=== PATIENT | male | born 1965 | race Two or more races ===

== ENCOUNTER → 2022-03-18 11:23 | Outpatient (REF) | payer MEDICAID, SELFPAY ==
--- NOTE | 2022-03-18 11:28 | CA_ITS ---
Transthoracic Echocardiogram Patient (Last, First, Middle): Dany Ryan, Gender: Male Date of : 1965 Age: 57 Procedure Date: 03/18/2022 Procedure Type: Transthoracic Echocardiogram Location: OP Height: 175.26 cm Weight: 79.38 kg BSA: 1.95 m2 Heart Rate: bpm BP: 130 / 70 mmHg Training Analyst: MARCELLA Pruett MD: [facility] Analog Device Designer: Georgi Bernard MD Symptoms: R94.31 ABNORMAL EKG Study Quality: Good ECG Rhythm: Sinus Conclusions: - 1. [id number] LV systolic dysfunction with LVEF of 40 45% with impaired relaxation filling pattern 2. Normal cardiac valvular Doppler 3. Normal RV systolic pressure 4. No pericardial effusion Findings Left Ventricle Normal left ventricular cavity size. There is normal left ventricular wall thickness. The left ventricular systolic function is mild to moderately decreased. The visually estimated ejection fraction is between 40-45%. Spectral Doppler is indicative of an impaired relaxation filling pattern. E/E prime ratio is between 8 and 15 consistent with indeterminate filling pressures. Right Ventricle Normal right ventricular cavity size and systolic function. Atria The left atrium is normal in size. There is no evidence of interatrial shunt. The right atrium is normal in size. Aortic Valve Normal aortic valve structure and function. There is no aortic valve stenosis. There is no aortic valve regurgitation. Mitral Valve Normal mitral valve structure and function. There is trace mitral valve regurgitation. There is no mitral valve stenosis. Pulmonic Valve The pulmonic valve is likely normal. There is trace to mild pulmonic valve regurgitation. Tricuspid Valve Normal tricuspid valve structure. There is trace tricuspid valve regurgitation. The right ventricular systolic pressure is normal. The right ventricular systolic pressure is 19 mmHg. There is no evidence of pulmonary hypertension. Great Vessels All visible segments of the aorta are normal in size. The pulmonary artery was not well visualized. Venous The inferior vena cava is normal in size and collapses greater than 50% with inspiration. Pericardium/Pleural There is no evidence of pericardial effusion. Prior Study Comparison no previous study in the last 5 years for comparison. Compared to study from 2013, LV systolic function is reduced Measurements 2D Linear Measurements IVSd: 1.02 0.6-0.9/0.6-1.0 cm LVIDd: 5.35 3.9-5.3/4.2-5.9 cm LVIDd Index: 2.74 2.4-3.2/2.2-3.1 cm/m2 LVIDs: 4.03 2.0-3.6 cm LVPWd: 1.02 0.7-1.1 cm LA Diam: 3.70 2.7-3.8/3.0-4.0 cm LAIDs Index: 1.90 1.5-2.3 cm/m2 LV Mass: 260.47 67-162/88-224 g LV Mass Index: 133.57 43-95/49-115 g/m2 LVOT Diam: 2.20 3.0+(-)1.3 cm 2D Systolic Function EF 4C: 41.40 >55% EF 2C: 44.10 >55% EF BiP: 43.30 >55% Mitral Valve MV Pk E: 0.61 MV PK A: 0.92 MV Decel Time: 183.00 E/A: 0.70 E'Lateral: 7.40 E'Medial: 4.90 E/E' Med: 12.40 E/E' Lat: 8.20 PHT: 54.00 MVA PHT: 4.07 Decel Hall: 3.32 Aortic Valve AoV Pk Zhen: 1.16 AoV Mn Zhen: 0.77 AoV VTI: 0.20 AoV Pk Grad: 5.00 Aov Mn Grad: 3.00 MARIBETH Cont.VTI: 3.17 LVOT LVOT Pk Zhen: 0.86 LVOT Mn Zhen: 0.53 LVOT VTI: 0.17 LVOT Pk Grad: 3.00 LVOT Mn Grad: 1.00 LVOT Diam: 2.20 LVOT Area: 3.80 Diastolic Function MV Pk E: 0.61 MV Pk A: 0.92 E/A: 0.70 E'Medial: 4.90 E/E' Med: 12.40 E' Laterial: 7.40 E/E' Lat: 8.20 Right Ventricle TAPSE (mm): 20.00 TVS' Zhen: 12.60 Tricuspid Valve TR Pk Zhen: 2.00 TR Pk Grad: 16.00 RA Press: 3.00 RVSP: 19.00 Great Vessels Aorta Sinus of Valsalva: 3.48 2.0-3.[address] Ridge: 2.95 1.7-3.4 cm Ao Asc: 3.40 2.1-3.4 cm Ao Arch: 2.40 Updated in Other Vendor System with Status of Final Georgi Bernard MD electronically signed on 03/18/2022 4:40:27 PM with status of Final
== END ==
LOC: HO.CARD 11:23
PROVIDERS: PCP Registered Nurse; Visit Provider Registered Nurse
DX: R94.31 Abnormal electrocardiogram [ECG] [EKG] (principal)
CPT/HCPCS: 93306

== ENCOUNTER 2022-04-08 20:23 | Emergency (ER) | payer MEDICAID, SELFPAY ==
[2022-04-08 20:38] VITALS: BP 145/80; PULSE 87; O2SAT 100
--- NOTE | 2022-04-08 21:52 | PC.NURSE ---
pt not in waiting room at this time.
== END 2022-04-08 23:30 | disposition left against medical advice (07) ==
PROVIDERS: Emergency Provider Emergency Medicine
DX: Z91.81 History of falling (principal)

== ENCOUNTER 2022-04-09 09:51 | Emergency (ER) | payer MEDICAID, SELFPAY ==
--- NOTE | ~2022-04-09 | XR_ITS ---
EXAMINATION: XR RIBS, LEFT CLINICAL INFORMATION: Status post fall. Rib pain. COMPARISON: None TECHNIQUE: Frontal, oblique views of the left hemithoracic ribs and frontal view of the chest were obtained. The site of the left hemithoracic rib pain as was pointed out by the patient was marked with a cutaneous BB marker corresponding to the lower left hemithorax. FINDINGS: Lungs are clear. No consolidation, pneumothorax, or pleural effusion. The cardiomediastinal silhouette and pulmonary vasculature are normal. Ribs are intact. No fractures are identified. Incidental note is made of severe osteoarthrosis at the right glenohumeral joint. XR/XR ribs LT min 3V w CXR1V IMPRESSION: 1. No radiographic evidence of any displaced left lower hemithoracic rib fracture or hemopneumothorax or lung contusion. 2. Severe osteoarthrosis at the right glenohumeral joint.
--- NOTE | ~2022-04-09 | CT_ITS ---
CT HEAD WITHOUT IV CONTRAST CT MAXILLOFACIAL WITHOUT IV CONTRAST INDICATION: Status post fall. COMPARISON: Head CT 03/21/2018. TECHNIQUE: Multidetector CT acquisitions of the head, maxillofacial region, and cervical spine were obtained without IV contrast. Multiplanar reformats were acquired and utilized for image interpretation. This CT examination was performed using dose optimization techniques as appropriate, variously including the following: *Automated exposure control *Adjustment of mA and/or kV according to patient size (this includes techniques or standardized protocols for targeted exams where dose is matched to indication/reason for exam; i.e. extremities or head) *Use of iterative reconstruction technique FINDINGS: HEAD: Chronic infarct involving the right putamen and escobar radiata. Chronic low attenuation within the brainstem is unchanged. There is no intracranial hemorrhage, hydrocephalus, extra-axial surface collection, midline shift, or other herniation pattern. Tyler to white matter differentiation is diffusely maintained without evidence of an evolved acute territorial infarct. The basilar cisterns are preserved. No significant soft tissue abnormality. No acute osseous abnormality. The paranasal sinuses and the mastoid air cells are well aerated. MAXILLOFACIAL: There is a displaced fracture involving the right mandibular condylar head extending to the pterygoid fovea. The right mandibular condyle fracture fragment is subluxed anteriorly with relation to the glenoid fossa. There is an old healed fracture of the left mandible with no definite additional acute mandibular fractures are identified however assessment is limited by the degree of motion artifact on the maxillofacial CT study. Consider a repeat CT study given the limitations of this exam in assessing for additional fractures given the degree of motion. CT/CT facial bones wo con IMPRESSION: -There is a displaced fracture involving the right mandibular condylar head extending to the pterygoid fovea. The right mandibular condyle fracture fragment is subluxed anteriorly with relation to the glenoid fossa. There is an old healed fracture of the left mandible with no definite additional acute mandibular fractures are identified however assessment is limited by the degree of motion artifact on the maxillofacial CT study. Consider a repeat CT study given the limitations of this exam in assessing for additional fractures given the degree of motion. - No acute intracranial findings. No acute hemorrhage. Chronic ischemic changes as described.
[2022-04-09 10:02] VITALS: BP 153/89; PULSE 89; RESP 19; TEMP 36.6; O2SAT 98; BMI 25.8
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
[2022-04-09] MEDS: Acetaminophen 325 MG TABLET 975 MG PO (12:57)
[2022-04-09] MEDS: Diphth,Pertus(ACell),Tet Adult 0.5 ML SYRINGE IM (14:13)
== END 2022-04-09 14:21 | disposition home or self-care (01) ==
PROVIDERS: Emergency Provider Emergency Medicine
DX: S02.611A Fracture of condylar process of right mandible, initial encounter for closed fracture (principal); S00.81XA Abrasion of other part of head, initial encounter; W01.0XXA Fall on same level from slipping, tripping and stumbling without subsequent striking against object, initial encounter; Y93.01 Activity, walking, marching and hiking; Y92.410 Unspecified street and highway as the place of occurrence of the external cause; Y99.9 Unspecified external cause status
CPT/HCPCS: 70450; 70486; 71101; 90471; 90715; 99282; 99283; 99284

== ENCOUNTER 2022-10-28 13:49 | Outpatient (REF) | payer MEDICAID, SELFPAY ==
[2022-10-28 14:19] LABS: MANUAL DIFF FLAG NO
[2022-10-28 14:50] LABS: Basophils Percent Auto 0.3 % (0-2); Eosinophils Absolute Auto 0.2 X10*3/uL (0.0-0.4); Eosinophils Percent Auto 2.8 % (0-4); Hematocrit 40.4 % (42.0-52.0); Hemoglobin 13.9 g/dl (14.0-18.0); Imm Gran Abs Auto 0.02 X10*3/uL (0.00-0.03); Imm Gran Pct Auto 0.3 % (0.0-0.4); Lymphocytes Absolute Auto 1.5 X10*3/uL (1.2-4.9); Lymphocytes Percent Auto 24.1 % (20-40); Mean Corpuscular HGB Conc 34.4 g/dl (31.0-36.0); Mean Corpuscular Hemoglobin 30.7 pg (27.0-33.0); Mean Corpuscular Volume 89.2 fL (80.0-98.0); Mean Platelet Volume 11.4 fL (9.4-12.4); Monocytes Absolute Auto 0.5 X10*3/uL (0.1-1.2); Monocytes Percent Auto 7.2 % (2-11); Neutrophils Absolute Auto 4.2 x10*3/uL (2.0-8.3); Neutrophils Percent Auto 65.3 % (45-73); Platelet Count 170 X10*3/uL (160-400); Red Blood Count 4.53 X10*6/uL (4.60-5.80); Red Cell Distribution Width 11.8 % (11.0-16.0); White Blood Count 6.4 X10*3/uL (4.8-10.8)
[2022-10-28 14:54] LABS: Appearance Urine Clear; Color Urine Yellow; Glucose Urine UA >=1000 mg/dL (Negative); Leukocyte Esterase Urine Negative (Negative); Nitrite Urine Negative (Negative); PH 5.5 (5.0-9.0); Specific Gravity - Urine 1.025 (1.005-1.025); UMIC TRIGGER UA YES; Urine Blood Trace (Negative); Urine Ketones Negative (Negative); Urine Protein 300 (3+) mg/dL (Neg-Trace)
[2022-10-28 14:57] LABS: Bacteria Urine None Seen (None Seen); Hyaline Casts Urine 0-2 /LPF (0-2); RBC Urine 0-2 /HPF (0-2); Squamous Epithelial Cell Urine 0-2 /HPF (0-2); WBC Urine 0-5 /HPF (0-5)
[2022-10-28 15:21] LABS: Albumin Level 3.5 g/dL (3.5-5.0); Anion Gap 11 (12-20); Blood Urea Nitrogen 25 mg/dL (9-16); Calcium 9.2 mg/dL (8.4-10.2); Carbon Dioxide 28 mmol/L (22-29); Chloride 100 mmol/L (96-108); Estimated Glomerular Filt Rate 46; Magnesium 2.1 mg/dL (1.6-2.6); Phosphorus 4.7 mg/dL (2.7-4.5); Potassium 4.7 mmol/L (3.3-5.1); Sodium 134 mmol/L (135-145)
[2022-10-28 15:27] LABS: Creatinine Urine 54.93 mg/dL; Protein/Creatinine Ratio, Ur 3.06 (<0.2); Total Protein Urine Random 168 mg/dL (<12)
[2022-10-31 15:39] LABS: PTHI 126 pg/mL (16-77)
== END 2022-10-28 13:50 | disposition home or self-care (01) ==
LOC: HO.LAB 13:49
PROVIDERS: Visit Provider Internal Medicine Nephrology
DX: I12.9 Hypertensive chronic kidney disease with stage 1 through stage 4 chronic kidney disease, or unspecified chronic kidney disease (principal); E11.22 Type 2 diabetes mellitus with diabetic chronic kidney disease; N18.31 Chronic kidney disease, stage 3a; R80.1 Persistent proteinuria, unspecified
CPT/HCPCS: 36415; 80051; 81001; 82040; 82043; 82310; 82565; 83735; 83970; 84100; 84156; 84520; 85025; 87086

== ENCOUNTER 2023-07-07 09:48 | Outpatient (REF) | payer MEDICAID, SELFPAY ==
[2023-07-07 12:49] LABS: Alanine Aminotransferase 21 U/L (0-40); Albumin Level 3.5 g/dL (3.5-5.0); Alkaline Phosphatase 87 U/L (39-117); Anion Gap 13 (12-20); Aspartate Amino Transferase 23 U/L (5-37); Bilirubin Total 0.3 mg/dL (0.0-1.0); Blood Urea Nitrogen 20 mg/dL (9-16); Calcium 9.3 mg/dL (8.4-10.2); Carbon Dioxide 23 mmol/L (22-29); Chloride 103 mmol/L (96-108); Cholesterol 200 mg/dL; Estimated Glomerular Filt Rate 53; Glucose Random 307 mg/dL (60-115); HDL Cholesterol 56 mg/dL; LDL Cholesterol Calculated 95 mg/dl; Potassium 4.3 mmol/L (3.3-5.1); Sodium 135 mmol/L (135-145); Total Protein 7.1 g/dL (6.5-8.0); Triglycerides 249 mg/dL
[2023-07-07 13:04] LABS: Creatinine Urine 41.03 mg/dL; Microalbum/Creatinine Ratio Ur 2510.3 ug/mg cr
== END 2023-07-07 09:49 | disposition home or self-care (01) ==
LOC: HO.HHCL 09:48
PROVIDERS: Visit Provider Registered Nurse
DX: E11.22 Type 2 diabetes mellitus with diabetic chronic kidney disease (principal); N18.30 Chronic kidney disease, stage 3 unspecified; Z79.4 Long term (current) use of insulin
CPT/HCPCS: 36415; 80053; 80061; 82043

== ENCOUNTER 2024-02-20 13:18 | Outpatient (REF) | payer MEDICAID, SELFPAY ==
[2024-02-20 13:37] LABS: MANUAL DIFF FLAG NO
[2024-02-20 14:40] LABS: Appearance Urine Clear; Color Urine Yellow; Glucose Urine UA 250 mg/dL (Negative); Leukocyte Esterase Urine Negative (Negative); Nitrite Urine Negative (Negative); PH 5.5 (5.0-9.0); Specific Gravity - Urine 1.015 (1.005-1.025); UMIC TRIGGER UA YES; Urine Blood Negative (Negative); Urine Ketones Negative (Negative); Urine Protein 300 (3+) mg/dL (Neg-Trace)
[2024-02-20 14:43] LABS: Basophils Percent Auto 0.3 % (0-2); Eosinophils Absolute Auto 0.1 X10*3/uL (0.0-0.4); Eosinophils Percent Auto 1.8 % (0-4); Hematocrit 36.7 % (42.0-52.0); Hemoglobin 12.5 g/dl (14.0-18.0); Imm Gran Abs Auto 0.03 X10*3/uL (0.00-0.03); Imm Gran Pct Auto 0.5 % (0.0-0.4); Lymphocytes Absolute Auto 1.2 X10*3/uL (1.2-4.9); Lymphocytes Percent Auto 17.9 % (20-40); Mean Corpuscular HGB Conc 34.1 g/dl (31.0-36.0); Mean Corpuscular Hemoglobin 31.2 pg (27.0-33.0); Mean Corpuscular Volume 91.5 fL (80.0-98.0); Mean Platelet Volume 11.1 fL (9.4-12.4); Monocytes Absolute Auto 0.4 X10*3/uL (0.1-1.2); Monocytes Percent Auto 6.6 % (2-11); Neutrophils Absolute Auto 4.8 x10*3/uL (2.0-8.3); Neutrophils Percent Auto 72.9 % (45-73); Platelet Count 148 X10*3/uL (160-400); Red Blood Count 4.01 X10*6/uL (4.60-5.80); Red Cell Distribution Width 11.8 % (11.0-16.0); White Blood Count 6.5 X10*3/uL (4.8-10.8)
[2024-02-20 14:44] LABS: Bacteria Urine None Seen (None Seen); Hyaline Casts Urine 0-2 /LPF (0-2); RBC Urine 0-2 /HPF (0-2); Squamous Epithelial Cell Urine 0-2 /HPF (0-2); WBC Urine 0-5 /HPF (0-5)
[2024-02-20 15:27] LABS: Parathyroid Hormone Intact 117.8 pg/mL (8.7-77.1)
[2024-02-20 15:30] LABS: Alanine Aminotransferase 20 U/L (0-40); Albumin Level 3.3 g/dL (3.5-5.0); Alkaline Phosphatase 79 U/L (39-117); Anion Gap 13 (12-20); Aspartate Amino Transferase 21 U/L (5-37); Bilirubin Total 0.2 mg/dL (0.0-1.0); Blood Urea Nitrogen 25 mg/dL (9-16); Carbon Dioxide 22 mmol/L (22-29); Chloride 106 mmol/L (96-108); Estimated Glomerular Filt Rate 51; Glucose Random 192 mg/dL (60-115); Iron 62 mcg/dL (45-160); Magnesium 1.9 mg/dL (1.6-2.6); Percent Iron Saturation 29 % (15-50); Phosphorus 3.6 mg/dL (2.7-4.5); Sodium 136 mmol/L (135-145); Total Iron Binding Capacity 217 mcg/dL (228-428); Total Protein 6.5 g/dL (6.5-8.0); Unsaturated Iron Binding 155 ug/dL
== END 2024-02-20 13:19 | disposition home or self-care (01) ==
LOC: HO.LAB 13:18
PROVIDERS: Visit Provider Internal Medicine Nephrology
DX: E11.22 Type 2 diabetes mellitus with diabetic chronic kidney disease (principal); R80.1 Persistent proteinuria, unspecified; N18.31 Chronic kidney disease, stage 3a
CPT/HCPCS: 36415; 80053; 81001; 83540; 83735; 83970; 84100; 85025

== ENCOUNTER 2024-03-15 12:41 | Outpatient (REF) | payer MEDICAID, SELFPAY ==
--- NOTE | ~2024-03-15 | XR_ITS ---
EXAMINATION: XR CERVICAL SPINE CLINICAL INFORMATION: Unintentional weight loss in patient with smoking history and chronic neck pain. COMPARISON: None available. TECHNIQUE: 5 views of the cervical spine, inclusive of flexion and extension views, were obtained. The patient does not want to remove her earrings. FINDINGS: The density odontoid is obscured on the open-mouth view. On the lateral view, the patient's earrings obscure C2. No fracture. Prevertebral soft tissues are within normal limits. There is mild disc space narrowing at C3-C4 and C5-C6 and C6-C7 with some marginal osteophyte formation. There is mild retrolisthesis of C3 respect to C4 there is straightening of the usual cervical lordosis which can be seen with muscle spasm or be due to patient positioning. There is multilevel narrowing of neural foramina. XR/XR cervical spine 5V IMPRESSION: 1. Multilevel degenerative disc disease. 2. Straightening of the usual cervical lordosis which can be seen with muscle spasm or be due to patient positioning. 3. Mild retrolisthesis of C3 respect to C4.
--- NOTE | ~2024-03-15 | XR_ITS ---
EXAMINATION: XR CHEST CLINICAL INFORMATION: Unintentional weight loss in patient with smoking history and chronic neck pain COMPARISON: PA chest 04/09/2022 TECHNIQUE: 2 views of the chest were obtained. FINDINGS: No significant abnormality is noted involving the heart, lungs, mediastinum or soft tissues. THERE IS SEVERE DEGENERATIVE CHANGE OF THE RIGHT GLENOHUMERAL JOINT with [id number] appearance and subchondral cystic formation, worse since 04/09/2022 XR/XR chest 2V IMPRESSION: 1. No acute cardiopulmonary disease. 2. SEVERE DEGENERATIVE CHANGE OF THE RIGHT GLENOHUMERAL JOINT.
[2024-03-15 16:02] LABS: MANUAL DIFF FLAG NO
[2024-03-15 16:32] LABS: Eosinophils Absolute Auto 0.1 X10*3/uL (0.0-0.4); Eosinophils Percent Auto 2.2 % (0-4); Hematocrit 35.1 % (42.0-52.0); Lymphocytes Absolute Auto 1.1 X10*3/uL (1.2-4.9); Lymphocytes Percent Auto 18.4 % (20-40); Mean Corpuscular HGB Conc 34.2 g/dl (31.0-36.0); Mean Corpuscular Hemoglobin 31.1 pg (27.0-33.0); Mean Corpuscular Volume 90.9 fL (80.0-98.0); Monocytes Absolute Auto 0.3 X10*3/uL (0.1-1.2); Monocytes Percent Auto 5.9 % (2-11); Neutrophils Absolute Auto 4.3 x10*3/uL (2.0-8.3); Neutrophils Percent Auto 73.5 % (45-73); Platelet Count 158 X10*3/uL (160-400); Red Blood Count 3.86 X10*6/uL (4.60-5.80); Red Cell Distribution Width 12.1 % (11.0-16.0); White Blood Count 5.8 X10*3/uL (4.8-10.8)
[2024-03-15 16:45] LABS: Alanine Aminotransferase 22 U/L (0-40); Albumin Level 3.1 g/dL (3.5-5.0); Alkaline Phosphatase 75 U/L (39-117); Anion Gap 11 (12-20); Aspartate Amino Transferase 21 U/L (5-37); Bilirubin Total 0.3 mg/dL (0.0-1.0); Blood Urea Nitrogen 19 mg/dL (9-16); Calcium 8.5 mg/dL (8.4-10.2); Carbon Dioxide 25 mmol/L (22-29); Chloride 108 mmol/L (96-108); Estimated Glomerular Filt Rate > 60; Glucose Random 259 mg/dL (60-115); Potassium 4.1 mmol/L (3.3-5.1); Sodium 140 mmol/L (135-145)
[2024-03-15 16:53] LABS: Estimated Average Glucose 183 mg/dL
[2024-03-16 07:27] LABS: HIV AB/AG Nonreactive (Nonreactive); HIV Num 1 0.07 S/CO (0.00-0.99)
[2024-03-16 10:54] LABS: RPR Rapid Plasma Reagin NON-REACTIVE (NON-REACTIVE)
== END 2024-03-15 12:42 | disposition home or self-care (01) ==
LOC: HO.HHCL 12:41
PROVIDERS: Visit Provider Registered Nurse
DX: Z11.4 Encounter for screening for human immunodeficiency virus [HIV] (principal); M54.2 Cervicalgia; R63.4 Abnormal weight loss; E11.22 Type 2 diabetes mellitus with diabetic chronic kidney disease; N18.30 Chronic kidney disease, stage 3 unspecified; Z79.4 Long term (current) use of insulin; Z87.891 Personal history of nicotine dependence
CPT/HCPCS: 36415; 71046; 72050; 80053; 83036; 84443; 85025; 86592; 87389

== ENCOUNTER 2024-03-23 11:50 | Outpatient (REF) | payer MEDICAID, SELFPAY ==
[2024-03-23 13:43] LABS: Immature Retic Fraction 3.7 % (2.3-13.4); Retic HGB Equivalent 37.3 pg (30.0-35.0); Reticulocyte Percent 0.7 % (0.5-1.8); Reticulocytes Absolute 0.029 X10*6/uL (0.026-0.095)
[2024-03-23 14:20] LABS: Iron 73 mcg/dL (45-160); Percent Iron Saturation 35 % (15-50); Total Iron Binding Capacity 206 mcg/dL (228-428); Unsaturated Iron Binding 133 ug/dL
[2024-03-23 14:24] LABS: Ferritin 82 ng/mL (20-250)
== END 2024-03-23 11:51 | disposition home or self-care (01) ==
LOC: HO.HHCL 11:50
PROVIDERS: Visit Provider Registered Nurse
DX: D50.9 Iron deficiency anemia, unspecified (principal)
CPT/HCPCS: 36415; 82728; 83540; 85045

== ENCOUNTER 2024-05-29 06:55 | Emergency (ER) | payer MEDICAID, SELFPAY ==
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
--- NOTE | ~2024-05-29 | CT_ITS ---
EXAMINATION: CT CERVICAL SPINE WITHOUT CONTRAST CLINICAL INFORMATION: Neck trauma COMPARISON: 03/15/2024 TECHNIQUE: Thin section axial imaging with sagittal coronal reformats. This CT examination was performed using dose optimization techniques as appropriate, variously including the following: *Automated exposure control *Adjustment of mA and/or kV according to patient size (this includes techniques or standardized protocols for targeted exams where dose is matched to indication/reason for exam; i.e. extremities or head) *Use of iterative reconstruction technique DLP: 381 mGy-cm FINDINGS: There is anterior spondylitic change observed at C5-C6 and C6-C7. No fracture or destructive process. No significant encroachment on the spinal canal. The prevertebral soft tissues are normal. There is elongation of the right lobe of the thyroid. There is atherosclerotic calcification in the right and left common carotid bulbs. CT/CT cervical spine wo IV con IMPRESSION: Degenerative change. No acute findings. Fleischner guidelines were followed.
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
[2024-05-29 07:01] VITALS: BP 134/76; PULSE 74; O2SAT 98
[2024-05-29 07:04] VITALS: BP 131/71; PULSE 66; RESP 18; TEMP 37.2; O2SAT 98; BMI 21.5
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
[2024-05-29] MEDS: Cyclobenzaprine HCl 10 MG TABLET PO (08:07)
[2024-05-29 10:04] LABS: Glucose, Whole Blood 147 mg/dL (60-115)
[2024-05-29 10:47] VITALS: BP 131/71; PULSE 66; RESP 18; TEMP 37.2
== END 2024-05-29 10:58 | disposition home or self-care (01) ==
PROVIDERS: Emergency Provider Emergency Medicine; PCP Registered Nurse
DX: S13.4XXA Sprain of ligaments of cervical spine, initial encounter (principal); S39.012A Strain of muscle, fascia and tendon of lower back, initial encounter; V43.52XA Car driver injured in collision with other type car in traffic accident, initial encounter; Y93.9 Activity, unspecified; Y92.410 Unspecified street and highway as the place of occurrence of the external cause; Y99.9 Unspecified external cause status; R07.81 Pleurodynia; M54.2 Cervicalgia; E11.22 Type 2 diabetes mellitus with diabetic chronic kidney disease; N18.9 Chronic kidney disease, unspecified; Z86.73 Personal history of transient ischemic attack (TIA), and cerebral infarction without residual deficits
CPT/HCPCS: 71101; 72100; 72125; 82947; 99284

== ENCOUNTER 2024-08-10 14:13 | Outpatient (AMB) | payer MEDICAID, SELFPAY ==
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
[2024-08-10 14:28] VITALS: BP 130/70; PULSE 80; O2SAT 97
== END 2024-08-10 15:05 | disposition home or self-care (01) ==
PROVIDERS: PCP Registered Nurse; Visit Provider Nurse Practitioner Family
DX: M54.2 Cervicalgia (principal); G89.29 Other chronic pain; M50.30 Other cervical disc degeneration, unspecified cervical region; M47.812 Spondylosis without myelopathy or radiculopathy, cervical region; M62.838 Other muscle spasm
CPT/HCPCS: 99204

== ENCOUNTER → 2024-08-10 14:13 | Outpatient (BNVA) | payer MEDICAID, SELFPAY | PROVIDERS: PCP Registered Nurse; Visit Provider Nurse Practitioner Family | DX: M50.30 Other cervical disc degeneration, unspecified cervical region (principal); M47.812 Spondylosis without myelopathy or radiculopathy, cervical region; M62.838 Other muscle spasm; G89.29 Other chronic pain | CPT/HCPCS: 99212 ==

== ENCOUNTER 2024-09-13 06:07 | Outpatient (REF) | payer MEDICAID, SELFPAY | END 2024-09-13 06:08 | disposition home or self-care (01) | LOC: CF 06:07 | PROVIDERS: Visit Provider Internal Medicine | DX: M47.812 Spondylosis without myelopathy or radiculopathy, cervical region (principal) | CPT/HCPCS: 64490; 64491; J2795; Q9967 ==

== ENCOUNTER 2024-09-13 12:42 | Outpatient (AMB) | payer MEDICAID, SELFPAY ==
--- NOTE | 2024-09-13 12:46 | A.OFFVIS_ITS ---
Vital Signs 09/13/24 12:47 09/13/24 13:04 BP 160/84 H 180/98 H Blood Pressure Location Lt brachial Lt brachial Position Sitting Sitting Pulse 76 86 Pulse Source Pulse Oximeter Pulse Oximeter Pulse Oximetry (%) 96 99 Oxygen Delivery Method Room Air Room Air Intake Visit Reasons: Left Dx C4-C5-C6 MBB Allergies codeine [CODEINE] Allergy (Intermediate, Verified 08/10/24 14:23) HIVES HPI HPI Left Dx C4-C5-C6 MBB: Details: Patient presents for scheduled procedure. Denies any recent cough, cold, infection, fever or other significant changes in medical history since last office visit. [facility] Medical History (Updated 08/13/24 @ 21:55 by YENIFER Brito) Paresthesia of lower extremity Unstable knee Tinea pedis Stage 3a chronic kidney disease Osteomyelitis, ankle and foot Erectile dysfunction Epilepsy Chronic neck pain Chronic low back pain Body dysmorphic disorder Diabetic foot Complicated grieving Renal osteodystrophy Proteinuria Cerebral infarction Palpitations Hypertensive disorder Hyperlipidemia History of alcoholism Stroke Diabetes CKD (chronic kidney disease) Surgical History (Updated 08/13/24 @ 21:46 by YENIFER Brito) History of implantation of penile prosthesis Previous back surgery (~1993) Social History Patient Tobacco Use Status: Tobacco use Unknown Substance Use Type: Marijuana Physical Exam Vital Signs: Last Vital Signs Pulse 86 09/13/24 13:04 BP 180/98 H 09/13/24 13:04 Pulse Ox 99 09/13/24 13:04 Oxygen Delivery Method Room Air 09/13/24 13:04 Office Procedures Cervical/Thoracic Facet Inj Details: Diagnostic Cervical Medial Branch Block, left C4, C5, C6 medial branches After obtaining written consent, pre-procedure blood pressure and pulse were recorded and are in the nursing record for review. The patient was placed in a lateral position. The respective cervical area was prepped with chloraprep and draped in sterile fashion. The skin over the target medial branch nerves was anesthetized with 0.5% lidocaine. A 25 gauge 1.5 inch needle was inserted into the target medial branch nerve under fluoroscopic guidance. No paresthesias were elicited with needle placement and aspiration was negative for blood and CSF. Next, 0.2cc of omnipaque 180 was injected to verify positioning. Next 0.5 ml 0.5% ropivicaine was injected (0.5 cc total per level). The identical procedure was performed at the remaining levels. The skin was cleansed and a sterile bandage was applied. Following the procedure the patient's vital signs were stable. The patient tolerated the procedure well and no complications were encountered. Following the procedure the patient's vital signs were stable. The patient was discharged home in good condition with post-procedural instructions. Time Out: Immediately prior to the procedure, the following was verbally confirmed that there is a signed consent form and that the correct patient, planned procedure, site and side are consistent with documentation and that necessary equipment and/or blood products are available prior to the start of the case. Complications: none EBL: <5 cc 35551 - with Fluoroscopy 48106 - second level, with Fluoroscopy Procedure code (CPT) selection complete Assessment & Plan Assessment & Plan (1) Cervical spondylosis: Code(s): M47.812 - Spondylosis without myelopathy or radiculopathy, cervical region Category: Medical Plan Patient is status post left C4, C5, C6 diagnostic medial branch blocks. Patient tolerated procedure well and was discharged home in stable condition with discharge instructions. All questions were answered. We will follow-up via telephone or in clinic to assess response to therapy. A follow-up appointment was made during today's visit. Orders: Orders FL guidance in treatment room Today M47.812 - Spondylosis without myelopathy or radiculopathy, cervical region Coding Level of Care Code Procedure Only Diagnoses Cervical spondylosis M47.812 CPT Codes Facet Injection Cervical/Thoracic - CPT: 08501 - with Fluoroscopy ([id number]) Facet Injection Cervical/Thoracic - CPT: 74723 - second level, with Fluoroscopy ([id number])
[2024-09-13 12:47] VITALS: BP 160/84; PULSE 76; O2SAT 96
[2024-09-13 13:04] VITALS: BP 180/98; PULSE 86; O2SAT 99
== END 2024-09-13 13:53 | disposition home or self-care (01) ==
LOC: HO.PMCPRC 12:42
PROVIDERS: PCP Registered Nurse; Visit Provider Internal Medicine
DX: M47.812 Spondylosis without myelopathy or radiculopathy, cervical region (principal)
CPT/HCPCS: 64490; 64491

== ENCOUNTER 2024-09-20 12:42 | Outpatient (AMB) | payer MEDICAID, SELFPAY ==
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
[2024-09-20 13:04] VITALS: BP 165/95; PULSE 79; O2SAT 98; BMI 25.1
== END 2024-09-20 13:24 | disposition home or self-care (01) ==
PROVIDERS: PCP Registered Nurse; Visit Provider Nurse Practitioner Family
DX: M54.2 Cervicalgia (principal); G89.29 Other chronic pain; M50.30 Other cervical disc degeneration, unspecified cervical region; M47.812 Spondylosis without myelopathy or radiculopathy, cervical region
CPT/HCPCS: 99213

== ENCOUNTER → 2024-09-20 12:42 | Outpatient (BNVA) | payer MEDICAID, SELFPAY | PROVIDERS: PCP Registered Nurse; Visit Provider Nurse Practitioner Family | DX: M50.30 Other cervical disc degeneration, unspecified cervical region (principal); M47.812 Spondylosis without myelopathy or radiculopathy, cervical region; G89.29 Other chronic pain | CPT/HCPCS: 99212 ==

== ENCOUNTER 2024-11-02 13:14 | Inpatient (IN) | payer MEDICAID, SELFPAY ==
--- NOTE | 2024-11-02 | ECG_ITS ---
Test Reason : SYNCOPE Blood Pressure : / mmHG Vent. Rate : 075 BPM Atrial Rate : 075 BPM P-R Int : 168 ms QRS Dur : 092 ms QT Int : 360 ms P-R-T Axes : 072 032 -26 degrees QTc Int : 402 ms Normal sinus rhythm Minimal voltage criteria for LVH, may be normal variant ( [place] product ) Nonspecific T wave abnormality Abnormal ECG When compared with ECG of 21-MAR-2018 16:48, Nonspecific T wave abnormality now evident in Lateral leads Referred By: Generic ED Physician Electronically Signed By:Fermin Hogan
--- NOTE | ~2024-11-02 | MR_ITS ---
EXAMINATION: MR BRAIN WITHOUT CONTRAST CLINICAL INFORMATION: Chronic cerebrovascular accidents. The difficulty. COMPARISON: CT head from 11/02/2024. Brain MRI from 07/10/2019. TECHNIQUE: MRI of the brain was obtained using routine sequences without contrast. FINDINGS: Moderately motion degraded exam. Small region of restricted diffusion in the deep white matter of the left escobar radiata. Associated T2 FLAIR hyperintensity. No evidence of hemorrhagic transformation. No additional restricted diffusion. No evidence of acute or chronic hemorrhagic products on heme-sensitive imaging. Chronic lacunar infarcts of the right caudate tail, bilateral lentiform nuclei, bilateral thalami, kim, and cerebellum. Scattered and partially confluent periventricular, deep white matter, and brainstem T2 FLAIR hyperintensities consistent with moderate underlying microangiopathy. Proportional prominence of the ventricles and sulcal spaces without evidence of obstructive hydrocephalus. No abnormal mass effect. No midline shift. Normal appearance of the pituitary gland. Normal positioning of the cerebellar tonsils. Normal arterial and venous vascular flow voids are present. Normal, homogeneous marrow signal. Moderate mucosal thickening of the paranasal sinuses. No signal abnormalities within the mastoids. MR/MR head/brain wo con IMPRESSION: 1. Small acute white matter infarct of the left escobar radiata. No evidence of hemorrhagic transformation. 2. Moderate underlying microangiopathy and generalized cerebral volume loss. Chronic lacunar infarcts of the deep nuclei, brainstem, and cerebellum. Electronically signed by: Isaiah Hampton DO 11/02/2024 08:51 PM EST
--- NOTE | ~2024-11-02 | CT_ITS ---
EXAMINATION: CT HEAD WITHOUT CONTRAST CLINICAL INFORMATION: fall head strike COMPARISON: head ct on 11/02/24 TECHNIQUE: Contiguous axial imaging was performed from the skull base to vertex without intravenous administration of contrast. This CT examination was performed using dose optimization techniques as appropriate, variously including the following: *Automated exposure control *Adjustment of mA and/or kV according to patient size (this includes techniques or standardized protocols for targeted exams where dose is matched to indication/reason for exam; i.e. extremities or head) *Use of iterative reconstruction technique DLP: 1010 mGy-cm RESULTS: There is no evidence of acute intracranial hemorrhage, acute large vessel infarct, midline shift or mass effect. The bright-white differentiation is preserved. There are patchy periventricular and subcortical white matter changes, which are nonspecific, but likely represent chronic microangiopathic change in a patient of this age. The ventricles and sulci are within normal limits in size and configuration. There is no evidence of hydrocephalus. There are no extraaxial collections. Osseous structures are intact. Paranasal sinuses and mastoid air cells are well aerated. CT/CT head/brain wo IV con IMPRESSION: 1. No acute intracranial pathology. 2. Chronic microangiopathic ischemic changes. Electronically signed by: Jeanette Sweet MD 11/02/2024 06:04 PM [facility]
--- NOTE | ~2024-11-02 | US_ITS ---
EXAMINATION: US EXTRACRANIAL CAROTID DUPLEX, BILATERAL CLINICAL INFORMATION: Acute stroke. COMPARISON: None available. TECHNIQUE: Real-time ultrasound and Doppler techniques (integrating B-mode 2-D vascular images, Doppler spectral analysis and color-flow Doppler imaging) were utilized to interrogate the extracranial carotid arteries, the vertebral arteries and proximal subclavian arteries bilaterally. The degree of stenosis is determined by criteria similar to NASCET. FINDINGS: Right Side: 1. There is soft and hard atherosclerotic plaque seen in the bifurcation/proximal ICA region. 2. The common carotid artery PSV proximally is 84.5 cm/s and distally 62.7 cm/s. 3. The proximal internal carotid artery velocities are 101 cm/s systolic and 28.5 cm/s diastolic. 4. The proximal external carotid artery PSV is 191 cm/s. 5. The vertebral artery shows antegrade flow. 6. The subclavian artery waveforms are normal. Left Side: 1. There is soft and hard atherosclerotic plaque seen in the bifurcation/proximal ICA region. 2. The common carotid artery PSV proximally is 107 cm/s and distally 90.1 cm/s. 3. The proximal internal carotid artery velocities are 82 cm/s systolic and 22.4 cm/s diastolic. 4. The proximal external carotid artery PSV is 101 cm/s. 5. The vertebral artery shows antegrade flow. 6. The subclavian artery waveforms are normal. 1. US/US carotid duplex BI IMPRESSION: RIGHT: Minimal, non-hemodynamically significant stenosis of the proximal right internal carotid artery corresponding to a 0-49% stenosis by velocity criteria. 2. LEFT: Minimal, non-hemodynamically significant stenosis of the proximal left internal carotid artery corresponding to a 0-49% stenosis by velocity criteria. 3. Normal antegrade flow seen in both vertebral arteries. Electronically signed by: Walter Desai MD 11/03/2024 10:54 AM [facility]
[2024-11-02 13:26] VITALS: BP 137/79; PULSE 77; RESP 18; TEMP 36.9; O2SAT 99; BMI 21.4
[2024-11-02 14:03] LABS: MANUAL DIFF FLAG NO
[2024-11-02 14:06] LABS: Basophils Percent Auto 0.3 % (0-2); Eosinophils Absolute Auto 0.1 X10*3/uL (0.0-0.4); Eosinophils Percent Auto 2.3 % (0-4); Hematocrit 34.4 % (42.0-52.0); Hemoglobin 12.3 g/dl (14.0-18.0); Imm Gran Abs Auto 0.02 X10*3/uL (0.00-0.03); Imm Gran Pct Auto 0.3 % (0.0-0.4); Lymphocytes Absolute Auto 1.2 X10*3/uL (1.2-4.9); Lymphocytes Percent Auto 20.3 % (20-40); Mean Corpuscular HGB Conc 35.8 g/dl (31.0-36.0); Mean Corpuscular Hemoglobin 31.6 pg (27.0-33.0); Mean Corpuscular Volume 88.4 fL (80.0-98.0); Mean Platelet Volume 10.1 fL (9.4-12.4); Monocytes Absolute Auto 0.4 X10*3/uL (0.1-1.2); Monocytes Percent Auto 5.9 % (2-11); Neutrophils Absolute Auto 4.3 x10*3/uL (2.0-8.3); Neutrophils Percent Auto 70.9 % (45-73); Platelet Count 152 X10*3/uL (160-400); Red Blood Count 3.89 X10*6/uL (4.60-5.80); Red Cell Distribution Width 11.8 % (11.0-16.0); White Blood Count 6.1 X10*3/uL (4.8-10.8)
[2024-11-02 14:22] LABS: Alanine Aminotransferase 20 U/L (0-40); Albumin Level 3.2 g/dL (3.5-5.0); Alkaline Phosphatase 70 U/L (39-117); Anion Gap 9 (12-20); Aspartate Amino Transferase 30 U/L (5-37); Bilirubin Total 0.2 mg/dL (0.0-1.0); Blood Urea Nitrogen 19 mg/dL (9-16); Calcium 9.1 mg/dL (8.4-10.2); Carbon Dioxide 27 mmol/L (22-29); Chloride 106 mmol/L (96-108); Creatinine Clr Calc Pharmacy 61.1; Estimated Glomerular Filt Rate > 60; Glucose Random 127 mg/dL (60-115); Potassium 4.2 mmol/L (3.3-5.1); Sodium 138 mmol/L (135-145); Total Protein 6.2 g/dL (6.5-8.0)
[2024-11-02 14:29] LABS: Troponin-I High Sensitivity 7.2 ng/L (<3.5-35.0)
--- NOTE | 2024-11-02 16:01 | ED_ITS ---
HPI - Dizziness General Chief Complaint: Dizziness Stated Complaint: DIZZINESS X 1 WEEK Time Seen by Provider: 11/02/24 16:53 History of Present Illness ED Provider: Shira CHILDS Narrative: The patient is a 59-year-old male with a history of a stroke several years ago. This is left him with primarily left-sided weakness. He lives at home. The patient says that over the last 2 weeks he has had increasing problems with a sense of dizziness and poor balance. He says that before these last 2 weeks he would normally be able to walk with a cane most of the time. During these last 2 weeks he has increasingly had to use a walker so that he does not fall down. He says that today he fell although he fell onto a pile of laundry so he did not hurt himself. After the fall his family called an ambulance and he was brought to the hospital. The patient says that he takes aspirin. He does not take any anticoagulants.. Related Data Home Medications ?Medication ?Instructions ?Recorded ?Confirmed fludrocortisone 0.1 mg tablet 0.1 mg PO DAILY 08/10/24 loratadine 10 mg tablet 10 mg PO QAM 08/10/24 Previous Rx's ?Medication ?Instructions ?Recorded cyclobenzaprine 10 mg tablet 10 mg PO TID PRN muscle spasm #20 05/29/24 tabs lidocaine 5 % topical patch 1 patch topical DAILY #30 ea 05/29/24 Allergies Allergy/AdvReac Type Severity Reaction Status Date / Time codeine [CODEINE] Allergy Intermediate HIVES Verified 11/02/24 13:29 [facility] Past Medical History Medical History Paresthesia of lower extremity Unstable knee Tinea pedis Stage 3a chronic kidney disease Osteomyelitis, ankle and foot Erectile dysfunction Epilepsy Chronic neck pain Chronic low back pain Body dysmorphic disorder Diabetic foot Complicated grieving Renal osteodystrophy Proteinuria Cerebral infarction Palpitations Hypertensive disorder Hyperlipidemia History of alcoholism Stroke Diabetes CKD (chronic kidney disease) Surgical History History of implantation of penile prosthesis Previous back surgery (~1993) Social History Social History Household Members: None Housing: Apartment Do you presently have visiting nurse or other home services: No Patient Tobacco Use Status: Never used Tobacco Smoked in Last 30 Days: No e-Cigarette/Vaping Use: Never Used Patient Interested in Nicotine Replacement: No Patient Given Instructions on How to Stop Smoking: No Second Hand Smoke Exposure: No Use of substances other than those prescribed or required for medical reasons: Yes Substance Use Type: Marijuana Substance Use Frequency: Daily Last Used Substance: Unknown Currently Displaying Signs/Symptoms of Drug Intoxication Withdrawal: No Any prior treatment program specific to substance use: No Have you been hit, kicked, punched, or otherwise hurt by someone within the past year? If so, by whom?: No Do you feel safe in your current relationship?: No Current Relationship Is there a partner from a previous relationship who is making you feel unsafe now?: No Advance Directives: No Advance Directives Information Provided: Yes Advance Directives on File: No Do you have a plan to hurt others: No Plan Recently lost weight without trying: No Eating poorly because of decreased appetite: No Nutrition Risks: On aspiration precautions Poor oral hygiene: No Physical Exam 2 Vital Signs: Vital Signs: Last Vital Signs Temp 97.5 F 11/03/24 00:00 Pulse 75 11/03/24 00:00 Resp 17 11/03/24 00:00 BP 176/99 H 11/03/24 00:00 Pulse Ox 98 11/03/24 00:00 O2 Del Method Room Air 11/03/24 00:00 BMI result Body Mass Index 21.4 Const: Other: The patient is a 59-year-old male. He looks somewhat chronically ill. He had some occasional unusual body movements that are apparently chronic. He was pleasant and cooperative. HEENT: Other: No obvious facial asymmetry. Mucous membranes moist. Eyes: Other: Pupils are round equal, extraocular movements are intact, no definite nystagmus. I felt that there was a left upper lateral visual field deficit (quadrantanopia) Neck: Neck: Yes full ROM and Yes no JVD Resp: Effort & Inspection: normal respiratory effort Auscultation: clear to auscultation bilaterally Cardio: Rate: regular rate Rhythm: regular rhythm Heart sounds: S1 normal heart sound present and S2 normal heart sound present GI: Other: Abdomen is soft and nontender Skin: Other: Skin is dry and unremarkable Neuro: Other: The patient is awake and alert with a normal mental status. He is oriented. Follows commands. Eye movements are intact. I think there may be a quadrantanopia in the left upper lateral quadrant. Facial movements seemed symmetrical. No definite aphasia or dysarthria. He has some pronator drift of the left arm. Finger-nose seemed intact bilaterally. The patient had 5/5 strength in the right leg. He had 4/5 strength in the left leg. Heel-nava was normal with the right leg. He had difficulty with the left leg. Sensation is intact. The patient has a very abnormal gait. I suspect most of his neurological deficits are old. Whether any of these are new is hard to say. NIHSS score is about 5 but this may be primarily because of old deficits. Extrem: Other: No peripheral edema Course Course Course Narrative: This is an RME done by SRAVANI Mcnulty: Additional HPI, ROS, PE not included below will be deferred to primary provider. 59-year-old male presents with EMS for complaints of dizziness and reports he fell onto his laundry. Reports he hit his head. Not on blood thinners. He is in the waiting room and upset as he is not being said, I explained to him he case should not eat until results are back and imaging is back. Patient tells me he is a diabetic and he feels like crap and he does not eat. I expressed to him we understand that and we are willing to check his sugars however he does not want his sugars checked he just states he wants to go into a room and he wants to be able to eat. He tells me he got here at 11:00 which is not true, I explained to him emergency department works by acuity level. Medications Administered Generic Name Dose Route Start Last Admin Trade Name Freq PRN Reason Stop Dose Admin Acetaminophen 650 mg 11/02/24 21:57 11/02/24 22:48 Acetaminophen 325 Mg Tablet PO 650 mg Q6H PRN Administration Pain, Mild (Pain Scale 1-3), fever or headache Atorvastatin Calcium 40 mg 11/02/24 22:05 11/02/24 22:48 Atorvastatin Calcium 40 Mg Tablet PO 40 mg BEDTIME PRATIBHA Administration Cyclobenzaprine HCl 10 mg 11/03/24 00:50 11/03/24 01:16 Cyclobenzaprine Hcl 10 Mg Tablet PO 10 mg TID PRN Administration Muscle Spasm Enoxaparin Sodium 40 mg 11/02/24 22:00 11/02/24 22:44 Enoxaparin Sodium 40 Mg/0.4 Ml Syringe SUBCUT 40 mg Q24H PRATIBHA Administration Melatonin 6 mg 11/02/24 21:57 11/02/24 22:48 Melatonin 3 Mg Tablet PO 6 mg BEDTIME PRN Administration Insomnia Sodium Chloride 3 ml 11/03/24 00:00 11/03/24 01:17 0.9 % Sodium Chloride Flush 3 Ml Syringe IVFLUSH 3 ml QSHIFT PRATIBHA Administration Discontinued Medications Generic Name Dose Route Start Last Admin Trade Name Juliet PRN Reason Stop Dose Admin Aspirin 325 mg 11/02/24 21:15 11/02/24 21:25 Aspirin 325 Mg Tablet PO 11/02/24 21:16 325 mg ONCE ONE Administration Influenza Virus Vaccine 0.5 ml 11/03/24 00:57 11/03/24 01:19 Flu Vacc [id number](6mos Up)/Pf 0.5 Ml Syringe IM 11/03/24 00:58 0.5 ml .ONCE ONE Administration Meclizine HCl 25 mg 11/02/24 21:15 11/02/24 21:25 Meclizine Hcl 25 Mg Tablet PO 11/02/24 21:16 25 mg ONCE ONE Administration Medical Decision Making Medical Decision Making MDM Narrative: The patient is a 59-year-old male with a history of previous strokes. He is on aspirin. Who presents with 2 weeks of dizziness and worsening difficulty walking. His physical exam was complicated by his pre-existing neurological deficits from prior strokes. It was hard to know which findings were new and which were chronic. His gait however was very abnormal. A noncontrast head CT was negative. An MRI of the brain was done which showed a small acute infarct in the left escobar radiata. The patient was considered for thrombolytic therapy but is not a candidate because his symptoms have been going on for several days. The patient passed a swallow eval and was given a dose of aspirin. The patient was also requesting something to help with his dizziness and so he was given a dose of meclizine. The patient will be admitted to the medical service for further evaluation. Lab Data 11/02/24 13:57 11/02/24 13:57 Labs: Lab Results 11/02/24 Range/Units 13:57 WBC 6.1 (4.8-10.8) X10*3/uL RBC 3.89 L (4.60-5.80) X10*6/uL Hgb 12.3 L (14.0-18.0) g/dl Hct 34.4 L (42.0-52.0) % MCV 88.4 (80.0-98.0) fL MCH 31.6 (27.0-33.0) pg MCHC 35.8 (31.0-36.0) g/dl RDW 11.8 (11.0-16.0) % Plt Count 152 L (160-400) X10*3/uL MPV 10.1 (9.4-12.4) fL Immature Gran % (Auto) 0.3 (0.0-0.4) % Neut % (Auto) 70.9 (45-73) % Lymph % (Auto) 20.3 (20-40) % [place] % (Auto) 5.9 (2-11) % Eos % (Auto) 2.3 (0-4) % Baso % (Auto) 0.3 (0-2) % Lymph # (Auto) 1.2 (1.2-4.9) X10*3/uL [place] # (Auto) 0.4 (0.1-1.2) X10*3/uL Eos # (Auto) 0.1 (0.0-0.4) X10*3/uL Baso # (Auto) 0.0 (0.0-0.2) X10*3/uL Abs Immat Gran (auto) 0.02 (0.00-0.03) X10*3/uL Absolute Neuts (auto) 4.3 (2.0-8.3) x10*3/uL Absolute Nucleated RBC 0.000 (0.0-0.012) X10*3/uL Nucleated RBC % (auto) 0.0 (0.0-0.2) /100WBC Sodium 138 (135-145) mmol/L Potassium 4.2 (3.3-5.1) mmol/L Chloride 106 (96-108) mmol/L Carbon Dioxide 27 (22-29) mmol/L Anion Gap 9 L (12-20) BUN 19 H (9-16) mg/dL Creatinine 1.21 (0.5-1.4) mg/dL Estim Creat Clear Calc 61.1 Estimated GFR > 60 Random Glucose 127 H (60-115) mg/dL Calcium 9.1 D (8.4-10.2) mg/dL Total Bilirubin 0.2 (0.0-1.0) mg/dL AST 30 (5-37) U/L ALT 20 (0-40) U/L Alkaline Phosphatase 70 (39-117) U/L Troponin I High Sens 7.2 (<3.5-35.0) ng/L Total Protein 6.2 L (6.5-8.0) g/dL Albumin 3.2 L (3.5-5.0) g/dL Triglycerides 102 (<150) mg/dL Cholesterol 213 H (<200) mg/dL LDL Cholesterol, Calc 129 H (<100) mg/dL HDL Cholesterol 64 (>40) mg/dL Critical Care Time Critical Care Time Critical Care Time: Yes Total Critical Care Time: 35 Attestation: The patient was critically ill with a high probability of imminent or life- threatening deterioration. ?I spent greater than 30 minutes of discontinuous time evaluating the patient, delivering critical care at the bedside, discussing evaluating data with consultants. ?Critical care time does not include time spent performing separately billable procedures or teaching. ?Time spent performing critical care with 35 minutes. Discharge Plan Discharge Clinical Impression: Stroke Patient Disposition: Admitted As Inpatient Interventions: Admission Worksheet (ED) Last Done: 11/02/24 23:23 Discharge Date/Time: 11/03/24 00:23
[2024-11-02 16:51] VITALS: BP 164/82; PULSE 87; RESP 16; TEMP 36.6; O2SAT 97
--- NOTE | 2024-11-02 16:58 | PC.NURSE ---
Pt. with slightly garbled speech. Per pt.'s daughter, pt. has hx. of three previous strokes (most recent in 2016) and his speech has been this way ever since.
--- NOTE | 2024-11-02 20:28 | PC.NURSE ---
pt returned from MRI, requested to eat. nursing swallow screen done as requested by MD. pt passed with no difficulty. pt eating at the bedside while sitting up in bed, used commode at bedside independently. no further needs at this time, call [facility] w/in reach
[2024-11-02 20:39] VITALS: BP 187/87; PULSE 79; RESP 18; TEMP 36.8; O2SAT 97
--- NOTE | 2024-11-02 21:18 | P.HPHOSP_ITS ---
History of Present Illness Date of Service: 11/02/24 Attending physician on admission: Ranjit Carver Chief Complaint: Fall at home Pt is a 59-year-old male with a PMH significant for?hx of CVA x3 in 2012 and 2016 not med compliant, non-insulin dependent type 2 diabetes, peripheral neuropathy, hx of osteomyelitis s/p multiple toe amputations bilaterally, chronic neck and back pain s/p back surgery, and CKD2 who presents to the ED complaining of dizziness for the past 2 weeks. Patient states mostly becomes dizzy when he either lays in bed or tries to get up from bed. Reports has not been having many difficulties if standing from a seated position or once he starts walking. However, patient reports becoming dizzy earlier today when hitting a punching bag. Patient reports having a ?soft? fall in his room on a pile of laundry with a head strike. Patient's family found him and called an ambulance to bring him in for further evaluation. Patient denies headache or acute vision changes. No dysarthria or difficulty word finding. Denies numbness and tingling in upper extremities; numbness and tingling chronic and at baseline in lower extremities. Denies any new or different hemiparesis or difficulty grabbing objects. No facial droop or difficulty swallowing noted. Of note, patient states has a history of 3 prior CVAs. States stopped taking an aspirin on his own sometime a year so ago. Is also not taking a statin.. Denies chest pain/pressure, palpitations. No shortness a breath or difficulty breathing. Denies fever, chills, nausea, vomiting, abdominal pain. In the ED pt was hypertensive up to 187/87, vitals otherwise stable and WNL. Labs were grossly unremarkable and WNL for patient. No leukocytosis. Stable H&H. No significant electrolyte abnormalities. Renal and hepatic function WNL. CT?of head showed no acute intracranial pathology, but chronic microangiopathic ischemic changes. MRI of brain showed small acute white matter infarct of left escobar radiata without evidence of hemorrhagic transformation. Also found moderate underlying microangiopathy and generalized cerebral volume loss with chronic lacunar infarcts in the deep nuclei, brainstem, and cerebellum. EKG demonstrated normal sinus rhythm with nonspecific T-wave inversions in V5 but no evidence of significant ST elevations or depressions. Pt was treated with meclizine and aspirin. Pt will be admitted to the hospital for treatment and further evaluation of acute CVA. Review of Systems 2 Review of Systems: Negative except for that which stated in the [facility] Medical History Paresthesia of lower extremity Unstable knee Tinea pedis Stage 3a chronic kidney disease Osteomyelitis, ankle and foot Erectile dysfunction Epilepsy Chronic neck pain Chronic low back pain Body dysmorphic disorder Diabetic foot Complicated grieving Renal osteodystrophy Proteinuria Cerebral infarction Palpitations Hypertensive disorder Hyperlipidemia History of alcoholism Stroke Diabetes CKD (chronic kidney disease) Surgical History History of implantation of penile prosthesis Previous back surgery (~1993) Social History Patient Tobacco Use Status: Tobacco use Unknown Smoked in Last 30 Days: No Use of substances other than those prescribed or required for medical reasons: Yes Substance Use Type: Marijuana Substance Use Frequency: Daily Advance Directives: No Advance Directives Information Provided: Yes Meds Allergies Allergy/AdvReac Type Severity Reaction Status Date / Time codeine [CODEINE] Allergy Intermediate HIVES Verified 11/02/24 13:29 Home Medications ?Medication ?Instructions ?Recorded ?Confirmed ?Last Taken ?Type fludrocortisone 0.1 mg tablet 0.1 mg PO DAILY 08/10/24 Unknown History loratadine 10 mg tablet 10 mg PO QAM 08/10/24 Unknown History Physical Exam 2 Vital Signs and Narrative: Vital Signs: Last Vital Signs Temp 98.2 F 11/02/24 20:39 Pulse 79 11/02/24 20:39 Resp 18 11/02/24 20:39 BP 187/87 H 11/02/24 20:39 Pulse Ox 97 11/02/24 20:39 O2 Del Method Room Air 11/02/24 20:39 BMI result Body Mass Index 21.4 General: AOx3, no acute distress Resp: CTA bilaterally CVS: S1, S2, RRR GI: +BS, NT, no distention Skin: Warm, dry Neuro: Motor grossly intact bilaterally. Sensation to light touch of upper and lower extremities bilaterally intact. Pronator drift appears negative. No nystagmus. Upper extremity strength appears symmetric and intact. Lower extremity evaluation with question of 4/5 left lower extremity strength as opposed to 5/5 right lower extremity. Some dysarthria, but appears chronic rather than acute. Extremities: No edema Psych: Appropriate affect Results Labs 11/02/24 13:57 11/02/24 13:57 Labs: Laboratory Results - last 24 hr 11/02/24 13:57 MCV 88.4 MCH 31.6 MCHC 35.8 RDW 11.8 Plt Count 152 L MPV 10.1 Immature Gran % (Auto) 0.3 Neut % (Auto) 70.9 Lymph % (Auto) 20.3 [place] % (Auto) 5.9 Eos % (Auto) 2.3 Baso % (Auto) 0.3 Lymph # (Auto) 1.2 [place] # (Auto) 0.4 Eos # (Auto) 0.1 Baso # (Auto) 0.0 Abs Immat Gran (auto) 0.02 Absolute Neuts (auto) 4.3 Absolute Nucleated RBC 0.000 Nucleated RBC % (auto) 0.0 Anion Gap 9 L Estim Creat Clear Calc 61.1 Estimated GFR > 60 Random Glucose 127 H Calcium 9.1 D Total Bilirubin 0.2 AST 30 ALT 20 Alkaline Phosphatase 70 Troponin I High Sens 7.2 Total Protein 6.2 L Albumin 3.2 L Imaging Radiologist's Impressions: Impressions Head CT 11/02/24 16:04 IMPRESSION: 1. No acute intracranial pathology. 2. Chronic microangiopathic ischemic changes. Electronically signed by: Jeanette Sweet MD 11/02/2024 06:04 PM EST RP Brain MRI 11/02/24 18:55 IMPRESSION: 1. Small acute white matter infarct of the left escobar radiata. No evidence of hemorrhagic transformation. 2. Moderate underlying microangiopathy and generalized cerebral volume loss. Chronic lacunar infarcts of the deep nuclei, brainstem, and cerebellum. Electronically signed by: Isaiah Hampton DO 11/02/2024 08:51 PM EST RP Assessment and Plan (1) Acute CVA (cerebrovascular accident): Status: Acute Plan Pt is a 59-year-old male with a PMH significant for?hx of CVA x3 in 2012 and 2016 not med compliant, non-insulin dependent type 2 diabetes, peripheral neuropathy, hx of osteomyelitis s/p multiple toe amputations bilaterally, chronic neck and back pain s/p back surgery, and CKD2 who presents to the ED complaining of dizziness for the past 2 weeks. Pt will be admitted to the hospital for treatment and further evaluation of acute CVA. Acute CVA Patient with dizziness and difficulty ambulating x2 weeks, fall at home earlier today MRI of brain showed small acute white matter infarct of left escobar radiata Patient with hx of CVA x3 in 2013 and 2016 Patient noncompliant with aspirin or statin Will start on aspirin 81 mg and atorvastatin 40 mg daily Carotid ultrasound Echocardiogram with bubble study Neurology consult PT/OT evaluation Lipid profile Monitor on telemetry Lightheadedness and dizziness Likely secondary to acute CVA Will check orthostatics tomorrow morning Meclizine 25 mg p.r.n. Puv-kwauusy-sqyzzscyb type [address] on sliding scale insulin, diabetic diet Med rec pending, not clear what other medications pt is on. Full Code Attending:?Dr. Olvera DVT Prophylaxis: Lovenox Pt will require a hospitalization of at least two nights for treatment of?acute CVA. Quality Stroke Does the patient have a stroke diagnosis?: Yes Reason for No Anti-thrombotic by Day Two: Contraindicated (Symptomatic for up to 2 weeks; unclear last known well time) VTE Prior VTE?: No VTE Risk Level:: Medical - moderate - high VTE Device Contraindication: Treatment Not Indicated VTE Drug Contraindication: N/A - Med Ordered
[2024-11-02] MEDS: Meclizine HCl 25 MG TABLET PO (21:25)
[2024-11-02] MEDS: Aspirin 325 MG TABLET PO (21:25)
[2024-11-02 21:40] LABS: Cholesterol 213 mg/dL (<200); HDL Cholesterol 64 mg/dL (>40); LDL Cholesterol Calculated 129 mg/dL (<100); Triglycerides 102 mg/dL (<150)
[2024-11-02 22:31] VITALS: BP 168/87; PULSE 79; RESP 18; TEMP 36.8; O2SAT 96
[2024-11-02] MEDS: Enoxaparin Sodium 40 MG/0.4 ML SYRINGE SUBCUT (22:44)
[2024-11-02] MEDS: Atorvastatin Calcium 40 MG TABLET PO (22:48)
[2024-11-02] MEDS: Melatonin 3 MG TABLET 6 MG PO (22:48)
[2024-11-02] MEDS: Acetaminophen 325 MG TABLET 650 MG PO (22:48)
[2024-11-03] VITALS (10 sets, daily range): BP systolic 88–187; BP diastolic 54–99; PULSE 75–90; RESP 16–20; TEMP 36.4–37; O2SAT 97–99; BMI 20.8
[2024-11-03] MEDS: Cyclobenzaprine HCl 10 MG TABLET PO ×2 (01:16→20:12)
[2024-11-03] MEDS: 0.9 % Sodium Chloride Flush 3 ML SYRINGE IVFLUSH ×2 (01:17→08:38)
[2024-11-03] MEDS: Flu Vacc TS2024-25(6mos up)/PF 0.5 ML SYRINGE IM (01:19)
--- NOTE | 2024-11-03 08:32 | PHA.MEDREC ---
Pharmacy Consult ? Medication Reconciliation Pharmacy has completed the medication reconciliation. Spoke to patient who was able to tell me he is on baby aspirin, tylenol, a kidney pill and lantus . I assume the kidney pill was his fludrocortisone as the pharmacy had many claims. However his pharmacy has no record of patient being on any kind of insulin (at least in the last two years), provider made aware.
[2024-11-03] MEDS: Aspirin Enteric Coated 81 MG TABLET.DR PO (08:38)
[2024-11-03 08:55] LABS: Estimated Average Glucose 183 mg/dL; Hemoglobin A1C 273.5622 umol/L; Total Hemoglobin (HGBA1C) 4299.6096 umol/L
[2024-11-03] MEDS: Lactated Ringers 1,000 ML 100 ML IVCONT ×2 (10:10→20:04)
--- NOTE | 2024-11-03 10:36 | PM.NEUROCN ---
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 Head CT was done that did not reveal any abnormality and then an MRI was done that revealed a small stroke and this consultation was requested. There was no associated speech or language difficulty with dizziness. Was no headache. Review of Systems Review of Systems: No recent cold or flu-like illness PMFSH Past Medical History Medical History Paresthesia of lower extremity Unstable knee Tinea pedis Stage 3a chronic kidney disease Osteomyelitis, ankle and foot Erectile dysfunction Epilepsy Chronic neck pain Chronic low back pain Body dysmorphic disorder Diabetic foot Complicated grieving Renal osteodystrophy Proteinuria Cerebral infarction Palpitations Hypertensive disorder Hyperlipidemia History of alcoholism Stroke Diabetes CKD (chronic kidney disease) Surgical History Surgical History History of implantation of penile prosthesis Previous back surgery (~1993) Social History Social History Household Members: None Housing: Apartment Do you presently have visiting nurse or other home services: No Comment: Explained fall risk measures, pt refusing bed alarm, safety checks/ rounds Patient Tobacco Use Status: Never used Tobacco Smoked in Last 30 Days: No e-Cigarette/Vaping Use: Never Used Patient Interested in Nicotine Replacement: No Patient Given Instructions on How to Stop Smoking: No Second Hand Smoke Exposure: No Use of substances other than those prescribed or required for medical reasons: Yes Substance Use Type: Marijuana Substance Use Frequency: Daily Last Used Substance: Unknown Currently Displaying Signs/Symptoms of Drug Intoxication Withdrawal: No Any prior treatment program specific to substance use: No Have you been hit, kicked, punched, or otherwise hurt by someone within the past year? If so, by whom?: No Do you feel safe in your current relationship?: No Current Relationship Is there a partner from a previous relationship who is making you feel unsafe now?: No Advance Directives: No Advance Directives Information Provided: Yes Advance Directives on File: No Do you have a plan to hurt others: No Plan Recently lost weight without trying: No Eating poorly because of decreased appetite: No Nutrition Risks: On aspiration precautions Poor oral hygiene: No Meds Allergies Allergy/AdvReac Type Severity Reaction Status Date / Time codeine [CODEINE] Allergy Intermediate HIVES Verified 11/02/24 13:29 Active Medications: Current Medications Acetaminophen (Acetaminophen 325 Mg Tablet) 650 mg PO Q6H PRN PRN Reason: Pain, Mild (Pain Scale 1-3), fever or headache Last Admin: 11/02/24 22:48 Dose: 650 mg Aspirin (Aspirin Enteric Coated 81 Mg Tablet.Dr) 81 mg PO DAILY [facility] Last Admin: 11/03/24 08:38 Dose: 81 mg Atorvastatin Calcium (Atorvastatin Calcium 40 Mg Tablet) 40 mg PO BEDTIME [facility] Last Admin: 11/02/24 22:48 Dose: 40 mg Benzonatate (Benzonatate 100 Mg Capsule) 100 mg PO TID PRN PRN Reason: Cough Calcium Carbonate (Calcium Carbonate 750 Mg Tab.Chew) 750 mg PO Q4H PRN PRN Reason: Heartburn Cyclobenzaprine HCl (Cyclobenzaprine Hcl 10 Mg Tablet) 10 mg PO TID PRN PRN Reason: Muscle Spasm Last Admin: 11/03/24 01:16 Dose: 10 mg Enoxaparin Sodium (Enoxaparin Sodium 40 Mg/0.4 Ml Syringe) 40 mg SUBCUT Q24H [facility] Last Admin: 11/02/24 22:44 Dose: 40 mg Lactated Ringer's (Lr) 1,000 mls @ 100 mls/hr IVCONT .Q10H [facility] Last Admin: 11/03/24 10:10 Dose: 100 mls/hr Magnesium Hydroxide (Milk Of Magnesia 30 Ml Oral.Susp) 30 ml PO DAILY PRN PRN Reason: Constipation Meclizine HCl (Meclizine Hcl 25 Mg Tablet) 25 mg PO Q8H PRN PRN Reason: Lightheadedness/dizziness Melatonin (Melatonin 3 Mg Tablet) 6 mg PO BEDTIME PRN PRN Reason: Insomnia Last Admin: 11/02/24 22:48 Dose: 6 mg Ondansetron HCl (Ondansetron Hcl 4 Mg/2 Ml Vial) 4 mg IVPUSH Q8H PRN PRN Reason: Nausea and Vomiting Sodium Chloride (0.9 % Sodium Chloride Flush 3 Ml Syringe) 3 ml IVFLUSH QSHIFT [facility] Last Admin: 11/03/24 08:38 Dose: 3 ml Home Medications ?Medication ?Instructions ?Recorded ?Confirmed ?Last Taken ?Type fludrocortisone 0.1 mg tablet 0.1 mg PO DAILY 08/10/24 11/03/24 Unknown History acetaminophen 500 mg tablet 1,000 mg PO Q4-6H PRN Pain 11/03/24 11/03/24 Unknown History aspirin 81 mg tablet,delayed 81 mg PO DAILY 11/03/24 11/03/24 Unknown History release Physical Exam Vital Signs: Vital Signs: Last Vital Signs Temp 98.2 F 11/03/24 07:47 Pulse 88 11/03/24 09:19 Resp 20 11/03/24 07:47 BP 88/54 L 11/03/24 09:19 Pulse Ox 98 11/03/24 07:47 O2 Del Method Room Air 11/03/24 07:47 BMI result Body Mass Index 20.8 Neuro: Other: He is alert and awake with normal spontaneity of speech fluency comprehension and affect. Speech is moderately ataxic. He has moderate bilateral [id number] ataxia. Face is symmetrical. Visual moreno are full. There is no nystagmus. Deep tendon reflexes are absent with flat plantars. Results Labs 11/02/24 13:57 11/02/24 13:57 Labs: Short CBC 11/02/24 Range/Units 13:57 WBC 6.1 (4.8-10.8) X10*3/uL Hgb 12.3 L (14.0-18.0) g/dl Hct 34.4 L (42.0-52.0) % Plt Count 152 L (160-400) X10*3/uL BMP 11/02/24 13:57 Sodium 138 Potassium 4.2 Chloride 106 Carbon Dioxide 27 BUN 19 H Creatinine 1.21 Calcium 9.1 D Liver Function 11/02/24 Range/Units 13:57 Total Bilirubin 0.2 (0.0-1.0) mg/dL AST 30 (5-37) U/L ALT 20 (0-40) U/L Alkaline Phosphatase 70 (39-117) U/L Albumin 3.2 L (3.5-5.0) g/dL MRI of brain revealed a small area of left frontal acute ischemic infarction with extensive underlying chronic ischemic disease and moderate cerebral atrophy. Assessment and Plan (1) Acute CVA (cerebrovascular accident): Status: Acute 59 years old man with uncontrolled hypertension and multiple other risk factors for stroke came to hospital for few days of nonspecific dizziness. Imaging revealed a small left frontal ischemic infarction that does not explain his dizziness. On examination he has significant cerebellar type ataxia and his brain imaging revealed significant bilateral brainstem and cerebellar chronic ischemic infarctions. His unsteadiness and ataxia might be related to old strokes this new stroke, if symptomatic, might cause aphasia but I do not see that. In any case, mainstay of management is patient education and compliance with medications with blood pressure control anti-platelet agents and statin. It is also reasonable to check his vasculature with CTA of brain and neck to assess his future stroke risk. Finally, sometime this type of strokes are cardioembolic. Procedures Date of Service Date of Service: 11/03/24
--- NOTE | 2024-11-03 14:04 | HO.PM.IMPN ---
Subjective Subjective Date of Service: 11/03/24 Interval History: ataxic; no focal weakness; no facial droop noncompliant with meds Because I'm an idiot Review of Systems Review of Systems: Yes all other systems are reviewed and are negative Physical Exam Vital Signs: Vital Signs: Last Vital Signs Temp 98.0 F 11/03/24 12:00 Pulse 89 11/03/24 12:00 Resp 20 11/03/24 12:00 BP 155/79 H 11/03/24 12:00 Pulse Ox 99 11/03/24 12:00 O2 Del Method Room Air 11/03/24 12:00 BMI result Body Mass Index 20.8 Gen: in no acute distress HEENT: sclera anicteric, moist mucus membranes Neck: supple Lungs: clear to auscultation bilaterally Heart: regular rate and rhythm, no murmurs Abd: soft, non-tender, non-distended Ext: no edema Skin: warm/well-perfused Neuro: alert and oriented x3, no pronator drift, no facial droop, no focal weakness, bilateral FTN impaired, ataxic gait Psych: appropriate affect Objective Data Active Medications Acetaminophen (Acetaminophen 325 Mg Tablet) 650 mg PO Q6H PRN PRN Reason: Pain, Mild (Pain Scale 1-3), fever or headache Last Admin: 11/02/24 22:48 Dose: 650 mg Documented By: YONIS Aspirin (Aspirin Enteric Coated 81 Mg Tablet.Dr) 81 mg PO DAILY [facility] Last Admin: 11/03/24 08:38 Dose: 81 mg Documented By: MALLORIE Atorvastatin Calcium (Atorvastatin Calcium 40 Mg Tablet) 40 mg PO BEDTIME [facility] Last Admin: 11/02/24 22:48 Dose: 40 mg Documented By: YONIS Benzonatate (Benzonatate 100 Mg Capsule) 100 mg PO TID PRN PRN Reason: Cough Calcium Carbonate (Calcium Carbonate 750 Mg Tab.Chew) 750 mg PO Q4H PRN PRN Reason: Heartburn Cyclobenzaprine HCl (Cyclobenzaprine Hcl 10 Mg Tablet) 10 mg PO TID PRN PRN Reason: Muscle Spasm Last Admin: 11/03/24 01:16 Dose: 10 mg Documented By: SHAHEEN Enoxaparin Sodium (Enoxaparin Sodium 40 Mg/0.4 Ml Syringe) 40 mg SUBCUT Q24H [facility] Last Admin: 11/02/24 22:44 Dose: 40 mg Documented By: YONIS Lactated Ringer's (Lr) 1,000 mls @ 100 mls/hr IVCONT .Q10H [facility] Last Admin: 11/03/24 10:10 Dose: 100 mls/hr Documented By: MALLORIE Magnesium Hydroxide (Milk Of Magnesia 30 Ml Oral.Susp) 30 ml PO DAILY PRN PRN Reason: Constipation Meclizine HCl (Meclizine Hcl 25 Mg Tablet) 25 mg PO Q8H PRN PRN Reason: Lightheadedness/dizziness Melatonin (Melatonin 3 Mg Tablet) 6 mg PO BEDTIME PRN PRN Reason: Insomnia Last Admin: 11/02/24 22:48 Dose: 6 mg Documented By: OYNIS Ondansetron HCl (Ondansetron Hcl 4 Mg/2 Ml Vial) 4 mg IVPUSH Q8H PRN PRN Reason: Nausea and Vomiting Sodium Chloride (0.9 % Sodium Chloride Flush 3 Ml Syringe) 3 ml IVFLUSH QSHIFT [facility] Last Admin: 11/03/24 08:38 Dose: 3 ml Documented By: MALLORIE Labs 11/02/24 13:57 11/02/24 13:57 Labs: Laboratory Results - last 24 hr 11/02/24 13:57 MCV 88.4 MCH 31.6 MCHC 35.8 RDW 11.8 Plt Count 152 L MPV 10.1 Immature Gran % (Auto) 0.3 Neut % (Auto) 70.9 Lymph % (Auto) 20.3 Kern % (Auto) 5.9 Eos % (Auto) 2.3 Baso % (Auto) 0.3 Lymph # (Auto) 1.2 Kern # (Auto) 0.4 Eos # (Auto) 0.1 Baso # (Auto) 0.0 Abs Immat Gran (auto) 0.02 Absolute Neuts (auto) 4.3 Absolute Nucleated RBC 0.000 Nucleated RBC % (auto) 0.0 Anion Gap 9 L Estim Creat Clear Calc 61.1 Estimated GFR > 60 Random Glucose 127 H Estimat Average Glucose 183 Hemoglobin A1c % 8.0 H Calcium 9.1 D Total Bilirubin 0.2 AST 30 ALT 20 Alkaline Phosphatase 70 Troponin I High Sens 7.2 Total Protein 6.2 L Albumin 3.2 L Triglycerides 102 Cholesterol 213 H LDL Cholesterol, Calc 129 H HDL Cholesterol 64 Assessment and Plan (1) Stroke: Status: Acute Plan d2 for 59yo M with hx CVA, DM2, peripheral neuropathy, hx osteomyelitis with multiple toe amputations, CKD2; noncompliant with meds; presenting with 2 wk of dizziness and found to have small left frontal ischemic acute infarct that does not explain his dizziness; but has chronic cerebellar and brainstem chronic infarctions CVA - aspirin + atorvastatin - telemetry, carotid duppler, TTE - Neuro consulted - PT/OT evaluations, likely STR transfer after medical workup - permissive hypertension for now, but chronically requires BP control DM2, A1c 8 - frederick-dose lispro, MTF upon discharge VTE ppx - enoxaparin dispo - STR In my clinical judgment, the patient requires continued inpatient hospitalization for the following reasons: CVA workup Total time managing care of this patient today: 35 minutes. Quality Stroke Does the patient have a stroke diagnosis?: Yes Reason for No Anti-thrombotic by Day Two: Contraindicated (Symptomatic for up to 2 weeks; unclear last known well time) VTE Prior VTE?: No VTE Risk Level:: Medical - moderate - high VTE Device Contraindication: Treatment Not Indicated VTE Drug Contraindication: N/A - Med Ordered
[2024-11-03] MEDS: Enoxaparin Sodium 40 MG/0.4 ML SYRINGE SUBCUT (20:06)
[2024-11-03] MEDS: Atorvastatin Calcium 40 MG TABLET PO (20:06)
[2024-11-03] MEDS: Melatonin 3 MG TABLET 6 MG PO (20:12)
[2024-11-04] VITALS (9 sets, daily range): BP systolic 114–174; BP diastolic 60–88; PULSE 76–94; RESP 14–19; TEMP 36.2–37.2; O2SAT 92–100
[2024-11-04] MEDS: 0.9 % Sodium Chloride Flush 3 ML SYRINGE IVFLUSH ×3 (02:44→18:09)
[2024-11-04] MEDS: Lactated Ringers 1,000 ML 100 ML IVCONT (06:21)
[2024-11-04] MEDS: Aspirin Enteric Coated 81 MG TABLET.DR PO (08:10)
--- NOTE | 2024-11-04 10:07 | MHC.CM.PN ---
PT REPORTS HE LIVES ALONE AND HIS DAUGHTER IS HIS DRILLER'S ASSISTANT HE HAS 49 DRILLER'S ASSISTANT HOURS PER WEEK VIA DEB HE USES A ROLLATOR FOR DME HE COMPLETED A HCP TODAY, NOW ON FILE PCP: CARMELITA LAREDO DCP: PT IS REFUSING REHAB HE WILL DC HOME WITH RESUMPTION OF DRILLER'S ASSISTANT AND NEW [facility] DAUGHTER WILL TRANSPORT
--- NOTE | 2024-11-04 10:44 | P.PNIM_ITS ---
Subjective Subjective Date of Service: 11/04/24 Interval History: ataxic no focal weakness no facial droop Review of Systems Review of Systems: Yes all other systems are reviewed and are negative Physical Exam 2 Vital Signs: Vital Signs: Last Vital Signs Temp 97.5 F 11/04/24 07:40 Pulse 88 11/04/24 07:40 Resp 18 11/04/24 07:40 BP 138/82 11/04/24 07:40 Pulse Ox 97 11/04/24 07:40 O2 Del Method Room Air 11/04/24 07:40 BMI result Body Mass Index 20.8 Gen: in no acute distress HEENT: sclera anicteric, moist mucus membranes Neck: supple Lungs: clear to auscultation bilaterally Heart: regular rate and rhythm, no murmurs Abd: soft, non-tender, non-distended Ext: no edema Skin: warm/well-perfused Neuro: alert and oriented x3, no pronator drift, no facial droop, no focal weakness, bilateral FTN impaired, ataxic gait Psych: appropriate affect Objective Data Active Medications Acetaminophen (Acetaminophen 325 Mg Tablet) 650 mg PO Q6H PRN PRN Reason: Pain, Mild (Pain Scale 1-3), fever or headache Last Admin: 11/02/24 22:48 Dose: 650 mg Documented By: YONIS Aspirin (Aspirin Enteric Coated 81 Mg Tablet.) 81 mg PO DAILY [facility] Last Admin: 11/04/24 08:10 Dose: 81 mg Documented By: CURTIS Atorvastatin Calcium (Atorvastatin Calcium 40 Mg Tablet) 40 mg PO BEDTIME [facility] Last Admin: 11/03/24 20:06 Dose: 40 mg Documented By: MALLORIE Benzonatate (Benzonatate 100 Mg Capsule) 100 mg PO TID PRN PRN Reason: Cough Calcium Carbonate (Calcium Carbonate 750 Mg Tab.Chew) 750 mg PO Q4H PRN PRN Reason: Heartburn Cyclobenzaprine HCl (Cyclobenzaprine Hcl 10 Mg Tablet) 10 mg PO TID PRN PRN Reason: Muscle Spasm Last Admin: 11/03/24 20:12 Dose: 10 mg Documented By: MALLORIE Enoxaparin Sodium (Enoxaparin Sodium 40 Mg/0.4 Ml Syringe) 40 mg SUBCUT Q24H [facility] Last Admin: 11/03/24 20:06 Dose: 40 mg Documented By: MALLORIE Fludrocortisone Acetate (Fludrocortisone Acetate 0.1 Mg Tablet) 0.1 mg PO DAILY [facility] Glucose (Glucose Gel 15 Gm Gel..Gram.) 15 gm PO Q15M PRN; Protocol PRN Reason: per Hypoglycemia Standing Ord. Lactated Ringer's (Lr) 1,000 mls @ 100 mls/hr IVCONT .Q10H [facility] Last Admin: 11/04/24 06:21 Dose: 100 mls/hr Documented By: SHANDA Dextrose (D10) 250 mls @ 750 mls/hr IV Q15M PRN; Protocol PRN Reason: per Hypoglycemia Standing Ord. Insulin Human Lispro (Insulin Lispro 100 Unit/Ml 3 Ml Vial) 0 unit SUBCUT QIDACHS [facility]; Protocol Magnesium Hydroxide (Milk Of Magnesia 30 Ml Oral.Susp) 30 ml PO DAILY PRN PRN Reason: Constipation Meclizine HCl (Meclizine Hcl 25 Mg Tablet) 25 mg PO Q8H PRN PRN Reason: Lightheadedness/dizziness Melatonin (Melatonin 3 Mg Tablet) 6 mg PO BEDTIME PRN PRN Reason: Insomnia Last Admin: 11/03/24 20:12 Dose: 6 mg Documented By: MALLORIE Metformin HCl (Metformin Hcl 500 Mg Tablet) 500 mg PO BIDWM [facility] Ondansetron HCl (Ondansetron Hcl 4 Mg/2 Ml Vial) 4 mg IVPUSH Q8H PRN PRN Reason: Nausea and Vomiting Sodium Chloride (0.9 % Sodium Chloride Flush 3 Ml Syringe) 3 ml IVFLUSH [facility] Last Admin: 11/04/24 08:13 Dose: 3 ml Documented By: HERBERTEKR Labs 11/02/24 13:57 11/02/24 13:57 Labs: ITS Impressions Head CT 11/02/24 16:04 IMPRESSION: 1. No acute intracranial pathology. 2. Chronic microangiopathic ischemic changes. Electronically signed by: Jeanette Sweet MD 11/02/2024 06:04 PM [facility] Brain MRI 11/02/24 18:55 IMPRESSION: 1. Small acute white matter infarct of the left escobar radiata. No evidence of hemorrhagic transformation. 2. Moderate underlying microangiopathy and generalized cerebral volume loss. Chronic lacunar infarcts of the deep nuclei, brainstem, and cerebellum. Electronically signed by: Isaiah Hampton DO 11/02/2024 08:51 PM EST RP Carotid Doppler Study 11/03/24 09:15 IMPRESSION: RIGHT: Minimal, non-hemodynamically significant stenosis of the proximal right internal carotid artery corresponding to a 0-49% stenosis by velocity criteria. 2. LEFT: Minimal, non-hemodynamically significant stenosis of the proximal left internal carotid artery corresponding to a 0-49% stenosis by velocity criteria. 3. Normal antegrade flow seen in both vertebral arteries. Electronically signed by: Walter Desai MD 11/03/2024 10:54 AM EST RP Assessment and Plan (1) Stroke: Status: Acute Plan d3 for 59yo M with hx CVA, DM2, peripheral neuropathy, hx osteomyelitis with multiple toe amputations, CKD2; noncompliant with meds; presenting with 2 wk of dizziness and found to have small left frontal ischemic acute infarct that does not explain his dizziness; but has chronic cerebellar and brainstem chronic infarctions CVA - aspirin + atorvastatin for secondary prevention - telemetry without AF - carotid duplex without significant stenosis - TTE tomorrow - Neuro consulted - PT/OT evaluations, likely STR transfer after medical workup - permissive hypertension for now, but chronically requires BP control with ЕКАТЕРИНА- I; will start low-dose tomorrow DM2, A1c 8 - frederick-dose lispro, start MTF VTE ppx - enoxaparin dispo - STR In my clinical judgment, the patient requires continued inpatient hospitalization for the following reasons: CVA workup Total time managing care of this patient today: 35 minutes. Quality Stroke Does the patient have a stroke diagnosis?: Yes Reason for No Anti-thrombotic by Day Two: Contraindicated (Symptomatic for up to 2 weeks; unclear last known well time) VTE Prior VTE?: No VTE Risk Level:: Medical - moderate - high VTE Device Contraindication: Treatment Not Indicated VTE Drug Contraindication: N/A - Med Ordered
[2024-11-04 11:35] LABS: Glucose, Whole Blood 197 mg/dL (60-115)
[2024-11-04] MEDS: Fludrocortisone Acetate 0.1 MG TABLET PO (11:47)
[2024-11-04] MEDS: Insulin Lispro 100 UNIT/ML 3 ML VIAL SUBCUT ×2 (11:47→21:14)
[2024-11-04 16:46] LABS: Glucose, Whole Blood 151 mg/dL (60-115)
[2024-11-04] MEDS: metFORMIN HCl 500 MG TABLET PO (18:08)
[2024-11-04 20:48] LABS: Glucose, Whole Blood 213 mg/dL (60-115)
[2024-11-04] MEDS: Enoxaparin Sodium 40 MG/0.4 ML SYRINGE SUBCUT (21:08)
[2024-11-04] MEDS: Atorvastatin Calcium 40 MG TABLET PO (21:08)
[2024-11-04] MEDS: Cyclobenzaprine HCl 10 MG TABLET PO (21:12)
[2024-11-04] MEDS: Melatonin 3 MG TABLET 6 MG PO (21:12)
[2024-11-05] VITALS (9 sets, daily range): BP systolic 94–169; BP diastolic 60–87; PULSE 84–101; RESP 14–20; TEMP 36.4–37.1; O2SAT 95–98
--- NOTE | 2024-11-05 07:00 | CA_ITS ---
Transthoracic Echocardiogram Patient (Last, First, Middle): Dany Ryan, Gender: Male Date of : 1965 Age: 59 Procedure Date: 11/05/2024 Procedure Type: Transthoracic Echocardiogram Location: [facility] [place] Height: 175.26 cm Weight: 63.96 kg BSA: 1.78 m2 Heart Rate: 86 bpm BP: 136 / 60 mmHg Gravity Manager: ANJALI Pruett MD: Fracisco LASSITER Bicycle Repair Technician: Georgi Bernard MD Symptoms: Acute stroke Study Quality: Adequate ECG Rhythm: Sinus Conclusions: - 1. Moderate to severely reduced LV ejection fraction of 30-35% with underlying regional wall motion abnormality suggestive of ischemic cardiomyopathy 2. Normal cardiac valvular Dopplers 3. No gross pericardial effusion Findings Left Ventricle Normal left ventricular cavity size. There is normal left ventricular wall thickness. The left ventricular systolic function is moderate to severely decreased. The visually estimated ejection fraction is between 30-35%. Spectral Doppler is indicative of an impaired relaxation filling pattern. Wall Motion Rest Echo Findings The mid inferior segment is hypokinetic. The inferoseptal wall, inferolateral wall, and basal inferior segment are akinetic. All other scored wall segments showed normal motion. Right Ventricle Normal right ventricular cavity size and systolic function. Atria Both atria are normal in size. no clear evidence of PFO by saline contrast study although off axis. Aortic Valve Normal aortic valve structure and function. There is no aortic valve stenosis. There is no aortic valve regurgitation. Mitral Valve Normal mitral valve structure and function. There is trace mitral valve regurgitation. There is no mitral valve stenosis. Tricuspid Valve Likely normal tricuspid valve structure and function. Tricuspid regurgitation envelope is inadequate for calculation of right ventricular systolic pressure. Great Vessels All visible segments of the aorta are normal in size. The pulmonary artery was not well visualized. Venous The inferior vena cava is normal in size and collapses greater than 50% with inspiration. Pericardium/Pleural There is no evidence of pericardial effusion. Recommendations, Care & Conclusions Consider a SOURAV if clinically appropriate. Measurements 2D Linear Measurements IVSd: 0.93 0.6-0.9/0.6-1.0 cm LVIDd: 5.30 3.9-5.3/4.2-5.9 cm LVIDd Index: 2.98 2.4-3.2/2.2-3.1 cm/m2 LVIDs: 4.61 2.0-3.6 cm LVPWd: 0.81 0.7-1.1 cm LA Diam: 2.80 2.7-3.8/3.0-4.0 cm LAIDs Index: 1.57 1.5-2.3 cm/m2 LV Mass: 207.88 67-162/88-224 g LV Mass Index: 116.79 43-95/49-115 g/m2 LVOT Diam: 2.00 3.0+(-)1.3 cm 2D Systolic Function EF 4C: 34.60 >55% EF 2C: 37.60 >55% EF BiP: 34.10 >55% Mitral Valve MV Pk E: 0.46 MV PK A: 0.80 MV Decel Time: 182.00 E/A: 0.60 E'Lateral: 7.07 E'Medial: 3.81 E/E' Med: 12.00 E/E' Lat: 6.50 PHT: 53.00 MVA PHT: 4.15 Decel [place]: 2.52 Aortic Valve AoV Pk Zhen: 0.87 AoV Pk Grad: 3.00 MARIBETH: 2.54 LVOT LVOT Pk Zhen: 0.73 LVOT Mn Zhen: 0.51 LVOT VTI: 0.12 LVOT Pk Grad: 2.00 LVOT Mn Grad: 1.00 LVOT Diam: 2.00 LVOT Area: 3.14 Diastolic Function MV Pk E: 0.46 MV Pk A: 0.80 E/A: 0.60 E'Medial: 3.81 E/E' Med: 12.00 E' Laterial: 7.07 E/E' Lat: 6.50 Right Ventricle TAPSE (mm): 21.70 TVS' Zhen: 9.68 Tricuspid Valve RA Press: 3.00 Great Vessels Aorta Sinus of Valsalva: 3.30 2.0-3.5 cm Pulmonary Veins Pulm Vein S/D 1.40 Pulmonary Valve PV Pk Zhen: 0.70 Peak PV Grad: 2.00 Updated in Other Vendor System with Status of Final Georgi Bernard MD electronically signed on 11/05/2024 3:09:58 PM with status of Final
[2024-11-05 07:34] LABS: Glucose, Whole Blood 119 mg/dL (60-115)
[2024-11-05] MEDS: metFORMIN HCl 500 MG TABLET PO ×2 (07:58→16:35)
[2024-11-05] MEDS: Aspirin Enteric Coated 81 MG TABLET.DR PO (07:58)
[2024-11-05] MEDS: 0.9 % Sodium Chloride Flush 3 ML SYRINGE IVFLUSH ×2 (07:58→15:45)
[2024-11-05] MEDS: Fludrocortisone Acetate 0.1 MG TABLET PO (07:58)
[2024-11-05] MEDS: Milk of Magnesia 30 ML ORAL.SUSP PO (08:09)
--- NOTE | 2024-11-05 10:27 | MHC.CM.PN ---
Per ROUNDS discussion, Patient is not yet medically cleared for dc (pending further w/u); PT is recommending STR and CM will continue to follow.
[2024-11-05 11:14] LABS: Glucose, Whole Blood 193 mg/dL (60-115)
[2024-11-05] MEDS: Insulin Lispro 100 UNIT/ML 3 ML VIAL SUBCUT ×2 (12:14→21:30)
[2024-11-05] MEDS: Lactulose 20 GM/30 ML SOLUTION PO (13:57)
--- NOTE | 2024-11-05 15:11 | HO.PM.IMPN ---
Subjective Subjective Date of Service: 11/05/24 Interval History: Feels dizziness has improved, denies worsening balance gait, no nausea no vomiting tolerating diet agreeable to use walker with ambulation, repeat orthostatic blood pressures positive, complaining of constipation no respond to stool softeners. Review of Systems All other system reviewed and are negative Physical Exam Vital Signs: Vital Signs: Last Vital Signs Temp 98.6 F 11/05/24 12:00 Pulse 94 11/05/24 12:00 Resp 18 11/05/24 12:00 BP 162/83 H 11/05/24 12:00 Pulse Ox 97 11/05/24 12:00 O2 Del Method Room Air 11/05/24 12:00 BMI result Body Mass Index 20.8 Const: Other: Gen: in no acute distress HEENT: sclera anicteric, moist mucus membranes Neck: supple Lungs: clear to auscultation bilaterally Heart: regular rate and rhythm, no murmurs Abd: soft, non-tender, non-distended Ext: no edema Skin: warm/well-perfused Neuro: alert and oriented x3, no pronator drift, no facial droop, no focal weakness, bilateral FTN impaired, ataxic gait Psych: appropriate affect Objective Data Active Medications Acetaminophen (Acetaminophen 325 Mg Tablet) 650 mg PO Q6H PRN PRN Reason: Pain, Mild (Pain Scale 1-3), fever or headache Last Admin: 11/02/24 22:48 Dose: 650 mg Documented By: YONIS Aspirin (Aspirin Enteric Coated 81 Mg Tablet.) 81 mg PO DAILY [facility] Last Admin: 11/05/24 07:58 Dose: 81 mg Documented By: NIKI Atorvastatin Calcium (Atorvastatin Calcium 40 Mg Tablet) 40 mg PO BEDTIME [facility] Last Admin: 11/04/24 21:08 Dose: 40 mg Documented By: CASSIE Benzonatate (Benzonatate 100 Mg Capsule) 100 mg PO TID PRN PRN Reason: Cough Calcium Carbonate (Calcium Carbonate 750 Mg Tab.Chew) 750 mg PO Q4H PRN PRN Reason: Heartburn Cyclobenzaprine HCl (Cyclobenzaprine Hcl 10 Mg Tablet) 10 mg PO TID PRN PRN Reason: Muscle Spasm Last Admin: 11/04/24 21:12 Dose: 10 mg Documented By: CASSIE Enoxaparin Sodium (Enoxaparin Sodium 40 Mg/0.4 Ml Syringe) 40 mg SUBCUT Q24H [facility] Last Admin: 11/04/24 21:08 Dose: 40 mg Documented By: CASSIE Fludrocortisone Acetate (Fludrocortisone Acetate 0.1 Mg Tablet) 0.1 mg PO DAILY [facility] Last Admin: 11/05/24 07:58 Dose: 0.1 mg Documented By: NIKI Glucose (Glucose Gel 15 Gm Gel..Gram.) 15 gm PO Q15M PRN; Protocol PRN Reason: per Hypoglycemia Standing Ord. Dextrose (D10) 250 mls @ 750 mls/hr IV Q15M PRN; Protocol PRN Reason: per Hypoglycemia Standing Ord. Insulin Human Lispro (Insulin Lispro 100 Unit/Ml 3 Ml Vial) 0 unit SUBCUT QIDACHS [facility]; Protocol Last Admin: 11/05/24 12:14 Dose: 2 unit Documented By: NIKI Magnesium Hydroxide (Milk Of Magnesia 30 Ml Oral.Susp) 30 ml PO DAILY PRN PRN Reason: Constipation Last Admin: 11/05/24 08:09 Dose: 30 ml Documented By: NIKI Meclizine HCl (Meclizine Hcl 25 Mg Tablet) 25 mg PO Q8H PRN PRN Reason: Lightheadedness/dizziness Melatonin (Melatonin 3 Mg Tablet) 6 mg PO BEDTIME PRN PRN Reason: Insomnia Last Admin: 11/04/24 21:12 Dose: 6 mg Documented By: CASSIE Metformin HCl (Metformin Hcl 500 Mg Tablet) 500 mg PO BIDWM [facility] Last Admin: 11/05/24 07:58 Dose: 500 mg Documented By: NIKI Ondansetron HCl (Ondansetron Hcl 4 Mg/2 Ml Vial) 4 mg IVPUSH Q8H PRN PRN Reason: Nausea and Vomiting Polyethylene Glycol (Polyethylene Glycol 3350 17 Gm Powd.Pack) 17 gm PO DAILY PRN PRN Reason: Constipation Sodium Chloride (0.9 % Sodium Chloride Flush 3 Ml Syringe) [facility] Last Admin: 11/05/24 07:58 Dose: 3 ml Documented By: NIKI Labs 11/02/24 13:57 11/02/24 13:57 Labs: Laboratory Results - last 24 hr 12/07/2111/04/24 11/05/24 16:42 20:43 07:31 POC Glucose 151 H 213 H 119 H 11/05/24 11:09 POC Glucose 193 H Assessment and Plan (1) Acute CVA (cerebrovascular accident): Status: Acute (2) Orthostatic hypotension: Status: Acute Plan 59yo M with hx CVA, DM2, peripheral neuropathy, hx osteomyelitis with multiple toe amputations, CKD2; noncompliant with meds; presenting with 2 wk of dizziness and found to have small left frontal ischemic acute infarct that does not explain his dizziness; but has chronic cerebellar and brainstem chronic infarctions CVA - aspirin + atorvastatin for secondary prevention - telemetry without AF - carotid duplex without significant stenosis - TTE follow report - Neuro consulted recommend to rule out embolic stroke - PT/OT recommend home PT - permissive hypertension for now, but chronically requires BP control with [id number]; noted to have orthostatic hypotension will discuss med management with Cardiology Orthostatic hypotension Started florinef/add teds /give ivf x 1 liter /cardio consult for supine hypertension DM2, A1c 8 -bs 193, frederick-dose lispro, start MTF VTE ppx - enoxaparin dispo - home with services In my clinical judgment, the patient requires continued inpatient hospitalization for the following reasons: CVA workup Quality Stroke Does the patient have a stroke diagnosis?: Yes Reason for No Anti-thrombotic by Day Two: Contraindicated (Symptomatic for up to 2 weeks; unclear last known well time) VTE Prior VTE?: No VTE Risk Level:: Medical - moderate - high VTE Device Contraindication: Treatment Not Indicated VTE Drug Contraindication: N/A - Med Ordered
--- NOTE | 2024-11-05 15:12 | MHC.CM.PN ---
PT is recommending home PT; CM will follow.
[2024-11-05] MEDS: 0.9 % Sodium Chloride 1,000 ML 100 ML IVCONT (15:44)
[2024-11-05 16:42] LABS: Glucose, Whole Blood 118 mg/dL (60-115)
[2024-11-05 21:07] LABS: Glucose, Whole Blood 179 mg/dL (60-115)
[2024-11-05] MEDS: Atorvastatin Calcium 40 MG TABLET PO (21:28)
[2024-11-05] MEDS: Melatonin 3 MG TABLET 6 MG PO (21:28)
[2024-11-05] MEDS: Cyclobenzaprine HCl 10 MG TABLET PO (21:28)
[2024-11-05] MEDS: Enoxaparin Sodium 40 MG/0.4 ML SYRINGE SUBCUT (21:29)
[2024-11-06] VITALS (8 sets, daily range): BP systolic 110–158; BP diastolic 60–88; PULSE 86–104; RESP 14–18; TEMP 36.3–36.9; O2SAT 96–100
[2024-11-06 07:23] LABS: Glucose, Whole Blood 97 mg/dL (60-115)
[2024-11-06] MEDS: metFORMIN HCl 500 MG TABLET PO ×2 (07:36→16:25)
[2024-11-06] MEDS: Aspirin Enteric Coated 81 MG TABLET.DR PO (07:36)
[2024-11-06] MEDS: Fludrocortisone Acetate 0.1 MG TABLET PO (07:37)
[2024-11-06] MEDS: Meclizine HCl 25 MG TABLET PO (07:38)
[2024-11-06] MEDS: polyethylene glycoL 3350 17 GM POWD.PACK PO (07:40)
[2024-11-06] MEDS: 0.9 % Sodium Chloride Flush 3 ML SYRINGE IVFLUSH ×2 (08:09→15:49)
--- NOTE | 2024-11-06 10:01 | PM.CNCAR ---
History of Present Illness History of Present Illness Date of Service: 11/06/24 Requesting physician: Willy Ocampo Consult reason: other (CVA, ischemic cardiomyopathy) Chief complaint: acute CVA Narrative: I was consulted to see Dany in cardiology consultation today for CVA and orthostatic hypotension. He is a 59-year-old male with prior history of longstanding diabetes not on insulin, prior CVA, hypertension, noncompliance with medications in the past as per him, came to the hospital with increasing symptoms of dizziness. Repeat brain imaging shows new lesion with CVA. Because of his symptoms he had orthostatic vitals performed which shows significant orthostatic hypotension with systolic blood pressure dropping from 150 into the 80s. He was then started on fludrocortisone. At rest his blood pressure is significantly elevated still in the 160s with blood pressure dropping into the 90s on repeat measurement. He had an echocardiogram yesterday which showed moderate to severe LV systolic dysfunction with LVEF of 30-35% with underlying regional wall motion abnormality which is suggestive of ischemic cardiomyopathy. He was not recall having prior cardiac issues or myocardial infarction. There has been no arrhythmias noted since he has been admitted and been monitored here. Cardiology consult was sought for further management plan. Review of Systems Constitutional: Constitutional: Reports no additional constitutional complaints and Reports weakness Eyes: Eyes: Reports no additional eye complaints ENT: Reports vertigo and Reports dizziness Cardiovascular: Cardiovascular: Denies chest pain, Denies leg edema, Reports lightheadedness, Denies Loss of Consciousness, Denies palpitations, Denies dyspnea and Denies orthopnea Respiratory: Respiratory: Reports no additional respiratory complaints and Denies dyspnea Gastrointestinal: Gastrointestinal: Reports no additional gastrointestinal complaints Genitourinary: Genitourinary: Reports no additional male genitourinary complaints Musculoskeletal: Musculoskeletal: Reports no additional musculoskeletal complaints Neurologic: Reports Abnormal speech present, Reports vertigo, Reports dizziness and Reports weakness Psychiatric: Psychiatric: Reports no additional psychiatric complaints Endocrine: Endocrine: Reports no additional endocrine complaints and Denies palpitations PMFSH Past Medical History Medical History Paresthesia of lower extremity Unstable knee Tinea pedis Stage 3a chronic kidney disease Osteomyelitis, ankle and foot Erectile dysfunction Epilepsy Chronic neck pain Chronic low back pain Body dysmorphic disorder Diabetic foot Complicated grieving Renal osteodystrophy Proteinuria Cerebral infarction Palpitations Hypertensive disorder Hyperlipidemia History of alcoholism Stroke Diabetes CKD (chronic kidney disease) Surgical History Surgical History History of implantation of penile prosthesis Previous back surgery (~1993) Social History Social History Household Members: None Housing: Apartment Do you presently have visiting nurse or other home services: No Comment: Explained fall risk measures, pt refusing bed alarm, safety checks/ rounds Patient Tobacco Use Status: Never used Tobacco Smoked in Last 30 Days: No e-Cigarette/Vaping Use: Never Used Patient Interested in Nicotine Replacement: No Patient Given Instructions on How to Stop Smoking: No Second Hand Smoke Exposure: No Use of substances other than those prescribed or required for medical reasons: Yes Substance Use Type: Marijuana Substance Use Frequency: Daily Last Used Substance: Unknown Currently Displaying Signs/Symptoms of Drug Intoxication Withdrawal: No Any prior treatment program specific to substance use: No Have you been hit, kicked, punched, or otherwise hurt by someone within the past year? If so, by whom?: No Do you feel safe in your current relationship?: No Current Relationship Is there a partner from a previous relationship who is making you feel unsafe now?: No Advance Directives: No Advance Directives Information Provided: Yes Advance Directives on File: No Do you have a plan to hurt others: No Plan Recently lost weight without trying: No Eating poorly because of decreased appetite: No Nutrition Risks: On aspiration precautions Poor oral hygiene: No service: No Meds Allergies Allergy/AdvReac Type Severity Reaction Status Date / Time codeine [CODEINE] Allergy Intermediate HIVES Verified 11/02/24 13:29 Active Medications: Current Medications Acetaminophen (Acetaminophen 325 Mg Tablet) 650 mg PO Q6H PRN PRN Reason: Pain, Mild (Pain Scale 1-3), fever or headache Last Admin: 11/02/24 22:48 Dose: 650 mg Aspirin (Aspirin Enteric Coated 81 Mg Tablet.Dr) 81 mg PO DAILY [facility] Last Admin: 11/06/24 07:36 Dose: 81 mg Atorvastatin Calcium (Atorvastatin Calcium 40 Mg Tablet) 40 mg PO BEDTIME [facility] Last Admin: 11/05/24 21:28 Dose: 40 mg Benzonatate (Benzonatate 100 Mg Capsule) 100 mg PO TID PRN PRN Reason: Cough Calcium Carbonate (Calcium Carbonate 750 Mg Tab.Chew) 750 mg PO Q4H PRN PRN Reason: Heartburn Cyclobenzaprine HCl (Cyclobenzaprine Hcl 10 Mg Tablet) 10 mg PO TID PRN PRN Reason: Muscle Spasm Last Admin: 11/05/24 21:28 Dose: 10 mg Enoxaparin Sodium (Enoxaparin Sodium 40 Mg/0.4 Ml Syringe) 40 mg SUBCUT Q24H [facility] Last Admin: 11/05/24 21:29 Dose: 40 mg Fludrocortisone Acetate (Fludrocortisone Acetate 0.1 Mg Tablet) 0.1 mg PO DAILY [facility] Last Admin: 11/06/24 07:37 Dose: 0.1 mg Glucose (Glucose Gel 15 Gm Gel..Gram.) 15 gm PO Q15M PRN; Protocol PRN Reason: per Hypoglycemia Standing Ord. Dextrose (D10) 250 mls @ 750 mls/hr IV Q15M PRN; Protocol PRN Reason: per Hypoglycemia Standing Ord. Insulin Human Lispro (Insulin Lispro 100 Unit/Ml 3 Ml Vial) 0 unit SUBCUT QIDACHS [facility]; Protocol Last Admin: 11/06/24 08:09 Dose: Not Given Magnesium Hydroxide (Milk Of Magnesia 30 Ml Oral.Susp) 30 ml PO DAILY PRN PRN Reason: Constipation Last Admin: 11/05/24 08:09 Dose: 30 ml Meclizine HCl (Meclizine Hcl 25 Mg Tablet) 25 mg PO Q8H PRN PRN Reason: Lightheadedness/dizziness Last Admin: 11/06/24 07:38 Dose: 25 mg Melatonin (Melatonin 3 Mg Tablet) 6 mg PO BEDTIME PRN PRN Reason: Insomnia Last Admin: 11/05/24 21:28 Dose: 6 mg Metformin HCl (Metformin Hcl 500 Mg Tablet) 500 mg PO BIDWM [facility] Last Admin: 11/06/24 07:36 Dose: 500 mg Ondansetron HCl (Ondansetron Hcl 4 Mg/2 Ml Vial) 4 mg IVPUSH Q8H PRN PRN Reason: Nausea and Vomiting Polyethylene Glycol (Polyethylene Glycol 3350 17 Gm Powd.Pack) 17 gm PO DAILY PRN PRN Reason: Constipation Last Admin: 11/06/24 07:40 Dose: 17 gm Sodium Chloride (0.9 % Sodium Chloride Flush 3 Ml Syringe) [facility] Last Admin: 11/06/24 08:09 Dose: 3 ml Home Medications ?Medication ?Instructions ?Recorded ?Confirmed ?Last Taken ?Type fludrocortisone 0.1 mg tablet 0.1 mg PO DAILY 08/10/24 11/03/24 Unknown History acetaminophen 500 mg tablet 1,000 mg PO Q4-6H PRN Pain 11/03/24 11/03/24 Unknown History aspirin 81 mg tablet,delayed 81 mg PO DAILY 11/03/24 11/03/24 Unknown History release Physical Exam Vital Signs: Vital Signs: Last Vital Signs Temp 97.9 F 11/06/24 07:46 Pulse 104 H 11/06/24 08:33 Resp 18 11/06/24 07:46 BP 110/60 11/06/24 08:33 Pulse Ox 98 11/06/24 07:46 O2 Del Method Room Air 11/06/24 07:46 BMI result Body Mass Index 20.8 Const: General: cooperative, comfortable, no acute distress, alert, awake and other (Generalized involuntary movements) Nutritional Appearance: average body habitus Orientation/consciousness: patient oriented x3 HEENT: Head: Yes normocephalic and Yes atraumatic Neck: Neck: Yes trachea midline, Yes supple and Yes no JVD Resp: Effort & Inspection: normal respiratory effort Auscultation: clear to auscultation bilaterally Cardio: Jugular venous distension: no JVD Palpation: abnormal PMI displaced PMI Rate: regular rate Rhythm: regular rhythm Heart sounds: S1 normal heart sound present, S2 normal heart sound present, no click, no gallops and no murmurs GI: Auscultation: normal bowel sounds Skin: General skin exam: no rashes or lesions noted Neuro: General: patient oriented x3 Speech: Abnormal speech present Gait exam (Neuro): Other gait observations present (Ataxia) Extrem: General: Yes no clubbing, cyanosis or edema Psych: Appearance: grossly normal Objective Labs and Meds 11/02/24 13:57 11/02/24 13:57 Lab results: Laboratory Results - last 24 hr 11/05/24 11/05/24 11/05/24 11:09 16:33 20:56 POC Glucose 193 H 118 H 179 H 11/06/24 07:10 POC Glucose 97 Assessment and Plan (1) Orthostatic hypotension: Status: Acute Patient with significant orthostatic hypotension with symptoms of orthostatic lightheadedness. But also seems like he was symptoms of vertigo which could be from his cerebellar CVA stroke. He was significant orthostatic hypotension but at baseline has significant hypertension this could be a significant clinical challenge to treat. Fludrocortisone is likely to raise his supine blood pressure and cause adverse cardiovascular issues. Most likely related to autonomic dysfunction probably related to longstanding untreated diabetes with underlying peripheral neuropathy and/or related to central neurologic events. At this point time I would consider to hold his fludrocortisone and treat him with short-acting antihypertensives at sleep time such as hydralazine and Isordil to control his supine hypertension to prevent heart failure issues. Advised to maintain adequate hydration. Orthostatic precautions to be maintained. This is going to be as significant clinical challenge to treat as mentioned. I would consider adding low-dose metoprolol for neurohormonal modulation and monitor his blood pressure closely. Other neurohormonal modulators such as Entresto and/or angiotensin receptor blockers would be difficult given his significant orthostatic hypotension. (2) Acute CVA (cerebrovascular accident): Status: Acute Acute CVA with prior history of significant prior CVA question embolic in nature. He does not have significant bilateral carotid disease. Echocardiogram was also negative for presence of intracardiac shunting such as PFO. There is high likelihood of cardiac embolic event given his ischemic cardiomyopathy with low ejection fraction and possibility of atrial fibrillation. After discussing with Neurology I would consider switching him to an oral anticoagulant therapy to prevent embolic cardiac issues. Consider long-term monitoring for atrial fibrillation after discharge such as cardiac event monitor with mobile telemetry. (3) Ischemic cardiomyopathy: Status: Acute Newly detected ischemic cardiomyopathy in this middle-aged man with longstanding history of diabetes. Most likely silent myocardial ischemia and infarction. He has no symptoms of myocardial infarction in the past. This is going to be very difficult to treat at this point time given his orthostatic hypotension which is quite severe. Neurohormonal modulation will be difficult and would start with low-dose metoprolol therapy. With no clinical signs of congestive heart failure at this point time I would avoid fludrocortisone as this could cause sodium retention and heart failure issues. Will need ischemic workup although with possible limited treatment options. High-intensity statin therapy should be considered. Will follow with you Procedures Date of Service Date of Service: 11/06/24
[2024-11-06 11:15] LABS: Glucose, Whole Blood 152 mg/dL (60-115)
[2024-11-06] MEDS: Insulin Lispro 100 UNIT/ML 3 ML VIAL SUBCUT ×2 (11:29→20:50)
--- NOTE | 2024-11-06 11:42 | P.PNIM_ITS ---
Subjective Subjective Date of Service: 11/06/24 Interval History: c/o dizziness when first sits up ,ongoing sxs since 2 weeks ,no navas,no new weakness ,no n/v/d. Review of Systems All other system reviewed and negative. Physical Exam 2 Vital Signs: Vital Signs: Last Vital Signs Temp 98.1 F 11/06/24 11:01 Pulse 93 11/06/24 11:01 Resp 18 11/06/24 11:01 BP 149/88 H 11/06/24 11:01 Pulse Ox 100 11/06/24 11:01 O2 Del Method Room Air 11/06/24 11:01 BMI result Body Mass Index 20.8 Const: Other: Gen: in no acute distress HEENT: sclera anicteric, moist mucus membranes, no nystagmus Neck: supple Lungs: clear to auscultation bilaterally Heart: regular rate and rhythm, no murmurs Abd: soft, non-tender, non-distended Ext: no edema Skin: warm/well-perfused Neuro: alert and oriented x3, no pronator drift, no facial droop, no focal weakness, bilateral FTN impaired, ataxic gait and speech. Psych: appropriate affect Objective Data Active Medications Acetaminophen (Acetaminophen 325 Mg Tablet) 650 mg PO Q6H PRN PRN Reason: Pain, Mild (Pain Scale 1-3), fever or headache Last Admin: 11/02/24 22:48 Dose: 650 mg Documented By: YONIS Aspirin (Aspirin Enteric Coated 81 Mg Tablet.) 81 mg PO DAILY [facility] Last Admin: 11/06/24 07:36 Dose: 81 mg Documented By: NIKI Atorvastatin Calcium (Atorvastatin Calcium 40 Mg Tablet) 40 mg PO BEDTIME [facility] Last Admin: 11/05/24 21:28 Dose: 40 mg Documented By: CASSIE Benzonatate (Benzonatate 100 Mg Capsule) 100 mg PO TID PRN PRN Reason: Cough Calcium Carbonate (Calcium Carbonate 750 Mg Tab.Chew) 750 mg PO Q4H PRN PRN Reason: Heartburn Cyclobenzaprine HCl (Cyclobenzaprine Hcl 10 Mg Tablet) 10 mg PO TID PRN PRN Reason: Muscle Spasm Last Admin: 11/05/24 21:28 Dose: 10 mg Documented By: CASSIE Enoxaparin Sodium (Enoxaparin Sodium 40 Mg/0.4 Ml Syringe) 40 mg SUBCUT Q24H [facility] Last Admin: 11/05/24 21:29 Dose: 40 mg Documented By: CASSIE Glucose (Glucose Gel 15 Gm Gel..Gram.) 15 gm PO Q15M PRN; Protocol PRN Reason: per Hypoglycemia Standing Ord. Hydralazine HCl (Hydralazine Hcl 10 Mg Tablet) 10 mg PO BEDTIME [facility]; Protocol Dextrose (D10) 250 mls @ 750 mls/hr IV Q15M PRN; Protocol PRN Reason: per Hypoglycemia Standing Ord. Insulin Human Lispro (Insulin Lispro 100 Unit/Ml 3 Ml Vial) 0 unit SUBCUT QIDACHS [facility]; Protocol Last Admin: 11/06/24 11:29 Dose: 2 unit Documented By: NIKI Isosorbide Dinitrate (Isosorbide Dinitrate 5 Mg Tablet) 5 mg PO BEDTIME [facility]; Protocol Magnesium Hydroxide (Milk Of Magnesia 30 Ml Oral.Susp) 30 ml PO DAILY PRN PRN Reason: Constipation Last Admin: 11/05/24 08:09 Dose: 30 ml Documented By: NIKI Meclizine HCl (Meclizine Hcl 25 Mg Tablet) 25 mg PO Q8H PRN PRN Reason: Lightheadedness/dizziness Last Admin: 11/06/24 07:38 Dose: 25 mg Documented By: NIKI Melatonin (Melatonin 3 Mg Tablet) 6 mg PO BEDTIME PRN PRN Reason: Insomnia Last Admin: 11/05/24 21:28 Dose: 6 mg Documented By: CASSIE Metformin HCl (Metformin Hcl 500 Mg Tablet) 500 mg PO BIDWM [facility] Last Admin: 11/06/24 07:36 Dose: 500 mg Documented By: NIKI Ondansetron HCl (Ondansetron Hcl 4 Mg/2 Ml Vial) 4 mg IVPUSH Q8H PRN PRN Reason: Nausea and Vomiting Polyethylene Glycol (Polyethylene Glycol 3350 17 Gm Powd.Pack) 17 gm PO DAILY PRN PRN Reason: Constipation Last Admin: 11/06/24 07:40 Dose: 17 gm Documented By: NIKI Sodium Chloride (0.9 % Sodium Chloride Flush 3 Ml Syringe) 3 ml IVFLUSH QSHIFT [facility] Last Admin: 11/06/24 08:09 Dose: 3 ml Documented By: NIKI Labs 11/02/24 13:57 11/02/24 13:57 Labs: Laboratory Results - last 24 hr 11/05/24 11/05/24 11/06/24 16:33 20:56 07:10 POC Glucose 118 H 179 H 97 11/06/24 11:07 POC Glucose 152 H Assessment and Plan (1) Ischemic cardiomyopathy: Status: Acute (2) Orthostatic hypotension: Status: Acute (3) Acute CVA (cerebrovascular accident): Status: Acute Plan 59yo M with hx CVA, DM2, peripheral neuropathy, hx osteomyelitis with multiple toe amputations, CKD2; noncompliant with meds; presenting with 2 wk of dizziness and found to have small left frontal ischemic acute infarct that does not explain his dizziness; but has chronic cerebellar and brainstem chronic infarctions Acute small left frontal ischemic CVA with underlying significant bilateral brainstem and cerebellar chronic ischemic infarction -on aspirin + atorvastatin for secondary prevention, will add antihypertensive for supine hypertension - telemetry without AF - carotid duplex without significant stenosis - TTE showed EF 30-35%, inferior wall wall motion abnormality, no evidence of PFO by saline contrast - Neuro consulted recommend to rule out embolic stroke , echo showed no clots/no PFO will discuss with Neurology regarding anticoagulation due to high likelihood of cardiac emboli given his ischemic cardiomyopathy with low ejection fraction and possibility of atrial fibrillation, will recommend outpatient event monitor and cardiology follow-up. - PT/OT recommend home PT Orthostatic hypotension with supine hypertension Obtain cardiac consultation they recommend low-dose Isordil and hydralazine at bedtime that will benefit newly diagnosed cardiomyopathy and supine hypertension, will DC Florinef to avoid sodium retention. DM2, A1c 8 -bs improving, frederick-dose lispro,started on MTF 500 b.i.d. and diabetic diet Newly diagnosed ischemic cardiomyopathy seen by cardiology outpatient ischemic workup, DC Florinef to void sodium retention, no acute issues at present. VTE ppx - enoxaparin dispo - home with services In my clinical judgment, the patient requires continued inpatient hospitalization for the following reasons: CVA workup Quality Stroke Does the patient have a stroke diagnosis?: Yes Reason for No Anti-thrombotic by Day Two: Contraindicated (Symptomatic for up to 2 weeks; unclear last known well time) VTE Prior VTE?: No VTE Risk Level:: Medical - moderate - high VTE Device Contraindication: Treatment Not Indicated VTE Drug Contraindication: N/A - Med Ordered
--- NOTE | 2024-11-06 15:48 | MHC.CM.PN ---
Addendum entered by Tawana Rose 11/06/24 15:51: CASEY following for pts discharge in [facility]. Original Note: This CM met with pt to discuss discharge plans, PT is recommending STR, however pt does not wish to go to rehab, he would like to go home with PT services at home.
[2024-11-06 15:56] LABS: Glucose, Whole Blood 125 mg/dL (60-115)
[2024-11-06] MEDS: Atorvastatin Calcium 40 MG TABLET PO (20:24)
[2024-11-06] MEDS: hydrALAZINE HCl 10 MG TABLET PO (20:24)
[2024-11-06] MEDS: Isosorbide Dinitrate 5 MG TABLET PO (20:24)
[2024-11-06] MEDS: Melatonin 3 MG TABLET 6 MG PO (20:27)
[2024-11-06 20:38] LABS: Glucose, Whole Blood 152 mg/dL (60-115)
[2024-11-06] MEDS: Cyclobenzaprine HCl 10 MG TABLET PO (20:50)
[2024-11-06] MEDS: Enoxaparin Sodium 40 MG/0.4 ML SYRINGE SUBCUT (20:51)
[2024-11-07] VITALS: BP 128/66; PULSE 88; RESP 16; TEMP 36.6; O2SAT 96
[2024-11-07 03:19] VITALS: BP 128/73; PULSE 85; RESP 16; TEMP 36.6; O2SAT 98
[2024-11-07 07:08] VITALS: BP 132/73; PULSE 66; RESP 18; TEMP 37.1; O2SAT 98
[2024-11-07 07:26] LABS: Glucose, Whole Blood 127 mg/dL (60-115)
[2024-11-07] MEDS: metFORMIN HCl 500 MG TABLET PO (08:24)
[2024-11-07] MEDS: Aspirin Enteric Coated 81 MG TABLET.DR PO (08:24)
[2024-11-07] MEDS: Acetaminophen 325 MG TABLET 650 MG PO (08:25)
[2024-11-07] MEDS: 0.9 % Sodium Chloride Flush 3 ML SYRINGE IVFLUSH ×2 (08:35)
[2024-11-07 09:32] VITALS: BP 105/59; BP 140/70; PULSE 72; PULSE 90
[2024-11-07 09:33] VITALS: BP 134/75; PULSE 103
--- NOTE | 2024-11-07 09:33 | P.PNCA_ITS ---
Subjective Subjective Date of Service: 11/07/24 Principal diagnosis: Ischemic cardiomyopathy, CVA, orthostatic hypotension. Interval history: Patient off fludrocortisone and started on Isordil and hydralazine for nighttime use only. Patient's blood pressure this morning is better controlled with lesser drop in his systolic blood pressure. Remains lightheaded. No arrhythmias overnight. Review of Systems Constitutional: Reports no additional constitutional complaints and Reports weakness Reports dizziness and Reports disequilibrium Cardiovascular: Denies chest pain, Reports lightheadedness, Denies palpitations and Denies dyspnea Respiratory: Reports no additional respiratory complaints and Denies dyspnea Gastrointestinal: Reports no additional gastrointestinal complaints Reports Abnormal speech present, Reports dizziness, Reports disequilibrium and Reports weakness Endocrine: Denies palpitations Physical Exam Vital Signs: Last Vital Signs Temp 98.8 F 11/07/24 07:08 Pulse 66 11/07/24 07:08 Resp 18 11/07/24 07:08 BP 132/73 11/07/24 07:08 Pulse Ox 98 11/07/24 07:08 O2 Del Method Room Air 11/07/24 07:08 BMI result Body Mass Index 20.8 Const General: cooperative, comfortable, no acute distress, alert, awake and other (Generalized involuntary movements) Nutritional Appearance: average body habitus Orientation/consciousness: patient oriented x3 HEENT Head: Yes normocephalic and Yes atraumatic Neck Neck: Yes trachea midline, Yes supple and Yes no JVD Resp Effort & Inspection: normal respiratory effort Auscultation: clear to auscultation bilaterally Cardio Jugular venous distension: no JVD Palpation: abnormal PMI displaced PMI Rate: regular rate Rhythm: regular rhythm Heart sounds: S1 normal heart sound present, S2 normal heart sound present, no click, no gallops and no murmurs GI Auscultation: normal bowel sounds Skin General skin exam: no rashes or lesions noted Neuro General: patient oriented x3 Speech: Abnormal speech present Gait exam (Neuro): Other gait observations present (Ataxia) Extrem General: Yes no clubbing, cyanosis or edema Psych Appearance: grossly normal Objective Labs and Meds 11/02/24 13:57 11/02/24 13:57 Lab results: Laboratory Results - last 24 hr 11/06/24 11/06/24 11/06/24 11:07 15:53 20:26 POC Glucose 152 H 125 H 152 H 11/07/24 07:22 POC Glucose 127 H Progress Note: A&P Assessment and plan (1) Orthostatic hypotension: Status: Acute Assessment and Plan: Orthostatic hypotension in his middle-aged man with conflicting clinical condition including with hypertension. 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 This presents quite a bit of clinical challenge and was discussed with the patient in details. I have advised him to maintain adequate oral hydration. We also discussed in details about orthostatic precautions and assuming sitting or supine position if he gets severely lightheaded. Will treat him with short-acting hydralazine and Isordil at nighttime to control his supine hypertension to prevent any development of heart failure at nighttime given his low ejection fraction and avoid any medicines that can potentially raise blood pressure including fludrocortisone and midodrine at this point in time. Overall prognosis is guarded. (2) Ischemic cardiomyopathy: Status: Acute Assessment and Plan: Ischemic cardiomyopathy with longstanding diabetes. High likelihood of underlying obstructive CAD. Will need workup as an outpatient with vasodilating myocardial perfusion imaging. Unfortunately treatment is quite limited given his significant orthostatic hypotension. Agree with metoprolol therapy for neurohormonal modulation. Isordil and hydralazine at nighttime for vasodilators therapy to maintain blood pressure and avoid heart failure. Avoidance of salt loading was discussed. Continue maintain adequate hydration. (3) Acute CVA (cerebrovascular accident): Status: Acute Assessment and Plan: Longstanding history of multiple CVAs. Question vascular in origin although he has only mild bilateral carotid disease. Question cardioembolic given his low ejection fraction. Also high likelihood of underlying atrial fibrillation. Will schedule him for outpatient workup with a SOURAV and event monitor with mobile telemetry. For now I would discuss with Neurology about switching his therapy to oral anticoagulation therapy with Eliquis. Continue high-intensity statin therapy. Continue aggressive diabetes management. Will follow-up as outpatient. Thank you for allowing me to partake in his care Time Spent With Patient Time: Total time managing care of this patient today ____ minutes. Progress Note: Quality Stroke Does the patient have a stroke diagnosis?: Yes Reason for No Anti-thrombotic by Day Two: Contraindicated (Symptomatic for up to 2 weeks; unclear last known well time) Procedures Date of Service Date of Service: 11/07/24
[2024-11-07 11:00] VITALS: BP 131/67; PULSE 86; RESP 16; TEMP 36.9; O2SAT 97
[2024-11-07 11:02] LABS: Glucose, Whole Blood 170 mg/dL (60-115)
--- NOTE | 2024-11-07 11:03 | MHC.CM.PN ---
per ROUNDS, Patient is medically cleared for dc to home today, with services. A referral was made to [facility], who has been made aware of today's dc.
[2024-11-07] MEDS: Milk of Magnesia 30 ML ORAL.SUSP PO (11:47)
[2024-11-07] MEDS: Insulin Lispro 100 UNIT/ML 3 ML VIAL SUBCUT (11:48)
--- NOTE | 2024-11-07 12:46 | PM.DS ---
DS: Providers Provider Date of Service: 11/07/24 Date of admission: 11/02/24 21:57 Date of discharge: 11/07/24 Primary care physician: YENIFER Chahal Consults: 11/02/24 22:00 Consult to Neurology Routine Consulting Provider: [facility] Reason for consultation: Acute CVA in escobar radiata 11/05/24 15:25 Consult to Cardiology Routine Consulting [place] [facility] [place] Reason for consultation: supine htn Has provider been notified: No DS: Diagnosis Discharge Diagnosis (1) Orthostatic hypotension: Status: Acute (2) Ischemic cardiomyopathy: Status: Acute (3) Acute CVA (cerebrovascular accident): Status: Acute DS: Summary Hospital Course Hospital Course: History of presenting illness: Date of Service: 11/02/24 Attending physician on admission: Ranjit Carver Chief Complaint: Fall at home Pt is a 59-year-old male with a PMH significant for?hx of CVA x3 in 2012 and 2016 not med compliant, non-insulin dependent type 2 diabetes, peripheral neuropathy, hx of osteomyelitis s/p multiple toe amputations bilaterally, chronic neck and back pain s/p back surgery, and CKD2 who presents to the ED complaining of dizziness for the past 2 weeks. Patient states mostly becomes dizzy when he either lays in bed or tries to get up from bed. Reports has not been having many difficulties if standing from a seated position or once he starts walking. However, patient reports becoming dizzy earlier today when hitting a punching bag. Patient reports having a ?soft? fall in his room on a pile of laundry with a head strike. Patient's family found him and called an ambulance to bring him in for further evaluation. Patient denies headache or acute vision changes. No dysarthria or difficulty word finding. Denies numbness and tingling in upper extremities; numbness and tingling chronic and at baseline in lower extremities. Denies any new or different hemiparesis or difficulty grabbing objects. No facial droop or difficulty swallowing noted. Of note, patient states has a history of 3 prior CVAs. States stopped taking an aspirin on his own sometime a year so ago. Is also not taking a statin.. Denies chest pain/pressure, palpitations. No shortness a breath or difficulty breathing. Denies fever, chills, nausea, vomiting, abdominal pain. In the ED pt was hypertensive up to 187/87, vitals otherwise stable and WNL. Labs were grossly unremarkable and WNL for patient. No leukocytosis. Stable H&H. No significant electrolyte abnormalities. Renal and hepatic function WNL. CT?of head showed no acute intracranial pathology, but chronic microangiopathic ischemic changes. MRI of brain showed small acute white matter infarct of left escobar radiata without evidence of hemorrhagic transformation. Also found moderate underlying microangiopathy and generalized cerebral volume loss with chronic lacunar infarcts in the deep nuclei, brainstem, and cerebellum. EKG demonstrated normal sinus rhythm with nonspecific T-wave inversions in V5 but no evidence of significant ST elevations or depressions. Pt was treated with meclizine and aspirin. Pt will be admitted to the hospital for treatment and further evaluation of acute CVA. Hospital course: 59yo M with hx CVA, DM2, peripheral neuropathy, hx osteomyelitis with multiple toe amputations, CKD2; noncompliant with meds; presenting with 2 wk of dizziness and found to have small left frontal ischemic acute infarct that and chronic cerebellar and brainstem infarctions Acute small left frontal ischemic CVA with underlying significant bilateral brainstem and cerebellar chronic ischemic infarction, patient treated with aspirin and Lipitor, telemetry showed no arrhythmias, carotid duplex showed no significant stenosis, however echocardiogram showed an EF 30-35%, inferior wall motion abnormality, no evidence of PFO by saline contrast, patient seen by neurologist they felt dizziness was not related to acute CVA however due to concern for embolic left frontal infarction patient has been placed on Eliquis and aspirin discontinued, patient also evaluated by Cardiology for newly diagnosed ischemic cardiomyopathy, they recommend to discontinue Florinef to avoid sodium retention and recommended low-dose Isordil and hydralazine at bedtime due to orthostatic hypotension with supine hypertension, patient's symptoms of dizziness has significantly improved, he was evaluated by Physical therapy and they recommending home with services, patient is recommended outpatient cardiac workup by systems engineer including SOURAV and event recorder to rule out atrial fibrillation and ischemic workup. Orthostatic hypotension with supine hypertension continue Isordil and hydralazine at bedtime and follow precautions for orthostatic hypotension. DM2, A1c 8 -bs improving, continue metformin 500 b.i.d. and diabetic diet Ischemic cardiomyopathy outpatient cardiology follow-up. Time Attestation Discharge Coordination Time (in mins): 40 Quality: Safe Use of Opioids Does Pt have an Active Cancer Diagnosis on the Problem List?: No Quality: Stroke Does the patient have a stroke diagnosis?: No Physical Exam Vital Signs: Vital Signs: Last Vital Signs Temp 98.4 F 11/07/24 11:00 Pulse 86 11/07/24 11:00 Resp 16 11/07/24 11:00 BP 131/67 11/07/24 11:00 Pulse Ox 97 11/07/24 11:00 O2 Del Method Room Air 11/07/24 11:00 BMI result Body Mass Index 20.8 Const: Other: Gen: in no acute distress HEENT: sclera anicteric, moist mucus membranes, no nystagmus Neck: supple Lungs: clear to auscultation bilaterally Heart: regular rate and rhythm, no murmurs Abd: soft, non-tender, non-distended Ext: no edema Skin: warm/well-perfused Neuro: alert and oriented x3, no pronator drift, no facial droop, no focal weakness, bilateral FTN impaired, ataxic gait and speech. Psych: appropriate affect DS: Data Data Completed and Pending Labs on day of discharge: Laboratory Results - last 24 hr 11/06/24 11/06/24 11/07/24 15:53 20:26 07:22 POC Glucose 125 H 152 H 127 H 11/07/24 10:54 POC Glucose 170 H Discharge Plan Discharge Anticipated Discharge Date/Time: 11/07/24 12:41 Patient Disposition: Home Health Service Discharge Diagnosis: Acute CVA Orthostatic hypotension Ischemic cardiomyopathy Diabetes mellitus Referrals: Hortensia GOODE [Outside] - 1 Week [place] FNP [Primary Care Provider] - 1 Week Discharge Medications: New isosorbide dinitrate 5 mg Tablet 5 mg PO BEDTIME Qty: 90 0RF Protocol: Hold for SBP< HOLD for SBP < : 90 atorvastatin 40 mg Tablet 40 mg PO BEDTIME Qty: 90 0RF metformin 500 mg Tablet 500 mg PO BIDWM Qty: 60 0RF hydralazine 10 mg Tablet 10 mg PO BEDTIME Qty: 90 0RF Protocol: Hold for SBP< HOLD for SBP < : 90 Eliquis 5 mg Tablet 5 mg PO BID Qty: 180 0RF Continued acetaminophen 500 mg tablet 1,000 mg PO Q4-6H PRN (Reason: Pain) Discontinued aspirin [Aspir-81] 81 mg Tablet,Delayed Release (Dr/Ec) 81 mg PO DAILY fludrocortisone 0.1 mg tablet 0.1 mg PO DAILY Discharge Orders: Discharge Order (Routine); Ordered 11/07/24 Ordered By: Willy Ocampo Diet: Diabetic diet Activity on Discharge: As tolerated Stand Alone Forms: Patient Portal Discharge page Print Language: Greenlandic Care Plan Goals: Acute CVA Ischemic cardiomyopathy Orthostatic hypotension Take blood thinner Eliquis 5 mg twice daily Take hydralazine and Isordil at bedtime Follow diabetic diet and take metformin 1 tablet twice daily Being discharged with VNA and physical therapy Health Concerns: As above Plan of Treatment: Outpatient follow-up with systems engineer Dr. Gilmore , Cardiology will schedule outpatient workup Outpatient follow-up with primary care physician call for appointment Assessment: As above
--- NOTE | 2024-11-07 12:53 | W.MHC.F2F ---
Service Date Service Date: 11/07/24 Encounter Date of encounter: 11/07/24 Reasons for Services Signs and symptoms assessed: Ataxic gait and speech/dizziness and orthostatic hypotension Reason for senior living: CV/CP assess and/or care, diabetic teaching and medication management Reason for physical therapy: home safety and mobility Homebound: Leaving the home is medically contraindicated at this time without the asist of a device and/or another person due th the listed conditions above and below. Reason homebound: unsteady gait / fall risk Certification: Based on the above findings, I certify that this patient is confined to the home and needs intermittent senior living care, physical therapy and/or speech therapy, or continues to need occupational therapy. The patient is under my care, and I have initiated the establishment of the plan of care. The patient will be followed by a physician who will periodically review the plan of care. Time Spent With Patient Time: Total time managing care of this patient today ____ minutes.
== END 2024-11-07 15:20 | disposition home health service (06) | DRG 45 ==
LOC: HO.ED 21:34 → HO.EDOVER 22:05 → HO.IMC 23:21
PROVIDERS: Family Medicine; Admitting Provider Student in an Organized Health Care Education/Training Program; Emergency Provider Emergency Medicine; PCP Registered Nurse; Visit Provider Hospitalist
DX: I63.9 Cerebral infarction, unspecified (principal); I69.354 Hemiplegia and hemiparesis following cerebral infarction affecting left non-dominant side; E11.42 Type 2 diabetes mellitus with diabetic polyneuropathy; E11.22 Type 2 diabetes mellitus with diabetic chronic kidney disease; I12.9 Hypertensive chronic kidney disease with stage 1 through stage 4 chronic kidney disease, or unspecified chronic kidney disease; N18.2 Chronic kidney disease, stage 2 (mild); Z23 Encounter for immunization; I25.10 Atherosclerotic heart disease of native coronary artery without angina pectoris; I25.5 Ischemic cardiomyopathy; K59.00 Constipation, unspecified; I95.1 Orthostatic hypotension; R29.705 NIHSS score 5; Z91.148 Patient's other noncompliance with medication regimen for other reason; Z79.899 Other long term (current) drug therapy
CPT/HCPCS: 36415; 70450; 70551; 80053; 80061; 82947; 83036; 84484; 85025; 90656; 93005; 93306; 93880; 97110; 97116; 97162; 97166; 97530; 99285; J1650; J7120

== ENCOUNTER → 2024-11-02 13:30 | Outpatient (BNV) | payer MEDICAID, SELFPAY | PROVIDERS: Emergency Provider Emergency Medicine; PCP Registered Nurse; Visit Provider Internal Medicine Cardiovascular Disease | DX: R94.31 Abnormal electrocardiogram [ECG] [EKG] (principal) | CPT/HCPCS: 93010 ==

== ENCOUNTER 2024-11-02 21:57 | Outpatient (BNV) | payer MEDICAID, SELFPAY | END 2024-11-05 07:00 | PROVIDERS: Admitting Provider Student in an Organized Health Care Education/Training Program; Emergency Provider Emergency Medicine; PCP Registered Nurse; Visit Provider Internal Medicine Cardiovascular Disease | DX: I63.9 Cerebral infarction, unspecified (principal) | CPT/HCPCS: 93306 ==

== ENCOUNTER → 2024-11-02 21:57 | Outpatient (BNV) | payer MEDICAID, SELFPAY | PROVIDERS: Admitting Provider Student in an Organized Health Care Education/Training Program; Emergency Provider Emergency Medicine; PCP Registered Nurse; Visit Provider Internal Medicine Cardiovascular Disease | DX: I95.1 Orthostatic hypotension (principal); I25.5 Ischemic cardiomyopathy; I63.9 Cerebral infarction, unspecified | CPT/HCPCS: 99222; 99233 ==

== ENCOUNTER → 2024-11-02 21:57 | Outpatient (BNV) | payer MEDICAID, SELFPAY | PROVIDERS: Admitting Provider Student in an Organized Health Care Education/Training Program; Emergency Provider Emergency Medicine; PCP Registered Nurse; Visit Provider Family Medicine | DX: I63.9 Cerebral infarction, unspecified (principal) | CPT/HCPCS: 99223; 99232; 99239; G0180 ==

== ENCOUNTER → 2024-11-02 21:57 | Outpatient (BNV) | payer MEDICAID, SELFPAY | PROVIDERS: Admitting Provider Student in an Organized Health Care Education/Training Program; Emergency Provider Emergency Medicine; PCP Registered Nurse; Visit Provider Psychiatry & Neurology Neurology | DX: I63.9 Cerebral infarction, unspecified (principal) | CPT/HCPCS: 99222 ==

== ENCOUNTER → 2024-11-22 12:50 | Outpatient (REF) | payer MEDICAID, SELFPAY | LOC: HO.CARD 12:50 | PROVIDERS: PCP Registered Nurse; Visit Provider Internal Medicine Cardiovascular Disease | DX: I25.5 Ischemic cardiomyopathy (principal); I95.1 Orthostatic hypotension; I63.9 Cerebral infarction, unspecified; M50.30 Other cervical disc degeneration, unspecified cervical region | CPT/HCPCS: 93270 ==

== ENCOUNTER → 2024-11-22 12:53 | Outpatient (BNV) | payer MEDICAID, SELFPAY | PROVIDERS: PCP Registered Nurse; Visit Provider Internal Medicine Cardiovascular Disease | DX: I49.1 Atrial premature depolarization (principal) | CPT/HCPCS: 93272 ==

== ENCOUNTER 2024-12-12 11:22 | Day surgery (SDC) | payer MEDICAID, SELFPAY ==
--- NOTE | 2024-12-11 09:49 | P.CONAN_ITS ---
Documented by User: Alia Mckeon NP 12/11/24 09:52 HPI - Anesthesia Eval Consult details Narrative: 59yo M for Transesophageal Echocardiogram with bubble study Eliquis s/p CVA 10/2024 [facility] [place] admit 10/2024 Hospital course: 59yo M with hx CVA, DM2, peripheral neuropathy, hx osteomyelitis with multiple toe amputations, CKD2; noncompliant with meds; presenting with 2 wk of dizziness and found to have small left frontal ischemic acute infarct that and chronic cerebellar and brainstem infarctions Acute small left frontal ischemic CVA with underlying significant bilateral brainstem and cerebellar chronic ischemic infarction, patient treated with aspirin and Lipitor, telemetry showed no arrhythmias, carotid duplex showed no significant stenosis, however echocardiogram showed an EF 30-35%, inferior wall motion abnormality, no evidence of PFO by saline contrast, patient seen by neurologist they felt dizziness was not related to acute CVA however due to concern for embolic left frontal infarction patient has been placed on Eliquis and aspirin discontinued, patient also evaluated by Cardiology for newly diagnosed ischemic cardiomyopathy, they recommend to discontinue Florinef to avoid sodium retention and recommended low-dose Isordil and hydralazine at bedtime due to orthostatic hypotension with supine hypertension, patient's symptoms of dizziness has significantly improved, he was evaluated by Physical therapy and they recommending home with services, patient is recommended outpatient cardiac workup by garbage truck driver including SOURAV and event recorder to rule out atrial fibrillation and ischemic workup. [facility] Active Problems Active Problems: All Active Problems Ischemic cardiomyopathy (Acute) Orthostatic hypotension (Acute) Acute CVA (cerebrovascular accident) (Acute) Stroke (Acute) Muscle spasms of neck (Acute) Cervical spondylosis (Acute) Degenerative disc disease, cervical (Acute) Chronic neck pain (Acute) Stroke (Acute) Past Medical History Medical History Paresthesia of lower extremity Unstable knee Tinea pedis Stage 3a chronic kidney disease Osteomyelitis, ankle and foot Erectile dysfunction Epilepsy Chronic neck pain Chronic low back pain Body dysmorphic disorder Diabetic foot Complicated grieving Renal osteodystrophy Proteinuria Cerebral infarction Palpitations Hypertensive disorder Hyperlipidemia History of alcoholism Stroke Diabetes CKD (chronic kidney disease) Surgical History Surgical History History of implantation of penile prosthesis Previous back surgery (~1993) Social History Social History Household Members: None Housing: Apartment Are you a primary field care coordinator to a significant other at home: No Do you presently have visiting nurse or other home services: No Comment: pt refusing the alarm for safety Patient Tobacco Use Status: Never used Tobacco e-Cigarette/Vaping Use: Never Used Second Hand Smoke Exposure: No Use of substances other than those prescribed or required for medical reasons: Yes Substance Use Type: Marijuana Substance Use Frequency: Daily Have you been hit, kicked, punched, or otherwise hurt by someone within the past year? If so, by whom?: No Are you DNR?: No Advance Directives: No Advance Directives Information Provided: Yes Advance Directives on File: No Recently lost weight without trying: No Nutrition Risks: No Nutritional Risk Poor oral hygiene: No service: No Meds Allergies Allergy/AdvReac Type Severity Reaction Status Date / Time codeine [CODEINE] Allergy Intermediate HIVES Verified 12/12/24 11:36 Home Medications ?Medication ?Instructions ?Recorded ?Confirmed ?Last Taken ?Type acetaminophen 500 mg tablet 1,000 mg PO Q4-6H PRN Pain 11/03/24 12/12/24 Unknown History dapagliflozin propanediol 10 mg 10 mg PO DAILY 12/12/24 12/12/24 Unknown History tablet (Farxiga) fluticasone propionate 50 1 spray intranasal BID 12/12/24 12/12/24 Unknown History mcg/actuation nasal spray,suspension sennosides 8.6 mg tablet (senna) 8.6 mg PO BEDTIME 12/12/24 12/12/24 Unknown H istory Exam Pertinent Lab Results Pertinent Lab Results: Laboratory Tests 11/02/24 13:57 WBC 6.1 Hgb 12.3 L Hct 34.4 L Plt Count 152 L Sodium 138 Potassium 4.2 Chloride 106 Carbon Dioxide 27 BUN 19 H Creatinine 1.21 Narrative Narrative: EKG 10/2024 Vent. Rate : 075 BPM Atrial Rate : 075 BPM P-R Int : 168 ms QRS Dur : 092 ms QT Int : 360 ms P-R-T Axes : 072 032 -26 degrees QTc Int : 402 ms Normal sinus rhythm Minimal voltage criteria for LVH, may be normal variant ( Errol product ) Nonspecific T wave abnormality Abnormal ECG When compared with ECG of 24-FEB-2018 16:48, Nonspecific T wave abnormality now evident in Lateral leads ECHO 10/2024 Conclusions: - 1. Moderate to severely reduced LV ejection fraction of 30-35% with underlying regional wall motion abnormality suggestive of ischemic cardiomyopathy 2. Normal cardiac valvular Dopplers 3. No gross pericardial effusion Assessment and Plan Assessment Anesthesia Assessment: Chart Reviewed Documented by User: Carissa Harp MD 12/12/24 12:44 PMFSH Past Medical History Medical History Paresthesia of lower extremity Unstable knee Tinea pedis Stage 3a chronic kidney disease Osteomyelitis, ankle and foot Erectile dysfunction Epilepsy Chronic neck pain Chronic low back pain Body dysmorphic disorder Diabetic foot Complicated grieving Renal osteodystrophy Proteinuria Cerebral infarction Palpitations Hypertensive disorder Hyperlipidemia History of alcoholism Stroke Diabetes CKD (chronic kidney disease) Surgical History Surgical History History of implantation of penile prosthesis Previous back surgery (~1993) History of Problems with Anesthesia: No Social History Social History Household Members: None Housing: Apartment Are you a primary field care coordinator to a significant other at home: No Do you presently have visiting nurse or other home services: No Comment: pt refusing the alarm for safety Patient Tobacco Use Status: Never used Tobacco e-Cigarette/Vaping Use: Never Used Second Hand Smoke Exposure: No Use of substances other than those prescribed or required for medical reasons: Yes Substance Use Type: Marijuana Substance Use Frequency: Daily Have you been hit, kicked, punched, or otherwise hurt by someone within the past year? If so, by whom?: No Are you DNR?: No Advance Directives: No Advance Directives Information Provided: Yes Advance Directives on File: No Recently lost weight without trying: No Nutrition Risks: No Nutritional Risk Poor oral hygiene: No service: No Meds Allergies Allergy/AdvReac Type Severity Reaction Status Date / Time codeine [CODEINE] Allergy Intermediate HIVES Verified 12/12/24 11:36 Home Medications ?Medication ?Instructions ?Recorded ?Confirmed ?Last Taken ?Type acetaminophen 500 mg tablet 1,000 mg PO Q4-6H PRN Pain 11/03/24 12/12/24 Unknown History dapagliflozin propanediol 10 mg 10 mg PO DAILY 12/12/24 12/12/24 Unknown History tablet (Farxiga) fluticasone propionate 50 1 spray intranasal BID 12/12/24 12/12/24 Unknown History mcg/actuation nasal spray,suspension sennosides 8.6 mg tablet (senna) 8.6 mg PO BEDTIME 12/12/24 12/12/24 Unknown History Exam Airway Mallampati Class: III TM Dist: >3cm Neck ROM: Limited Denture: Upper Partial: Lower Loose/Missing/Broken Teeth: Yes, Upper and Lower Heart: RRR Lungs: CTA Assessment and Plan Assessment Anesthesia Assessment: Anesthesia Plan Discussed Final Anesthetic Review History of Problems with Anesthesia: No NPO: Yes ASA Class: IV Final Preanesthetic Review: Meds/Allgs Chart Reviewed, Consent Obtained/Reviewed and Anes Risks/Benef Reviewed Patient Risk: High Procedure Risk: Intermediate Anesthetic Plan Anesthetic Plan: MAC: Disposition: Standard PACU
--- NOTE | 2024-12-12 11:51 | CA_ITS ---
Transesophageal Echocardiogram Patient (Last, First, Middle): Dany Ryan, Gender: Male Date of : 1965 Age: 59 Procedure Date: 12/12/2024 Procedure Type: Transesophageal Echocardiogram Location: OP Height: 175.26 cm Weight: 63.99 kg BSA: 1.78 m2 Heart Rate: 72 bpm BP: 145 / 67 mmHg Maintenance Planning Clerk: ANJALI Referring MD: Georgi Bernard MD Rigging Worker: Georgi Bernard MD Symptoms: I25.5 - Ischemic cardiomyopathy/cva Conclusion: ??? 1. Dilated left ventricle with LV ejection fraction severely reduced at about 30% with regional wall motion abnormality with impaired relaxation filling pattern 2. Presence of PFO noted 3. Normal cardiac valvular Doppler 4. No intracardiac thrombi, masses, vegetations 5. Mild atherosclerotic changes in the arch and descending thoracic aorta 6. No gross bradycardia abnormality Findings Procedure Information Consent was obtained prior to the procedure. Pre SOURAV oral cavity was checked and revealed mild overcrowding. The adult 3D probe was passed with minimal difficulty. This was a technically good study. Left Ventricle Mildly increased left ventricular cavity size. There is mildly increased left ventricular wall thickness. The left ventricular systolic function is severely decreased. The visually estimated ejection fraction is between 25 30%. There is evidence of regional wall motion abnormalities. Spectral Doppler is indicative of an impaired relaxation filling pattern. Right Ventricle Normal right ventricular cavity size and systolic function. Atria The left atrium is mildly dilated. Contrast study for right to left shunting is mildly positive. Contrast study for right to left shunting is moderately positive with Valsalva maneuver. Patent foramen ovale detected using by contrast. There is no evidence of thrombus or mass in the left atrium. the left atrial appendage was identified multiple views. There are no clots or masses in the left atrial appendage. The left upper, right upper and right pulmonary vein drain normally into the left atrium. The left atrial appendage ejection velocities within normal limits. The right atrium is likely dilated. There is no evidence of thrombus or mass in the right atrium. the IVC and SVC trend normally into the right atrium. The no masses or thrombi seen within the right atrium. Aortic Valve Normal aortic valve structure and function. There is no aortic valve stenosis. There is no evidence of a mass on the aortic valve. There is trace (trivial) aortic valve regurgitation. Mitral Valve Normal mitral valve structure and function. There is trace mitral valve regurgitation. There is no mitral valve stenosis. There is no mass noted on the mitral valve. Prominent thickened sub chordal structures noted without any masses. Pulmonic Valve The pulmonic valve is likely normal. There is trace pulmonic valve regurgitation. Tricuspid Valve Normal tricuspid valve structure. There is trace tricuspid valve regurgitation. The right ventricular systolic pressure is not calculated. Great Vessels All visible segments of the aorta are normal in size. The visualized portions of the pulmonary artery and branches are normal. mild atherosclerotic changes noted through the arch and the descending thoracic aorta. Venous The inferior vena cava is normal in size and collapses greater than 50% with inspiration. Pericardium/Pleural There is no evidence of pericardial effusion. Measurements Mitral Valve MV Pk E: 0.68 MV PK A: 0.72 MV Decel Time: 107.00 E/A: 0.90 E'Lateral: 5.98 E'Medial: 11.90 E/E' Med: 5.70 E/E' Lat: 11.40 PHT: 31.00 MVA PHT: 7.10 Decel [place]: 6.37 Diastolic Function MV Pk E: 0.68 MV Pk A: 0.72 E/A: 0.90 E'Medial: 11.90 E/E' Med: 5.70 E' Laterial: 5.98 E/E' Lat: 11.40 Updated by Georgi Bernard on 08:33 AM with Status of Final Georgi Bernard MD electronically signed on 12/13/2024 8:33:18 AM with status of Final
[2024-12-12 11:55] VITALS: BP 123/74; PULSE 83; RESP 14; TEMP 36.3; O2SAT 98; BMI 20.5
--- NOTE | 2024-12-12 11:56 | MHC.SHP ---
Pre-Procedural Eval Section A - 24 Hr Update-Section A only Date of Service: 12/12/24 Section B - Complete if H&P > 30 days Chief Complaint: Cerebral infarction, unspecified Details of Present Illness: Patient present with orthostatic hypotension new findings of CVA with LV ejection fraction study 35% Relevant Family History (Specify if Yes): No Relevant Social History: None Present Medications: see Short Stay Collaborative assessment Medical History: Significant History (Diabetes, LV systolic dysfunction, multiple stroke, orthostatic hypotension) Allergies: Allergies Allergy/AdvReac Type Severity Reaction Status Date / Time codeine [CODEINE] Allergy Intermediate HIVES Verified 12/12/24 11:36 Review of Systems Sugical H&P ROS: Negative: Constitution, Respiratory, Psychiatric, Hem-Onc, Allergic/Immunologic, Gastrointestinal, Genitourinary, Musculoskeletal, Integumentary, Endocrine and Eyes/Ears/Nose/Throat and Yes, Specify: Cardiovascular (Orthostatic dizziness) and Neurological (CVA) Exam Surgical H&P Exam: Normal: HEENT, Normal: Heart, Normal: Lungs, Normal: Extremities, Normal: Abdomen, Normal: Skin and Normal: Neurological Plan Diagnosis/Plan: Unchanged I have reviewed the history and physical and performed a pertinent physical examination on my patient. No changes have occurred unless specified. Time Spent With Patient Time: Total time managing care of this patient today ____ minutes.
[2024-12-12 12:24] LABS: Glucose, Whole Blood 141 mg/dL (60-115)
[2024-12-12] MEDS: Lactated Ringers 1,000 ML 100 ML IVCONT (13:11)
[2024-12-12 13:52] VITALS: BP 137/60; PULSE 72; RESP 18; TEMP 36.2; O2SAT 100
[2024-12-12 14:07] VITALS: BP 152/77; PULSE 79; RESP 16; O2SAT 98
[2024-12-12 14:22] VITALS: BP 148/65; PULSE 85; RESP 16; TEMP 36.2; O2SAT 98
== END 2024-12-12 14:54 | disposition home or self-care (01) ==
PROVIDERS: PCP Registered Nurse; Visit Provider Internal Medicine Cardiovascular Disease
PROC: (CPT 93312; principal; 2024-12-12 12:30)
DX: I63.9 Cerebral infarction, unspecified (principal); I95.1 Orthostatic hypotension; I25.5 Ischemic cardiomyopathy; I50.1 Left ventricular failure, unspecified; I11.0 Hypertensive heart disease with heart failure; E11.9 Type 2 diabetes mellitus without complications; Z88.5 Allergy status to narcotic agent; Z86.73 Personal history of transient ischemic attack (TIA), and cerebral infarction without residual deficits
CPT/HCPCS: 93312; 82947; J2003; J2704; J3010; Q9957

== ENCOUNTER → 2024-12-12 11:51 | Outpatient (BNV) | payer MEDICAID, SELFPAY | PROVIDERS: PCP Registered Nurse; Visit Provider Internal Medicine Cardiovascular Disease | DX: Q21.12 Patent foramen ovale (principal); I50.20 Unspecified systolic (congestive) heart failure; I34.89 Other nonrheumatic mitral valve disorders; I51.7 Cardiomegaly | CPT/HCPCS: 76376; 93315; 93320; 93325 ==

== ENCOUNTER → 2025-02-07 08:00 | Outpatient (REF) | payer MEDICAID, SELFPAY ==
--- OUTSIDE RECORDS SUMMARY | 2025-02-07 08:03 | XMS_ITS | Clinical Summary ---
Author Organization [address] [facility] Address [address] [place] [address] Phone Care Team Providers Care Power Barker Operator Name Role Phone Ellie Shanks MD Primary Care Provider [phone] Allergies Active Allergy Reactions Criticality Noted Date Comments Codeine Hives 03/25/2011 Medications acetaminophen (TYLENOL) 500 mg tablet Take 500 mg by mouth every 6 hours as needed. Active ammonium lactate (LAC-HYDRIN) 12 % lotion Apply to soles of feet daily. At night wear socks to bed 4 Active aspirin 81 mg EC tablet Take 81 mg by mouth daily. Active atorvastatin (LIPITOR) 40 mg tablet Take 40 mg by mouth daily. Active ciclopirox (PENLAC) 8 % solution Apply daily to nails clean medication residue off of nail plate every 3 days with rubbing alcohol 2 Active lidocaine (LIDODERM) 5 % patch Place 1 Patch onto the skin every 24 hours. Apply for no more than 12 hours in any 24 hour period. Active losartan (COZAAR) 25 mg tablet Take 25 mg by mouth daily. Active metFORMIN (GLUCOPHAGE) 1,000 mg tablet Take 1,000 mg by mouth 2 times daily (with meals). 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 Surgical History Surgery Date Site/Laterality Comments FOOT SURGERY 2009 PROCEDURE: HISTORICAL FOOT SURGERY; COMMENT: Right foot infection BACK SURGERY 1984 PROCEDURE: HISTORICAL BACK SURGERY; COMMENT: low back Medical History Medical History Date Comments CVA (cerebral vascular accid ent) ([facility]) 02/18/2022 DX:CVA (cerebral vascular ac cident) ([facility]) Hypertension 02/18/2022 DX:Hypertension Erectile dysfunction 02/18/2022 DX:Erectile dysfunction Redundant prepuce 02/18/2022 DX:Redundant p repuce Hyperlipidemia 02/18/2022 DX:Hyperlipidemi a Epilepsy ([facility]) 02/18/2022 DX:Epilepsy ( [facility]) Social History Tobacco Use Types Packs/Day Years Used Date Smoking Tobacco: Former Cigarettes Q uit: 11/01/2017 Smokeless Tobacco: Never Tobacco Cessation:Counseling Given: Not Answered Alcohol Use Standard Drinks/Week Comments No 0 (1 standard drink = 0.6 oz pur e alcohol) Sex and Gender Information Value Date Recorded Sex Assigned at Not on file Legal Sex Male 3:59 AM EST Gender Identity Not on file Sexual Orientation Not on file Obstetrics History Last Filed Vital Signs Vital Sign Reading Time Taken Comments Blood Pressure - - Pulse - - Temperature - - Respiratory Rate - - Oxygen Saturation - - Inhaled Oxygen Concentration - - Weight 83.9 kg (185 lb) 10/01/2024 2:27 PM EST Height 165.1 cm (5' 5 ) 10/01/2024 2:27 PM EST Body Mass Index 30.79 10/01/2024 2:27 PM EST Plan of Treatment Health Maintenance Due Date Last Done Comments Diabetes: Annual Foot Exam 1975 Diabetes: Annual Retina Eye Exam 1975 Hepatitis B Vaccines (1 of 3 - 19+ 3-dose series) 02/22/1984 Pneumococcal Vaccine: 50+ Years (1 of 2 - PCV) 02/22/1984 Pneumococcal Vaccine: Pediatrics (0 to 5 Years) and At-Risk Patients (6 to 64 Years) (1 of 2 - PCV) 02/22/1984 Zoster Vaccines (1 of 2) 2015 Colorectal Cancer Screening: Colonoscopy 10/31/2022 Hepatitis C Screening 10/31/2022 Social Influencers of Health Screening 10/31/2022 Diabetes: Annual Urine Albumin-Creatinine Ratio (uACR) 11/11/2022 COVID-19 Vaccine ( - 2023-2 5 season) 2024 Influenza Vaccine (#1) 2024 09/04/2013 Diabetes: Blood Sugar Contro l Test (HGBA1C) 01/04/2025 07/04/2024, 03/15/2024 Diabetes: Annual GFR (Glomerular Filtration Rate) 03/15/2025 03/15/2024 Hypertension/CHF/CAD Annual BMP Blood Test 03/15/2025 03/15/2024 Depression Screening 07/04/2025 07/04/2024 Cholesterol Screening (Lipid Panel) 07/07/2028 07/07/2023, 07/07/2023 DTaP,Tdap,and Td Vaccines (3 - Td or Tdap) 04/09/2032 04/09/2022, 08/15/2012 RSV Immunization Patients 60 + Years Old (1 - 1-dose 75+ series) 02/22/2040 HIV Screening Completed 03/15/2024, 03/15/2024 HIB Vaccines Aged Out No longer eligi ble based on patient's age to complete this topic HPV Vaccines Aged Out No longer eligi ble based on patient's age to complete this topic Hepatitis A Vaccines Aged Out No long er eligible based on patient's age to complete this topic IPV Vaccines Aged Out No longer eligi ble based on patient's age to complete this topic MMR Vaccines Aged Out No longer eligi ble based on patient's age to complete this topic Meningococcal ACWY Vaccine Aged Out N o longer eligible based on patient's age to complete this topic Meningococcal B Vacine Aged Out No lo nger eligible based on patient's age to complete this topic RSV Immunization Patients Under 20 months Aged Out No longer eligible b ased on patient's age to complete this topic Varicella Vaccines Aged Out No longer eligible based on patient's age to complete this topic Procedures Procedure Name Priority Date/Time Associated Diagnosis Comments HM HIV SCREENING Routine 03/15/2024 ANNUAL BMP BLOOD TEST Routine 03/15/2024 HEMOGLOBIN A1C Routine 03/15/2024 LIPID PANEL Routine 07/07/2023 from Last 3 Months or Most Recently Relevant to Health Maintenance Results * Annual BMP Blood Test (03/15/2024) Pathologist [facility] Annual BMP Blood Test Abstracted [facility] Provider HEALTH MAINTENANCE Final Result * HIV Screening (03/15/2024) Pathologist [facility] HIV Screening Abstracted [facility] Provider HEALTH MAINTENANCE Final Result * Hemoglobin A1c (03/15/2024) Pathologist [facility] Hemoglobin A1C 0.0 % Comment:No interpretation, A bstracted Blood Venous blood specimen / Unknown Result [facility] Provider LAB BLOOD ORDERABLES Rima l Result * Lipid panel (07/07/2023) [facility] LDL/HDL Ratio 0 Comment:Abstracted Triglycerides 0 mg/dL Comment:Abstracted Cholesterol 0 mg/dL Comment:Abstracted HDL 0 mg/dL Comment:Abstracted LDL Cholesterol 0 mg/dL Comment:Abstracted Blood Venous blood specimen / Unknown Result [facility] Provider LAB BLOOD ORDERABLES Rima l Result from Last 3 Months or Most Recently Relevant to Health Maintenance [id number] Care Teams Power Barker Operator Relationship Specialty Start Date End Date Ellie Shanks MD [address] [place] [phone] PCP - General Internal Medicine 02/04/22
--- OUTSIDE RECORDS SUMMARY | 2025-02-07 08:03 | XMS_ITS | Referral Summary ---
Author Organization [facility] Address [address] [place] [address] Care Team Providers Care Direct Selling Counselor Name Role Phone [facility] Primary Care Provider [phone] Allergies Active Allergy Reactions Criticality Noted Date Comments Codeine Rash Low 11/16/2010 Lisinopril Dizziness,Other (see comments) 06/11 Medications cyclobenzaprine (FLEXERIL) 10 mg tablet SMARTSI Tablet(s) By Mouth 3 Times Daily PRN 4 Active Farxiga 10 mg Take 10 mg by mouth. 3 Active atorvastatin (LIPITOR) 40 mg tablet Take 1 tablet by mouth. 3 Active ammonium lactate (LAC-HYDRIN) 12% lotion SMARTSIG:Topic al Every Night 4 Active acetaminophen (TYLENOL) 500 mg tablet TAKE 2 TABLETS BY MOUTH EVERY 4 TO 6 HOURS NEEDED NOT TO EXCEED 8 TABLETS PER 24 HOURS 4 Active fludrocortisone (FLORINEF) 0.1 mg tablet Take 1 tablet by mouth once a day. 4 Active fluticasone propionate (FLONASE) 50 mcg/actuation nasal spray SMARTSI [place](s) Both Nares Twice Daily Active INSULIN ASPART U-100 SUBCUTANEO Inject as directed See admin instructions. Active insulin glargine (Lantus U-100 Insulin) 100 units/mL solution injection Inject as directed See admin instructions. Active loratadine (CLARITIN) 10 mg tablet SMARTSI Tablet(s) By Mouth Every Morning Active lidocaine (LIDODERM) 5% patch SMARTSI Patch(s) Topical Every 3 Days Active metFORMIN (GLUCOPHAGE) 1,000 mg tablet TAKE 1 TABLET BY MOUTH TWICE A DAY WITH BREAKFAST AND DINNER 3 Active metFORMIN (GLUCOPHAGE) 500 mg tablet Take 1 tablet by mouth 2 times a day. Active Active Problems Problem Noted Date Diagnosed Date Redundant nuchal skin 08/18/2024 Social History Tobacco Use Types Packs/Day Years Used Date Smoking Tobacco: Never Assessed Sex and Gender Information Value Date Recorded Sex Assigned at Male 06/29/2024 3:35 PM EDT Legal Sex Male 3:32 PM EDT Gender Identity Male 06/29/2024 3:35 PM EDT Sexual Orientation Not on file Plan of Treatment Not on file [id number] Care Teams Direct Selling Counselor Relationship Specialty Start Date End Date [facility] [address] [place] [phone] PCP - General 06/29/24
--- OUTSIDE RECORDS SUMMARY | 2025-02-07 08:03 | XMS_ITS | Clinical Summary ---
Author Organization [facility] Address [address] [place] [address] Care Team Providers Care Call Or Contact Centre Operator Name Role Phone [facility] Primary Care Provider [phone] Allergies Active Allergy Reactions Criticality Noted Date [...] propionate (FLONASE) 50 mcg/actuation nasal spray SMARTSI Given(s) Both Nares Twice Daily Active INSULIN ASPART [...] Orientation Not on file Plan of Treatment Health Maintenance Due Date Last Done Comments Cologuard 1965 Colon Cancer Screening 1965 Colonoscopy 1965 FOBT / Fit Test 1965 Hepatitis C Screening 1965 Sigmoidoscopy 1965 Hepatitis B Vaccines (1 of 3 - 19+ 3-dose series) 02/22/1984 Pneumococcal Vaccine: 50+ Ye ars (1 of 1 - PCV) 2015 Zoster Vaccines (1 of 2) 2015 COVID-19 Vaccine (4 - season) 2024 12/24/2021, 04/15/2021, 03/11/2021 Influenza Vaccine (#1) 2024 09/04/2013 Alcohol/Substance Use Screening 11/28/2024 Depression Screening and Follow-Up 11/28/2024 Social Drivers of Health Allyson ual Screening 11/28/2024 DTaP,Tdap,and Td Vaccines (3 - Td or Tdap) 04/09/2032 04/09/2022, 08/15/2012 RSV Vaccine (60+ years old a nd patients) (1 - 1-dose 75+ series) 02/22/2040 HIV Screening Completed 03/15/[address] [place] [id number] [employer] Care Teams Call Or Contact Centre Operator Relationship Specialty Start Date End Date [facility] [address] [place] [id number] PCP - General 06/29/24
--- OUTSIDE RECORDS SUMMARY | 2025-02-07 08:03 | XMS_ITS | Clinical Summary ---
Author Organization [facility] Address [address] [phone] Phone Care Team Providers Care Account Manager [employer] Name Role Phone Dimitris, Celegene Primary Care Provider Unavaila ble Allergies Active Allergy Reactions Criticality Noted Date Comments Codeine Rash Low 10/28/2022 Lisinopril Other (see comments) 06/11/2021 Medications insulin glargine (Lantus) 100 UNIT/ML injection Inject as directed Active insulin aspart (NovoLOG) 100 UNIT/ML injection Inject as directed Active atorvastatin (LIPITOR) 40 MG tablet Take 1 tablet by mouth 1 (one) time each day Active aspirin (ST AMPARO) 81 MG EC tablet Take 1 tablet by mouth 1 (one) time each day Active Acetaminophen Extra Strength 500 MG tablet 1 Active Dapagliflozin Propanediol (Farxiga) 10 MG tablet Take 10 mg by mouth 1 (one) time each day 90 tablet 2 3 Active meclizine (ANTIVERT) 12.5 MG tablet Take 12.5 mg by mouth 3 times daily as needed 5 Active cyclobenzaprine (FLEXERIL) 10 MG tablet SMARTSI Tablet(s) By Mouth 3 Times Daily PRN 4 Active senna (SENOKOT) 8.6 MG tablet Take 8.6 mg by mouth 4 11/14/20 25 Active fluticasone (FLONASE) 50 MCG/ACT nasal spray USE 1 SPRAY INTO EACH NOSTRIL 2 TIMES DAILY. SHAKE GENTLY. BEFORE USE Active polyethylene glycol (GLYCOLAX) 17 g packet Take 17 g by mouth 1 (one) time each day Active isosorbide dinitrate (ISORDIL) 5 MG tablet Take 5 mg by mouth 5 Active hydrALAZINE (APRESOLINE) 10 MG tablet Take 10 mg by mouth 5 Active Eliquis 5 MG tablet Take 1 tablet by mouth in the morning and 1 tablet in the evening. 4 Active Active Problems Problem Noted Date Diagnosed Date Complicated grieving 07/29/2023 Overview (02/23/2024): Last Assessment & Plan: Patient with ymptoms of anhedonia, hopeless and difficulty concentrating. Symptoms indicate a mild impact on social and occupational functioning. Symptoms occur nearly everyday and have been present for the last twelve months since the passing of his brother. Symptom presented in the context of struggling to overcome his brother passing twelve months ago. Patient will benefit from receiving OP individual therapy and incorporating grounding techniques into daily routine. At this time Dany Ryan meets criteria for Visit Diagnoses: Problem List Items Addressed This Visit Other Complicated grief - Primary Relevant Orders Referral to Behavioral Health Patient ready to address current needs Yes Strengths include dedication and love for his children. PLAN: 1. Follow up with [facility]: Not recommended for follow-up 2. Patient goal is to find motivation again. 3. Behavioral Recommendations a. Referral for OP individual therapy b. Incorporate grounding techniques into daily routine c. [place] his brother's life by doing activities in his memory Tinea pedis 02/18/2022 08/05/2023 Erectile dysfunction 02/18/2022 08/05/2023 Redundant prepuce 02/18/2022 08/05/2023 Hyperlipidemia 02/18/2022 08/05/2023 Cerebrovascular accident 02/18/2022 023 Epilepsy 02/18/2022 08/05/2023 Backache 02/18/2022 08/05/2023 Alcoholism 02/18/2022 08/05/2023 Stage 3a chronic kidney disease 10/20/2021 Renal osteodystrophy 10/20/2021 Diabetes mellitus 09/14/2021 Hypertensive disorder 09/14/2021 Proteinuria 09/14/2021 Chronic kidney disease, stage 2 (mild) Type 2 diabetes mellitus wit h diabetic chronic kidney disease 09/14/2021 History of implantation of penile prosthesis 08/05/2023 Body dysmorphic disorder 05/18/2021 023 Palpitations 12/04/2018 Cerebral infarction 02/26/2015 Overview (02/23/2024): Multiple CVA. Most recent 2016. MRI at this time shows multiple old lacunar strokes in basal ganglia, kim, microvascular changes. H/O: alcoholism 08/15/2013 Osteomyelitis of ankle AND/OR foot 03/25/2011 08/05/2023 Encounters Date Type Department Care Team Description 12/31/2024 2:30 PM EST Office Visit [facility] [address] [place] [phone] Chris King MD Stage 3a chronic kidney disease (HCC) (Primary Dx); Renal osteodystrophy; Type 2 diabetes mellitus with diabetic chronic kidney disease (HCC) from Last 3 Months Social History Tobacco Use Types Packs/Day Years Used Date Smoking Tobacco: Every Day Cigarettes Tobacco Cessation:Ready to Q uit: Not Asked; Counseling Given: Not Answered Alcohol Use Standard Drinks/Week Comments Not Currently 0 (1 standard drink = 0.6 oz pur e alcohol) Sex and Gender Information Value Date Recorded Sex Assigned at Not on file Legal Sex Male 4:42 PM EST Gender Identity Not on file Sexual Orientation Not on file Last Filed Vital Signs Vital Sign Reading Time Taken Comments Blood Pressure 118/60 12/31/2024 2:40 PM EST Pulse 88 12/31/2024 2:40 PM EST Temperature - - Respiratory Rate - - Oxygen Saturation 99% 12/31/2024 2:40 PM EST Inhaled Oxygen Concentration - - Weight 63.5 kg (140 lb) 12/31/2024 2:40 PM EST Height - - Body Mass Index - - Plan of Treatment Upcoming Encounters Date Type Department Care Team (Late st Contact Info) Description 10/07/2025 1:45 PM EST Office Visit [facility] [address] [place] [phone] Chris King MD [address] [address] Health Maintenance Due Date Last Done Comments Pneumococcal Vaccine: Pediat rics (0 to 5 Years) and At-Risk Patients (6 to 64 Years) (1 of 2 - PCV) 1971 Hepatitis B Vaccine (1 of 3 - 19+ 3-dose series) 02/22/1984 Colorectal Cancer Screening: Annual FOBT 2014 Colorectal Cancer Screening: Colonoscopy 2014 Colorectal Cancer Screening: Sigmoidoscopy 2014 Diabetes: Ophthalmology Exam 12/28/2020 Diabetes: Pedal Pulse Checked 12/28/2020 Diabetes: Sensory Foot Exam 12/28/2020 Diabetes: Visual Foot Exam 12/28/2020 Diabetes: Hemoglobin A1C 02/28/2025 025, 07/04/2024, 03/15/2024, Additional history exists Influenza Vaccine Completed 11/03/2024, 09/04/2013 Insurance [place] , [place] [id number] [place] Care Teams Account Manager [employer] Relationship Specialty Start Date End Date Ellie Shanks PCP - General Internal Medicine 07/03/21
--- NOTE | 2025-02-07 08:06 | CA_ITS ---
Acquisition Time: 2025-02-07 08:21:28 Total Exercise Time: 00:02:00 Test Indications: CARDIOMYOPATHY Medications: SEE H&P Protocol: LEXISCAN Max HR: 92 BPM 57% of Pred: 161 BPM Max BP: 126/70 mmHG Max Work Load: 1.0 METS Pharmacological stress test with Lexiscan while pt marches in chair, with reports of mild chest and shoulder discomfort, with isolated PVCs, with normotensive response to injection. Nondiagnostic EKG for ischemia. In recovery, pt treated with IVP Aminophylline to reverse Lexiscan, after which pt feeling back to baseline. Nuclear images pending. Test reviewed with Dr. Kwok. Referred By: Georgi Bernard Electronically Signed By: Brandon Perez
== END ==
LOC: HO.CARD 08:00
PROVIDERS: PCP Registered Nurse; Visit Provider Internal Medicine Cardiovascular Disease
DX: I25.5 Ischemic cardiomyopathy (principal); I63.9 Cerebral infarction, unspecified
CPT/HCPCS: 93017; J0280; J2785

== ENCOUNTER → 2025-02-07 08:06 | Outpatient (BNV) | payer MEDICAID, SELFPAY | PROVIDERS: PCP Registered Nurse | DX: I49.3 Ventricular premature depolarization (principal) | CPT/HCPCS: 78452; 93016; 93018 ==

== ENCOUNTER 2025-02-27 11:03 | Outpatient (AMB) | payer MEDICAID, SELFPAY ==
--- NOTE | 2025-02-27 11:08 | MHC.OFFVIS ---
Vital Signs 02/27/25 11:10 Height 5 ft 9 in BMI Reason not done Patient refused/unable BP 110/78 Blood Pressure Location Lt brachial Position Sitting Pulse 72 Pulse Source Pulse Oximeter Intake Visit Reasons: follow up after testings Head Men'S Tennis Coach Required: Yes Head Men'S Tennis Coach Name: DAINA [id number] Allergies codeine [CODEINE] Allergy (Intermediate, Verified 12/12/24 11:36) HIVES Medication List - Last Reconciled 02/27/25 by Georgi Bernard MD acetaminophen 1,000 mg PO Q4-6H PRN apixaban (Eliquis) 5 mg PO BID atorvastatin 40 mg PO BEDTIME dapagliflozin propanediol (Farxiga) 10 mg PO DAILY fluticasone propionate 50 mcg/actuation 1 spray intranasal BID hydralazine 10 mg See Protocol PO BEDTIME isosorbide dinitrate 5 mg See Protocol PO BEDTIME meclizine 12.5 mg PO TID PRN sennosides (senna) 8.6 mg PO BEDTIME HPI Comments Details: Dany comes for follow-up. He has not had any significant new cardiac symptoms. Recent myocardial perfusion imaging shows large territory of ischemia possibly two-vessel territory ischemia. Gated LVEF is in the 40s. His echocardiogram while admitted with acute stroke at shown LV ejection fraction of 25-30%. He has been on oral anticoagulation therapy since then. He has done well with it. He was also evidence of small PFO on SOURAV. Patient denies any chest pain although he is limited in activity level. He also has significant orthostatic hypotension. He was not had any recurrent syncopal episodes. Currently taking his medication with hydralazine as well as isosorbide. He is also on full oral anticoagulation Eliquis as mentioned. No lightheadedness, syncope. No prolonged palpitation irregular heartbeat. 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 Renal osteodystrophy Proteinuria Cerebral infarction Palpitations Hypertensive disorder Hyperlipidemia History of alcoholism Stroke Diabetes CKD (chronic kidney disease) Surgical History History of implantation of penile prosthesis Previous back surgery (~1993) Social History Household Members: None Housing: Apartment Are you a primary overnight caregiver to a significant other at home: No Do you presently have visiting nurse or other home services: No Comment: pt refusing the alarm for safety Patient Tobacco Use Status: Never used Tobacco e-Cigarette/Vaping Use: Never Used Second Hand Smoke Exposure: No Substance Use Type: Marijuana service: No Review of Systems Const Denies weakness ENT Denies dizziness Card Denies chest pain, Denies chest pain with activity, Denies syncope, Denies rapid heart rate, Denies pedal edema, Denies edema, Denies leg edema, Denies lightheadedness, Denies palpitations, Denies dyspnea, Denies dyspnea on exertion and Denies orthopnea Resp Denies cough, Denies dyspnea and Denies dyspnea on exertion GI Denies hematochezia and Denies change in stool character Musc Denies abnormal gait, Denies muscle cramps, Denies muscle weakness, Denies numbness, Denies radiating pain into limb and Denies tingling Neuro Denies abnormal gait, Denies dizziness, Denies syncope, Denies numbness, Denies tingling and Denies weakness Endo Denies palpitations Physical Exam Vital Signs: Last Vital Signs Pulse 72 02/27/25 11:10 BP 110/78 02/27/25 11:10 Const General: cooperative, comfortable, no acute distress, alert and awake Nutritional Appearance: thin and other (Frail middle-aged man) Orientation/consciousness: patient oriented x3 Limitations: ambulation with walker Neck Neck: Yes trachea midline, Yes supple and Yes no JVD Resp Effort & Inspection: normal respiratory effort Auscultation: clear to auscultation bilaterally Cardio Jugular venous distension: no JVD Rate: regular rate Rhythm: regular rhythm Heart sounds: S1 normal heart sound present, S2 normal heart sound present, no click, no gallops, no murmurs and no rubs GI Auscultation: normal bowel sounds Skin General skin exam: no rashes or lesions noted Neuro General: patient oriented x3 and other (Balance issues with generalized tremors) Extrem General: Yes no clubbing, cyanosis or edema Assessment & Plan Assessment & Plan (1) Ischemic cardiomyopathy: Code(s): I25.5 - Ischemic cardiomyopathy Category: Medical Plan: Ischemic cardiomyopathy in this middle-aged man with severe ischemia possibly two-vessel possibly multivessel coronary artery disease with no clear symptoms of angina probably mass because of his limited exercise capacity and or/silent ischemia related to diabetes. We discussed about possibility of multivessel coronary artery disease with help of cemetery warden. I recommend him to undergo cardiac catheterization to further evaluate coronary anatomy which may tire changer aircraft to interventional therapy. This was discussed with him. Has poor tolerance to multiple medications due to orthostatic intolerance. Currently with no signs or symptoms of heart failure. For now continue hydralazine, isosorbide combination along with Farxiga. Clinically does not requiring diuretic regimen. Heart failure symptoms were discussed. Understands agrees. Will schedule for cardiac catheterization near future. Thank you for allowing me to partake in his care Orders: Orders Prothrombin Time INR Today I25.5 - Ischemic cardiomyopathy Complete Blood Count no Diff Today I25.5 - Ischemic cardiomyopathy Cardiac Cath LT w PCI 1 Week I25.5 - Ischemic cardiomyopathy Basic Metabolic Panel Today I25.5 - Ischemic cardiomyopathy Coding Level of Care Code Est Pt Level 4 (80485) Complex EM visit Add On G2211 Diagnoses Ischemic cardiomyopathy I25.5
[2025-02-27 11:10] VITALS: BP 110/78; PULSE 72
--- OUTSIDE RECORDS SUMMARY | 2025-02-27 13:22 | XMS_ITS | Encounter Summary ---
Author Organization [email or web address] [facility] Address [address] [facility] 7t [place] [address] Care Team Providers Care Billet Examiner Name Role Phone Aris [facility] Primary Care Provider [phone] Kim Davenport PharmD Unavailable [phone] Reason for Visit * Reason Onset Date Comments Referral 05/23/2023 Encounter Details Date Type Department Care Team (Late st Contact Info) Description 05/23/2023 Telephone [facility] MEDICINE [address] [place], [place] [phone] [place] [facility] [address] [place] [address] Referral Social History Tobacco Use Types Packs/Day Years Used Date Smoking Tobacco: Never Sex and Gender Information Value Date Recorded Sex Assigned at Male 09/27/2022 10:14 AM EDT Legal Sex Male 10:14 AM EDT Gender Identity Male 09/27/2022 10:14 AM EDT Sexual Orientation Straight 09/27/2022 10 :14 AM EDT documented as of this encounter Miscellaneous Notes * Telephone Encounter - Michaelle Iraheta - 05/23/2023 11:49 AM EDT Tc from patient requesting a referral for podiatry to cut his toe nails. Referrals Date-N/A Time- N/A Address- [place] [address] Specialty- Podiatry Fax: documented in this encounter Plan of Treatment Not on file documented as of this encounter Visit Diagnoses Not on filedocumented in this encounter Care Teams Billet Examiner Relationship Specialty Start Date End Date Nguyen Hurst FNP [address] [place] [address] PCP - General Family Medicine 07/01/22 Kim Davenport PharmD [address] [place] [address] Pharmacist Internal Medicine 12/10/24 Hortensia [facility] 11/08/24 documented as of this encounter
--- OUTSIDE RECORDS SUMMARY | 2025-02-27 13:22 | XMS_ITS | Encounter Summary ---
Author Organization [employer] Address [address] 7[address] [place] [address] Care Team Providers Care Carbon Blocks Press Operator Name Role Phone Nguyen Hurst RESIDENTIAL LEASING AGENT Primary Care Provider [phone] Kim Davenport PharmD Unavailable [phone] Reason for Visit * Reason Onset Date Comments snap on denture referral 06/21/2024 appt 06/21/2024 Encounter Details Date Type Department Care Team (Late st Contact Info) Description 06/21/2024 Telephone [facility] ADULT D[facility]AL [address] [place] [address] Brian Cosby DDS [address] [place], [place] [phone] snap on denture referral; appt Social History Tobacco Use Types Packs/Day Years Used Date Smoking Tobacco: Former Cigarettes Smokeless Tobacco: Never Depression Answer Date Recorded Patient Health Questionnaire-9 Score 5 08/02/2023 Housing Stability Answer Date Recorded What is your housing situation today? I have hayley irwin 09/21/[address] you li ve. Do you have problems with any of the following? None of the above 09/21/2023 Food Insecurity Answer Date Recorded Within the past 12 months, y ou worried that your food would run out before you got money to buy more: Never True 09/21/2023 Within the past 12 months,th e food you bought just didn't last and you didn't have enough money to get more: Never True Transportation Answer Date Recorded In the past 12 months, has l ack of transportation kept you from medical appts, meetings, work or from getting things needed for daily living? No 09/21/2023 Utilities Answer Date Recorded In the past 12 months, has t he electric, gas, oil or water company threatened to shut off services in your home? No 09/21/2023 Depression Answer Date Recorded Patient Health Questionnaire-2 Score 3 08/02/2023 Sex and Gender Information Value Date Recorded Sex Assigned at Male 09/27/2022 10:14 AM EDT Legal Sex Male 10:14 AM EDT Gender Identity Male 09/27/2022 10:14 AM EDT Sexual Orientation Straight 09/27/2022 10 :14 AM EDT documented as of this encounter Miscellaneous Notes * Telephone Encounter - Aura Grijalva - 07/02/2024 12:41 PM EDT Patient had an appt and cancelled because he was sick. He is looking to rs. No appts on PAR side. Pls reach out to patient for scheduling * Telephone Encounter - Aura Grijalva - 06/21/2024 9:59 AM EDT Unknown info on PAR side. Patient is looking for an office that does snap on dentures. He would like to have full mouth extraction but is allergic to the glue/paste that is used to keep dentures in and wants to have snap ons instead of regular resin or metal. Is this something we do or would he have to be referred elsewhere? documented in this encounter Plan of Treatment Not on file documented as of this encounter Visit Diagnoses Not on filedocumented in this encounter Additional Health Concerns Assessment Noted Time PHQ-9 Depression Total Score: 5 08/02/20 23 10:05 AM EDT documented as of this encounter Care Teams Carbon Blocks Press Operator Relationship Specialty Start Date End Date Nguyen Hurst FNP [address] [place] [address] PCP - General Family Medicine 07/01/22 Kim Davenport PharmD [address] [place] [address] Pharmacist Internal Medicine 12/10/24 Hortensia GOODE 11/08/24 documented as of this encounter
--- OUTSIDE RECORDS SUMMARY | 2025-02-27 13:22 | XMS_ITS | Encounter Summary ---
Author Organization [employer] [facility] Address [address] [facility] 7t [place] [address] Care Team Providers Care Deputy Commissioner Name Role Phone Nguyen Hurst DESIGN ENG Primary Care Provider [phone] Kim Davenport PharmD Unavailable [phone] Encounter Details Date Type Department Care Team (Late st Contact Info) Description 03/18/2023 Orders Only [facility] MEDICINE [address] [place] [address] Tracee Cabrera LPN Social History Tobacco Use Types Packs/Day Years Used Date Smoking Tobacco: Never Assessed Sex and Gender Information Value Date Recorded Sex Assigned at Male 09/27/2022 10:14 AM EDT Legal Sex Male 10:14 AM EDT Gender Identity Male 09/27/2022 10:14 AM EDT Sexual Orientation Straight 09/27/2022 10 :14 AM EDT documented as of this encounter Plan of Treatment Not on file documented as of this encounter Visit Diagnoses Not on filedocumented in this encounter Care Teams Deputy Commissioner Relationship Specialty Start Date End Date Nguyen Hurst [facility] [address] [place] [address] PCP - General Family Medicine 07/01/22 Kim Davenport, PharmD [address] [place], [place] [phone] Pharmacist Internal Medicine 12/10/24 [facility] 11/08/24 documented as of this encounter
--- OUTSIDE RECORDS SUMMARY | 2025-02-27 13:22 | XMS_ITS | Encounter Summary ---
Author Organization [employer] Address [address] 7[address] [place] [address] Care Team Providers Care Pharmacy Intake Coordinator Name Role Phone Nguyen Hurst [facility] Primary Care Provider [phone] Kim Davenport PharmD Unavailable [phone] Reason for Visit * Reason Onset Date Comments Call Back Request 07/11/2024 Encounter Details Date Type Department Care Team ([facility] st Contact Info) Description 07/11/2024 Telephone [facility] MEDICINE [address] [place], [place] [phone] [facility] [address] [place] [address] Call Back Request Social History Tobacco Use Types Packs/Day Years Used Date Smoking Tobacco: Former Cigarettes Smokeless Tobacco: Never Alcohol Use Standard Drinks/Week Comments Never 0 (1 standard drink = 0.6 oz pur e alcohol) Depression Answer Date Recorded Patient Health Questionnaire-9 Score 0 07/04/2024 Patient Health Questionnaire-9 Score 0 07/04/2024 Last PHQ-9: Questionnaire Data Not on file 0 07/04/2024 Housing Stability Answer Date Recorded What is [...] Answer Date Recorded Patient Health Questionnaire-2 Score 0 07/04/2024 Sex and Gender Information Value Date Recorded Sex Assigned at Male 09/27/2022 10:14 AM EDT Legal Sex Male 10:14 AM EDT Gender Identity Male 09/27/2022 10:14 AM EDT Sexual Orientation Straight 09/27/2022 10 :14 AM EDT documented as of this encounter Miscellaneous Notes * Telephone Encounter - Eliud Oden - 07/11/2024 11:35 AM EDT Tc from patient calling requesting to speak with nurse states needs assistance in trying to get themedical records faxed to Urology in [place] proposal manager writer did attempt to transfer however patient stated was just talking with them was told to speak with provider documented in this encounter Plan of Treatment Not on file documented as of this encounter Visit Diagnoses Not on filedocumented in this encounter Additional Health Concerns Assessment Noted Time PHQ-9 Depression Total Score: 0 07/04/20 24 3:20 PM EDT documented as of this encounter Care Teams Pharmacy Intake Coordinator Relationship Specialty Start Date End Date Nguyen Hurst FNP [address] [place] [address] PCP - General Family Medicine 07/01/22 Kim Davenport PharmD [address] [place] [address] Pharmacist Internal Medicine 12/10/24 [facility] documented as of this encounter
--- OUTSIDE RECORDS SUMMARY | 2025-02-27 13:22 | XMS_ITS | Clinical Summary ---
Author Organization [facility] Address [address] [place] [address] Care Team Providers Care Band Salvager Name Role Phone [employer] Primary Care Provider [phone] Allergies Active Allergy Reactions Criticality Noted Date [...] propionate (FLONASE) 50 mcg/actuation nasal spray SMARTSI Gracey(s) Both Nares Twice Daily Active INSULIN ASPART [...] 1965 Hepatitis C Screening 1965 Sigmoidoscopy 1965 Pneumococcal Vaccine: 50+ Years (1 of 1 - PCV) 2015 Zoster Vaccines (1 of 2) 2015 COVID-19 Vaccine (4 - 2023-2 5 season) 2024 12/24/2021, 04/15/2021, 03/11/2021 Alcohol/Substance Use Screening 11/28/2024 Depression Screening and Follow-Up 11/28/2024 Social Drivers of Health Annual Screening 11/28/2024 Influenza Vaccine (Season Ended) 2025 09/04/2013 DTaP,Tdap,and Td Vaccines (3 - Td or Tdap) 04/09/2032 04/09/2022, 08/15/2012 RSV Vaccine (60+ years old a nd patients) (1 - 1-dose 75+ series) 02/22/2040 HIV Screening Completed 03/15/2024, 03/15/2024 Hepatitis B Vaccines Aged Out No long er eligible based on patient's age to complete this topic Insurance [address] [place] [id number] [employer] Care Teams Band Salvager Relationship Specialty Start Date End Date [employer] [address] [place] [address] PCP - General 06/29/24
--- OUTSIDE RECORDS SUMMARY | 2025-02-27 13:22 | XMS_ITS | Clinical Summary ---
Author Organization [facility] Address [address] [address] Phone Care Team Providers Care Clearing Distribution Clerk Name Role Phone Dimitris, Celegeen Primary Care Provider Unavaila ble Allergies Active [...] his children. PLAN: 1. Follow up with [facility]: Not recommended for follow-up 2. Patient goal is to find motivation again. 3. Behavioral Recommendations a. Referral for OP individual therapy b. Incorporate grounding techniques into daily routine c. [place] his brother's life by doing activities in [...] Visit [facility] [address] [place] [address] Chris King MD Stage 3a chronic kidney [...] Visit [facility] [address] [place] [address] Chris King MD [address] [address] Health Maintenance Due Date Last Done Comments Pneumococcal Vaccine: Pediatrics (0 to 5 Years) and At-Risk Patients (6 to 64 Years) (1 of 2 - PCV) 1971 Colorectal Cancer Screening: Annual FOBT 2014 Colorectal Cancer Screening: Colonoscopy 2014 Colorectal Cancer Screening: Sigmoidoscopy 2014 Diabetes: Ophthalmology Exam 12/28/2020 Diabetes: Pedal Pulse Checked 12/28/2020 Diabetes: Sensory Foot Exam 12/28/2020 Diabetes: Visual Foot Exam 12/28/2020 Diabetes: Hemoglobin A1C 02/28/2025 025, 07/04/2024, 03/15/2024, Additional history exists Influenza Vaccine Completed 11/03/2024, 09/04/2013 Hepatitis B Vaccine Aged Out No longe r eligible based on patient's age to complete this topic Insurance [place] , [address] [id number] [place] Care Teams Clearing Distribution Clerk Relationship Specialty Start Date End Date Ellie Shanks PCP - General Internal Medicine 07/03/21
--- OUTSIDE RECORDS SUMMARY | 2025-02-27 13:22 | XMS_ITS | Encounter Summary ---
Author Organization [employer] Address [address] [place] [address] Care Team Providers Care Shoeblack Name Role Phone Bowman, [facility] Primary Care Provider [phone] Kim Davenport PharmD Unavailable [phone] Encounter Details Date Type Department Care Team (Late st Contact Info) Description 02/26/2025 Telephone [facility] MEDICINE [address] [place], [place] [phone] [facility] [address] [place], [place] [phone] Social History Tobacco Use Types Packs/Day Years Used Date Smoking Tobacco: Former Cigarettes Smokeless Tobacco: Never Alcohol Use Standard Drinks/Week Comments Never 0 (1 standard drink = 0.6 oz pur e alcohol) Depression Answer Date Recorded Patient Health Questionnaire-9 Score 0 11/30/2024 Patient Health Questionnaire-9 Score 0 11/30/2024 Last PHQ-9: Questionnaire Data Not on file 0 11/30/2024 Housing Stability Answer Date Recorded What is your housing situation today? I have hayley irwin 11/09/[address] you li ve. Do you have problems with any of the following? None of the above 11/09/2024 Food Insecurity Answer Date Recorded Within the past 12 months, y ou worried that your food would run out before you got money to buy more: Often true 11/09/2024 Within the past 12 months,th e food you bought just didn't last and you didn't have enough money to get more: Often true Transportation Answer Date Recorded In the past 12 months, has l ack of transportation kept you from medical appts, meetings, work or from getting things needed for daily living? No 11/09/2024 Utilities Answer Date Recorded In the past 12 months, has t he electric, gas, oil or water company threatened to shut off services in your home? No 11/09/2024 Depression Answer Date Recorded Patient Health Questionnaire-2 Score 0 11/30/2024 Internet Access Answer Date Recorded Internet Access Q1 Yes 11/09/2024 Internet Access Q2 Not on file 11/09/2024 Sex and Gender Information Value Date Recorded Sex Assigned at Male 09/27/2022 10:14 AM EDT Legal Sex Male 10:14 AM EDT Gender Identity Male 09/27/2022 10:14 AM EDT Sexual Orientation Straight 09/27/2022 10 :14 AM EDT documented as of this encounter Miscellaneous Notes * Telephone Encounter - Renetta Benitez - 02/26/2025 3:37 PM EDT Pharmacy is requesting an updated CDTM referral with a diagnosis of diabetes E11.22 Type 2 diabetesmellitus with stage 3 chronic kidney disease, with long- term current use of insulin, unspecified whether stage 3a or 3b CKD. This is to replace existing referral that no longer meets visit requirements. Please send at your earliest convenience. Thank you! documented in this encounter Plan of Treatment Not on file documented as of this encounter Visit Diagnoses Not on filedocumented in this encounter Additional Health Concerns Assessment Noted Time PHQ-9 Depression Total Score: 0 11/30/19 25 1:53 PM EST documented as of this encounter Care Teams Shoeblack Relationship Specialty Start Date End Date Nguyen Hurst FNP [address] [place] [address] PCP - General Family Medicine 07/01/22 Kim Davenport PharmD [address] [place] [address] Pharmacist Internal Medicine 12/10/24 Hortensia Helga 11/08/24 documented as of this encounter
--- OUTSIDE RECORDS SUMMARY | 2025-02-27 13:22 | XMS_ITS | Encounter Summary ---
Author Organization [employer] Address [address] [place] [address] Care Team Providers Care Interior Specialist Name Role Phone Nguyen Hurst [facility] Primary Care Provider [phone] Kim Davenport PharmD Unavailable [phone] Reason for Visit * Reason Onset Date Comments Referral 03/19/2024 Encounter Details Date Type Department Care Team ([facility] st Contact Info) Description 03/19/2024 Telephone [facility] MEDICINE [address] [place], [place] [phone] [facility] 230 [place], [place] [phone] Referral Social History Tobacco Use Types Packs/Day [...] encounter Miscellaneous Notes * Telephone Encounter - Wendy Gresham RN - 03/19/2024 12:38 PM EDT TC returned to pt., pt. Reports implant revision was performed in 2021 by [facility], pt. Reports it was their fault in the first place that is was malfunctioning. Pt. Reports he last saw jacob a few months ago and they told him there was nothing further they could do to assist. Pt. Reports he was advised by psychiatrist to seek second opinion at [facility], as it is causing himpsychological distress. Advised pt. PT-1 could be set up as needed. Advise pt. Request would be sent for referral to PCP and he should receive call or letter within the next several weeks with scheduling details, pt. Verbalizes understanding * Telephone Encounter - Eliud Oden - 03/19/2024 11:10 AM EDT Tc from patient requesting a referral for Urology in regards to the Penile implant states it is notfunctioning and would like to be seen at [facility] the fax number is [phone] documented in this encounter Plan of Treatment Not on file documented as of this encounter Visit Diagnoses Not on filedocumented in this encounter Additional Health Concerns Assessment Noted Time PHQ-9 Depression Total Score: 5 08/02/20 23 10:05 AM EDT documented as of this encounter Care Teams Interior Specialist Relationship Specialty Start Date End Date Nguyen Hurst FNP [address] [place] [address] PCP - General Family Medicine 07/01/22 Kim Davenport, EmelynD [address] [place] [address] Pharmacist Internal Medicine 12/10/24 Hortensia GOODE 11/08/24 documented as of this encounter
--- OUTSIDE RECORDS SUMMARY | 2025-02-27 13:22 | XMS_ITS | Encounter Summary ---
Author Organization [employer] Address [address] [facility] [address] 7t [place] [address] Care Team Providers Care Handle Finisher Name Role Phone Nguyen Hurst [facility] Primary Care Provider [phone] Kim Davenport PharmD Unavailable [phone] Reason for Visit * Reason Comments Med Refill Encounter Details Date Type Department Care Team (Late st Contact Info) Description 06/19/2024 Refill [facility] [address] [place], [place] [phone] Dawson Nguyen [facility] [address] [place] [address] Social History Tobacco Use Types Packs/Day Years [...] documented as of this encounter Care Teams Handle Finisher Relationship Specialty Start Date End Date Nguyen Hurst FNP [address] [place] [address] PCP - General Family Medicine 07/01/22 Kim Davenport PharmD [address] [place] [address] Pharmacist Internal Medicine 12/10/24 Hortensia Helga 11/08/24 documented as of this encounter
--- OUTSIDE RECORDS SUMMARY | 2025-02-27 13:22 | XMS_ITS | Encounter Summary ---
Author Organization [employer] [facility] Address [address] [facility] 7t [place] [address] Care Team Providers Care Pet Handler Name Role Phone Aris [facility] Primary Care Provider [phone] Kim Davenport PharmD Unavailable [phone] Reason for Referral * Consultation (Routine) - Authorized Specialty Diagnoses / Procedures Referred By Pedro t Referred To Contact Pharmacy Diagnoses Type 2 diabetes mellitus with stage 3 chronic kidney disease, with long-term current use of insulin, unspecified whether stage 3a or 3b CKD (CMS/HCC) Elba Jackson MD [address] [place] [address] Phone: tel: fax: Referral ID Status Reason Start Date Expiration Date Visits Requested Visits Authorized [id number] Authorized Consult and Treat 12/04/2024 12/04/2025 6 6 Encounter Details Date Type Department Care Team (Late st Contact Info) Description 12/04/2024 Orders Only [facility] [address] [place], [place] [phone] Elba Jackson MD [address] [place], [place] [phone] Type 2 diabetes mellitus with stage 3 chronic kidney disease, with long-term current use of insulin, unspecified whether stage 3a or 3b CKD (CMS/HCC) (Primary Dx) Social History Tobacco Use Types Packs/Day Years [...] as of this encounter Plan of Treatment Scheduled Referrals Name Type Priority Associated Diagnoses Orde r Schedule Referral to Pharmacy CD Outpatient Referral Routine Type 2 diabetes mellitus with stage 3 chronic kidney disease, with long-term current use of insulin, unspecified whether stage 3a or 3b CKD (CMS/HCC) Ordered: 12/04/2024 documented as of this encounter Visit Diagnoses Diagnosis Type 2 diabetes mellitus with stage 3 chronic kidney disease, with long-term current use of insulin, unspecified whether stage 3a or 3b CKD (CMS/HCC)- Primary documented in this encounter Additional Health Concerns Assessment Noted Time PHQ-9 Depression Total Score: 0 11/30/19 25 1:53 PM EST documented as of this encounter Care Teams Pet Handler Relationship Specialty Start Date End Date New TripoliNguyen, SENIOR PRODUCT DEVELOPMENT ENGINEER [address] [place] [address] PCP - General Family Medicine 07/01/22 Kim Davenport PharmD [address] [place] [address] Pharmacist Internal Medicine 12/10/24 Hortensia [facility] 11/08/24 documented as of this encounter
--- OUTSIDE RECORDS SUMMARY | 2025-02-27 13:22 | XMS_ITS | Encounter Summary ---
Author Organization [employer] [facility] Address 75 [facility] 7t [place] [address] Care Team Providers Care Fellmongery Worker Name Role Phone Aris [facility] Primary Care Provider [phone] Kim Davenport PharmD Unavailable [phone] Reason for Referral * Consultation (Routine) - Authorized Specialty Diagnoses / Procedures Referred By Pedro t Referred To Contact Pharmacy Diagnoses Type 2 diabetes mellitus with stage 3 chronic kidney disease, with long-term current use of insulin, unspecified whether stage 3a or 3b CKD (CMS/HCC) Elba Jackson MD [address] [place] [address] Phone: tel: fax: Referral ID Status Reason Start Date Expiration Date Visits Requested Visits Authorized [id number] Authorized Consult and Treat 02/26/2025 02/26/2026 6 6 Encounter Details Date Type Department Care Team (Late st Contact Info) Description 02/26/[address] [facility] [address] [place], [place] [phone] Elba Jackson MD [address] [place], [place] [phone] Type 2 diabetes mellitus with stage 3 [...] stage 3a or 3b CKD (CMS/HCC) Ordered: 02/26/2025 documented as of this encounter Visit Diagnoses Diagnosis Type 2 diabetes mellitus with stage 3 chronic kidney disease, with long-term current use of insulin, unspecified whether stage 3a or 3b CKD (CMS/HCC)- Primary documented in this encounter Additional Health Concerns Assessment Noted Time PHQ-9 Depression Total Score: 0 11/30/19 25 1:53 PM EST documented as of this encounter Care Teams Fellmongery Worker Relationship Specialty Start Date End Date Nguyen Hurst FNP [address] [place] [address] PCP - General Family Medicine 07/01/22 Kim Davenport PharmD [address] [place] [address] Pharmacist Internal Medicine 12/10/24 Hortensia [facility] 11/08/24 documented as of this encounter
--- OUTSIDE RECORDS SUMMARY | 2025-02-27 13:22 | XMS_ITS | Encounter Summary ---
Author Organization [employer] Address [address] [facility] [address] 7[address] [place] [address] Care Team Providers Care Saw Grinder Name Role Phone Nguyen Hurst [facility] Primary Care Provider [phone] Kim Davenport PharmD Unavailable [phone] Reason for Visit * Reason Onset Date Comments VNA services 01/09/2025 Encounter Details Date Type Department Care Team ([facility] st Contact Info) Description 01/09/2025 Telephone [facility] MED[facility]INE [address] [place], [place] [phone] [facility] [address] [place], [place] [phone] VNA services Social History Tobacco Use Types Packs/Day Years [...] encounter Miscellaneous Notes * Telephone Encounter - Yuliana Garcia RN - 01/09/2025 12:17 PM EST TC placed to [facility] [phone] in regards to below message. RN was informed patient was discharged from [facility] in regards to PT and OT on 01/01/25 PT and prison on 01/03/25 d/t meeting all goals and being independent. [facility] confirms the patient cannot become re-established at this time d/t recent discharge d/t goals being met. TC placed to patient [phone] to inform of above message. Patient is upset, states he wants services back. Patient reports he does not feel anything has improved. RN advised patient per [facility] patient has met goals however patient does not feel that is accurate. Sending to PCP as FYI and recommendations on POC. * Telephone Encounter - Melissa Banks - 01/09/2025 11:57 AM EST Tc from pt requesting orders for nurse visiting and physical therapy. Any questions contact pt [phone] (slovak) documented in this encounter Plan of Treatment Not on file documented as of this encounter Visit Diagnoses Not on filedocumented in this encounter Additional Health Concerns Assessment Noted Time PHQ-9 Depression Total Score: 0 11/30/19 25 1:53 PM EST documented as of this encounter Care Teams Saw Grinder Relationship Specialty Start Date End Date Nguyen Hurst FNP [address] [place] [address] PCP - General Family Medicine 07/01/22 Kim Davenport PharmD [address] [place] [address] Pharmacist Internal Medicine 12/10/24 Hortensia GOODE 11/08/24 documented as of this encounter
--- OUTSIDE RECORDS SUMMARY | 2025-02-27 13:22 | XMS_ITS | Encounter Summary ---
Author Organization [facility] [facility] Address [address] [employer] 7t [place] [address] Care Team Providers Care Beauty Counselor Name Role Phone Nguyen Hurst [facility] Primary Care Provider [phone] Kim Davenport PharmD Unavailable [phone] Encounter Details Date Type Department Care Team (Late st Contact Info) Description 06/24/2023 Telephone [facility]INE [address] [place] [address] Nguyen Hurst [facility] [address] [place] [address] Social History Tobacco Use Types Packs/Day Years [...] on filedocumented in this encounter Care Teams Beauty Counselor Relationship Specialty Start Date End Date Nguyen Hurst [facility] [address] [place] [address] PCP - General Family Medicine 07/01/22 iKm Davenport, PharmD [address] [place] [address] Pharmacist Internal Medicine 12/10/24 Hortensia [facility] 11/08/24 documented as of this encounter
--- OUTSIDE RECORDS SUMMARY | 2025-02-27 13:22 | XMS_ITS | Clinical Summary ---
Author Organization [address] [facility] Address [address] [place] [address] Phone Care Team Providers Care Mechanism Inspector Name Role Phone Ellie Shanks MD Primary Care Provider [phone] Allergies Active Allergy Reactions Criticality Noted Date [...] Date Comments CVA (cerebral vascular accid ent) ([facility]/HCC) 02/18/2022 DX:CVA (cerebral vascular ac cident) ([facility]) Hypertension 02/18/2022 DX:Hypertension Erectile dysfunction 02/18/2022 DX:Erectile dysfunction Redundant prepuce 02/18/2022 DX:Redundant p repuce Hyperlipidemia 02/18/2022 DX:Hyperlipidemi a Epilepsy 02/18/2022 DX:Epilepsy ([facility] ) Social History Tobacco Use Types Packs/Day Years [...] Diabetes: Annual Retina Eye Exam 1975 Hepatitis A Vaccines (1 of 2 - Risk 2-dose series) 02/22/1984 Pneumococcal Vaccine: 50+ Years (1 of 2 - PCV) 02/22/1984 Pneumococcal Vaccine: Pediatrics (0 to 5 Years) and At-Risk Patients (6 to 64 Years) (1 of 2 - PCV) 02/22/1984 Zoster Vaccines (1 of 2) 2015 Colorectal Cancer Screening: Colonoscopy 10/31/2022 Hepatitis C Screening 10/31/2022 Social Influencers of Health Screening 10/31/2022 Diabetes: Annual Urine Albumin-Creatinine Ratio (uACR) 11/11/2022 COVID-19 Vaccine (1 - 2023-2 5 season) 2024 Diabetes: Blood Sugar Contro l Test (HGBA1C) 01/04/2025 07/04/2024, 03/15/2024 RSV Immunization Adult Patients (1 - Risk 60-74 years 1-dose series) 2025 Diabetes: Annual GFR (Glomerular Filtration Rate) 03/15/2025 03/15/2024 Hypertension/CHF/CAD Annual BMP Blood Test 03/15/2025 03/15/2024 Depression Screening 07/04/2025 07/04/2024 Influenza Vaccine (Season Ended) 2025 09/04/2013 Cholesterol Screening (Lipid Panel) 07/07/2028 07/07/2023, 07/07/2023 DTaP,Tdap,and Td Vaccines (3 - Td or Tdap) 04/09/2032 04/09/2022, 08/15/2012 HIV Screening Completed 03/15/2024, 03/15/2024 HIB Vaccines Aged Out No longer eligi ble based on patient's age to complete this topic HPV Vaccines Aged Out No longer eligi ble based on patient's age to complete this topic Hepatitis B Vaccines Aged Out No long [...] Procedure Name Priority Date/Time Associated Diagnosis Comments HIV SCREENING Routine 03/15/2024 ANNUAL BMP BLOOD TEST Routine 03/15/2024 HEMOGLOBIN A1C Routine 03/15/2024 LIPID PANEL Routine 07/07/2023 from Last 3 Months or Most Recently Relevant to Health Maintenance Results * Annual BMP Blood Test (03/15/2024) Pathologist [facility] Annual BMP Blood Test Abstracted Result [facility] Provider HEALTH MAINTENANCE Final Result * HIV Screening (03/15/2024) Pathologist [facility] HIV Screening Abstracted [facility] Provider HEALTH MAINTENANCE Final Result * Hemoglobin A1c (03/15/2024) [facility] Hemoglobin A1C 0.0 % Comment:No interpretation, A bstracted Blood Venous blood specimen / Unknown Result [facility] Provider LAB BLOOD ORDERABLES Rima l Result * Lipid panel (07/07/2023) [facility] LDL/HDL Ratio 0 Comment:Abstracted Triglycerides 0 mg/dL Comment:Abstracted Cholesterol 0 mg/dL Comment:Abstracted HDL 0 mg/dL Comment:Abstracted LDL Cholesterol 0 mg/dL Comment:Abstracted Blood Venous blood specimen / Unknown Result [facility] Provider LAB BLOOD ORDERABLES Rima l Result from Last 3 Months or Most Recently Relevant to Health Maintenance Insurance MEDICAID - [place] Care Teams Mechanism Inspector Relationship Specialty Start Date End Date Ellie Shanks MD [address] [place] [phone] PCP - General Internal Medicine 02/04/22
--- OUTSIDE RECORDS SUMMARY | 2025-02-27 13:22 | XMS_ITS | Encounter Summary ---
Author Organization [employer] Address [address] [facility] [address] 7t [place] [address] Care Team Providers Care Speech Language Pathologist Name Role Phone Nguyen Hurst [facility] Primary Care Provider Kim Davenport PharmD Unavailable [phone] Reason for Visit * Reason Onset Date Comments FYI 11/13/2024 Encounter Details Date Type Department Care Team ([facility] st Contact Info) Description 11/13/2024 Telephone [facility] MEDICINE [address] [place], [place] [phone] [place] [facility] [address] [place], [place] [phone] FYI Social History Tobacco Use Types Packs/Day Years [...] Recorded Patient Health Questionnaire-2 Score 0 07/04/2024 Internet Access Answer Date Recorded Internet Access [...] encounter Miscellaneous Notes * Telephone Encounter - Fuentes Haskins - 11/13/2024 1:39 PM EST Tc from Roberth with Hortensia GOODE stating Pt has not had a Bowl movement since the 11/07. Pt has not had not had any discomfort, Positive Bowl Sounds , Abdomen is Soft, Passing Gas and hasn't taken any meds for it. If any questions you can Contact Roberth at [phone] documented in this encounter Plan of Treatment Not on file documented as of this encounter Visit Diagnoses Not on filedocumented in this encounter Additional Health Concerns Assessment Noted Time PHQ-9 Depression Total Score: 0 07/04/20 24 3:20 PM EDT documented as of this encounter Care Teams Speech Language Pathologist Relationship Specialty Start Date End Date Nguyen Hurst FNP [address] [place] [address] PCP - General Family Medicine 07/01/22 Kim Davenport PharmD [address] [place] [address] Pharmacist Internal Medicine 12/10/24 Hortensia GOODE 11/08/24 documented as of this encounter
--- OUTSIDE RECORDS SUMMARY | 2025-02-27 13:22 | XMS_ITS | Encounter Summary ---
Author Organization [employer] Address [address] [facility] [address] 7[address] [place] [address] Care Team Providers Care Latcher Name Role Phone Nguyen Hurst [facility] Primary Care Provider [phone] Kim Davenport PharmD Unavailable [phone] Reason for Visit * Reason Onset Date Comments Referral 06/04/2024 Encounter Details Date Type Department Care Team (Late st Contact Info) Description 06/04/2024 Telephone [facility] MEDICINE [address] [place], [place] [phone] Demotte Nguyen [facility] 230 [place], [place] [phone] Referral Social History Tobacco Use Types Packs/Day [...] encounter Miscellaneous Notes * Telephone Encounter - Rylie Solorzano - 06/12/2024 12:19 PM EDT Patient will recieve approval / denial letter via mail. PT-1 Request [id number] Pending [facility] [address] [place] [phone] * Telephone Encounter - Eliud Oden - 06/12/2024 9:01 AM EDT Tc from patient calling in regards to the message below states [facility] has not received referral statesit could be that [facility] has the patient as Dany Tan * Telephone Encounter - Amarjit Negron - 06/04/2024 9:40 AM EDT Tc from pt requesting status on referral for Urology made on 04/25/24, pt would like referral to [facility] to [facility]. Pt provided documented in this encounter Plan of Treatment Not on file documented as of this encounter Visit Diagnoses Not on filedocumented in this encounter Additional Health Concerns Assessment Noted Time PHQ-9 Depression Total Score: 5 08/02/20 23 10:05 AM EDT documented as of this encounter Care Teams Latcher Relationship Specialty Start Date End Date Nguyen Hurst FNP [address] [place] [address] PCP - General Family Medicine 07/01/22 Kim Davenport, Bridgett [address] [place] [address] Pharmacist Internal Medicine 12/10/24 Hortensia GOODE 11/08/24 documented as of this encounter
--- OUTSIDE RECORDS SUMMARY | 2025-02-27 13:22 | XMS_ITS | Encounter Summary ---
Author Organization [employer] Address [address] [facility] [address] 7t [place] [address] Care Team Providers Care Pumping Supervisor Name Role Phone Aris [facility] Primary Care Provider [phone] Kim Davenport PharmD Unavailable [phone] Reason for Visit * Reason Onset Date Comments Nurse Triage 11/02/2024 Encounter Details Date Type Department Care Team ([facility] st Contact Info) Description 11/02/2024 Telephone [facility]ICINE [address] [place], [place] [phone] [place] [facility] 230 [place], [place] [phone] Nurse Triage Social History Tobacco Use Types Packs/Day Years [...] is your housing situation today? I have hayleynicanor irwin 09/21/[address] you [...] Telephone Encounter - Yuliana Garcia RN - 11/02/2024 12:14 PM EST TC placed to patient [phone] to inform patient, sensors will be ready at the pharmacy for p/u in approx 1 hour. RN also inquired on patients plan to come to [facility] or ED for his dizziness however patient became very upset. Patient reports he is not coming to the walk in center because it is not safe for him to be up and walked around . Patient reports he is NOT going to the ED because he is not in condition to get up and walk around either. RN offered to call an ambulance for the patient to transport him to the ED however patient reported the emergency room is for emergencies and so is the ambulance. I'm not going to the emergency room to wait there for hours for medication and then patient disconnected the call. Sending to PCP as GIULIA. * Telephone Encounter - Cherise Meyer LPN - 11/02/2024 11:43 AM EST Triage call returned to patient who was nos show this morning for evaluation related to dizziness. Patient reports that he spoke to center yesterday and is seeking medication for dizziness to be ableto get to appt. Dizziness is worse in the morning. No loss of vision no ear pain or fainting. Patient able to make all needs known. Wants medication for dizziness. Prescribing over the phone discussed and reinforced patient needs to be seen in HHC or in ED for this concern. Patient agrees to call 911 as needed. Patient has Lifestyle BG monitor and needs new sensors. Does not have reading at this time. Reports BP 144/72. [facility] Contacted and sensor refills available. Refill requested in patient behalf and will be ready in one hour. Unable to reach patient to update so text message sent to his phone. Forwarded to PCP and team as FYI to follow up PRN Multiple (2) protocols were used on this call. Disposition for Call: See in Office or Video Visit Today Protocol Used: Dizziness (Adult) Protocol-Based Disposition: See in Office or Video Visit Today Positive Triage Question: * Moderate dizziness (e.g., interferes with normal activities) (Exception: Dizziness caused by heatexposure, sudden standing, or poor fluid intake.) * All higher-acuity triage questions were negative Care Advice Discussed: * Drink Fluids * Reasons To Call Back - You pass out (faint) or are too weak to stand - You become worse Protocol Used: Medication Question Call (Adult) Protocol-Based Disposition: See in Office or Video Visit within 3 Days Positive Triage Question: * Prescription request for new medicine (not a refill) * All higher-acuity triage questions were negative * Telephone Encounter - Garo Whipple - 11/02/2024 11:17 AM EST Symptom: Dizziness Outcome: Talk to a nurse or provider within 15 minutes Reason: Trouble walking The caller accepted this outcome. documented in this encounter Plan of Treatment Not on file documented as of this encounter Visit Diagnoses Not on filedocumented in this encounter Additional Health Concerns Assessment Noted Time PHQ-9 Depression Total Score: 0 07/04/20 24 3:20 PM EDT documented as of this encounter Care Teams Pumping Supervisor Relationship Specialty Start Date End Date Nguyen Hurst FNP [address] [place] [address] PCP - General Family Medicine 07/01/22 Kim Davenport PharmD [address] [place] [address] Pharmacist Internal Medicine 12/10/24 Hortensia GOODE 11/08/24 documented as of this encounter
--- OUTSIDE RECORDS SUMMARY | 2025-02-27 13:22 | XMS_ITS | Clinical Summary ---
Author Organization [employer] Address [address] [facility] [address] [place] [address] Care Team Providers Care Licensed Electrician Name Role Phone Nguyen Hurst OLIVING MACHINE OPERATOR Primary Care Provider [phone] Kim Davenport PharmD Unavailable [phone] Allergies Active Allergy Reactions Criticality Noted Date Comments Codeine Rash,Hives Low 11/16/2010 Lisinopril Dizziness,Other 06/11/2021 Medications * This document contains information received from the source organization and may not represent a complete record from that organization. Continuous Blood Gluc Public Welfare Worker (Supertecyle Diann 2 [place]) deviceIndicatio ns:Type 2 diabetes mellitus with stage 3 chronic kidney disease, with long-term current use of insulin, unspecified whether stage 3a or 3b CKD (CMS/[facility]) Use as directed per instructions 1 each 023 Active Blood Pressure kit 1 each 2 times daily. 1 kit 024 2024 Active senna (Senokot) 8.6 MG tabletIndicatio ns:Chronic idiopathic constipation Take 1 tablet (8.6 mg) by mouth at bedtime. 90 tablet 3 024 2024 Active docusate sodium (Colace) 100 MG capsuleIndicati ons:Chronic idiopathic constipation Take 1 capsule (100 mg) by mouth 2 times daily. 60 capsule 11 Active Additional Information Patient not taking.Reason: Not effective, Reported on 12/10/2024 polyethylene glycol, PEG, 3350 (Glycolax) 17 GM/SCOOP powderIndicatio ns:Chronic idiopathic constipation DISSOLVE 17 GRAMS IN 8 OZ OF FLUID LIQUID DRINK DAILY DIRECTED 238 g 3 024 Active Additional Information Patient not taking.Reason: Not effective, Reported on 12/10/2024 dapagliflozin (Farxiga) 10 MGIndications:T ype 2 diabetes mellitus with stage 3 chronic kidney disease, without long-term current use of insulin, unspecified whether stage 3a or 3b CKD (CMS/HCC) Take 1 tablet (10 mg) by mouth Once per day. In the morning 30 tablet 025 2025 Active meclizine (Antivert) 12.5 MG tabletIndicatio ns:Dizziness Take 1 tablet (12.5 mg) by mouth if needed in the morning, at noon, and at bedtime for dizziness. 30 tablet 025 Active cyclobenzaprine (Flexeril) 5 MG tabletIndicatio ns:Cerebrovascu lar accident (CVA), unspecified mechanism (CMS/HCC) Take 1 tablet (5 mg) by mouth if needed in the morning, at noon, and at bedtime for muscle spasms. 30 tablet 025 Active glucose 4 g chewable tabletIndicatio ns:Type 2 diabetes mellitus with stage 3 chronic kidney disease, without long-term current use of insulin, unspecified whether stage 3a or 3b CKD (CMS/HCC) Chew 4 tablets (16 g) if needed for low blood sugar. 50 tablet 025 2025 Active ammonium lactate (Lac-Hydrin) 12 % lotion APPLY TO SOLES OF FEET DAILY. AT NIGHT WEAR SOCKS TO BED 024 Active Continuous Glucose Public Welfare Worker (Dexcom G6 licensed optical dispenser) device Use as directed 1 each 025 Active Continuous Glucose Sensor (Dexcom G6 Sensor) misc Use 1 every 10 days to monitor blood glucose. May wear on stomach. 3 each 025 Active Continuous Glucose Transmitter (Dexcom G6 transmitter) misc 1 each by Other route Use as directed. Replace every 3 months. 1 each 025 Active hydrALAZINE (Apresoline) 10 MG tablet Take 1 tablet (10 mg) by mouth at bedtime. 90 tablet 025 Active isosorbide dinitrate (Isordil) 5 MG tablet Take 1 tablet (5 mg) by mouth at bedtime. 90 tablet 025 Active atorvastatin (Lipitor) 40 MG tablet Take 1 tablet (40 mg) by mouth in the morning. 90 tablet 3 025 Active Eliquis 5 MG tablet TAKE 1 TABLET BY MOUTH TWICE DAILY IN THE MORNING AND AT BEDTIME 60 tablet Active Continuous Glucose Sensor (FreeStyle Diann 2 Sensor) miscIndications :Type 2 diabetes mellitus with stage 3 chronic kidney disease, with long-term current use of insulin, unspecified whether stage 3a or 3b CKD ([facility]) APPLY 1 SENSOR TO SKIN DIRECTED AND CHANGE EVERY 14 DAYS 2 each 5 025 Active Acetaminophen Extra Strength 500 MG tabletIndicatio ns:Other chronic pain TAKE 2 TABLETS BY MOUTH EVERY 4 TO 6 HOURS NEEDED NOT TO EXCEED 8 TABLETS PER 24 HOURS 60 tablet Active fluticasone (Flonase) 50 MCG/ACT nasal spray USE 1 SPRAY INTO EACH NOSTRIL 2 TIMES DAILY. SHAKE GENTLY. BEFORE USE 48 mL Active Blood Glucose Monitoring Suppl (FreeStyle Lite) device Inject 1 each under the skin Use as directed. 1 each Active FREESTYLE LITE test strip Use to check BS BID daily as directed 100 each 12 025 2025 Active Lancets 33G misc Use to check BS BID daily as directed 100 each Active Continuous Glucose Sensor (FreeStyle Diann 2 Sensor) miscIndications :Type 2 diabetes mellitus with stage 3 chronic kidney disease, with long-term current use of insulin, unspecified whether stage 3a or 3b CKD ([facility]) USE as DIRECTED PER PACKAGE INSTRUCTIONS 2 each 3 024 2024 Discontinued Acetaminophen Extra Strength 500 MG tabletIndicatio ns:Other chronic pain TAKE 2 TABLETS BY MOUTH EVERY 4 TO 6 HOURS NEEDED NOT TO EXCEED 8 TABLETS PER 24 HOURS 60 tablet 2024 Discontinued(R eorder (will not trigger notification to Pharmacy)) fluticasone (Flonase) 50 MCG/ACT nasal spray USE 1 SPRAY INTO EACH NOSTRIL 2 TIMES DAILY. SHAKE GENTLY. BEFORE USE 48 mL 024 2024 Discontinued Eliquis 5 MG tablet Take 1 tablet by mouth 2 times daily. 05/ 2025 Discontinued fluticasone (Flonase) 50 MCG/ACT nasal spray USE 1 SPRAY INTO EACH NOSTRIL 2 TIMES DAILY. SHAKE GENTLY. BEFORE USE 48 mL 025 2024 Discontinued(R eorder (will not trigger notification to Pharmacy)) Active Problems Problem Noted Date Diagnosed Date Periodontal disease 09/28/2024 Severe dental caries 09/28/2024 Redundant nuchal skin 08/18/2024 Edentulous maxilla 07/31/2024 Complicated grieving 07/29/2023 Overview (07/03/2024): Last Assessment & Plan: Patient with ymptoms [...] his children. PLAN: 1. Follow up with [facility]: Not recommended for follow-up 2. Patient goal is to find motivation again. 3. Behavioral Recommendations a. Referral for OP individual therapy b. Incorporate grounding techniques into daily routine c. [place] his brother's life by doing activities in his memory Assessment & Plan (08/02/2023 10:56 AM EDT): Patient with ymptoms of anhedonia, hopeless and [...] his children. PLAN: 1. Follow up with [facility]: Not recommended for follow-up 2. Patient goal is to find motivation again. 3. Behavioral Recommendations a. Referral for OP individual therapy b. Incorporate grounding techniques into daily routine c. [place] his brother's life by doing activities in his memory Alcoholism 02/18/2022 Epilepsy 02/18/2022 Redundant prepuce 02/18/2022 Renal osteodystrophy 10/20/2021 Stage 3 chronic kidney disease 10/20/2021 Proteinuria 09/14/2021 Chronic kidney disease, stage 2 (mild) History of implantation of penile prosthesis Body dysmorphic disorder 05/18/2021 Palpitations 12/04/2018 Diabetic foot 10/02/2018 Edema of lower extremity 10/02/2018 Paresthesia of lower extremity 08/04/2018 Unstable knee 08/04/2018 Sexual dysfunction 01/22/2016 Cerebral infarction 02/26/2015 Overview (07/03/2024): Multiple CVA. Most recent 2016. MRI at this time shows multiple old lacunar strokes in basal ganglia, kim, microvascular changes. Multiple CVA. Most recent 2016. MRI at this time shows multiple old lacunar strokes in basal ganglia, kim, microvascular changes. Tinea pedis 12/20/2013 History of alcoholism 08/15/2013 Hypertension 08/15/2013 Erectile dysfunction 08/15/2013 Redundant prepuce and phimosis 08/15/2013 Hyperlipidemia 08/06/2013 Diabetes mellitus 08/06/2013 Overview (07/03/2024): Currently taking metformin 1000mg once daily, lantus, and humalog-unclear how many units patient is currently injecting. Pt states he is sick of injecting insulin and frequently forgets. Only checks BS 2-3x/month. Heavy proteinuria followed by nephrology for CKD. ([facility]. 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 Encounters Date Type Department Care Team Description 02/26/2025 Orders Only [facility] MEDICINE [address] [facility] [place] [address] Elba Jackson MD Type 2 diabetes mellitus with stage 3 chronic kidney disease, with long-term current use of insulin, unspecified whether stage 3a or 3b CKD (CMS/[facility]) (Primary Dx) 02/26/2025 Telephone [facility] MEDICINE [address] [place] [address] ArisNguyen conde [facility] 02/18/2025 Refill [facility] MEDICINE [address] [place] [address] ViolaNguyen [facility] 02/18/2025 Refill [facility] MEDICINE [address] [place] [address] Nguyen Hurst [facility] Other chronic pain 02/13/2025 Orders Only [facility] WALK-IN CENTER [address] [place] [address] Nguyen Hurst OLIVING MACHINE OPERATOR Tobacco use disorder (Primary Dx); Type 2 diabetes mellitus with stage 3 chronic kidney disease, with long-term current use of insulin, unspecified whether stage 3a or 3b CKD (CMS/HCC) 02/08/2025 Refill [facility] WALK-IN CENTER [address] [place] [address] Nguyen Hurst [facility] Type 2 diabetes mellitus with stage 3 chronic kidney disease, with long-term current use of insulin, unspecified whether stage 3a or 3b CKD (CMS/HCC) 02/08/2025 Population Health Risk Score [facility] Department [address] [place] [address] [phone] Provider, Population Health Generic 02/06/2025 Orders Only [facility] WALK-IN [facility]ENTER [address] [place] [address] Nguyen Hurst FNP Tobacco use (Primary Dx) 02/05/2025 Telephone [facility] MEDICINE [address] [place] [address] Nguyen Hurst FNP New Med Request 01/30/2025 Refill [facility] MED[facility]INE [address] [place] [address] Nguyen Hurst [facility] 01/28/2025 Refill [facility] MEDICINE [address] [place], [place] [address] [facility] 01/23/2025 Telephone [facility] MEDICINE [address] [place], [place] [address] [facility] FYI 01/09/2025 Telephone [facility] MEDICINE [address] [place] [place], [place] [address] [facility] VNA services 01/04/2025 Telephone [facility] MEDICINE [address] [place], [place] [address] [facility] PA 12/26/2024 Telephone [facility] MEDICINE [address] [place], [place] [address] [facility] Nurse Triage 12/26/2024 Telephone [facility] MEDICINE [address] [place], [place] [address] [facility] new script 12/12/2024 Orders Only GENERIC EXTERNAL DATA DEPARTMENT Provider, Generic External Data 12/04/2024 Orders Only [facility] [place], [place] [address] Elba Jackson MD Type 2 diabetes mellitus with stage 3 chronic kidney disease, with long-term current use of insulin, unspecified whether stage 3a or 3b CKD (CMS/HCC) (Primary Dx) 12/03/2024 Telephone [facility] [place], [place] [address] [facility] 12/03/2024 Telephone [facility] [place], [place] [address] Yuliana Garcia RN OT Add On 11/30/2024 1:30 PM EST Office Visit [facility] [place] [address] Viola Nguyen [facility] Cerebrovascular accident (CVA), unspecified mechanism (CMS/HCC) (Primary Dx); Type 2 diabetes mellitus with stage 3 chronic kidney disease, without long-term current use of insulin, unspecified whether stage 3a or 3b CKD (CMS/HCC); Stage 3 chronic kidney disease, unspecified whether stage 3a or 3b CKD (CMS/HCC); Ischemic cardiomyopathy; Orthostatic hypotension; Primary hypertension; Dizziness 11/30/2024 Travel from Last 3 Months Immunizations Name Administration Dates Next Due Influenza, Split (incl. purified surface antigen ) 09/04/2013 Influenza, seasonal, injectable, preservative fr ee 11/03/2024 Pfizer Covid-19 Vaccine 12+ 12/10/2024 Tdap 04/09/2022,08/15/2012 Social History Tobacco Use Types Packs/Day Years Used Date Smoking Tobacco: Former Cigarettes Smokeless Tobacco: Never Tobacco Cessation:Counseling Given: Not Answered Alcohol Use Standard Drinks/Week Comments Never 0 [...] Orientation Straight 09/27/2022 10 :14 AM EDT Last Filed Vital Signs Vital Sign Reading Time Taken Comments Blood Pressure 157/79 11/30/2024 1:52 PM EST Pulse 96 11/30/2024 1:52 PM EST Temperature 36 ??C (96.8 ??F) 11/30/2024 1:52 PM EST Respiratory Rate 18 11/30/2024 1:52 PM EST Oxygen Saturation 98% 11/30/2024 1:52 PM EST Inhaled Oxygen Concentration - - Weight 65.3 kg (144 lb) 11/30/2024 1:52 PM EST Height 175.3 cm (5' 9 ) 11/30/2024 1:52 PM EST Body Mass Index 21.27 11/30/2024 1:52 PM EST Plan of Treatment Health Maintenance Due Date Last Done Comments CT Colonography 1965 Colonoscopy 1965 Colorectal Cancer Screening 1965 Dental Prophylaxis 1965 FIT DNA/Cologuard 1965 FIT 1965 FOBT 1965 Sigmoidoscopy 1965 Eye Exam 1975 Alcohol/Substance Use Screening 1977 Hepatitis C Screening 1983 Pneumococcal Vaccine: 50+ Years (1 of 2 - PCV) 02/22/1984 Zoster Vaccines (1 of 2) 2015 Dental X-Ray: Bitewings 05/21/2016 05/20/2015 Lipid Panel 07/07/2024 07/07/2023, 02/26, 06/08/2021 RSV Patients and Patients Aged 60 years or older (1 - Risk 60-74 years 1-dose series) 2025 Diabetes: Hemoglobin A1C 02/28/2025 025, 07/04/2024, 03/15/2024, Additional history exists Dental Oral Exam 03/29/2025 09/28/2024, , 05/20/2015 Diabetes: Foot Exam 07/04/2025 07/04/2024, 07/04/2024, 07/04/2024 SDOH Screening 11/09/2025 11/09/2024 Depression Screening 11/30/2025 11/30/2024, 11/30/19 25 Tobacco Screening 12/03/2025 12/03/2024 Dental X-Ray: Full Mouth 07/04/2027 024, 03/24/2017, 05/20/2015 DTaP/Tdap/Td Vaccines (3 - Td or Tdap) 04/09/2032 04/09/2022, 08/15/2012 HIV Screening Completed 03/15/2024 Influenza Vaccine Completed 11/03/2024, 09/04/2013 COVID-19 Vaccine Completed 12/10/2024, , 04/15/2021, Additional history exists HIB Vaccines Aged Out No longer eligi [...] patient's age to complete this topic Meningococcal Vaccine Aged Out No eloise sonia eligible based on patient's age to complete this topic RSV under 20 months Aged Out No longe r eligible based on patient's age to complete this topic Rotavirus Vaccines Aged Out No longer eligible based on patient's age to complete this topic Procedures Procedure Name Priority Date/Time Associated Diagnosis Comments STRESS TEST WITH MYOCARDIAL PERFUSION Routine 02/07/2025 8:27 AM EDT GLUCOSE, WHOLE BLOOD Routine 12/12/2024 12:19 PM EST POCT GLUCOSE Routine 11/30/2024 1:54 PM EST Type 2 diabetes mellitus with stage 3 chronic kidney disease, without long-term current use of insulin, unspecified whether stage 3a or 3b CKD (CMS/HCC) POCT GLYCATED HEMOGLOBIN, TOTAL Routine 11/30/2024 1:54 PM EST Type 2 diabetes mellitus with stage 3 chronic kidney disease, without long-term current use of insulin, unspecified whether stage 3a or 3b CKD (CMS/HCC) PERIODIC ORAL EVALUATION - ESTABLISHED PATIENT Routine 09/28/2024 11:30 AM EDT PANORAMIC RADIOGRAPHIC IMAGE Routine 07/03/2024 1:15 PM EDT HIV 1/2 ANTIGEN/ANTIBODY, FOURTH GENERATION W/RFL Routine 03/15/2024 12:42 PM EDT Unintentional weight loss LIPID PANEL, STANDARD Routine 07/07/2023 9:53 AM EDT Type 2 diabetes mellitus with stage 3 chronic kidney disease, with long-term current use of insulin, unspecified whether stage 3a or 3b CKD (CMS/HCC) INTRAORAL - COMPLETE SERIES OF RADIOGRAPHIC IMAGES Routine 05/20/2015 12:00 AM EDT from Last 3 Months or Most Recently Relevant to Health Maintenance Results * Stress test with myocardial perfusion (02/07/2025 8:27 AM EDT) 02/07/2025 8:27 AM EDT Narrative [facility] - 2025 4:20 PM EDT ? [facility] ?[address] ?[place] [address] ?Nuclear Medicine Report ? Signed ? Patient: Dany [place] ?MR#: [id number] ? : 1965 ?Acct:[id number] ? Age/Sex: 59 / M ?ADM Date: 02/07/25 ? Loc: HO.CARD ? Attending Dr: Georgi Bernard MD ? Ordering Physician: Georgi Bernard MD ?? Date of Service: 02/07/25 ?? Procedure(s): NM cardiolite stress test ?? Accession Number(s): [id number] ? cc: Georgi Bernard MD; Nguyen Hurst ? Lexiscan Myocardial perfusion study ? Indication: ?? Ischemic cardiomyopathy ? Technique: ? The patient was brought in for a Lexiscan perfusion study on 02/07/2025 ?? and was injected 0.4 mg of Lexiscan intravenously. Within a minute of ?? this injection 25 mCi of sestamibi was given intravenously. Images were ?? obtained using the SPECT gamma camera interlaced with the gating ?? device. Images were obtained in supine position. ? Resting perfusion study was performed on 2025. Patient was ?? administered 25 mCi of sestamibi intravenously at rest. Images were ?? then obtained in supine position. ? Images obtained without without CT attenuation. Total DLP 92 mGy-cm. ? Images were processed with the software and compared side to side in ?? short axis, horizontal long axis and vertical long axis views. ? Findings: ? The stress perfusion study showed ??nonattenuated images showing absent ?? to severely reduced uptake in the basal inferior, mid inferior as well ?? as superior is uptake in the basal and mid inferolateral and mildly ?? reduced uptake in the lateral wall of the LV myocardium. Attenuated ?? corrected images are suboptimal. The gated study shows reduced LV ?? systolic function with calculated LVEF of 40%. LV cavity is moderately ?? dilated in size. The gated study shows reduced ??wall thickening and ?? contraction of the basal inferior, inferolateral segments. ?? Resting study shows nonattenuated images show improved uptake in the ?? lateral as well as the mid inferolateral and minimally improved uptake ?? in the basal and mid inferior wall of the LV myocardium.. Gating at ?? rest reveals basal inferior and inferolateral wall motion abnormality ?? with ejection fraction at 44%. ? The findings are consistent with mixed ischemia and infarction pattern ?? in the basal mid inferior and ischemia in the inferolateral wall of the ?? LV myocardium. Severe ischemia in inferior wall cannot be ruled out. ? NM/NM cardiolite stress test ?? Impression: ? 1. ??Myocardial perfusion imaging study shows ischemia/infarct pattern ?? in RCA/circumflex territory ?? 2. ??Gated LVEF is 40% with stress and 44% with rest ?? 3. Transient ischemic dilatation present ? Nondiagnostic changes on EKG. ? Electronically signed by: ??Georgi Bernard MD ??2025 04:17 PM EDT RP ? Dictated By: ?Georgi Bernard MD ? Signed By: ?<Electronically signed by Georgi Bernard MD in OV> ?02/21/25 1617 ? DD/ 6 ? TD/TT: 02/21/25 1420 ? Math Teacher: ? Procedure Note Latricia Brar - [address] [address] Nuclear Medicine Report Signed Patient: aDny RyanMR#: [id number] : 1965Acct:[id number] Age/Sex: 59 / MADM Date: 02/07/25 Loc: [facility] Attending Dr: Georgi Bernard MD Ordering Physician: Georgi Bernard MD Date of Service: 02/07/25 Procedure(s): NM cardiolite stress test Accession Number(s): [id number] cc: Georgi Bernard MD; [facility] Lexiscan Myocardial perfusion study Indication: Ischemic cardiomyopathy Technique: The patient was brought in for a Lexiscan perfusion study on 02/07/2025 and was injected 0.4 mg of Lexiscan intravenously. Within a minute of this injection 25 mCi of sestamibi was given intravenously. Images were obtained using the SPECT gamma camera interlaced with the gating device. Images were obtained in supine position. Resting perfusion study was performed on 2025. Patient was administered 25 mCi of sestamibi intravenously at rest. Images were then obtained in supine position. Images obtained without without CT attenuation. Total DLP 92 mGy-cm. Images were processed with the software and compared side to side in short axis, horizontal long axis and vertical long axis views. Findings: The stress perfusion study showed nonattenuated images showing absent to severely reduced uptake in the basal inferior, mid inferior as well as superior is uptake in the basal and mid inferolateral and mildly reduced uptake in the lateral wall of the LV myocardium. Attenuated corrected images are suboptimal. The gated study shows reduced LV systolic function with calculated LVEF of 40%. LV cavity is moderately dilated in size. The gated study shows reduced wall thickening and contraction of the basal inferior, inferolateral segments. Resting study shows nonattenuated images show improved uptake in the lateral as well as the mid inferolateral and minimally improved uptake in the basal and mid inferior wall of the LV myocardium.. Gating at rest reveals basal inferior and inferolateral wall motion abnormality with ejection fraction at 44%. The findings are consistent with mixed ischemia and infarction pattern in the basal mid inferior and ischemia in the inferolateral wall of the LV myocardium. Severe ischemia in inferior wall cannot be ruled out. NM/MA cardiolite stress test Impression: 1. Myocardial perfusion imaging study shows ischemia/infarct pattern in RCA/circumflex territory 2. Gated LVEF is 40% with stress and 44% with rest 3. Transient ischemic dilatation present Nondiagnostic changes on EKG. Electronically signed by: Georgi Bernard MD 2025 04:17 PM EDT Dictated By: Georgi Bernard MD Signed By: <Electronically signed by Georgi Bernard MD in OV> 02/21/25 1617 DD/ 0827 TD/TT: 02/21/25 1420 Math Teacher: [facility] External Provider CV STRE SS PROCEDURES Final Result Performing Organization Address City/[facility]/ZIP Co de Phone Number [facility] [address] [place] [phone] * (ABNORMAL) Glucose, Whole Blood (12/12/2024 12:19 PM EST) Glucose, Whole Blood 141(H) 60 - 115 mg/dL [facility] Comment:METER #: [id number] 12/12/2024 12:1 9 PM EST 12/12/2024 12:24 PM EST Generic External Data Provider LAB BLOOD ORDERAB LES Final Result Performing Organization Address City/[facility]/ZIP Co de Phone Number [facility] [address] [place] [phone] * (ABNORMAL) POCT HGB A1C (11/30/2024 1:54 PM EST) Hemoglobin A1C 7.6(A) 4.0 - 6.0 % QC Media Lot # [id number] Lot# Expiration Date Blood 11/30/2024 1:54 PM EST [facility] OLIVING MACHINE OPERATOR POINT OF CARE TEST ENTER/EDIT ORDERABLES Final Result * (ABNORMAL) POCT Glucose (11/30/2024 1:54 PM EST) Glucose Blood, POC 294(A) 60 - 200 mg/dL Blood Capillary blood specimen / Unknown 11/30/2024 1:54 PM EST [facility] POINT OF CARE TEST ENTER/EDIT ORDERABLES Final Result * HIV-1/2 Antigen and Antibodies, Fourth Generation, with Reflexes (03/15/2024 12:42 PM EDT) HIV AB/AG Nonreactive Nonreactive [facility] Comment:HIV-1 p24 Ag and/or HIV-1/HIV-2 Ab not detected.A test result that is nonreactive does not exclude thepossibility of exposure to or infection with HIV-1 and/orHIV-2. Nonreactive results in this assay for individualswith prior exposure to HIV-1 and/or HIV-2 may be due toantigen and antibody levels that are below the limit ofdetection of this assay.The [employer] HIV Ag/Ab Combo assay result andsupplemental assay results should be interpreted inconjunction with the patient's clinical presentation,history and other laboratory results. If the results areinconsistent with clinical evidence, additional testing issuggested to confirm the result. Blood Venous blood specimen / Unknown 03/15/2024 12:42 PM EDT 03/15/2024 3:58 PM EDT [facility] LAB BLOOD ORDERABLES Final Re sult [facility] [address] [place] [phone] * Lipid Panel, Standard (07/07/2023 9:53 AM EDT) Triglycerides 249 mg/dL [facility] Comment:Desirable Triglyceri de: less than 150 mg/dLBorderline High Triglyceride 150-199 mg/dLHigh Triglyceride: 200-499 mg/dLVery High Triglyceride: greater than or equal to 5OO mg/dL Cholesterol 200 mg/dL [facility] Comment:Desirable Cholestero l: less than 200 mg/dLBorderline High Cholesterol: 200-239 mg/dLHigh Cholesterol: greater than 239 mg/dL LDL Cholesterol Calculated 95 mg/dl [facility] Comment:Desirable LDL: less than 100 mg/dLNear Optimal/Above Optimal LDL: 110- 129 mg/dLBorderline High LDL: 130-159 mg/dLHigh LDL: 160-189 mg/dLVery High LDL: greater than or equal to 190 mg/dL HDL Cholesterol 56 mg/dL [facility] Comment:Desirable HDL: great er than 40 mg/dL Note: This HDL assay may give artificially low results in patients with liver disease. Blood Venous blood specimen / Unknown 07/07/2023 9:53 AM EDT 07/07/2023 11:18 AM EDT [facility] OLIVING MACHINE OPERATOR LAB BLOOD ORDERABLES Final Re sult [facility] [address] [place] [address] [phone] from Last 3 Months or Most Recently Relevant to Health Maintenance Insurance [address] [place] [id number] [facility] STAND ADULT Advance Directives Documents on File Type Date Recorded Patient Recovery Room Nurse Expl anation Advance Directives and Living Will 12/11/2024 Health Care Proxy 12/10/24 Care Teams Licensed Electrician Relationship Specialty Start Date End Date Nguyen Hurst FNP [address] [place] [address] PCP - General Family Medicine 07/01/22 Kim Davenport PharmD [address] [place] [address] Pharmacist Internal Medicine 12/10/24 Hortensia [facility] 11/08/24
--- OUTSIDE RECORDS SUMMARY | 2025-02-27 13:22 | XMS_ITS | Referral Summary ---
Author Organization [facility] Address [address] [place] [address] Care Team Providers Care Director Occupational Name Role Phone [facility] Primary Care Provider [phone] Allergies Active Allergy Reactions Criticality Noted Date [...] propionate (FLONASE) 50 mcg/actuation nasal spray SMARTSI [place](s) Both Nares Twice Daily Active INSULIN ASPART [...] Plan of Treatment Not on file [facility] Care Teams Director Occupational Relationship Specialty Start Date End Date [facility] [address] [place] [address] [phone] PCP - General 06/29/24
--- OUTSIDE RECORDS SUMMARY | 2025-02-27 13:22 | XMS_ITS | Encounter Summary ---
Author Organization [facility] Address [address] [facility] 7t [place] [address] Care Team Providers Care Yard Hostler Name Role Phone Nguyen Hurst [facility] Primary Care Provider [phone] Kim Davenport PharmD Unavailable [phone] Reason for Visit * Reason Comments Med Refill Encounter Details Date Type Department Care Team (Late st Contact Info) Description 06/15/2023 Refill [facility] [address] [place] [address] Ruthy Martinez FNP [address] [place] [address] Social History Tobacco Use Types Packs/Day Years [...] on filedocumented in this encounter Care Teams Yard Hostler Relationship Specialty Start Date End Date Nguyen HurstYENIFER [address] [place] [address] PCP - General Family Medicine 07/01/22 Kim Davenport, EmelynD [address] [place] [address] Pharmacist Internal Medicine 12/10/24 [facility] documented as of this encounter
== END 2025-02-27 11:54 | disposition home or self-care (01) ==
LOC: HO.HCS 11:04
PROVIDERS: PCP Registered Nurse; Visit Provider Internal Medicine Cardiovascular Disease
DX: I25.5 Ischemic cardiomyopathy (principal)
CPT/HCPCS: 99214

== ENCOUNTER → 2025-02-27 11:03 | Outpatient (BNVA) | payer MEDICAID, SELFPAY | PROVIDERS: PCP Registered Nurse; Visit Provider Internal Medicine Cardiovascular Disease | DX: I25.5 Ischemic cardiomyopathy (principal) | CPT/HCPCS: 99212 ==

== ENCOUNTER 2025-04-11 14:12 | Outpatient (AMB) | payer MEDICAID, SELFPAY ==
--- NOTE | 2025-04-11 14:22 | A.OFFVIS_ITS ---
Vital Signs 04/11/25 14:23 Height 5 ft 9 in Weight 138 lb 14.259 oz BMI 20.5 BP 138/62 Blood Pressure Location Lt brachial Position Sitting Pulse 71 Pulse Source Pulse Oximeter Intake Visit Reasons: follow up/discuss cardiac cath no-show Rn L And D Required: No Patrol Community Service Officer: Patrol Community Service Officer Present Allergies codeine [CODEINE] Allergy (Intermediate, Verified 04/11/25 14:25) HIVES Medication List - Last Reconciled 04/11/25 by Brandon Perez NP acetaminophen 1,000 mg PO Q4-6H PRN apixaban (Eliquis) 5 mg PO BID atorvastatin 40 mg PO BEDTIME dapagliflozin propanediol (Farxiga) 10 mg PO DAILY fluticasone propionate 50 mcg/actuation 1 spray intranasal BID hydralazine 10 mg See Protocol PO BEDTIME isosorbide dinitrate 5 mg See Protocol PO BEDTIME meclizine 12.5 mg PO TID PRN sennosides (senna) 8.6 mg PO BEDTIME HPI Comments Details: This is a 60-year-old male patient coming in for a follow-up visit. Patient has a history of type 2 diabetes, chronic kidney disease, and some issues with noncompliance who was recently admitted for stroke. Patient was started on E liquis at that time and underwent a comprehensive cardiac workup including a SOURAV, cardiac even monitor, and a myocardial perfusion study which revealed ischemia and severely reduced EF. The loop recorder also captured a 7 beat episode of VT. At his last visit, cardiac catheterization was recommended and agreed upon. However, the patient reports that due to confusion around multiple appointments, he missed the scheduled procedure. He is here today to revisit in reschedule the cardiac catheterization. Currently he denies any cardiac symptoms including exertional chest pain, shortness of breath, dizziness, palpitations, leg swelling, PND, orthopnea, presyncope, or syncope. Patient reports being compliant to all his medications and denies any use of stimulants including alcohol, tobacco use, and street drugs. [facility] Medical History Paresthesia of lower extremity Unstable knee Tinea pedis Stage 3a chronic kidney disease Osteomyelitis, ankle and foot Erectile dysfunction Epilepsy Chronic neck pain Chronic low back pain Body dysmorphic disorder Diabetic foot Complicated grieving Renal osteodystrophy Proteinuria Cerebral infarction Palpitations Hypertensive disorder Hyperlipidemia History of alcoholism Stroke Diabetes CKD (chronic kidney disease) Surgical History History of implantation of penile prosthesis Previous back surgery (~1993) Social History Household Members: None Housing: Apartment Are you a primary hiv/aids care nurse to a significant other at home: No Do you presently have visiting nurse or other home services: No Comment: pt refusing the alarm for safety Patient Tobacco Use Status: Never used Tobacco e-Cigarette/Vaping Use: Never Used Second Hand Smoke Exposure: No Substance Use Type: Marijuana service: No Review of Systems ENT Reports dizziness Card Denies chest pain, Denies chest pain at rest, Denies chest pain with activity, Denies rapid heart rate, Denies pedal edema, Denies edema, Denies leg edema, Denies lightheadedness, Denies palpitations, Denies dyspnea, Denies dyspnea on exertion and Denies orthopnea Resp Denies cough, Denies dyspnea and Denies dyspnea on exertion GI Denies hematochezia and Denies change in stool character Musc Denies abnormal gait, Reports limited range of motion, Reports muscle cramps, Denies muscle weakness, Denies numbness, Denies radiating pain into limb, Denies stiffness and Denies tingling Neuro Denies abnormal gait, Reports dizziness, Denies numbness and Denies tingling Endo Denies palpitations Physical Exam Vital Signs: Last Vital Signs Pulse 71 04/11/25 14:23 BP 138/62 04/11/25 14:23 BMI result Body Mass Index 20.5 Const General: cooperative, healthy appearing, comfortable and no acute distress Orientation/consciousness: patient oriented x3 HEENT Head: Yes normal to inspection Neck Neck: Yes normal visual inspection, Yes trachea midline and Yes supple Chest Chest palpation & inspection: normal inspection of the chest Resp Effort & Inspection: normal respiratory effort Auscultation: clear to auscultation bilaterally, no crackles, no rales, no rhonchi and no wheezes Cardio Jugular venous distension: no JVD Palpation: normal PMI Rate: regular rate Rhythm: regular rhythm Heart sounds: S1 normal heart sound present, S2 normal heart sound present, no click, no gallops, no murmurs and no rubs Peripheral pulses: Peripheral pulses 2+ throughout GI Inspection: Yes normal to inspection Palpation (GI): Soft to palpation Auscultation: normal bowel sounds Skin General skin exam: no rashes or lesions noted Neuro General: patient oriented x3 Extrem General: Yes normal to inspection, No no pedal edema and No calf tenderness Psych Appearance: grossly normal Mental Status: mental status grossly normal Speech and movement: Normal speech and movement present Assessment & Plan Assessment & Plan (1) Ischemic cardiomyopathy: Code(s): I25.5 - Ischemic cardiomyopathy Category: Medical Plan: 11/22/2024-patient underwent a cardiac event study that showed baseline sinus rhythm with occasional PACs and PVCs. Patient had 1 episode of NSVT- 7 beats. 12/12/2024-patient underwent a SOURAV that showed dilated left ventricular with LV ejection fraction at 30% with regional wall motion abnormality with impaired relaxation filling pattern, incidental finding of PFO, and mild atherosclerotic changes in the arch and descending thoracic aorta. 02/07/2025-patient underwent myocardial perfusion study showing ischemia/infarct pattern in the RCA/circumflex territory. Given these findings, patient would still like to proceed with a cardiac catheterization to further assess the coronary arteries and evaluate the extent of ischemic changes. The procedure along with its indications, risks, and potential benefits were thoroughly discussed with the patient. The patient was also informed about potential need for stent placement. Patient expresses understanding and agrees to proceed with the planned cataract catheterization. We will get labs. We will follow up with the patient 2 weeks after cardiac catheterization. In the interim, patient will call the office with any concerns or change in symptoms. Advised patient to seek ER care in case of exertional chest pain not relieved with rest. This note was generated using voice recognition software. While every effort has been made to ensure accuracy and proper director medicare sales, there may be occasional errors that could affect the content or meaning of the described symptoms. Orders: Orders Cardiac Cath LT w PCI Today I25.5 - Ischemic cardiomyopathy Basic Metabolic Panel Today I25.5 - Ischemic cardiomyopathy Complete Blood Count no Diff Today I25.5 - Ischemic cardiomyopathy Prothrombin Time INR Today I25.5 - Ischemic cardiomyopathy Coding Level of Care Code Est Pt Level 4 (31378) Complex EM visit Add On G2211 Diagnoses Ischemic cardiomyopathy I25.5 Time Spent (min) 32 Comment Time spent in reviewing the chart, test results, assessment, counseling and documentation.
[2025-04-11 14:23] VITALS: BP 138/62; PULSE 71; BMI 20.5
--- OUTSIDE RECORDS SUMMARY | 2025-04-11 14:51 | XMS_ITS | Encounter Summary ---
Author Organization [facility] Address [address] [facility] 7t [place] [address] Care Team Providers Care Electronic Controls Repairer Supervisor Name Role Phone Aris [facility] Primary Care Provider [phone] Kim Davenport PharmD Unavailable [phone] Reason for Visit * Reason Onset Date Comments Referral 05/23/2023 Encounter Details Date Type Department Care Team ([facility] Contact Info) Description 05/23/2023 Telephone [facility] [address] [place] [address] [facility] [address] [place] [address] Referral Social History Tobacco Use Types Packs/Day [...] toe nails. Referrals Date-N/A Time- N/A Address- [address] [place] [address] Specialty- Podiatry Fax: documented in this encounter Plan of Treatment Upcoming Encounters Date Type Department Care Team (Late Contact Info) Description 04/17/2025 2:00 PM EDT Medication Management [facility] [address] [place] [address] 07/15/2025 3:30 PM EDT Medication Management [facility] [address] [place] [phone] Kim Davenport, Bridgett [address] [place] [phone] documented as of this encounter Visit Diagnoses Not on filedocumented in this encounter Care Teams Electronic Controls Repairer Supervisor Relationship Specialty Start Date End Date ArisNguyen conde FNP [address] [place] [phone] PCP - General Family Medicine 07/01/22 Kim Davenport, Bridgett [address] [place] [address] Pharmacist Internal Medicine 12/10/24 Hortensia [facility] 11/08/24 documented as of this encounter
--- OUTSIDE RECORDS SUMMARY | 2025-04-11 14:51 | XMS_ITS | Encounter Summary ---
Author Organization [employer] Address [address] [facility] 7t [place] [address] Care Team Providers Care Compliance Spec Name Role Phone Aris [facility] Primary Care Provider [phone] Kim Davenport PharmD Unavailable Reason for Referral * Consultation (Routine) - Canceled Specialty Diagnoses / Procedures Referred By Contac t Referred To Contact Pharmacy Diagnoses Type 2 diabetes mellitus with stage 3 chronic kidney disease, with long-term current use of insulin, unspecified whether stage 3a or 3b CKD (CMS/HCC) Elba Jackson MD [address] [place] [address] Phone: tel: fax: Referral ID Status Reason Start Date Expiration Date V isits Requested Visits Authorized [id number] Canceled Consult and Treat 02/26/2025 02/26/2026 6 6 Encounter Details Date Type Department Care Team (Late st Contact Info) Description 02/26/2025 Orders Only [facility] [address] [place], [place] [phone] Elba Jackson MD [address] [place], [place] [phone] Type 2 diabetes mellitus with stage 3 [...] as of this encounter Plan of Treatment Upcoming Encounters Date Type Department Care Team (Late st Contact Info) Description 04/17/2025 2:00 PM EDT Medication Management [facility] [address] [place] [address] 07/15/2025 3:30 PM EDT Medication Management [facility] [address] [place] [address] Kim Davenport, PharmD [address] [place] [address] Scheduled Referrals Name Type Priority Associated Diagnoses Orde r Schedule Referral to Pharmacy CDTM Outpatient Referral Routine Type 2 diabetes mellitus [...] documented as of this encounter Care Teams Compliance Spec Relationship Specialty Start Date End Date Maple MountNguyen FNP [address] [place] [address] PCP - General Family Medicine 07/01/22 Kim Davenport PharmD [address] [place] [address] Pharmacist Internal Medicine 12/10/24 Hortensia [facility] 11/08/24 documented as of this encounter
--- OUTSIDE RECORDS SUMMARY | 2025-04-11 14:51 | XMS_ITS | Encounter Summary ---
Author Organization [employer] Address [address] [facility] [address] 7t [place] [address] Care Team Providers Care Wrecker Operator Name Role Phone Nguyen Hurst SUPERVISORY EXAMINER Primary Care Provider [phone] Kim Davenport PharmD Unavailable [phone] Reason for Visit * Reason Onset Date Comments snap on denture referral 06/21/2024 appt 06/21/2024 Encounter Details Date Type Department Care Team ([facility] st Contact Info) Description 06/21/2024 Telephone [facility] [address] [place] [address] Brian Cosby DDS [address] [place], [place] [phone] snap on denture referral; appt Social History [...] he was sick. He is looking to . No appts on PAR side. Pls reach [...] Description 04/17/2025 2:00 PM EDT Medication Management [facility] [address] [place] [address] 07/15/2025 3:30 PM EDT Medication Management [facility] [address] [place] [address] Kim Davenport, PharmD [address] [place] [address] documented as of this encounter Visit Diagnoses Not on filedocumented in this encounter Additional Health Concerns Assessment Noted Time PHQ-9 Depression Total Score: 5 08/02/20 23 10:05 AM EDT documented as of this encounter Care Teams Wrecker Operator Relationship Specialty Start Date End Date Aris YENIFER Cedillo [address] [place] [address] PCP - General Family Medicine 07/01/22 Kim Davenport PharmD [address] [place] [address] Pharmacist Internal Medicine 12/10/24 [place] [facility] 11/08/24 documented as of this encounter
--- OUTSIDE RECORDS SUMMARY | 2025-04-11 14:51 | XMS_ITS | Clinical Summary ---
Author Organization [address] [facility] Address [address] [place] [address] Phone Care Team Providers Care Licensed Journeyman Electrician Name Role Phone Ellie Shanks MD Primary Care Provider [phone] Allergies Active Allergy Reactions Criticality Noted Date [...] Problem Noted Date Diagnosed Date Diabetes mellitus ([facility] V24, [facility] V28) Alcoholism ([facility] V24, [facility] V28) 02/18/2022 Back ache 02/18/2022 CVA (cerebral vascular accident) ([facility] V24, [facility] [place] V28) 02/18/2022 Epilepsy ([facility] V24, [facility] V28) 02/18/2022 Erectile dysfunction 02/18/2022 Hyperlipidemia 02/18/2022 Hypertension 02/18/2022 Tinea pedis 02/18/2022 Redundant prepuce 02/18/2022 Osteomyelitis of foot ([facility] V24, [facility] V28) 03/25/2011 Surgical History Surgery Date Site/Laterality Comments FOOT SURGERY 2009 PROCEDURE: HISTORICAL FOOT SURGERY; COMMENT: Right foot infection BACK SURGERY 1984 PROCEDURE: HISTORICAL BACK SURGERY; COMMENT: low back Medical History Medical History Date Comments CVA (cerebral vascular accid ent) ([facility] V24, [facility] V28) 02/18/2022 DX:CVA (cerebral vascular a ccident) ([facility]) Hypertension 02/18/2022 DX:Hypertension Erectile dysfunction 02/18/2022 DX:Erectile dysfunction Redundant prepuce 02/18/2022 DX:Redundant p repuce Hyperlipidemia 02/18/2022 DX:Hyperlipidemi a Epilepsy ([facility] V24, [facility] V28) 02/18/2022 DX:Epilepsy ([facility]) Social History Tobacco Use Types [...] 10/01/2024 2:27 PM EST Plan of Treatment Upcoming Encounters Date Type Department Care Team (Late st Contact Info) Description 05/28/2025 1:30 PM EDT Office Visit Orthopedic Surgery - [address] [address] Enmanuel Varela, WALTER [address] [address] Health Maintenance Due Date Last Done Comments [...] Vaccine ( - 2023-2 5 season) 2024 Diabetes: Blood [...] age to complete this topic Meningococcal B Vaccine Aged Out No l onger eligible based on patient's age to complete [...] * Annual BMP Blood Test (03/15/2024) Pathologist [facility] Annual BMP Blood Test Abstracted Result [facility] Provider HEALTH MAINTENANCE Final Result * HIV Screening (03/15/2024) Pathologist [facility] HIV Screening Abstracted Result [facility] Provider HEALTH MAINTENANCE Final Result * Hemoglobin A1c (03/15/2024) [facility] Hemoglobin A1C 0.0 % Comment:No interpretation, A bstracted Blood Venous blood specimen / Unknown Result [facility] Provider LAB BLOOD ORDERABLES Rima l Result * Lipid panel (07/07/2023) Pathologist [facility] LDL/HDL Ratio 0 Comment:Abstracted Triglycerides 0 mg/dL Comment:Abstracted Cholesterol 0 mg/dL Comment:Abstracted HDL 0 mg/dL Comment:Abstracted LDL Cholesterol 0 mg/dL Comment:Abstracted Blood Venous blood specimen / Unknown Result [facility] Provider LAB BLOOD ORDERABLES Rima l Result from Last 3 Months or Most Recently Relevant to Health Maintenance Insurance MEDICAID - [place] Care Teams Licensed Journeyman Electrician Relationship Specialty Start Date End Date Ellie Shanks MD [address] [phone] PCP - General Internal Medicine 02/04/22
--- OUTSIDE RECORDS SUMMARY | 2025-04-11 14:51 | XMS_ITS | Encounter Summary ---
Author Organization [employer] Address [address] [facility] [address] 7[address] [place] [address] Care Team Providers Care Surgical Instruments Inspector Name Role Phone Aris [facility] Primary Care Provider [phone] Kim Davenport PharmD Unavailable [phone] Reason for Visit * Reason Onset Date Comments VNA services 01/09/2025 Encounter Details Date Type Department Care Team ([facility] st Contact Info) Description 01/09/2025 Telephone [facility] [address] [place], [place] [phone] [place] [facility] [address] [place], [place] [phone] VNA services Social History Tobacco Use Types [...] 01/09/2025 12:17 PM EST TC placed to [facility] [phone] in regards to below message. RN was informed patient was discharged from [facility] in regards to PT and OT on 01/01/25 PT and senior care on 01/03/25 d/t meeting all goals and being independent. [facility] confirms the patient cannot become re-established at this time d/t recent discharge d/t goals being met. TC placed to patient [phone] to inform of above message. Patient is upset, states he wants services back. Patient reports he does not feel anything has improved. RN advised patient per [facility] patient has met goals however patient does not feel that is accurate. Sending to PCP as FYI and recommendations on POC. * Telephone Encounter - Melissa Banks - 01/09/2025 11:57 AM EST Tc from pt requesting orders for nurse visiting and physical therapy. Any questions contact pt [phone] (equatorial guinean) documented in this encounter Plan of Treatment Upcoming Encounters Date Type Department Care Team (Late st Contact Info) Description 04/17/2025 2:00 PM EDT Medication Management [facility] [address] [place] [phone] 07/15/2025 3:30 PM EDT Medication Management [facility] [address] [place] [phone] Kim Davenport PharmD [address] [place] [phone] documented as of this encounter Visit Diagnoses Not on filedocumented in this encounter Additional Health Concerns Assessment Noted Time PHQ-9 Depression Total Score: 0 11/30/19 25 1:53 PM EST documented as of this encounter Care Teams Surgical Instruments Inspector Relationship Specialty Start Date End Date Nguyen Hurst FNP [address] [place] [address] PCP - General Family Medicine 07/01/22 Kim Davenport PharmD [address] [place] [address] Pharmacist Internal Medicine 12/10/24 Hortensia [facility] 11/08/24 documented as of this encounter
--- OUTSIDE RECORDS SUMMARY | 2025-04-11 14:51 | XMS_ITS | Encounter Summary ---
Author Organization [employer] Address 75 [facility] 7t [place] [address] Care Team Providers Care Chief Business Officer Name Role Phone Nguyen Hurst [facility] Primary Care Provider [phone] Kim Davenport PharmD Unavailable [phone] Reason for Visit * Reason Onset Date Comments Referral 03/19/2024 Encounter Details Date Type Department Care Team ([facility] st Contact Info) Description 03/19/2024 Telephone [facility] 230 [place], [place] [phone] [facility] 230 [place], [place] [phone] Referral Social History Tobacco Use Types Packs/Day [...] by psychiatrist to seek second opinion at [facility], as it is causing himpsychological distress. [...] and would like to be seen at [facility] the fax number is [phone] documented in this encounter Plan of Treatment Upcoming Encounters Date Type Department Care Team (Late st Contact Info) Description 04/17/2025 2:00 PM EDT Medication Management [facility] [address] [place] [address] 07/15/2025 3:30 PM EDT Medication Management [address] [address] Kim Davenport, Bridgett 230 [place] [address] documented as of this encounter Visit Diagnoses Not on filedocumented in this encounter Additional Health Concerns Assessment Noted Time PHQ-9 Depression Total Score: 5 08/02/20 23 10:05 AM EDT documented as of this encounter Care Teams Chief Business Officer Relationship Specialty Start Date End Date Nguyen Hurst FNP 230 [place] [address] PCP - General Family Medicine 07/01/22 Kim Davenport PharmD 230 [place] [address] Pharmacist Internal Medicine 12/10/24 Hortensia GOODE 11/08/24 documented as of this encounter
--- OUTSIDE RECORDS SUMMARY | 2025-04-11 14:51 | XMS_ITS | Referral Summary ---
Author Organization [facility] Address [address] [place] [address] Care Team Providers Care Nursing Assistant Name Role Phone [facility] Primary Care Provider [phone] Allergies Active Allergy Reactions Criticality Noted Date [...] propionate (FLONASE) 50 mcg/actuation nasal spray SMARTSI [place](s) Both Nares Twice Daily Active INSULIN ASPART [...] on file Insurance [facility] Care Teams Nursing Assistant Relationship Specialty Start Date End Date [facility] [address] [place] [phone] PCP - General 06/29/24
--- OUTSIDE RECORDS SUMMARY | 2025-04-11 14:51 | XMS_ITS | Encounter Summary ---
Author Organization [employer] [facility] Address [address] [facility] 7t [place] [address] Care Team Providers Care Track Helper Name Role Phone Nguyen Hurst [facility] Primary Care Provider [phone] Kim Davenport PharmD Unavailable [phone] Encounter Details Date Type Department Care Team (Late st Contact Info) Description 06/24/2023 Telephone [facility] 230 [facility] [place] [address] Nguyen Hurst [facility] 230 [place] [address] Social History Tobacco Use Types Packs/Day Years [...] Description 04/17/2025 2:00 PM EDT Medication Management [facility] [address] [place], [place] [address]s[place] [address] 07/15/2025 3:30 PM EDT Medication Management [facility] [address] [place] [address] Kim Davenport PharmD 230 [place] [address] documented as of this encounter Visit Diagnoses Not on filedocumented in this encounter Care Teams Track Helper Relationship Specialty Start Date End Date Nguyen Hurst FNP 230 [place] [address] PCP - General Family Medicine 07/01/22 Kim Davenport PharmD 230 [place] [address] Pharmacist Internal Medicine 12/10/24 Hortensia Helga 11/08/24 documented as of this encounter
--- OUTSIDE RECORDS SUMMARY | 2025-04-11 14:51 | XMS_ITS | Clinical Summary ---
Author Organization [facility] Address [address] [place] [address] Care Team Providers Care Turret Lathe Set Up Operator Name Role Phone [facility] Primary Care Provider [phone] Allergies Active Allergy Reactions Criticality Noted Date [...] propionate (FLONASE) 50 mcg/actuation nasal spray SMARTSI [place](s) Both Nares Twice Daily Active INSULIN ASPART [...] age to complete this topic Insurance [address] [place] [address] [employer] Care Teams Turret Lathe Set Up Operator Relationship Specialty Start Date End Date [facility] [address] [place] [address] PCP - General 06/29/24
--- OUTSIDE RECORDS SUMMARY | 2025-04-11 14:51 | XMS_ITS | Encounter Summary ---
Author Organization [employer] [facility] Address [address] [facility] 7t [place] [address] Care Team Providers Care Emergency Room Specialist Name Role Phone Nguyen Hurst Primary Care Provider [phone] Kim Davenport PharmD Unavailable [phone] Reason for Visit * Reason Comments Med Refill Encounter Details Date Type Department Care Team (Late st Contact Info) Description 06/15/2023 Refill [facility] 230 [place] [address] Ruthy Martinez FNP [address] [place] [address] Social History Tobacco Use Types Packs/Day Years [...] Description 04/17/2025 2:00 PM EDT Medication Management [facility] [address] [place] [address] 07/15/2025 3:30 PM EDT Medication Management [facility] [address] [place] [address] Kim Davenport, EmelynD 230 [place] [address] documented as of this encounter Visit Diagnoses Not on filedocumented in this encounter Care Teams Emergency Room Specialist Relationship Specialty Start Date End Date Nguyen Hurst FNP 230 [place] [address] PCP - General Family Medicine 07/01/22 Kim Davenport PharmD 230 [place] [address] Pharmacist Internal Medicine 12/10/24 Hortensia GOODE 11/08/24 documented as of this encounter
--- OUTSIDE RECORDS SUMMARY | 2025-04-11 14:51 | XMS_ITS | Encounter Summary ---
Author Organization [employer] Address [address] [facility] [address] 7t [place] [address] Care Team Providers Care Headlight Assembler Name Role Phone [facility] Primary Care Provider [phone] Kim Davenport PharmD Unavailable [phone] Reason for Visit * Reason Onset Date Comments Call Back Request 07/11/2024 Encounter Details Date Type Department Care Team ([facility] st Contact Info) Description 07/11/2024 Telephone [facility] 230 [place], [place] [phone] [facility] 230 [place], [place] [phone] Call Back Request Social History Tobacco Use [...] get themedical records [place] writer did attempt to transfer however patient stated was just talking with them was told to speak with provider documented in this encounter Plan of Treatment Upcoming Encounters Date Type Department Care Team (Late st Contact Info) Description 04/17/2025 2:00 PM EDT Medication Management [facility] [address] [place] [address] 07/15/2025 3:30 PM EDT Medication Management [facility] [address] [place] [address] Kim Davenport PharmD 230 [place] [address] documented as of this encounter Visit Diagnoses Not on filedocumented in this encounter Additional Health Concerns Assessment Noted Time PHQ-9 Depression Total Score: 0 07/04/20 24 3:20 PM EDT documented as of this encounter Care Teams Headlight Assembler Relationship Specialty Start Date End Date Nguyen Hurst FNP 230 [place] [address] PCP - General Family Medicine 07/01/22 Kim Davenport, EmelynD [address] [place], [place] [address]Ne[place] [address] Pharmacist Internal Medicine 12/10/24 Hortensia GOODE 11/08/24 documented as of this encounter
--- OUTSIDE RECORDS SUMMARY | 2025-04-11 14:51 | XMS_ITS | Encounter Summary ---
Author Organization [employer] [facility] Address 75 [facility] 7t [place] [address] Care Team Providers Care Emergency Department Rn Name Role Phone Aris [facility] Primary Care Provider [phone] Kim Davenport PharmD Unavailable [phone] Reason for Referral * Consultation (Routine) - Authorized Specialty Diagnoses / Procedures Referred By Pedro t Referred To Contact Pharmacy Diagnoses Type 2 diabetes mellitus with stage 3 chronic kidney disease, with long-term current use of insulin, unspecified whether stage 3a or 3b CKD (CMS/HCC) Elba Jackson MD [address] [place] [address] Phone: tel: fax: Referral ID Status Reason Start Date Expiration Date Visits Requested Visits Authorized [id number] Authorized Consult and Treat 12/04/2024 12/04/2025 6 6 Encounter Details Date Type Department Care Team (Late st Contact Info) Description 12/04/2024 Orders Only [facility] 230 [place], [place] [phone] Elba Jackson MD [address] [place], [place] [phone] Type 2 diabetes mellitus with stage 3 [...] Description 04/17/2025 2:00 PM EDT Medication Management [facility] [address] [place] [address] 07/15/2025 3:30 PM EDT Medication Management [facility] [address] [place] [address] Kim Davenport, PharmD [address] [place] [address] Scheduled Referrals Name Type Priority Associated Diagnoses [...] documented as of this encounter Care Teams Emergency Department Rn Relationship Specialty Start Date End Date GraftonNguyen FNP 230 [place] [address] PCP - General Family Medicine 07/01/22 Kim Davenport PharmD [address] [place] [address] Pharmacist Internal Medicine 12/10/24 Hortensia GOODE 11/08/24 documented as of this encounter
--- OUTSIDE RECORDS SUMMARY | 2025-04-11 14:51 | XMS_ITS | Clinical Summary ---
Author Organization [facility] Address [address] [address] Phone Care Team Providers Care Cardboard Inserter Name Role Phone Dimitris, Celegene Primary Care [...] Incorporate grounding techniques into daily routine c. 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 H/O: alcoholism 08/15/2013 Osteomyelitis of ankle AND/OR foot 03/25/2011 08/05/2023 Social History Tobacco Use Types Packs/Day Years [...] Visit [facility] [address] [place] [address] Chris King MD [address] [facility] [address] [place] [address] Health Maintenance Due Date Last Done Comments Pneumococcal Vaccine: 50+ Years (1 of 2 - PCV) 02/22/1984 Colorectal Cancer Screening: Annual FOBT 2014 [...] patient's age to complete this topic [place] Care Teams Cardboard Inserter Relationship Specialty Start Date End Date Ellie Shanks PCP - General Internal Medicine 07/03/21
--- OUTSIDE RECORDS SUMMARY | 2025-04-11 14:51 | XMS_ITS | Encounter Summary ---
Author Organization [employer] Address 75 [facility] 7t [place] [address] Care Team Providers Care Valve Technician Name Role Phone Nguyen Hurst [facility] Primary Care Provider [phone] Kim Davenport PharmD Unavailable [phone] Reason for Visit * Reason Onset Date Comments Referral 06/04/2024 Encounter Details Date Type Department Care Team ([facility] st Contact Info) Description 06/04/2024 Telephone [facility] 230 [place], [place] [phone] [facility] 230 [place], [place] [phone] Referral Social History Tobacco Use Types Packs/Day [...] encounter Miscellaneous Notes * Telephone Encounter - Rylei Solorzano - 06/12/2024 12:19 PM EDT Patient will recieve approval / denial letter via mail. PT-1 Request [id number] Pending [facility] [address] [place] [address] * Telephone Encounter - Eliud Oden - 06/12/2024 9:01 AM EDT Tc from patient calling in regards to the message below states [facility] has not received referral statesit could be that [facility] has the patient as Dany Tan * Telephone Encounter - Amarjit Negron - 06/04/2024 9:40 AM EDT Tc from pt requesting status on referral for Urology made on 04/25/24, pt would like [facility] to [facility]. Pt provided documented in this encounter Plan of Treatment Upcoming Encounters Date Type Department Care Team (Late st Contact Info) Description 04/17/2025 2:00 PM EDT Medication Management [facility] [address] [place] [address] 07/15/2025 3:30 PM EDT Medication Management [facility] 230 [place] [address] Kim Davenport, PharmD 230 [place] [address] documented as of this encounter Visit Diagnoses Not on filedocumented in this encounter Additional Health Concerns Assessment Noted Time PHQ-9 Depression Total Score: 5 08/02/20 23 10:05 AM EDT documented as of this encounter Care Teams Valve Technician Relationship Specialty Start Date End Date AntelopeNguyen [facility] 230 [place] [address] PCP - General Family Medicine 07/01/22 Kim Davenport PharmD 230 [place] [address] Pharmacist Internal Medicine 12/10/24 Hortensia GOODE 11/08/24 documented as of this encounter
--- OUTSIDE RECORDS SUMMARY | 2025-04-11 14:51 | XMS_ITS | Encounter Summary ---
Author Organization [employer] Address 75 [facility] 7t [place] [address] Care Team Providers Care Adventure Guide Name Role Phone Nguyen Hurst [facility] Primary Care Provider [phone] Kim Davenport PharmD Unavailable [phone] Reason for Visit * Reason Comments Med Refill Encounter Details Date Type Department Care Team (Late st Contact Info) Description 06/19/2024 Refill [facility] MEDICINE 230 [place], [place] [phone] Viola Golisano [facility] 230 [place], [place] [phone] Social History Tobacco Use Types Packs/Day Years [...] Description 04/17/2025 2:00 PM EDT Medication Management [facility] MEDICINE [address] [place] [address] 07/15/2025 3:30 PM EDT Medication Management [address] [address] Kim Davenport PharmD [address] [place] [address] documented as of this encounter Visit Diagnoses Not on filedocumented in this encounter Additional Health Concerns Assessment Noted Time PHQ-9 Depression Total Score: 5 08/02/20 23 10:05 AM EDT documented as of this encounter Care Teams Adventure Guide Relationship Specialty Start Date End Date Nguyen Hurst FNP [address] [place] [address] PCP - General Family Medicine 07/01/22 Kim Davenport PharmD [address] [place] [address] Pharmacist Internal Medicine 12/10/24 Hortensia BARRAZAA 11/08/24 documented as of this encounter
--- OUTSIDE RECORDS SUMMARY | 2025-04-11 14:52 | XMS_ITS | Encounter Summary ---
Author Organization [employer] Address [address] [facility] [address] 7t [place] [address] Care Team Providers Care Recovery Coordinator Name Role Phone Nguyen Hurst [facility] Primary Care Provider [phone] Kim Davenport PharmD Unavailable [phone] Reason for Visit * Reason Onset Date Comments FYI 11/13/2024 Encounter Details Date Type Department Care Team ([facility] st Contact Info) Description 11/13/2024 Telephone [facility]INE 230 [place], [place] [phone] [facility] 230 [place], [place] [phone] FYI Social History Tobacco Use Types Packs/Day [...] any questions you can Contact Roberth at [phone] documented in this encounter Plan of Treatment Upcoming Encounters Date Type Department Care Team (Late st Contact Info) Description 04/17/2025 2:00 PM EDT Medication Management [facility] [address] [place] [address] 07/15/2025 3:30 PM EDT Medication Management [facility] 230 [place] [address] Kim Davenport, EmelynD 230 [place] [address] documented as of this encounter Visit Diagnoses Not on filedocumented in this encounter Additional Health Concerns Assessment Noted Time PHQ-9 Depression Total Score: 0 07/04/20 24 3:20 PM EDT documented as of this encounter Care Teams Recovery Coordinator Relationship Specialty Start Date End Date Nguyen Hurst FNP 230 [place] [address] PCP - General Family Medicine 07/01/22 Kim Davenport PharmD 230 [place] [address] Pharmacist Internal Medicine 12/10/24 Hortensia GOODE 11/08/24 documented as of this encounter
--- OUTSIDE RECORDS SUMMARY | 2025-04-11 14:52 | XMS_ITS | Encounter Summary ---
Author Organization [employer] Address [address] [facility] [address] 7t [place] [address] Care Team Providers Care Systems Integration Advisor Name Role Phone Nguyen Hurst [facility] Primary Care Provider [phone] Kim Davenport PharmD Unavailable [phone] Reason for Visit * Reason Onset Date Comments Nurse Triage 02/27/2025 Encounter Details Date Type Department Care Team ([facility] st Contact Info) Description 02/27/2025 Telephone [facility]INE 230 [place], [place] [phone] [facility] 230 [place], [place] [phone] Nurse Triage Social History Tobacco Use Types [...] encounter Miscellaneous Notes * Telephone Encounter - Alana Deng RN - 02/27/2025 4:33 PM EDT Triage call Pt reports middle finger on right hand remains in bent position. Pt is unable to straighten this finger out. Pt reports this has been like this for 1-2 months now. Denies injury. Pt reports middle joint on finger is red and swollen. Pt is able to use hand but it squashes the finger and causes pain. Pt is advised to use tylenol per instruction for pain relief and agrees. Pt is offered a morning apt on 03/04 but declines due to work. 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 Pt agrees with disposition and insurance is verified as active prior to booking. Protocol Used: Finger Pain (Adult) Protocol-Based Disposition: See in Office or Video Visit within 2 Weeks Video visit not offered Positive Triage Questions: * Finger pain is a chronic symptom (recurrent or ongoing AND present > 4 weeks) * Finger locking (gets stuck in one position) is a chronic symptom (recurrent or ongoing AND present > 4 weeks) * All higher-acuity triage questions were negative Care Advice Discussed: * Reassurance and Education - Finger Pain * Pain Medicines * Pain Medicines - Extra Notes and Warnings * Expected Course * Reasons To Call Back - Fever occurs - Redness or swelling appears - Pain lasts over 7 days - You become worse * Use a Cold Pack for Pain * Use Heat After 48 Hours for Pain * Telephone Encounter - Melissa Meli Banks - 02/27/2025 3:57 PM EDT Symptom: Middle finger won't straighten - Not From Injury Outcome: Schedule an urgent appointment (within 1 hour) or talk to a nurse or provider soon Reason: Can't use the finger normally The caller accepted this outcome. [phone] documented in this encounter Plan of Treatment Upcoming Encounters Date Type Department Care Team (Late st Contact Info) Description 04/17/2025 2:00 PM EDT Medication Management [facility]INE [address] [place] [address] 07/15/2025 3:30 PM EDT Medication Management [address] [address] Kim Davenport PharmD [address] [place] [address] documented as of this encounter Visit Diagnoses Not on filedocumented in this encounter Additional Health Concerns Assessment Noted Time PHQ-9 Depression Total Score: 0 11/30/19 25 1:53 PM EST documented as of this encounter Care Teams Systems Integration Advisor Relationship Specialty Start Date End Date Wray Nguyen POLICY CHANGE CLERK [address] [place] [address] PCP - General Family Medicine 07/01/22 Kim Davenport PharmD [address] [place] [address] Pharmacist Internal Medicine 12/10/24 Hortensia BARRAZAA 11/08/24 documented as of this encounter
--- OUTSIDE RECORDS SUMMARY | 2025-04-11 14:52 | XMS_ITS | Encounter Summary ---
Author Organization [employer] [facility] Address 75 [facility] 7t [place] [address] Care Team Providers Care Copy Technician Name Role Phone Nguyen Hurst [facility] Primary Care Provider [phone] Kim Davenport PharmD Unavailable [phone] Encounter Details Date Type Department Care Team (Late st Contact Info) Description 03/18/2023 Orders Only [facility] 230 [facility] [place] [address] Tracee Cabrera LPN Social History Tobacco Use [...] Description 04/17/2025 2:00 PM EDT Medication Management [address] [place] [address] 07/15/2025 3:30 PM EDT Medication Management [address] [address] Kim Davenport, PharmD 230 [place] [address] documented as of this encounter Visit Diagnoses Not on filedocumented in this encounter Care Teams Copy Technician Relationship Specialty Start Date End Date Nguyen Hurst [facility] 230 [place] [address] PCP - General Family Medicine 07/01/22 Kim Davenport, EmelynD [address] [place] [address] Pharmacist Internal Medicine 12/10/24 Hortensia GOODE 11/08/24 documented as of this encounter
--- OUTSIDE RECORDS SUMMARY | 2025-04-11 14:52 | XMS_ITS | Encounter Summary ---
Author Organization [employer] Address [address] [facility] [address] 7t [place] [address] Care Team Providers Care Coil Repair Technician Name Role Phone Aris [facility] Primary Care Provider [phone] Kim Davenport PharmD Unavailable [phone] Encounter Details Date Type Department Care Team (Late st Contact Info) Description 04/08/2025 Orders Only [facility] 230 [place], [place] [phone] [place] [facility] 230 [place] [address] Type 2 diabetes mellitus with stage 3 [...] Description 04/17/2025 2:00 PM EDT Medication Management [address] [address] 07/15/2025 3:30 PM EDT Medication Management [address] [address] Kim Davenport PharmD [address] [place] [address] documented as of this encounter Visit Diagnoses Diagnosis Type 2 diabetes mellitus with stage 3 chronic kidney disease, without long-term current use of insulin, unspecified whether stage 3a or 3b CKD (CMS/HCC)- Primary documented in this encounter Additional Health Concerns Assessment Noted Time PHQ-9 Depression Total Score: 0 11/30/19 25 1:53 PM EST documented as of this encounter Care Teams Coil Repair Technician Relationship Specialty Start Date End Date Nguyen Hurst FNP [address] [place] [address] PCP - General Family Medicine 07/01/22 Kim Davenport PharmD [address] [place] [address] Pharmacist Internal Medicine 12/10/24 Hortensia GOODE 11/08/24 documented as of this encounter
--- OUTSIDE RECORDS SUMMARY | 2025-04-11 14:52 | XMS_ITS | Encounter Summary ---
Author Organization [employer] Address [address] 7[address] [place] [address] Care Team Providers Care Supervisor Coil Winding Name Role Phone Nguyen Hurst [facility] Primary Care Provider [phone] Kim Davenpotr PharmD Unavailable [phone] Reason for Visit * Reason Onset Date Comments Nurse Triage 11/02/2024 Encounter Details Date Type Department Care Team ([facility] st Contact Info) Description 11/02/2024 Telephone [facility] MEDICINE [address] [place], [place] [phone] [facility] [address] [place], [place] [phone] Nurse Triage Social History Tobacco Use Types [...] your housing situation today? I have hayley iriwn 09/21/[address] you li [...] 12:14 PM EST TC placed to patient [phone] to inform patient, sensors will be ready at the pharmacy for p/u in approx 1 hour. RN also inquired on patients plan to come to [facility] or ED for his dizziness however patient [...] Upcoming Encounters Date Type Department Care Team ([facility] st Contact Info) Description 04/17/2025 2:00 PM EDT Medication Management [facility] MEDICINE [address] [place] [address] 07/15/2025 3:30 PM EDT Medication Management [facility] MEDICINE [address] [place] [address] Kim Davenport, Bridgett [address] [place] [address] documented as of this encounter Visit Diagnoses Not on filedocumented in this encounter Additional Health Concerns Assessment Noted Time PHQ-9 Depression Total Score: 0 07/04/20 24 3:20 PM EDT documented as of this encounter Care Teams Supervisor Coil Winding Relationship Specialty Start Date End Date Nguyen Hurst FNP [address] [place] [address] PCP - General Family Medicine 07/01/22 Kim Davenport PharmD [address] [place] [address] Pharmacist Internal Medicine 12/10/24 Hortensia GOODE 11/08/24 documented as of this encounter
--- OUTSIDE RECORDS SUMMARY | 2025-04-11 14:52 | XMS_ITS | Clinical Summary ---
Author Organization [employer] Address [address] [facility] 7t [place] [address] Care Team Providers Care Court Interpreter Name Role Phone Nguyen Hurst [facility] Primary Care Provider [phone] Kim Davenport PharmD Unavailable [phone] Allergies Active Allergy Reactions Criticality Noted Date Comments Codeine Rash,Hives Low 11/16/2010 Lisinopril Dizziness,Other 06/11/2021 Medications * This document contains information received from the source organization and may not represent a complete record from that organization. Continuous Blood Gluc Blacksmith Assistant (Ideapodyle Diann 2 [place]) deviceIndicatio ns:Type 2 diabetes mellitus with stage 3 chronic kidney disease, with long-term current use of insulin, unspecified whether stage 3a or 3b CKD (CMS/[facility]) Use as directed per instructions 1 each 023 Active senna (Senokot) 8.6 MG tabletIndicatio ns:Chronic idiopathic constipation Take 1 tablet (8.6 mg) by mouth at bedtime. 90 tablet 3 024 2024 Active docusate sodium (Colace) 100 MG capsuleIndicati ons:Chronic idiopathic constipation Take 1 capsule (100 mg) by mouth 2 times daily. 60 capsule 11 024 Active Additional Information Patient not taking.Reason: [...] per day. In the morning 30 tablet 11 025 2025 Active glucose 4 g chewable tabletIndicatio ns:Type 2 diabetes mellitus with stage 3 chronic kidney disease, without long-term current use of insulin, unspecified whether stage 3a or 3b CKD (CMS/HCC) Chew 4 tablets (16 g) if needed for low blood sugar. 50 tablet 12 025 2025 Active ammonium lactate (Lac-Hydrin) 12 % lotion APPLY TO SOLES OF FEET DAILY. AT NIGHT WEAR SOCKS TO BED 024 Active Continuous Glucose Transmitter (Dexcom G6 transmitter) misc 1 each by Other route Use as directed. Replace every 3 months. 1 each 3 025 Active hydrALAZINE (Apresoline) 10 MG tablet Take 1 tablet (10 mg) by mouth at bedtime. 90 tablet 025 Active isosorbide dinitrate (Isordil) 5 MG tablet Take 1 tablet (5 mg) by mouth at bedtime. 90 tablet 025 Active atorvastatin (Lipitor) 40 MG tablet Take 1 tablet (40 mg) by mouth in the morning. 90 tablet 3 025 Active Continuous Glucose Sensor (FreeStyle Diann 2 Sensor) miscIndications :Type 2 diabetes mellitus with stage 3 chronic kidney disease, with long-term current use of insulin, unspecified whether stage 3a or 3b CKD (CMS/HCC) APPLY 1 SENSOR TO SKIN DIRECTED AND CHANGE EVERY 14 DAYS 2 each 5 025 Active Acetaminophen Extra Strength 500 MG tabletIndicatio ns:Other chronic pain TAKE 2 TABLETS BY MOUTH EVERY 4 TO 6 HOURS NEEDED NOT TO EXCEED 8 TABLETS PER 24 HOURS 60 tablet 025 Active fluticasone (Flonase) 50 MCG/ACT nasal spray USE 1 SPRAY INTO EACH NOSTRIL 2 TIMES DAILY. SHAKE GENTLY. BEFORE USE 48 mL 025 Active Blood Glucose Monitoring Suppl (FreeStyle Lite) device Inject 1 each under the skin Use as directed. 1 each 025 Active FREESTYLE LITE test strip Use to check BS BID daily as directed 100 each 12 025 2025 Active Lancets 33G misc Use to check BS BID daily as directed 100 each 025 Active meclizine (Antivert) 12.5 MG tabletIndicatio ns:Dizziness TAKE 1 TABLET BY MOUTH THREE TIMES DAILY IN THE MORNING, AT NOON, AND AT BEDTIME NEEDED FOR DIZZINESS 30 tablet 2 025 Active Continuous Glucose Blacksmith Assistant (FreeStyle Diann 3 [place]) device 1 each Once per day. Use as directed for CGM 1 each 025 Active Continuous Glucose Sensor (FreeStyle Diann 3 Plus Sensor) misc Apply 1 every 15 days as directed for CGM 2 each Active glucose blood (FreeStyle Precision Omid Test) test strip Use to test blood sugar 3 times daily in case of CGM failure or extremes of BG 100 each 025 Active Eliquis 5 MG tablet TAKE 1 TABLET BY MOUTH TWICE DAILY IN THE MORNING AND AT BEDTIME 60 tablet 025 Active Multiple Vitamin (multivitamin) tabletIndicatio ns:Type 2 diabetes mellitus with stage 3 chronic kidney disease, without long-term current use of insulin, unspecified whether stage 3a or 3b CKD (CMS/HCC) Take 1 tablet by mouth Once per day. 30 tablet 11 025 Active cyclobenzaprine (Flexeril) 5 MG tabletIndicatio ns:Cerebrovascu lar accident (CVA), unspecified mechanism (CMS/HCC) TAKE 1 TABLET THREE TIMES DAILY IN THE MORNING, AT NOON, AND AT BEDTIME NEEDED FOR MUSCLE SPASMS 30 tablet 2 025 Active cyclobenzaprine (Flexeril) 5 MG tabletIndicatio ns:Cerebrovascu lar accident (CVA), unspecified mechanism (CMS/HCC) Take 1 tablet (5 mg) by mouth if needed in the morning, at noon, and at bedtime for muscle spasms. 30 tablet 3 025 2024 Discontinued Continuous Glucose Blacksmith Assistant (Dexcom G6 photo editor) device Use as directed 1 each 025 2024 Discontinued(M ed list cleanup (will not trigger notification to Pharmacy)) Continuous Glucose Sensor (Dexcom G6 Sensor) [facility] [place] Use 1 every 10 days to monitor blood glucose. May wear on stomach. 3 each 025 2024 Discontinued(M ed list cleanup (will not trigger notification to Pharmacy)) Eliquis 5 MG tablet TAKE 1 TABLET BY MOUTH TWICE DAILY IN THE MORNING AND AT BEDTIME 60 tablet 025 2024 Discontinued Active Problems Problem Noted Date Diagnosed Date [...] children. PLAN: 1. Follow up with [facility]: Not recommended for follow-up 2. Patient goal is to find motivation again. 3. Behavioral Recommendations a. Referral for OP individual therapy b. Incorporate grounding techniques into daily routine c. [place] his brother's life by doing activities in [...] children. PLAN: 1. Follow up with [facility]: Not recommended for follow-up 2. Patient goal is to find motivation again. 3. Behavioral Recommendations a. Referral for OP individual therapy b. Incorporate grounding techniques into daily routine c. [place] his brother's life by doing activities in [...] CKD. (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 Encounters Date Type Department Care Team Description 04/09/2025 Telephone [facility] MEDICINE [address] [place] [address] Nguyen Hurst FNP CGM PA 04/08/2025 Refill [facility]ALK[facility] [address] [place] [address] Nguyen Hurst FNP Cerebrovascular accident (CVA), unspecified mechanism (CMS/[facility]) 04/08/2025 Orders Only [facility] [address] [place] [address] Nguyen Hurst FNP Type 2 diabetes mellitus with stage 3 chronic kidney disease, without long-term current use of insulin, unspecified whether stage 3a or 3b CKD (CMS/[facility]) (Primary Dx) 04/05/2025 Orders Only [facility] MEDICINE [address] [place] [address] Olga Brown MD Hypertension (Primary Dx) 04/05/2025 Refill [facility] MEDICINE [address] [place] [address] Nguyen Hurst FNP 04/01/2025 Travel 03/14/2025 Telephone [facility] MEDICINE [address] [place] [address] Nguyen Hurst FNP Durable Medical Equipment 03/11/2025 Refill [facility] MEDICINE [address] [place] [address] Nguyen Hurst FNP Dizziness 03/08/2025 Refill [facility] MEDICINE [address] [place] [address] Nguyen Hurst FNP 03/06/2025 3:30 PM EDT Office Visit [facility] MEDICINE [address] [place] [address] Linda Flores NP Trigger middle finger of left hand (Primary Dx) 03/06/2025 Travel 02/27/2025 Telephone [facility] MEDICINE [address] [place] [address] Nguyen Hurst FNP Nurse Triage 02/26/2025 Orders Only [facility] MEDICINE [address] [facility] [place] [address] Elba Jackson MD Type 2 diabetes mellitus with stage 3 chronic kidney disease, with long-term current use of insulin, unspecified whether stage 3a or 3b CKD (CMS/HCC) (Primary Dx) 02/26/2025 Telephone [facility] MEDICINE [address] [facility] [place] [address] RidottNguyen [facility] 02/18/2025 Refill [facility] [address] [facility] [place] [address] RidottNguyen [facility] 02/18/2025 Refill [facility] [address] [facility] [place] [address] Nguyen Hurst [facility] Other chronic pain 02/13/2025 Orders Only [facility] [address] [facility] [place] [address] Nguyen Hurst [facility] Tobacco use disorder (Primary Dx); Type 2 diabetes mellitus with stage 3 chronic kidney disease, with long-term current use of insulin, unspecified whether stage 3a or 3b CKD (CMS/HCC) 02/08/2025 Refill [facility] [address] [facility] [place] [address] Nguyen Hurst [facility] Type 2 diabetes mellitus with stage 3 chronic kidney disease, with long-term current use of insulin, unspecified whether stage 3a or 3b CKD (CMS/HCC) 02/08/2025 Population Health Risk Score [facility] () [address] [address] Provider, Population Health Generic 02/06/2025 Orders Only [facility] [address] [facility] [place] [address] Nguyen Hurst FNP Tobacco use (Primary Dx) 02/05/2025 Telephone [facility] MEDICINE [address] [facility] [place] [address] Nguyen Hurst FNP New Med Request 01/30/2025 Refill [facility] MEDICINE [address] [place] [address] Nguyen Hurst FNP 01/28/2025 Refill [facility] MEDICINE [address] [place] [address] [facility] 01/23/2025 Telephone [facility] MEDICINE [address] [place] [address] [facility] FYI from Last 3 Months Immunizations Immunization Administration Dates Next Due Influenza, Split (incl. [...] Sign Reading Time Taken Comments Blood Pressure 130/78 04/02/2025 2:28 PM EDT Pulse 54 03/06/2025 4:04 PM EDT Temperature 36.7 ??C (98 ??F) 03/06/2025 4:04 PM EDT Respiratory Rate 20 03/06/2025 4:04 PM EDT Oxygen Saturation 96% 03/06/2025 4:04 PM EDT Inhaled Oxygen Concentration - - Weight 63.2 kg (139 lb 6.4 oz) 03/06/2025 4:04 P M EDT Height 175.3 cm (5' 9 ) 11/30/2024 1:52 PM EST Body Mass Index 20.59 11/30/2024 1:52 PM EST Plan of Treatment Upcoming Encounters Date Type Department Care Team (Late st Contact Info) Description 04/17/2025 2:00 PM EDT Medication Management [facility] MEDICINE [address] [place] [phone] 07/15/2025 3:30 PM EDT Medication Management [address] [address] Kim Davenport, PharmD [address] [place] [address] Health Maintenance Due Date Last Done Comments [...] - Risk 60-74 years 1-dose series) 2025 Dental Oral Exam 03/29/2025 09/28/2024, , 05/20/2015 Diabetes: Hemoglobin A1C 07/02/2025 025, 11/30/2024, 07/04/2024, Additional history exists Diabetes: Foot Exam 07/04/2025 07/04/2024, 07/04/2024, 07/04/2024 SDOH Screening 11/09/2025 11/09/2024 Depression Screening 11/30/2025 11/30/2024, 11/30/19 Tobacco Screening 04/02/2026 04/02/2025 Dental X-Ray: Full Mouth 07/04/2027 024, 03/24/2017, [...] Procedure Name Priority Date/Time Associated Diagnosis Comments POCT GLYCATED HEMOGLOBIN, TOTAL Routine 04/01/2025 2:33 PM EDT Type 2 diabetes mellitus with stage 3 chronic kidney disease, without long-term current use of insulin, unspecified whether stage 3a or 3b CKD (CMS/HCC) STRESS TEST WITH MYOCARDIAL PERFUSION Routine 02/07/2025 8:27 AM EDT PERIODIC ORAL EVALUATION - ESTABLISHED PATIENT Routine [...] Recently Relevant to Health Maintenance Results * (ABNORMAL) POCT A1C (04/01/2025 2:33 PM EDT) Hemoglobin A1C 8.2(A) 4.0 - 6.0 % Blood 04/01/2025 2:33 PM EDT [facility] FOOD AND BEVERAGE ASSOCIATE POINT OF CARE TEST ENTER/EDIT ORDERABLES Final Result * Stress test with myocardial perfusion (02/07/2025 8:27 AM EDT) 02/07/2025 8:27 AM EDT Narrative [facility] - 2025 4:20 PM EDT ? [facility] ?[address] ?[place] [address] ?Nuclear Medicine Report ? Signed ? Patient: Ryan,Dany ?MR#: [id number] ? : 1965 ?Acct:[id number] ? Age/Sex: 59 / M ?ADM Date: 03/13/25 ? Loc: HO.CARD ? Attending Dr: Georgi Bernard MD ? Ordering Physician: Georgi Bernard MD ?? Date of Service: 02/07/25 ?? Procedure(s): NM cardiolite stress test ?? Accession Number(s): [id number] ? cc: Georgi Bernard MD; RidottNguyen [facility] ? Lexiscan Myocardial perfusion study ? Indication: [...] MD in OV> ?02/21/25 1617 ? DD/ 0827 ? TD/TT: 02/21/25 1420 ? Human Factors Advisor Lead: ? Procedure Note Donhumbertoter, Image - [address] [place] [address] Nuclear Medicine Report Signed Patient: Dany RyanMR#: [id number] : 1965Acct:[id number] Age/Sex: 59 / MADM Date: 02/07/25 Loc: [facility]YN[facility]UR[facility] Attending Dr: Georgi Bernard MD Ordering Physician: Georgi Bernard MD Date of Service: 02/07/25 Procedure(s): NM cardiolite stress test Accession Number(s): [id number] cc: Georgi Bernard MD; [facility] Lexiscan Myocardial perfusion study Indication: Ischemic cardiomyopathy [...] in inferior wall cannot be ruled out. NM/NM cardiolite stress test Impression: 1. Myocardial perfusion imaging study shows ischemia/infarct pattern in RCA/circumflex territory 2. Gated LVEF is 40% with stress and 44% with rest 3. Transient ischemic dilatation present Nondiagnostic changes on EKG. Electronically signed by: Georgi Bernard MD 2025 04:17 PM EDT RP Dictated By: Georgi Bernard MD Signed By: <Electronically signed by Georgi Bernard MD in OV> 02/21/25 1617 DD/ 0827 TD/TT: 02/21/25 1420 Human Factors Advisor Lead: us [facility] External Provider CV STRE SS PROCEDURES Final Result [facility] [address] [place] [phone] * HIV-1/2 Antigen and Antibodies, Fourth Generation, with Reflexes (03/15/2024 12:42 PM EDT) HIV AB/AG Nonreactive Nonreactive [facility] Comment:HIV-1 p24 Ag and/or HIV-1/HIV-2 Ab not detected.A test result that is nonreactive does not exclude thepossibility of exposure to or infection with HIV-1 and/orHIV-2. Nonreactive results in this assay for individualswith prior exposure to HIV-1 and/or HIV-2 may be due toantigen and antibody levels that are below the limit ofdetection of this assay.The DATYniAtempo HIV Ag/Ab Combo assay result andsupplemental assay results should be interpreted inconjunction with the patient's clinical presentation,history and other laboratory results. If the results areinconsistent with clinical evidence, additional testing issuggested to confirm the result. Blood Venous blood specimen / Unknown 03/15/2024 12:42 PM EDT 03/15/2024 3:58 PM EDT [facility] LAB BLOOD ORDERABLES Final Re sult [facility] [address] [place] [phone] * Lipid Panel, Standard (07/07/2023 9:53 AM EDT) Triglycerides 249 mg/dL [facility] Comment:Desirable Triglyceri de: less than 150 mg/dLBorderline High Triglyceride 150-199 mg/dLHigh Triglyceride: 200-499 mg/dLVery High Triglyceride: greater than or equal to 5OO mg/dL Cholesterol 200 mg/dL [facility] Comment:Desirable Cholestero l: less than 200 mg/dLBorderline High Cholesterol: 200-239 mg/dLHigh Cholesterol: greater than 239 mg/dL LDL Cholesterol Calculated 95 mg/dl [facility] Comment:Desirable LDL: less than 100 mg/dLNear Optimal/Above Optimal LDL: 110- 129 mg/dLBorderline High LDL: 130-159 mg/dLHigh LDL: 160-189 mg/dLVery High LDL: greater than or equal to 190 mg/dL HDL Cholesterol 56 mg/dL [facility] Comment:Desirable HDL: great er than 40 mg/dL Note: This HDL assay may give artificially low results in patients with liver disease. Blood Venous blood specimen / Unknown 07/07/2023 9:53 AM EDT 07/07/2023 11:18 AM EDT [facility] FOOD AND BEVERAGE ASSOCIATE LAB BLOOD ORDERABLES Final Re sult [facility] [address] [place] [address] [phone] from Last 3 Months or Most Recently Relevant to Health Maintenance [facility] MEDICAID STAND ADULT Advance Directives Documents on File Type Date Recorded Patient Accounts Receivable Associate Expl anation Advance Directives and Living Will 12/11/2024 Health Care Proxy 12/10/[address]preter Relationship Specialty Start Date End Date Nguyen Hurst FNP [address] [place] [address] PCP - General Family Medicine 07/01/22 Kim Davenport PharmD [address] [place] [address] Pharmacist Internal Medicine 12/10/24 Hortensia A 11/08/24
--- OUTSIDE RECORDS SUMMARY | 2025-04-11 14:52 | XMS_ITS | Encounter Summary ---
Author Organization [employer] Address [address] [place] [address] Care Team Providers Care Electrician Substation Supervisor Name Role Phone Airs, [facility] Primary Care Provider [phone] Kim Davenport PharmD Unavailable [phone] Reason for Visit * Reason Onset Date Comments DIMITRI LASSITER 04/09/2025 Encounter Details Date Type Department Care Team ([facility] st Contact Info) Description 04/09/[address] [facility] MEDICINE [address] [place], [place] [phone] [place] [facility] [address] [place], [place] [phone] DIMITRI LASSITER Social History Tobacco Use Types Packs/Day Years [...] Telephone Encounter - Yuliana Garcia RN - 04/09/2025 11:31 AM EDT Continuous Glucose Monitor Prior Authorization Documentation: CGM PA initiated for: Freestyle Diann 3 sensors, reader and kamron test strips Insurance: [employer] PA form completed and faxed to [phone]. Patient's preferred pharmacy: [facility] - [place], [place] - [address] [place] [address] 230 [facility] [phone] [facility]/pharm[facility] #[id number] [place], [place] - [address] [facility] [address] [facility] [phone] CGM PA should be approved by: 04/23/2025 Dany Connor Henry will not be scheduled for CGM placement/teaching as patient is transitioningfrom diann 2 to Diann 3 system. documented in this encounter Plan of Treatment Upcoming Encounters Date Type Department Care Team (Late st Contact Info) Description 04/17/2025 2:00 PM EDT Medication Management [facility] [address] [place] [address] 07/15/2025 3:[address] [facility] MEDICINE [address] [place] [address] Kim Davenport PharmD [address] [place] [address] documented as of this encounter Visit Diagnoses Not on filedocumented in this encounter Additional Health Concerns Assessment Noted Time PHQ-9 Depression Total Score: 0 11/30/19 25 1:53 PM EST documented as of this encounter Care Teams Electrician Substation Supervisor Relationship Specialty Start Date End Date MilfordNguyen conde FNP [address] [place] [address] PCP - General Family Medicine 07/01/22 Kim Davenport, Bridgett [address] [place] [address] Pharmacist Internal Medicine 12/10/24 Hortensia GOODE 11/08/24 documented as of this encounter
--- OUTSIDE RECORDS SUMMARY | 2025-04-11 14:52 | XMS_ITS | Encounter Summary ---
Author Organization [employer] Address [address] [facility] [facility] [address] [place] [address] Care Team Providers Care Registered Travel Nurse Name Role Phone Nguyen Hurst HORIZONTAL BORING MILL OPERATOR Primary Care Provider [phone] Kim Davenport PharmD Unavailable [phone] Reason for Referral * Consultation (Routine) - Authorized Specialty Diagnoses / Procedures Referred By Pedro t Referred To Contact Pharmacy Diagnoses Hypertension Olga Brown MD [address] [place] [address] Phone: tel: fax: Referral ID Status Reason Start Date Expiration Date Visits Requested Visits Authorized [id number] Authorized Continuity of Care 04/08/2025 04/08/2026 6 6 Encounter Details Date Type Department Care Team (Late st Contact Info) Description 04/05/2025 Orders Only [facility] MEDICINE [address] [place], [place] [phone] Olga Brown MD [address] [place], [place] [phone] Hypertension (Primary Dx) Social History Tobacco Use Types [...] Description 04/17/2025 2:00 PM EDT Medication Management [facility] MEDICINE [address] [place] [phone] 07/15/2025 3:30 PM EDT Medication Management [facility] MEDICINE [address] [place] [address] Kim Davenport, EmelynD [address] [place] [address] Scheduled Referrals Name Type Priority Associated Diagnoses Orde r Schedule Referral to Pharmacy MTM Outpatient Referral Routine Hypertension Ordered: 04/08/2025 documented as of this encounter Visit Diagnoses Diagnosis Hypertension- Primary Unspecified essential hypertension documented in this encounter Additional Health Concerns Assessment Noted Time PHQ-9 Depression Total Score: 0 11/30/19 25 1:53 PM EST documented as of this encounter Care Teams Registered Travel Nurse Relationship Specialty Start Date End Date Nguyen Hurst, HORIZONTAL BORING MILL OPERATOR [address] [place] [address] PCP - General Family Medicine 07/01/22 Kim Davenport PharmD [address] [place] [address] Pharmacist Internal Medicine [facility] documented as of this encounter
--- OUTSIDE RECORDS SUMMARY | 2025-04-11 14:52 | XMS_ITS | Encounter Summary ---
Author Organization [employer] Address [address] 7t [place] [address] Care Team Providers Care Esthetician/Skin Therapist Name Role Phone Aris, [facility] Primary Care Provider [phone] Kim Davenport PharmD Unavailable [phone] Reason for Visit * Reason Comments Med Refill Encounter Details Date Type Department Care Team (Late st Contact Info) Description 04/08/2025 Refill [facility] 230 [place], [place] [phone] [facility] 230 [place] [address] Cerebrovascular accident (CVA), unspecified mechanism (CMS/HCC) Social History Tobacco Use Types Packs/Day Years [...] Management [facility] MEDICINE [address] [place] [address] 07/15/2025 3:30 PM EDT Medication Management [address] [address] Kim Davenport PharmD [address] [place] [address] documented as of this encounter Visit Diagnoses Diagnosis Cerebrovascular accident (CVA), unspecified mechanism (CMS/HCC) documented in this encounter Additional Health Concerns Assessment Noted Time PHQ-9 Depression Total Score: 0 11/30/19 25 1:53 PM EST documented as of this encounter Care Teams Esthetician/Skin Therapist Relationship Specialty Start Date End Date Nguyen Hurst FNP [address] [place] [address] PCP - General Family Medicine 07/01/22 Kim Davepnort PharmD [address] [place] [address] Pharmacist Internal Medicine 12/10/24 Hortensia GOODE 11/08/24 documented as of this encounter
== END 2025-04-11 15:08 | disposition home or self-care (01) ==
LOC: HO.HCS 14:12
PROVIDERS: PCP Registered Nurse
DX: I25.5 Ischemic cardiomyopathy (principal)
CPT/HCPCS: 99214

== ENCOUNTER 2025-04-11 14:12 | Outpatient (REF) | payer MEDICAID, SELFPAY ==
[2025-04-11 15:32] LABS: Hematocrit 38.1 % (42.0-52.0); Mean Corpuscular HGB Conc 34.1 g/dl (31.0-36.0); Mean Corpuscular Hemoglobin 30.8 pg (27.0-33.0); Mean Corpuscular Volume 90.3 fL (80.0-98.0); Mean Platelet Volume 10.8 fL (9.4-12.4); Platelet Count 134 X10*3/uL (160-400); Red Blood Count 4.22 X10*6/uL (4.60-5.80); Red Cell Distribution Width 12.1 % (11.0-16.0); White Blood Count 5.8 X10*3/uL (4.8-10.8)
[2025-04-11 15:37] LABS: INTERNATIONAL NORM RATIO 1.1 (0.9-1.1); Prothrombin Time 12.1 SEC (10.9-12.4)
--- OUTSIDE RECORDS SUMMARY | 2025-04-11 15:43 | XMS_ITS | Encounter Summary ---
Author Organization [employer] Address [address] 7t [place] [address] Care Team Providers Care Head Holder Name Role Phone Nguyen Hurst [employer] S[employer] CUSTODIAN Primary Care Provider [phone] Kim Davenport PharmD Unavailable [phone] Reason for Visit * Reason Onset Date Comments snap on denture referral 06/21/2024 appt 06/21/2024 Encounter Details Date Type Department Care Team ([facility] st Contact Info) Description 06/21/2024 Telephone [facility] ADULT [facility] 230 [place] [address] Brian Cosby DDS 230 [place], [place] [phone] snap on denture referral; appt Social History [...] Description 04/17/2025 2:00 PM EDT Medication Management [facility] MEDICINE [address] [place] [address] 07/15/2025 3:30 PM EDT Medication Management [facility] MEDICINE 230 [place] [address] Kim Davenport, PharmD 230 [place] [address] documented as of this encounter Visit Diagnoses Not on filedocumented in this encounter Additional Health Concerns Assessment Noted Time PHQ-9 Depression Total Score: 5 08/02/20 23 10:05 AM EDT documented as of this encounter Care Teams Head Holder Relationship Specialty Start Date End Date Aris YENIFER Cedillo 230 [place] [address] PCP - General Family Medicine 07/01/22 Kim Davenport PharmD 230 [place] [address] Pharmacist Internal Medicine 12/10/24 [place] [facility] 11/08/24 documented as of this encounter
--- OUTSIDE RECORDS SUMMARY | 2025-04-11 15:43 | XMS_ITS | Clinical Summary ---
Author Organization [facility] Address [address] [address] Phone Care Team Providers Care Manufacturing Sr Engineer Name Role Phone Dimitris, [facility] Primary Care [...] Incorporate grounding techniques into daily routine c. Delphos his brother's life by doing activities in [...] Visit [facility] [address] [place] [address] [place] [address] Chris King MD [address] [facility] 204 [place] [address] Health Maintenance Due Date Last [...] age to complete this topic [place] Care Teams Manufacturing Sr Engineer Relationship Specialty Start Date End Date Ellie Shanks PCP - General Internal Medicine 07/03/21
--- OUTSIDE RECORDS SUMMARY | 2025-04-11 15:43 | XMS_ITS | Encounter Summary ---
Author Organization [employer] Address [address] 7t [place] [address] Care Team Providers Care Police Liaison Name Role Phone Aris [facility] Primary Care Provider [phone] Kim Davenport PharmD Unavailable [phone] Reason for Visit * Reason Onset Date Comments VNA services 01/09/2025 Encounter Details Date Type Department Care Team ([facility] st Contact Info) Description 01/09/2025 Telephone [facility] MEDICINE 230 [place], [place] [phone] [facility] 230 [place], [place] [phone] VNA services Social History Tobacco Use Types [...] 01/09/2025 12:17 PM EST TC placed to [facility] [phone] in regards to below message. RN was informed patient was discharged from [facility] in regards to PT and OT on 01/01/25 PT and fpc on 01/03/25 d/t meeting all goals and being independent. [facility] confirms the patient cannot become re-established at this time d/t recent discharge d/t goals being met. TC placed to patient [phone] to inform of above message. Patient is upset, states he wants services back. Patient reports he does not feel anything has improved. RN advised patient per [facility] patient has met goals however patient does not feel that is accurate. Sending to PCP as FYI and recommendations on POC. * Telephone Encounter - Melissa Banks - 01/09/2025 11:57 AM EST Tc from pt requesting orders for nurse visiting and physical therapy. Any questions contact pt [phone] ([phone]) documented in this encounter Plan of Treatment Upcoming Encounters Date Type Department Care Team (Late st Contact Info) Description 04/17/2025 2:00 PM EDT Medication Management [facility] MEDICINE [address] [place] [address] 07/15/2025 3:30 PM EDT Medication Management [facility] MEDICINE [address] [place] [address] Kim Davenport PharmD [address] [place] [address] documented as of this encounter Visit Diagnoses Not on filedocumented in this encounter Additional Health Concerns Assessment Noted Time PHQ-9 Depression Total Score: 0 11/30/19 25 1:53 PM EST documented as of this encounter Care Teams Police Liaison Relationship Specialty Start Date End Date Nguyen Hurst FNP [address] [place] [address] PCP - General Family Medicine 07/01/22 Kim Davenport PharmD [address] [place] [address] Pharmacist Internal Medicine 12/10/24 Hortensia BARRAZAA 11/08/24 documented as of this encounter
--- OUTSIDE RECORDS SUMMARY | 2025-04-11 15:43 | XMS_ITS | Clinical Summary ---
Author Organization [facility] Address [address] [place] [address] Phone Care Team Providers Care Fashion Director Party Plan Sales Name Role Phone Ellie Shanks MD Primary Care Provider Allergies Active Allergy Reactions Criticality Noted Date [...] Problem Noted Date Diagnosed Date Diabetes mellitus ([facility] V24, [facility] V28) Alcoholism ([facility] V24, [facility] V28) 02/18/2022 Back ache 02/18/2022 CVA (cerebral vascular accident) ([facility] V24, [facility] V28) 02/18/2022 Epilepsy ([facility] V24, [facility] V28) 02/18/2022 Erectile dysfunction 02/18/2022 Hyperlipidemia 02/18/2022 Hypertension 02/18/2022 Tinea pedis 02/18/2022 Redundant prepuce 02/18/2022 Osteomyelitis of foot ([facility] V24, [facility] V28) 03/25/2011 Surgical History Surgery Date Site/Laterality Comments FOOT SURGERY 2009 PROCEDURE: HISTORICAL FOOT SURGERY; COMMENT: Right foot infection BACK SURGERY 1984 PROCEDURE: HISTORICAL BACK SURGERY; COMMENT: low back Medical History Medical History Date Comments CVA (cerebral vascular accid ent) ([facility] V24, [facility] V28) 02/18/2022 DX:CVA (cerebral vascular a ccident) ([facility]) Hypertension 02/18/2022 DX:Hypertension Erectile dysfunction 02/18/2022 DX:Erectile dysfunction Redundant prepuce 02/18/2022 DX:Redundant p repuce Hyperlipidemia 02/18/2022 DX:Hyperlipidemi a Epilepsy ([facility] V24, [facility] V28) 02/18/2022 DX:Epilepsy ([facility]) Social History Tobacco Use Types Packs/Day Years [...] PM EDT Office Visit Orthopedic Surgery - [address] [address] Enmanuel Varela, WALTER [address] [address] Health Maintenance Due Date Last Done Comments [...] * Annual BMP Blood Test (03/15/2024) Pathologist [facility] Annual BMP Blood Test Abstracted Result [facility] Provider HEALTH MAINTENANCE Final Result * HIV Screening (03/15/2024) Pathologist [facility] HIV Screening Abstracted Result [facility] Provider HEALTH MAINTENANCE Final Result * Hemoglobin A1c (03/15/2024) [facility] Hemoglobin A1C 0.0 % Comment:No interpretation, A bstracted Blood Venous blood specimen / Unknown Result [facility] Provider LAB BLOOD ORDERABLES Rima l Result * Lipid panel (07/07/2023) Pathologist [facility] LDL/HDL Ratio 0 Comment:Abstracted Triglycerides 0 mg/dL Comment:Abstracted Cholesterol 0 mg/dL Comment:Abstracted HDL 0 mg/dL Comment:Abstracted LDL Cholesterol 0 mg/dL Comment:Abstracted Blood Venous blood specimen / Unknown Result [facility] Provider LAB BLOOD ORDERABLES Rima l Result from Last 3 Months or Most Recently Relevant to Health Maintenance Insurance MEDICAID - [place] Care Teams Fashion Director Party Plan Sales Relationship Specialty Start Date End Date Ellie Shanks MD [address] [address] PCP - General Internal Medicine 02/04/22
--- OUTSIDE RECORDS SUMMARY | 2025-04-11 15:43 | XMS_ITS | Encounter Summary ---
Author Organization [employer] Address [address] [facility] 7t [place] [address] Care Team Providers Care Nickel Operator Name Role Phone Aris [facility] Primary Care Provider [phone] Kim Davenport PharmD Unavailable [phone] Reason for Referral * Consultation (Routine) - Canceled Specialty Diagnoses / Procedures Referred By Contac t Referred To Contact Pharmacy Diagnoses Type 2 diabetes mellitus with stage 3 chronic kidney disease, with long-term current use of insulin, unspecified whether stage 3a or 3b CKD (CMS/HCC) Elba Jackson MD 230 [place] [address] Phone: tel: fax: Referral ID Status Reason Start Date Expiration Date V isits Requested Visits Authorized [id number] Canceled Consult and Treat 02/26/2025 02/26/2026 6 6 Encounter Details Date Type Department Care Team (Late st Contact Info) Description 02/26/2025 Orders Only [facility] MEDICINE 230 [place], [place] [phone] Elba Jackson MD 230 [place], [place] [phone] Type 2 diabetes mellitus with stage 3 [...] Description 04/17/2025 2:00 PM EDT Medication Management [facility] MEDICINE [address] [place] [address] 07/15/2025 3:30 PM EDT Medication Management [facility] MEDICINE [address] [place] [address] Kim Davenport, PharmD [address] [place] [address] Scheduled Referrals Name Type Priority Associated Diagnoses [...] documented as of this encounter Care Teams Nickel Operator Relationship Specialty Start Date End Date Gulf HammockNguyen FNP 230 [place] [address] PCP - General Family Medicine 07/01/22 Kim Davenport PharmD 230 [place] [address] Pharmacist Internal Medicine 12/10/24 Hortensia GOODE 11/08/24 documented as of this encounter
--- OUTSIDE RECORDS SUMMARY | 2025-04-11 15:43 | XMS_ITS | Clinical Summary ---
Author Organization [facility] Address [address] [place] [address] Care Team Providers Care Circuit Board Assembler Name Role Phone [facility] Primary Care Provider [phone] Allergies Active Allergy Reactions Criticality Noted Date [...] age to complete this topic Insurance [address] [place] [address] [employer] Care Teams Circuit Board Assembler Relationship Specialty Start Date End Date [facility] [address] [place] [address] PCP - General 06/29/24
--- OUTSIDE RECORDS SUMMARY | 2025-04-11 15:43 | XMS_ITS | Encounter Summary ---
Author Organization [employer] Address [address] 7t [place] [address] Care Team Providers Care Community Health Nursing Director Name Role Phone Aris [facility] Primary Care Provider [phone] Kim Davenport PharmD Unavailable [phone] Reason for Visit * Reason Onset Date Comments Call Back Request 07/11/2024 Encounter Details Date Type Department Care Team ([facility] st Contact Info) Description 07/11/2024 Telephone [facility] MEDICINE 230 [place], [place] [phone] [place] [facility] 230 [place], [place] [phone] Call Back Request Social History Tobacco Use [...] get themedical records faxed [place] publications writer did attempt to transfer however patient stated was just talking with them was told to speak with provider documented in this encounter Plan of Treatment Upcoming Encounters Date Type Department Care Team (Late st Contact Info) Description 04/17/2025 2:00 PM EDT Medication Management [facility] MEDICINE [address] [place] [phone] 07/15/2025 3:30 PM EDT Medication Management [facility] MEDICINE [address] [place] [address] Kim Davenport PharmD 230 [place] [address] documented as of this encounter Visit Diagnoses Not on filedocumented in this encounter Additional Health Concerns Assessment Noted Time PHQ-9 Depression Total Score: 0 07/04/20 24 3:20 PM EDT documented as of this encounter Care Teams Community Health Nursing Director Relationship Specialty Start Date End Date Nguyen Hurst FNP 230 [place] [address] PCP - General Family Medicine 07/01/22 Kim Davenport, EmelynD [address] [place], [place] [address]Nereyda [place] [address] Pharmacist Internal Medicine 12/10/24 Hortensia GOODE 11/08/24 documented as of this encounter
--- OUTSIDE RECORDS SUMMARY | 2025-04-11 15:43 | XMS_ITS | Referral Summary ---
Author Organization [facility] Address [address] [place] [address] Care Team Providers Care Metal Window Frame Maker Name Role Phone [facility] Primary Care Provider [phone] Allergies Active Allergy Reactions Criticality Noted Date [...] propionate (FLONASE) 50 mcg/actuation nasal spray SMARTSI Rowe(s) Both Nares Twice Daily Active INSULIN ASPART [...] Plan of Treatment Not on file Insurance [id number] Care Teams Metal Window Frame Maker Relationship Specialty Start Date End Date [facility] [address] [place] [phone] PCP - General 06/29/24
--- OUTSIDE RECORDS SUMMARY | 2025-04-11 15:44 | XMS_ITS | Encounter Summary ---
Author Organization [employer] Address [address] [facility] 7t [place] [address] Care Team Providers Care Party Director Name Role Phone Nguyen Hurst [facility] Primary Care Provider [phone] Kim Davenport PharmD Unavailable [phone] Reason for Visit * Reason Comments Med Refill Encounter Details Date Type Department Care Team (Late st Contact Info) Description 06/19/2024 Refill [facility] MEDICINE 230 [place], [place] [phone] [place] [facility] 230 [place], [place] [phone] Social History Tobacco Use Types Packs/Day Years [...] Description 04/17/2025 2:00 PM EDT Medication Management [facility] MEDICINE [address] [place] [address] 07/15/2025 3:30 PM EDT Medication Management [address] [address] Kim Davenport PharmD [address] [place] [address] documented as of this encounter Visit Diagnoses Not on filedocumented in this encounter Additional Health Concerns Assessment Noted Time PHQ-9 Depression Total Score: 5 08/02/20 23 10:05 AM EDT documented as of this encounter Care Teams Party Director Relationship Specialty Start Date End Date Nguyen Hurst FNP [address] [place] [address] PCP - General Family Medicine 07/01/22 Kim Davenport PharmD [address] [place] [address] Pharmacist Internal Medicine 12/10/24 Hortensia BARRAZAA 11/08/24 documented as of this encounter
--- OUTSIDE RECORDS SUMMARY | 2025-04-11 15:44 | XMS_ITS | Encounter Summary ---
Author Organization [facility] Address [address] [facility] 7t [place] [address] Care Team Providers Care Respooler Name Role Phone Nguyen Hurst [facility] Primary Care Provider [phone] Kim Davenport PharmD Unavailable [phone] Encounter Details Date Type Department Care Team (Late st Contact Info) Description 03/18/2023 Orders Only [facility] MEDICINE 230 [facility] [place] [address] Tracee Cabrera LPN Social History Tobacco Use [...] Description 04/17/2025 2:00 PM EDT Medication Management [address] [place] [address] 07/15/2025 3:30 PM EDT Medication Management [address] [address] Kim Davenport, PharmD 230 [place] [address] documented as of this encounter Visit Diagnoses Not on filedocumented in this encounter Care Teams Respooler Relationship Specialty Start Date End Date Nguyen Hurst [facility] 230 [place] [address] PCP - General Family Medicine 07/01/22 Kim Davenport, EmelynD [address] [place] [address] Pharmacist Internal Medicine 12/10/24 Hortensia GOODE 11/08/24 documented as of this encounter
--- OUTSIDE RECORDS SUMMARY | 2025-04-11 15:44 | XMS_ITS | Encounter Summary ---
Author Organization [employer] Address [address] [facility] [facility] [address] 7t [place] [address] Care Team Providers Care Polysomnographic Technician Name Role Phone Aris [facility] Primary Care Provider [phone] Kim Davenport PharmD Unavailable [phone] Encounter Details Date Type Department Care Team (Late st Contact Info) Description 04/08/2025 Orders Only [facility] 230 [place], [place] [phone] [place] [facility] 230 [place] [address] Type 2 diabetes mellitus with stage 3 [...] Description 04/17/2025 2:00 PM EDT Medication Management [address] [address] 07/15/2025 3:30 PM EDT Medication Management [address] [address] Kim Davenport PharmD [address] [place] [address] documented as of this encounter Visit Diagnoses Diagnosis Type 2 diabetes mellitus with stage 3 chronic kidney disease, without long-term current use of insulin, unspecified whether stage 3a or 3b CKD (CMS/HCC)- Primary documented in this encounter Additional Health Concerns Assessment Noted Time PHQ-9 Depression Total Score: 0 11/30/19 25 1:53 PM EST documented as of this encounter Care Teams Polysomnographic Technician Relationship Specialty Start Date End Date Nguyen Hurst FNP [address] [place] [address] PCP - General Family Medicine 07/01/22 Kim Davenport PharmD [address] [place] [address] Pharmacist Internal Medicine 12/10/24 Hortensia GOODE 11/08/24 documented as of this encounter
--- OUTSIDE RECORDS SUMMARY | 2025-04-11 15:44 | XMS_ITS | Clinical Summary ---
Author Organization [employer] Address [address] [facility] 7t [place] [address] Care Team Providers Care Social Service Liaison Name Role Phone Nguyen Hurst [facility] Primary Care Provider [phone] Kim Davenport PharmD Unavailable [phone] Allergies Active Allergy Reactions Criticality Noted Date Comments Codeine Rash,Hives Low 11/16/2010 Lisinopril Dizziness,Other 06/11/2021 Medications * This document contains information received from the source organization and may not represent a complete record from that organization. Continuous Blood Gluc English As A Second Language Teacher (valuescopeyle Diann 2 [place]) deviceIndicatio ns:Type 2 diabetes mellitus with stage 3 chronic kidney disease, with long-term current use of insulin, unspecified whether stage 3a or 3b CKD (CMS/[facility]) Use as directed per instructions 1 each [...] 30 tablet 2 025 Active Continuous Glucose English As A Second Language Teacher (FreeStyle Diann 3 [place]) device 1 each Once per day. Use [...] tablet 3 025 2024 Discontinued Continuous Glucose English As A Second Language Teacher (Dexcom G6 director television news) device Use as directed 1 each 025 2024 Discontinued(M ed list cleanup (will not trigger notification to Pharmacy)) Continuous Glucose Sensor (Dexcom G6 Sensor) [facility] Use 1 every 10 days to monitor [...] his children. PLAN: 1. Follow up with [facility]: Not recommended for follow-up 2. Patient goal is to find motivation again. 3. Behavioral Recommendations a. Referral for OP individual therapy b. Incorporate grounding techniques into daily routine c. [place] his brother's life by doing activities in [...] his children. PLAN: 1. Follow up with [facility]: Not recommended for follow-up 2. Patient goal is to find motivation again. 3. Behavioral Recommendations a. Referral for OP individual therapy b. Incorporate grounding techniques into daily routine c. [place] his brother's life by doing activities in [...] CKD. (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 Encounters Date Type Department Care Team Description 04/11/2025 Orders Only GENERIC EXTERNAL DATA DEPARTMENT Provider, Generic External Data 04/09/2025 Telephone [facility] [address] [place] [address] Pedro Nguyen [facility] CGM PA 04/08/2025 Refill [facility] [address] [facility] [place] [address] Pedro [facility] Cerebrovascular accident (CVA), unspecified mechanism ([facility]) 04/08/2025 Orders Only [facility] [address] [facility] [place] [address] Pedro Nguyen [facility] Type 2 diabetes mellitus with stage 3 chronic kidney disease, without long-term current use of insulin, unspecified whether stage 3a or 3b CKD ([facility]) (Primary Dx) 04/05/2025 Orders Only [facility] [address] [place] [address] Olga Brown MD Hypertension (Primary Dx) 04/05/2025 Refill [facility] [address] [place] [address] PedroNguyen [facility] 04/01/2025 Travel 03/14/2025 Telephone [facility] [address] [facility] [place] [address] Pedro Nguyen [facility] Durable Medical Equipment 03/11/2025 Refill [facility] [address] [place] [address] Pedro [facility] Dizziness 03/08/2025 Refill [facility] [address] [facility] [place] [address] [facility] 03/06/2025 3:30 PM EDT Office Visit [facility] [place] [address] Linda Flores NP Trigger middle finger of left hand (Primary Dx) 03/06/2025 Travel 02/27/2025 Telephone [facility] [address] [place] [address] Nguyen Hurst FNP Nurse Triage 02/26/2025 Orders Only [facility] [address] [place] [address] Elba Jackson MD Type 2 diabetes mellitus with stage 3 chronic kidney disease, with long-term current use of insulin, unspecified whether stage 3a or 3b CKD (CMS/HCC) (Primary Dx) 02/26/2025 Telephone [facility] [address] [place] [address] Nguyen Hurst FNP 02/18/2025 Refill [facility] [address] [place] [address] Nguyen Hurst FNP 02/18/2025 Refill [facility] [address] [place] [address] Nguyen Hurst FNP Other chronic pain 02/13/2025 Orders Only [facility] [address] [place] [address] Nguyen Hurst FNP Tobacco use disorder (Primary Dx); Type 2 diabetes mellitus with stage 3 chronic kidney disease, with long-term current use of insulin, unspecified whether stage 3a or 3b CKD (CMS/HCC) 02/08/2025 Refill [facility] [address] [place] [address] Nguyen Hurst FNP Type 2 diabetes mellitus with stage 3 chronic kidney disease, with long-term current use of insulin, unspecified whether stage 3a or 3b CKD (CMS/HCC) 02/08/2025 Population Health [facility] () Department [address] [place] [phone] Provider, Population Health Generic 02/06/2025 Orders Only [facility] [address] [place] [address] Nguyen Hurst FNP Tobacco use (Primary Dx) 02/05/2025 Telephone [facility] [address] [place] [address] Nguyen Hurst FNP New Med Request 01/30/2025 Refill [facility] [address] [place] [address] Nguyen Hurst FNP 01/28/2025 Refill [facility] [address] [place] [address] [facility] 01/23/2025 Telephone [facility] [address] [place] [address] [facility], [facility] FYI from Last 3 Months Immunizations Immunization [...] Description 04/17/2025 2:00 PM EDT Medication Management [facility] [address] [place] [address] 07/15/2025 3:30 PM EDT Medication Management [facility] [address] [place] [address] Kim Davenport, PharmD [address] [place] [address] Health Maintenance Due Date Last Done Comments [...] Screening 11/30/2025 11/30/2024, 11/30/19 25 Tobacco Screening 04/02/2026 04/02/2025 Dental X-Ray: Full [...] Procedure Name Priority Date/Time Associated Diagnosis Comments PROTHROMBIN TIME-INR Routine 04/11/2025 3:17 PM EDT CBC Routine 04/11/2025 3:17 PM EDT POCT GLYCATED HEMOGLOBIN, TOTAL Routine 04/01/2025 2:33 [...] Recently Relevant to Health Maintenance Results * Prothrombin Time-INR (04/11/2025 3:17 PM EDT) Prothrombin Time 12.1 10.9 - 12.4 SEC [facility] INTERNATIONAL NORM RATIO 1.1 0.9 - 1.1 [facility] Comment:INTERNATIONAL NORMAL IZED RATIO (INR) REFERENCE RANGES Reference RangeFor patients not on anticoagulant therapy: 0.9 - 1.1INR ranges for oral anticoagulanttherapy:For prevention and treatment of venous thrombosis and pulmonary embolism: 2.0 - 3.0For acute myocardial infarction with aspirin therapy: 2.0 - 3.0For acute myocardial infarction without aspirin therapy: 3.0 - 4.0For patients with mechanical prosthetic heart valves: 2.5 - 3.5 04/11/2025 3:17 PM EDT 04/11/2025 3:17 PM EDT us Generic External Data Provider LAB BLOOD ORDERAB LES Final Result Performing Organization Address [facility]/ZIP Co de Phone Number [facility] [address] [place] [address] [phone] * (ABNORMAL) CBC (04/11/2025 3:17 PM EDT) White Blood Count 5.8 4.8 - 10.8 X10*3/uL [facility] Red Blood Count 4.22(L) 4.60 - 5.80 X10*6/uL [facility] Hemoglobin 13.0(L) 14.0 - 18.0 g/dl [facility] Hematocrit 38.1(L) 42.0 - 52.0 % [facility] Mean Corpuscular Volume 90.3 80.0 - 98.0 fL [facility] Mean Corpuscular Hemoglobin 30.8 27.0 - 33.0 pg [facility] Mean Corpuscular HGB Conc 34.1 31.0 - 36.0 g/dl [facility] Red Cell Distribution Width 12.1 11.0 - 16.0 % [facility] Platelet Count 134(L) 160 - 400 X10*3/uL [facility] Mean Platelet Volume 10.8 9.4 - 12.4 fL [facility] NRBC Pct Auto 0.0 0.0 - 0.2 /100WBC [facility] NRBC Abs Auto 0.000 0.0 - 0.012 X10*3/uL [facility] 04/11/2025 3:17 PM EDT 04/11/2025 3:17 PM EDT us Generic External Data Provider LAB BLOOD ORDERAB LES Final Result Performing Organization Address City/[facility]/ZIP Co de Phone Number [facility] [address] [place] [address] [phone] * (ABNORMAL) POCT A1C (04/01/2025 2:33 PM EDT) Hemoglobin A1C 8.2(A) 4.0 - 6.0 % Blood 04/01/2025 2:33 PM EDT [facility] GUEST RELATION OFFICER POINT OF CARE TEST ENTER/EDIT ORDERABLES Final Result * Stress test with myocardial perfusion (02/07/2025 8:27 AM EDT) 02/07/2025 8:27 AM EDT Narrative [facility] - 2025 4:20 PM EDT ? [facility] ?[address] ?[place] [address] ?Nuclear Medicine Report ? Signed ? Patient: Ryan,Dany ?MR#: [id number] ? : 1965 ?Acct:[id number] ? Age/Sex: 59 / M ?ADM Date: 02/07/25 ? Loc: HO.CARD ? Attending Dr: Georgi Bernard MD ? Ordering Physician: Georgi Bernard MD ?? Date of Service: 02/07/25 ?? Procedure(s): NM cardiolite stress test ?? Accession Number(s): [id number] ? cc: Georgi Bernard MD; Nguyen Hurst [...] DD/ 6 ? TD/TT: 02/21/25 1420 ? Angle Dozer Operator: ? Procedure Note Latricia Brar - [address] [address] Nuclear Medicine Report Signed Patient: Dany RyanMR#: [id number] : 1965Acct:[id number] Age/Sex: 59 / MADM Date: 02/07/25 Loc: HO.CARD Attending Dr: Georgi Bernard MD Ordering Physician: Georgi Bernard MD Date of Service: 02/07/25 Procedure(s): MN cardiolite stress test Accession Number(s): [id number] cc: Georgi Bernard MD; [facility] Lexiscan Myocardial perfusion study Indication: [...] in inferior wall cannot be ruled out. MN/MN cardiolite stress test Impression: 1. Myocardial perfusion [...] 02/21/25 1617 DD/ 0827 TD/TT: 02/21/25 1420 Angle Dozer Operator: [facility] External Provider CV STRE SS PROCEDURES Final Result Performing Organization Address City/[facility]/ZIP Co de Phone Number [facility] [address] [place] [address] * HIV-1/2 Antigen and Antibodies, Fourth Generation, with Reflexes (03/15/2024 12:42 PM EDT) [facility] HIV AB/AG Nonreactive Nonreactive [facility] Comment:HIV-1 p24 Ag and/or HIV-1/HIV-2 Ab not detected.A test result that is nonreactive does not exclude thepossibility of exposure to or infection with HIV-1 and/orHIV-2. Nonreactive results in this assay for individualswith prior exposure to HIV-1 and/or HIV-2 may be due toantigen and antibody levels that are below the limit ofdetection of this assay.The ImmunologixniSemantria HIV Ag/Ab Combo assay result andsupplemental assay results should be interpreted inconjunction with the patient's clinical presentation,history and other laboratory results. If the results areinconsistent with clinical evidence, additional testing issuggested to confirm the result. Blood Venous blood specimen / Unknown 03/15/2024 12:42 PM EDT 03/15/2024 3:58 PM EDT [facility] GUEST RELATION OFFICER LAB BLOOD ORDERABLES Final Re sult Performing Organization Address City/[facility]/ZIP Co de Phone Number [facility] [address] [place] [address] [phone] * Lipid Panel, Standard (07/07/2023 9:53 AM EDT) [facility] Triglycerides 249 mg/dL [facility] Comment:Desirable Triglyceri de: less than 150 mg/dLBorderline High Triglyceride 150-199 mg/dLHigh Triglyceride: 200-499 mg/dLVery High Triglyceride: greater than or equal to 5OO mg/dL Cholesterol 200 mg/dL [facility] Comment:Desirable Cholestero l: less than 200 mg/dLBorderline High Cholesterol: 200-239 mg/dLHigh Cholesterol: greater than 239 mg/dL LDL Cholesterol Calculated 95 mg/dl [facility] Comment:Desirable LDL: less than 100 mg/dLNear Optimal/Above Optimal LDL: 110- 129 mg/dLBorderline High LDL: 130-159 mg/dLHigh LDL: 160-189 mg/dLVery High LDL: greater than or equal to 190 mg/dL HDL Cholesterol 56 mg/dL [facility] Comment:Desirable HDL: great er than 40 mg/dL Note: This HDL assay may give artificially low results in patients with liver disease. Blood Venous blood specimen / Unknown 07/07/2023 9:53 AM EDT 07/07/2023 11:18 AM EDT [facility] GUEST RELATION OFFICER LAB BLOOD ORDERABLES Final Re sult [facility] [address] [place], [place] [phone] from Last 3 Months or Most Recently Relevant to Health Maintenance Insurance [facility] [place] AD[place] Advance Directives Documents on File Type Date Recorded Patient Negative Restorer Expl anation Advance Directives and Living Will 12/11/2024 Health Care Proxy 12/10/24 Care Teams Social Service Liaison Relationship Specialty Start Date End Date Nguyen Hurst FNP [address] [place] [address] PCP - General Family Medicine 07/01/22 Kim Davenport PharmD [address] [place] [address] Pharmacist Internal Medicine 12/10/24 [facility] 11/08/24
--- OUTSIDE RECORDS SUMMARY | 2025-04-11 15:44 | XMS_ITS | Encounter Summary ---
Author Organization [employer] Address [address] [facility] 7t [place] [address] Care Team Providers Care Custodial Services Manager Name Role Phone Nguyen Hurst [facility] Primary Care Provider [phone] Kim Davenport PharmD Unavailable [phone] Reason for Visit * Reason Onset Date Comments Referral 03/19/2024 Encounter Details Date Type Department Care Team ([facility] st Contact Info) Description 03/19/2024 Telephone [facility] [address] [place], [place] [phone] [place] 230 [place], [place] [phone] Referral Social History Tobacco Use Types Packs/Day [...] by psychiatrist to seek second opinion at [facility], as it is causing himpsychological [...] and would like to be seen at [facility] the fax number is [phone] documented in this encounter Plan of Treatment Upcoming Encounters Date Type Department Care Team (Late st Contact Info) Description 04/17/2025 2:00 PM EDT Medication Management [facility] [address] [place] [address] 07/15/2025 3:30 PM EDT Medication Management [address] [address] Kim Davenport, Bridgett [address] [place] [address] documented as of this encounter Visit Diagnoses Not on filedocumented in this encounter Additional Health Concerns Assessment Noted Time PHQ-9 Depression Total Score: 5 08/02/20 23 10:05 AM EDT documented as of this encounter Care Teams Custodial Services Manager Relationship Specialty Start Date End Date Nguyen Hurst FNP [address] [place] [address] PCP - General Family Medicine 07/01/22 Kim Davenport PharmD [address] [place] [address] Pharmacist Internal Medicine 12/10/24 [place] GOODE 11/08/24 documented as of this encounter
--- OUTSIDE RECORDS SUMMARY | 2025-04-11 15:44 | XMS_ITS | Encounter Summary ---
Author Organization [employer] Address [address] [facility] [address] [address] 7t [place] [address] Care Team Providers Care Federal Appellate Clerk Name Role Phone Nguyen Hurst [facility] Primary Care Provider [phone] Kim Davenport PharmD Unavailable [phone] Reason for Visit * Reason Onset Date Comments FYI 11/13/2024 Encounter Details Date Type Department Care Team ([facility] st Contact Info) Description 11/13/2024 Telephone [facility] [address] [place], [place] [phone] [place] [facility] [address] [place], [place] [phone] FYI Social History Tobacco Use Types Packs/Day [...] any questions you can Contact Roberth at [phone] documented in this encounter Plan of Treatment Upcoming Encounters Date Type Department Care Team (Late st Contact Info) Description 04/17/2025 2:00 PM EDT Medication Management [facility] [address] [place] [address] 07/15/2025 3:30 PM EDT Medication Management [facility] [address] [place] [address] Kim Davenport, EmelynD [address] [place] [address] documented as of this encounter Visit Diagnoses Not on filedocumented in this encounter Additional Health Concerns Assessment Noted Time PHQ-9 Depression Total Score: 0 07/04/20 24 3:20 PM EDT documented as of this encounter Care Teams Federal Appellate Clerk Relationship Specialty Start Date End Date Nguyen Hurst FNP [address] [place] [address] PCP - General Family Medicine 07/01/22 Kim Davenport PharmD [address] [place] [address] Pharmacist Internal Medicine 12/10/24 [place] GOODE 11/08/24 documented as of this encounter
--- OUTSIDE RECORDS SUMMARY | 2025-04-11 15:44 | XMS_ITS | Encounter Summary ---
Author Organization [employer] [facility] Address [address] [facility] 7t [place] [address] Care Team Providers Care Bore Mill Operator For Plastic Name Role Phone Nguyen Hurst SENIOR USER EXPERIENCE ARCHITECT Primary Care Provider [phone] Kim Davenport PharmD Unavailable [phone] Encounter Details Date Type Department Care Team (Late st Contact Info) Description 06/24/2023 Telephone [facility] [address] [facility] [place] [address] Nguyen Hurst [facility] [address] [place] [address] Social History Tobacco Use Types Packs/Day Years [...] [facility] [address] [place], [place] [address]s[place] [address] 07/15/2025 3:30 PM EDT Medication Management [facility] [address] [place] [address] Kim Davenport PharmD [address] [place] [address] documented as of this encounter Visit Diagnoses Not on filedocumented in this encounter Care Teams Bore Mill Operator For Plastic Relationship Specialty Start Date End Date Nguyen Hurst FNP [address] [place] [address] PCP - General Family Medicine 07/01/22 Kim Davenport PharmD [address] [place] [address] Pharmacist Internal Medicine 12/10/24 [place] Helga 11/08/24 documented as of this encounter
--- OUTSIDE RECORDS SUMMARY | 2025-04-11 15:44 | XMS_ITS | Encounter Summary ---
Author Organization [employer] Address [address] [facility] [address] [place] [address] Care Team Providers Care Probation Worker Name Role Phone Nguyen Hurst [facility] Primary Care Provider [phone] Kim Davenport PharmD Unavailable [phone] Reason for Visit * Reason Onset Date Comments Nurse Triage 02/27/2025 Encounter Details Date Type Department Care Team ([facility] st Contact Info) Description 02/27/2025 Telephone [facility] [address] [place], [place] [phone] [place] [facility] 230 [place], [place] [phone] Nurse Triage Social History Tobacco Use Types [...] due to work. 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 Pt agrees with disposition and insurance [...] finger normally The caller accepted this outcome. [phone] documented in this encounter Plan of Treatment Upcoming Encounters Date Type Department Care Team (Late st Contact Info) Description 04/17/2025 2:00 PM EDT Medication Management [facility] [address] [place] [address] 07/15/2025 3:30 PM EDT Medication Management [address] [address] Kim Davenport PharmD [address] [place] [address] documented as of this encounter Visit Diagnoses Not on filedocumented in this encounter Additional Health Concerns Assessment Noted Time PHQ-9 Depression Total Score: 0 11/30/19 25 1:53 PM EST documented as of this encounter Care Teams Probation Worker Relationship Specialty Start Date End Date [place] Nguyen CONTINUOUS LOFT OPERATOR [address] [place] [address] PCP - General Family Medicine 07/01/22 Kim Davenport PharmD [address] [place] [address] Pharmacist Internal Medicine 12/10/24 [place] BARRAZAA 11/08/24 documented as of this encounter
--- OUTSIDE RECORDS SUMMARY | 2025-04-11 15:44 | XMS_ITS | Encounter Summary ---
Author Organization [employer] Address [address] [facility] [address] [place] [address] Care Team Providers Care Spinning Frame Tender Name Role Phone Nguyen Hurst LEAD MILITARY ANALYST Primary Care Provider [phone] Kim Davenport PharmD Unavailable [phone] Reason for Referral * Consultation (Routine) - Authorized Specialty Diagnoses / Procedures Referred By Pedro t Referred To Contact Pharmacy Diagnoses Hypertension Olga Brown MD [address] [place] [address] Phone: tel: fax: Referral ID Status Reason Start Date Expiration Date Visits Requested Visits Authorized [id number] Authorized Continuity of Care 04/08/2025 04/08/2026 6 6 Encounter Details Date Type Department Care Team (Late st Contact Info) Description 04/05/2025 Orders Only [facility] [address] [place], [place] [phone] Olga Brown MD [address] [place], [place] [phone] Hypertension (Primary Dx) Social History Tobacco Use [...] Description 04/17/2025 2:00 PM EDT Medication Management [facility] [address] [place] [phone] 07/15/2025 3:30 PM EDT Medication Management [facility] [address] [place] [address] Kim Davenport, EmelynD [address] [place] [address] Scheduled Referrals Name Type Priority Associated Diagnoses Orde r Schedule Referral to Pharmacy MTM Outpatient Referral Routine Hypertension Ordered: 04/08/2025 documented as of this encounter Visit Diagnoses Diagnosis Hypertension- Primary Unspecified essential hypertension documented in this encounter Additional Health Concerns Assessment Noted Time PHQ-9 Depression Total Score: 0 11/30/19 25 1:53 PM EST documented as of this encounter Care Teams Spinning Frame Tender Relationship Specialty Start Date End Date Nguyen Hurst, LEAD MILITARY ANALYST [address] [place] [address] PCP - General Family Medicine 07/01/22 Kim Davenport PharmD [address] [place] [address] Pharmacist Internal Medicine 12[facility]10/[facility] documented as of this encounter
--- OUTSIDE RECORDS SUMMARY | 2025-04-11 15:44 | XMS_ITS | Encounter Summary ---
Author Organization [employer] [facility] Address [address] [facility] 7t [place] [address] Care Team Providers Care Black Oxide Operator Name Role Phone Aris [facility] Primary Care Provider [phone] Kim Davenport PharmD Unavailable [phone] Reason for Visit * Reason Onset Date Comments Referral 05/23/2023 Encounter Details Date Type Department Care Team ([facility] Contact Info) Description 05/23/2023 Telephone [facility] [address] [place] [address] [facility] 230 [place] [address] Referral Social History Tobacco Use Types Packs/Day [...] nails. Referrals Date-N/A Time- N/A Address- [address] [place] [address] Specialty- Podiatry Fax: documented in this encounter Plan of Treatment Upcoming Encounters Date Type Department Care Team (Late Contact Info) Description 04/17/2025 2:00 PM EDT Medication Management [facility] [address] [place] [address] 07/15/2025 3:30 PM EDT Medication Management [facility] [address] [place] [address] Kim Davenport, Bridgett [address] [place] [address] documented as of this encounter Visit Diagnoses Not on filedocumented in this encounter Care Teams Black Oxide Operator Relationship Specialty Start Date End Date ArisNguyen conde FNP [address] [place] [address] PCP - General Family Medicine 07/01/22 Kim Davenport, Bridgett [address] [place] [address] Pharmacist Internal Medicine 12/10/24 Hortensia [facility] 11/08/24 documented as of this encounter
--- OUTSIDE RECORDS SUMMARY | 2025-04-11 15:44 | XMS_ITS | Encounter Summary ---
Author Organization [employer] Address [address] [facility] 7t [place] [address] Care Team Providers Care Corporate Legal Assistant Name Role Phone Nguyen Hurst [facility] Primary Care Provider [phone] Kim Davenport PharmD Unavailable [phone] Reason for Visit * Reason Onset Date Comments Referral 06/04/2024 Encounter Details Date Type Department Care Team ([facility] st Contact Info) Description 06/04/2024 Telephone [facility] [address] [place], [place] [phone] [place] [facility] 230 [place], [place] [phone] Referral Social History Tobacco Use Types Packs/Day [...] / denial letter via mail. PT-1 Request [id number] Pending [facility] [address] [place] [address] * Telephone Encounter - Eliud Oden - 06/12/2024 9:01 AM EDT Tc from patient calling in regards to the message below states [facility] has not received referral statesit could be that [facility] has the patient as Dany Tan * Telephone Encounter - Amarjit Negron - 06/04/2024 9:40 AM EDT Tc from pt requesting status on referral for Urology made on 04/25/24, pt would like referral [facility]. Pt provided documented in this encounter Plan of Treatment Upcoming Encounters Date Type Department Care Team (Late st Contact Info) Description 04/17/2025 2:00 PM EDT Medication Management [facility] [address] [place] [address] 07/15/2025 3:30 PM EDT Medication Management [facility] 230 [place] [address] Kim Davenport, PharmD [address] [place] [address] documented as of this encounter Visit Diagnoses Not on filedocumented in this encounter Additional Health Concerns Assessment Noted Time PHQ-9 Depression Total Score: 5 08/02/20 23 10:05 AM EDT documented as of this encounter Care Teams Corporate Legal Assistant Relationship Specialty Start Date End Date [place] [facility] 230 [place] [address] PCP - General Family Medicine 07/01/22 Kim Davenport PharmD 230 [place] [address] Pharmacist Internal Medicine 12/10/24 Hortensia GOODE 11/08/24 documented as of this encounter
--- OUTSIDE RECORDS SUMMARY | 2025-04-11 15:44 | XMS_ITS | Encounter Summary ---
Author Organization [employer] [facility] Address [address] [facility] 7t [place] [address] Care Team Providers Care Manufacturing Advisor Name Role Phone Nguyen Hurst Primary Care Provider [phone] Kim Davenport PharmD Unavailable [phone] Reason for Visit * Reason Comments Med Refill Encounter Details Date Type Department Care Team (Late st Contact Info) Description 06/15/2023 Refill [facility] MEDICINE 230 [place] [address] Ruthy Martinez FNP [address] [place] [address] Social History Tobacco Use Types Packs/Day Years [...] Description 04/17/2025 2:00 PM EDT Medication Management [facility] [address] [place] [address] 07/15/2025 3:30 PM EDT Medication Management [facility] [address] [place] [address] Kim Davenport, EmelynD [address] [place] [address] documented as of this encounter Visit Diagnoses Not on filedocumented in this encounter Care Teams Manufacturing Advisor Relationship Specialty Start Date End Date Nguyen Hurst FNP [address] [place] [address] PCP - General Family Medicine 07/01/22 Kim Davenport PharmD [address] [place] [address] Pharmacist Internal Medicine 12/10/24 Hortensia GOODE 11/08/24 documented as of this encounter
--- OUTSIDE RECORDS SUMMARY | 2025-04-11 15:44 | XMS_ITS | Encounter Summary ---
Author Organization [employer] Address [address] [facility] [address] 7t [place] [address] Care Team Providers Care Fire Prevention Officer Name Role Phone Nguyen Hurst [facility] Primary Care Provider [phone] Kim Davenport PharmD Unavailable [phone] Reason for Visit * Reason Onset Date Comments Nurse Triage 11/02/2024 Encounter Details Date Type Department Care Team ([facility] st Contact Info) Description 11/02/2024 Telephone [facility] MEDICINE 230 [place], [place] [phone] [facility] 230 [place], [place] [phone] Nurse Triage Social History Tobacco Use Types [...] your housing situation today? I have hayley iwrin 09/21/[address] you li [...] 12:14 PM EST TC placed to patient [phone] to inform patient, sensors will be ready at the pharmacy for p/u in approx 1 hour. RN also inquired on patients plan to come to [facility] or ED for his dizziness however [...] Upcoming Encounters Date Type Department Care Team ([facility] st Contact Info) Description 04/17/2025 2:00 PM EDT Medication Management [facility] MEDICINE [address] [place] [address] 07/15/2025 3:30 PM EDT Medication Management [facility]INE [address] [place] [address] Kim Davenport, Bridgett [address] [place] [address] documented as of this encounter Visit Diagnoses Not on filedocumented in this encounter Additional Health Concerns Assessment Noted Time PHQ-9 Depression Total Score: 0 07/04/20 24 3:20 PM EDT documented as of this encounter Care Teams Fire Prevention Officer Relationship Specialty Start Date End Date Nguyen Hurst FNP [address] [place] [address] PCP - General Family Medicine 07/01/22 iKm Davenport PharmD [address] [place] [address] Pharmacist Internal Medicine 12/10/24 Hortensia GOODE 11/08/24 documented as of this encounter
--- OUTSIDE RECORDS SUMMARY | 2025-04-11 15:44 | XMS_ITS | Encounter Summary ---
Author Organization [employer] [facility] Address [address] [facility] 7t [place] [address] Care Team Providers Care Skate Shop Attendant Name Role Phone Aris [facility] Primary Care Provider [phone] Kim Davenport PharmD Unavailable [phone] Reason for Referral * Consultation (Routine) - Authorized Specialty Diagnoses / Procedures Referred By Pedro t Referred To Contact Pharmacy Diagnoses Type 2 diabetes mellitus with stage 3 chronic kidney disease, with long-term current use of insulin, unspecified whether stage 3a or 3b CKD (CMS/HCC) Elba Jackson MD [address] [place] [address] Phone: tel: fax: Referral ID Status Reason Start Date Expiration Date Visits Requested Visits Authorized [id number] Authorized Consult and Treat 12/04/2024 12/04/2025 6 6 Encounter Details Date Type Department Care Team (Late st Contact Info) Description 12/04/2024 Orders Only [facility] MEDICINE 230 [place], [place] [phone] Elba Jackson MD [address] [place], [place] [phone] Type 2 diabetes mellitus with stage 3 [...] Description 04/17/2025 2:00 PM EDT Medication Management [facility] MED[facility]INE [address] [place] [address] 07/15/2025 3:30 PM EDT Medication Management [facility]INE [address] [place] [address] Kim Davenport, PharmD 230 [place] [address] Scheduled Referrals Name Type Priority Associated Diagnoses [...] documented as of this encounter Care Teams Skate Shop Attendant Relationship Specialty Start Date End Date [place] MillsNguyen FNP 230 [place] [address] PCP - General Family Medicine 07/01/22 Kim Davenport PharmD [address] [place] [address] Pharmacist Internal Medicine 12/10/24 Hortensia GOODE 11/08/24 documented as of this encounter
--- OUTSIDE RECORDS SUMMARY | 2025-04-11 15:44 | XMS_ITS | Encounter Summary ---
Author Organization [employer] Address [address] [facility] [address] 7t [place] [address] Care Team Providers Care Paver Layer Name Role Phone Aris, [facility] Primary Care Provider [phone] Kim Davenport PharmD Unavailable [phone] Reason for Visit * Reason Onset Date Comments DIMITRI LASSITER 04/09/2025 Encounter Details Date Type Department Care Team ([facility] st Contact Info) Description 04/09/2025 Telephone [facility] MEDICINE 230 [place], [place] [phone] [facility] 230 [place], [place] [phone] DIMITRI LASSITER Social History Tobacco Use Types [...] sensors, reader and kamron test strips Insurance: [employer] form completed and faxed to [phone]. Patient's preferred pharmacy: [facility] - [place], [place] - [address] [place] [address] 230 [facility] [address] [facility][id number] [place], [place] - [address] [facility] [address] [facility] [id number] CGM PA should be approved by: 04/23/2025 Dany Connor Henry will not be scheduled for CGM placement/teaching as patient is transitioningfrom diann 2 to Diann 3 system. documented in this encounter Plan of Treatment Upcoming Encounters Date Type Department Care Team (Late st Contact Info) Description 04/17/2025 2:00 PM EDT Medication Management [facility] 230 [place] [address] 07/15/2025 3:30 PM EDT Medication Management [facility] MEDICINE [address] [place] [address] Kim Davenport PharmD 230 [place] [address] documented as of this encounter Visit Diagnoses Not on filedocumented in this encounter Additional Health Concerns Assessment Noted Time PHQ-9 Depression Total Score: 0 11/30/19 25 1:53 PM EST documented as of this encounter Care Teams Paver Layer Relationship Specialty Start Date End Date ExeterNguyen conde FNP 230 [place] [address] PCP - General Family Medicine 07/01/22 Kim Davenport, Bridgett [address] [place] [address] Pharmacist Internal Medicine 12/10/24 Hortensia GOODE 11/08/24 documented as of this encounter
--- OUTSIDE RECORDS SUMMARY | 2025-04-11 15:44 | XMS_ITS | Encounter Summary ---
Author Organization [employer] Address [address] [facility] [address] 7t [place] [address] Care Team Providers Care Test Inspection Engineer Name Role Phone Aris, [facility] Primary Care Provider [phone] Kim Davenport PharmD Unavailable [phone] Reason for Visit * Reason Comments Med Refill Encounter Details Date Type Department Care Team (Late st Contact Info) Description 04/08/2025 Refill [facility] 230 [place], [place] [phone] [facility] 230 [place] [address] Cerebrovascular accident (CVA), unspecified mechanism (CMS/HCC) Social [...] Description 04/17/2025 2:00 PM EDT Medication Management [facility] MEDICINE [address] [place] [address] 07/15/2025 3:30 PM EDT Medication Management [address] [address] Kim Davenport PharmD [address] [place] [address] documented as of this encounter Visit Diagnoses Diagnosis Cerebrovascular accident (CVA), unspecified mechanism (CMS/HCC) documented in this encounter Additional Health Concerns Assessment Noted Time PHQ-9 Depression Total Score: 0 11/30/19 25 1:53 PM EST documented as of this encounter Care Teams Test Inspection Engineer Relationship Specialty Start Date End Date Nguyen Hurst FNP [address] [place] [address] PCP - General Family Medicine 07/01/22 Kim Davenport PharmD [address] [place] [address] Pharmacist Internal Medicine 12/10/24 Hortensia GOODE 11/08/24 documented as of this encounter
[2025-04-11 15:59] LABS: Anion Gap 12 (12-20); Blood Urea Nitrogen 34 mg/dL (9-16); Calcium 9.1 mg/dL (8.4-10.2); Carbon Dioxide 26 mmol/L (22-29); Chloride 104 mmol/L (96-108); Estimated Glomerular Filt Rate 44; Glucose Random 149 mg/dL (60-115); Potassium 4.4 mmol/L (3.3-5.1); Sodium 138 mmol/L (135-145)
== END 2025-04-11 14:13 | disposition home or self-care (01) ==
LOC: HO.LAB 14:12
PROVIDERS: PCP Registered Nurse
DX: I25.5 Ischemic cardiomyopathy (principal); Z79.01 Long term (current) use of anticoagulants; Z91.198 Patient's noncompliance with other medical treatment and regimen for other reason
CPT/HCPCS: 36415; 80048; 85027; 85610; 99212

== ENCOUNTER → 2025-05-09 23:59 | Outpatient (BNV) | payer MEDICAID, SELFPAY | PROVIDERS: PCP Registered Nurse; Visit Provider Internal Medicine Cardiovascular Disease | DX: I42.9 Cardiomyopathy, unspecified (principal); I50.20 Unspecified systolic (congestive) heart failure; I63.9 Cerebral infarction, unspecified | CPT/HCPCS: 93458; 99152 ==

== ENCOUNTER 2025-05-24 13:49 | Outpatient (AMB) | payer MEDICAID, SELFPAY ==
[2025-05-24 13:57] VITALS: BP 115/60; PULSE 76; BMI 18.6
--- NOTE | 2025-05-24 13:57 | A.OFFVIS_ITS ---
Vital Signs 05/24/25 13:57 Height 5 ft 9 in Weight 125 lb 10.616 oz BMI 18.6 BP 115/60 Blood Pressure Location Lt brachial Position Sitting Pulse 76 Pulse Source Auscultation Intake Visit Reasons: 2 wk s/p cardiac cath Intake Note: 2 wk s/p cath Android Ios Developer Required: No Accompanied by: Daughter Allergies codeine (CODEINE) Allergy (Intermediate, Verified 05/24/25 15:09) HIVES Medication List - Last Reconciled 05/24/25 by Brandon Perez NP acetaminophen 1,000 mg PO Q4-6H PRN apixaban (Eliquis) 5 mg PO ONCE atorvastatin 40 mg PO BEDTIME cyclobenzaprine 5 mg PO TID PRN dapagliflozin propanediol (Farxiga) 10 mg PO DAILY fludrocortisone 0.1 mg PO DAILY fluticasone propionate 50 mcg/actuation 1 spray intranasal BID hydralazine 10 mg See Protocol PO BEDTIME isosorbide dinitrate 5 mg See Protocol PO BEDTIME meclizine 12.5 mg PO TID PRN sennosides (senna) 8.6 mg PO BEDTIME HPI Comments Details: This is a 60-year-old male patient coming in for a follow-up visit after cardiac catheterization, accompanied by his daughter. Patient with a history of diabetes, chronic kidney disease, CKD, multiple strokes, dyslipidemia, and hypertension. Patient was hospitalized for a stroke in October after which patient underwent a comprehensive cardiac workup with a SOURAV, cardiac event monitor, and a myocardial perfusion study which revealed ischemia and severely reduced EF with a PFO. Subsequently, patient underwent a cardiac catheterization with Dr. Hogan at [facility] on 05/09/2025 which showed multivessel disease with BEREAVEMENT PROGRAM COORDINATOR LCX and severe stenosis of the LAD and RCA. Following this, patient saw [facility] cardiac surgery for a follow-up visit due to complexity of patient's case. Upon reviewing the note from Dr. Riggs, it seems, patient is to undergo a head CT and a repeat carotid ultrasound with a neurology consultation. And following these tests depending on the results, there may be consideration of a high-risk CABG and a PFO closure. Today, patient reports that he has been doing well overall and denies cardiac symptoms of exertional chest pain, shortness of breath, palpitations, dizziness, orthopnea, PND, leg edema, presyncope, or syncope. The daughter states that patient now takes all his pills and med box and does not miss them because she makes sure of it. 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 Renal osteodystrophy Proteinuria Cerebral infarction Palpitations Hypertensive disorder Hyperlipidemia History of alcoholism Stroke Diabetes CKD (chronic kidney disease) Surgical History History of implantation of penile prosthesis Previous back surgery (~1993) Social History Household Members: None Housing: Apartment Are you a primary care administrative tech to a significant other at home: No Do you presently have visiting nurse or other home services: No Comment: pt refusing the alarm for safety Patient Tobacco Use Status: Never used Tobacco e-Cigarette/Vaping Use: Never Used Second Hand Smoke Exposure: No Substance Use Type: Marijuana service: No Review of Systems Const Denies chills, Denies fatigue, Denies fever(s), Denies frequent falls, Denies weakness, Denies weight gain and Denies weight loss ENT Denies dizziness Card Denies chest pain, Denies leg edema, Denies lightheadedness, Denies palpitations, Denies dyspnea and Denies dyspnea on exertion Resp Denies cough, Denies dyspnea and Denies dyspnea on exertion GI Denies hematochezia Musc Denies abnormal gait, Denies muscle weakness, Denies numbness, Denies radiating pain into limb and Denies tingling Neuro Denies abnormal gait, Denies dizziness, Denies frequent falls, Denies numbness, Denies tingling and Denies weakness Endo Denies fatigue and Denies palpitations Physical Exam Vital Signs: Last Vital Signs Pulse 76 05/24/25 13:57 BP 115/60 05/24/25 13:57 BMI result Body Mass Index 18.6 Const General: cooperative, comfortable and no acute distress Orientation/consciousness: patient oriented x3 Limitations: ambulation with walker HEENT Head: Yes normal to inspection Neck Neck: Yes normal visual inspection, Yes trachea midline and Yes supple Chest Chest palpation & inspection: normal inspection of the chest Resp Effort & Inspection: normal respiratory effort Auscultation: clear to auscultation bilaterally, no crackles, no rales, no rhonchi and no wheezes Cardio Jugular venous distension: no JVD Palpation: normal PMI Rate: regular rate Rhythm: regular rhythm Heart sounds: S1 normal heart sound present, S2 normal heart sound present, no click, no gallops, no murmurs and no rubs Peripheral pulses: Peripheral pulses 2+ throughout GI Inspection: Yes normal to inspection Palpation (GI): Soft to palpation Auscultation: normal bowel sounds Skin General skin exam: no rashes or lesions noted Neuro General: patient oriented x3 Extrem General: Yes normal to inspection, No no pedal edema and No calf tenderness Psych Appearance: grossly normal Mental Status: mental status grossly normal Assessment & Plan Assessment & Plan (1) Ischemic cardiomyopathy: Code(s): I25.5 - Ischemic cardiomyopathy Category: Medical Plan: 05/09/2025-patient underwent a cardiac catheterization following abnormal SOURAV and a myocardial perfusion study showing reduced LV ejection fraction at 30% and ischemia. This study showed chronic total occlusion of the left circumflex and 99% stenosis in the proximal RCA and 70% in the mid RCA, and 80% proximal subsection stenosis in the mid LAD. Following this due to his complexity, patient was referred to Cardiac surgery for a possible CABG and PFO closure. They would like to get an updated carotid ultrasound, head CT, and neurology consultation prior to consideration of the above procedure. Patient continues to be asymptomatic, however, patient is mostly sedentary as he only uses a wheeled walker for mobility and therefore hard to tell. For now, p atient to continue with Eliquis therapy for full anticoagulation. Continue Jardiance, hydralazine, isosorbide, and statin therapy. No reported signs of bleeding or falls. We will monitor labs periodically. Blood pressure within normal limits. Ideally, LDL goal less than 70. Advised heart healthy diet, exercise as tolerated, med compliance, and management of vascular risk factors. Follow up in 4 months, sooner if needed. In the interim, patient will call the office with any concerns or change in symptoms. Advised ER care in case of exertional chest pain not resolved with rest. This note was generated using voice recognition software. While every effort has been made to ensure accuracy and proper time study engineer, there may be occasional errors that could affect the content or meaning of the described symptoms. Medications: Changed From apixaban (Eliquis) 5 mg PO BID 180 tabs 0RF To apixaban (Eliquis) 5 mg PO ONCE Coding Level of Care Code Est Pt Level 4 (84281) Complex EM visit Add On G2211 Diagnoses Ischemic cardiomyopathy I25.5 Time Spent (min) 32 Comment Time spent in reviewing the chart, test results, assessment, counseling and documentation.
--- OUTSIDE RECORDS SUMMARY | 2025-05-24 14:16 | XMS_ITS | Referral Summary ---
Author Organization [facility] Address [address] [place] [address] Care Team Providers Care Construction Operations Manager Name Role Phone [facility] Primary Care Provider [phone] Allergies Active Allergy Reactions Criticality Noted Date [...] propionate (FLONASE) 50 mcg/actuation nasal spray SMARTSI Palmer(s) Both Nares Twice Daily Active INSULIN ASPART [...] Plan of Treatment Not on file Insurance [facility] Care Teams Construction Operations Manager Relationship Specialty Start Date End Date [facility] [address] [place] [address] [phone] PCP - General 06/29/24
== END 2025-05-24 14:22 | disposition home or self-care (01) ==
LOC: HO.HCS 13:49
PROVIDERS: PCP Registered Nurse
DX: I25.5 Ischemic cardiomyopathy (principal)
CPT/HCPCS: 99214

== ENCOUNTER → 2025-05-24 13:49 | Outpatient (BNVA) | payer MEDICAID, SELFPAY | PROVIDERS: PCP Registered Nurse | DX: M79.645 Pain in left finger(s) (principal); M65.332 Trigger finger, left middle finger; I25.5 Ischemic cardiomyopathy | CPT/HCPCS: 99212 ==

== ENCOUNTER 2025-05-24 14:33 | Outpatient (AMB) | payer MEDICAID, SELFPAY ==
[2025-05-24 15:05] VITALS: BMI 18.5
--- NOTE | 2025-05-24 15:05 | A.OFFVIS_ITS ---
Vital Signs 05/24/25 15:05 Height 5 ft 9 in Weight 125 lb BMI 18.5 Intake Visit Reasons: PICTURE FRAMER: Left middle finger, trigger finger Intake Note: Dany 60 yr old right hand dominant male who presents today for his left middle finger. States his finger is catching and locking for the last year. States he has pain at times due to O.A pain in his hands. Denies O.T, splinting or injection. Allergies codeine (CODEINE) Allergy (Intermediate, Verified 05/24/25 15:09) HIVES HPI HPI PICTURE FRAMER: Left middle finger, trigger finger: Details: Dany 60 yr old right hand dominant male who presents today for his left middle finger. States his finger is catching and locking for the last year. The patient states that he has begun having very significant pain due to his locking and catching, and this has worsened over the last year. States he has pain at t imes due to O.A pain in his hands. Denies O.T, splinting or injection. [facility] Medical History Paresthesia of lower extremity Unstable knee Tinea pedis Stage 3a chronic kidney disease Osteomyelitis, ankle and foot Erectile dysfunction Epilepsy Chronic neck pain Chronic low back pain Body dysmorphic disorder Diabetic foot Complicated grieving Renal osteodystrophy Proteinuria Cerebral infarction Palpitations Hypertensive disorder Hyperlipidemia History of alcoholism Stroke Diabetes CKD (chronic kidney disease) Surgical History History of implantation of penile prosthesis Previous back surgery (~1993) Social History Household Members: None Housing: Apartment Are you a primary hospice care consultant to a significant other at home: No Do you presently have visiting nurse or other home services: No Comment: pt refusing the alarm for safety Patient Tobacco Use Status: Never used Tobacco e-Cigarette/Vaping Use: Never Used Second Hand Smoke Exposure: No Substance Use Type: Marijuana service: No Review of Systems Const All systems reviewed & are unremarkable except as noted in HPI and below Physical Exam Vital Signs: BMI result Body Mass Index 18.5 Extrem Other: Patient is alert, oriented, and in no acute distress. Neuro: Normal sensation of the tips of all digits of the left hand at this time Vascular: Cap refill brisk Pain: Tenderness to palpation of the A1 madiha of the left middle finger Pain associated with locking and catching of the left middle finger ROM: Visible and palpable locking and catching of the left middle finger Patient is able to flex and extend all other digits of the left hand fully and without difficulty Skin: No lacerations or abrasions. General: No ecchymosis, erythema, or evidence of infection. Psych: Appears grossly normal Affect normal Attitude cooperative Assessment & Plan Assessment & Plan (1) Trigger finger, left middle finger: Code(s): M65.332 - Trigger finger, left middle finger Category: Medical Plan 1. Left middle finger trigger finger Patient is educated about this condition Patient is educated about the treatment options available At this time, patient would like to proceed with steroid injection, however patient reports that his blood sugars have been approximately 140-160 over the last few days, and I do not feel that it is safe to perform a steroid injection at this time Patient states understanding of this Follow-up in 4 weeks, we will explore steroid injection at that time if blood sugars have been under better control, sooner with any acute concerns Coding Level of Care Code New Pt Level 3 (55023) Diagnoses Trigger finger, left middle finger M65.332
== END 2025-05-24 15:26 | disposition home or self-care (01) ==
LOC: HO.HOS 14:34
PROVIDERS: PCP Registered Nurse
DX: M65.332 Trigger finger, left middle finger (principal)
CPT/HCPCS: 99203

== ENCOUNTER 2025-06-26 15:23 | Outpatient (AMB) | payer MEDICAID, SELFPAY ==
[2025-06-26 15:25] VITALS: BMI 18.5
--- NOTE | 2025-06-26 15:25 | MHC.OFFVIS ---
Vital Signs 06/26/25 15:25 06/26/25 15:27 Height 5 ft 9 in 5 ft 9 in Weight 125 lb 125 lb BMI 18.5 18.5 Handedness Right Intake Visit Reasons: OV- Left middle finger, trigger finger (3wk) Intake Note: Dany is a 60 year old right hand dominant male who presents today for a left middle trigger finger follow up and discussion of injection. At his last visit, 05/24/25, a steroid injection was discussed however patient's current blood sugars were in the 140-160 and provider did not feel comfortable giving the injection. Patient reports he has not had his sensor in due to upcoming procedure for his heart. He reports his finger has not improved and he is unable to extend his finger. Water Sponger Required: Yes Water Sponger Language: Educational Institution President Services: Water Sponger Offered & Declined Accompanied by: Daughter Allergies codeine (CODEINE) Allergy (Intermediate, Verified 06/26/25 15:31) HIVES HPI HPI OV- Left middle finger, trigger finger (3wk): Details: Dany is a 60 year old right hand dominant male who presents today for a left middle trigger finger follow up and discussion of injection. At his last visit, 05/24/25, a steroid injection was discussed however patient's current blood sugars were in the 140-160 and provider did not feel comfortable giving the injection. Patient reports he has not had his sensor in due to upcoming procedure for his heart. He reports his finger has not improved and he is unable to extend his finger. 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 Renal osteodystrophy Proteinuria Cerebral infarction Palpitations Hypertensive disorder Hyperlipidemia History of alcoholism Stroke Diabetes CKD (chronic kidney disease) Surgical History History of implantation of penile prosthesis Previous back surgery (~1993) Social History Household Members: None Housing: Apartment Are you a primary hearing care practitioner to a significant other at home: No Do you presently have visiting nurse or other home services: No Comment: pt refusing the alarm for safety Patient Tobacco Use Status: Never used Tobacco e-Cigarette/Vaping Use: Never Used Second Hand Smoke Exposure: No Substance Use Type: Marijuana service: No Review of Systems Const All systems reviewed & are unremarkable except as noted in HPI and below Physical Exam Vital Signs: BMI result Body Mass Index 18.5 Extrem Other: Patient is alert, oriented, and in no acute distress. Neuro: Normal sensation of the tips of all digits of the left hand at this time Vascular: Cap refill brisk Pain: Tenderness to palpation of the A1 madiha of the left middle finger Pain associated with locking and catching of the left middle finger ROM: Left middle finger is locked in a flexed position Patient is able to flex and extend all other digits of the left hand fully and without difficulty Skin: No lacerations or abrasions. General: No ecchymosis, erythema, or evidence of infection. Psych: Appears grossly normal Affect normal Attitude cooperative Assessment & Plan Assessment & Plan (1) Trigger finger, left middle finger: Code(s): M65.332 - Trigger finger, left middle finger Category: Medical Plan 1. Trigger finger, left middle finger I educated the patient about the condition. I discussed both operative and nonoperative treatment options. The patient would like to proceed with surgery. The risks and benefits of operative treatment were discussed with the patient and the patient wishes to proceed with surgery. These risks include, but are not limited to, risk of damage to blood vessels, nerves, tendons, infection, recurrence, incomplete relief of preoperative symptoms, persistent pain, possible need for further surgery, and the risks associated with regional blocks and/or anesthesia. Plan is to take the patient to the operating room at some point in the next few weeks for the following procedures: 1. Stuck left middle finger trigger release under local All of the preoperative paperwork including the consent was discussed today. All of the patient's questions were answered in the clinic today. The patient understands that they will be in contact with our surgical clinical reviewer to discuss scheduling their procedure. Patient will require call to [facility] for Patient denies diabetes, asthma, heart issues, lung issues, kidney issues, or current smoking. Coding Level of Care Code Est Pt Level 4 (97860) Diagnoses Trigger finger, left middle finger M65.332
[2025-06-26 15:27] VITALS: BMI 18.5
--- OUTSIDE RECORDS SUMMARY | 2025-06-26 16:03 | XMS_ITS | Encounter Summary ---
Author Organization [employer] Address [address] [place] [address] Care Team Providers Care Medical Record Technician Name Role Phone Nguyen Hurst [facility] Primary Care Provider [phone] Kim Davenport PharmD Unavailable Reason for Visit * Reason Comments Med Refill Encounter Details Date Type Department Care Team ([facility] st Contact Info) Description 06/04/2025 Refill [facility] [address] [place], [place] [phone] Nguyen Hurst [facility] [address] [place], [place] [phone] Social History Tobacco Use Types Packs/Day Years [...] Care Team (Late st Contact Info) Description 07/12/2025 2:00 PM EDT Office Visit [facility] [address] [place] [phone] [place] [address] [address] 07/15/2025 3:30 PM EDT Medication Management [facility] [address] [place] [phone] Kim Davenport PharmD [address] [place] [phone] documented as of this encounter Visit Diagnoses Not on filedocumented in this encounter Additional Health Concerns Assessment Noted Time PHQ-9 Depression Total Score: 0 11/30/19 25 1:53 PM EST documented as of this encounter Care Teams Medical Record Technician Relationship Specialty Start Date End Date [facility] [address] [place] [phone] PCP - General Family Medicine 07/01/22 Kim Davenport PharmD [address] [place] [phone] Pharmacist Internal Medicine 12/10/24 Hortensia GOODE 11/08/24 Britney Benitez [employer] 05/29/25 documented as of this encounter
--- OUTSIDE RECORDS SUMMARY | 2025-06-26 16:03 | XMS_ITS | Referral Summary ---
Author Organization [facility] Address [address] [place] [address] Care Team Providers Care Cryptographic Vulnerability Analyst Name Role Phone [facility] Primary Care Provider [phone] Allergies Active Allergy Reactions Criticality Noted Date [...] propionate (FLONASE) 50 mcg/actuation nasal spray SMARTSI [place](s) Both Nares Twice Daily Active INSULIN ASPART [...] Plan of Treatment Not on file [facility] Care Teams Cryptographic Vulnerability Analyst Relationship Specialty Start Date End Date [facility] [address] [place] [address] [phone] PCP - General 06/29/24
--- OUTSIDE RECORDS SUMMARY | 2025-06-26 16:03 | XMS_ITS | Clinical Summary ---
Author Organization [address] [facility] Address [address] [place] [address] Phone Care Team Providers Care Hamper Maker Name Role Phone Ellie Shanks MD Primary Care Provider [phone] Allergies Active Allergy Reactions Criticality Noted Date [...] Problem Noted Date Diagnosed Date Diabetes mellitus ([facility] V24, [facility] V28) Alcoholism ([facility] V24, [facility] V28) 02/18/2022 Back ache 02/18/2022 CVA (cerebral vascular accident) ([facility] V24, [facility] [place] V28) 02/18/2022 Epilepsy ([facility] V24, [facility] V28) 02/18/2022 Erectile dysfunction 02/18/2022 Hyperlipidemia 02/18/2022 Hypertension 02/18/2022 Tinea pedis 02/18/2022 Redundant prepuce 02/18/2022 Osteomyelitis of foot ([facility] V24, [facility] V28) 03/25/2011 Encounters Date Type Department Care Team Description 05/28/2025 1:30 PM EDT Office Visit Orthopedic Surgery [address] [address] Enmanuel Varela DPM Controlled type 2 diabetes with neuropathy ([facility] V24, [facility] V28) (Primary Dx); Pain in toes of both feet; Arthritis of both feet; History of amputation of lesser toe, right ([facility] V24); Dermatophytosis, nail from Last 3 Months Surgical History Surgery Date Site/Laterality Comments FOOT SURGERY 2009 PROCEDURE: HISTORICAL FOOT SURGERY; COMMENT: Right foot infection BACK SURGERY 1984 PROCEDURE: HISTORICAL BACK SURGERY; COMMENT: low back Medical History Medical History Date Comments CVA (cerebral vascular accid ent) ([facility] V24, [facility] V28) 02/18/2022 DX:CVA (cerebral vascular a ccident) ([facility]) Hypertension 02/18/2022 DX:Hypertension Erectile dysfunction 02/18/2022 DX:Erectile dysfunction Redundant prepuce 02/18/2022 DX:Redundant p repuce Hyperlipidemia 02/18/2022 DX:Hyperlipidemi a Epilepsy ([facility] V24, [facility] V28) 02/18/2022 DX:Epilepsy ([facility]) Social History Tobacco Use Types [...] Care Team (Late st Contact Info) Description 08/28/2025 1:00 PM EDT Office Visit Orthopedic Surgery - [place] [address] [facility] [address] [place] [phone] Enmanuel Varela DPM [address] [address] Health Maintenance Due Date Last Done Comments [...] Diabetes: Annual Urine Albumin-Creatinine Ratio (uACR) 11/11/2022 Depression Screening 11/28/2024 RSV Immunization Adult Patients (1 - Risk 60-74 years 1-dose series) 2025 Influenza Vaccine (#1) 2025 11/03/2024, 2012 Diabetes: Blood Sugar Control Test (HGBA1C) 10/02/2025 04/01/2025, 07/04/2024, 03/15/2024 Diabetes: Annual GFR (Glomerular Filtration Rate) 04/11/2026 04/11/2025, 03/15/2024 Hypertension/CHF/CAD Annual BMP Blood Test 04/11/2026 04/11/2025, 03/15/2024 Cholesterol Screening (Lipid Panel) 07/07/2028 07/07/2023, 07/07/2023 DTaP,Tdap,and Td Vaccines (3 - Td or Tdap) 04/09/2032 04/09/2022, 08/15/2012 HIV Screening Completed 03/15/2024, 03/15/2024 COVID-19 Vaccine Completed 12/10/2024, , 04/15/2021, Additional [...] 20 months Aged Out No longer eligible based on [...] * Annual BMP Blood Test (03/15/2024) Pathologist [facility] Annual BMP Blood Test Abstracted Historical Provider HEALTH MAINTENANCE Final Result * HIV Screening (03/15/2024) Pathologist [facility] HIV Screening Abstracted Historical Provider HEALTH MAINTENANCE Final Result * Hemoglobin A1c (03/15/2024) [facility] Hemoglobin A1C 0.0 % Comment:No interpretation, A bstracted Blood Venous blood specimen / Unknown Historical Provider LAB BLOOD ORDERABLES Rima l Result * Lipid panel (07/07/2023) LDL/HDL Ratio 0 Comment:Abstracted Triglycerides 0 mg/dL Comment:Abstracted Cholesterol 0 mg/dL Comment:Abstracted HDL 0 mg/dL Comment:Abstracted LDL Cholesterol 0 mg/dL Comment:Abstracted Blood Venous blood specimen / Unknown us Historical Provider LAB BLOOD ORDERABLES Rima l Result from Last 3 Months or Most Recently Relevant to Health Maintenance Insurance MEDICAID - [place] Care Teams Hamper Maker Relationship Specialty Start Date End Date Ellie Shanks MD [address] [address] PCP - General Internal Medicine 02/04/22
--- OUTSIDE RECORDS SUMMARY | 2025-06-26 16:03 | XMS_ITS | Clinical Summary ---
Author Organization [facility] Address [address] [phone] Phone Care Team Providers Care Enrollment Consultant Name Role Phone Dimitris, Celegene Primary Care [...] his children. PLAN: 1. Follow up with [facility]: Not recommended for follow-up 2. Patient goal is to find motivation again. 3. Behavioral Recommendations a. Referral for OP individual therapy b. Incorporate grounding techniques into daily routine c. [place] his brother's life by doing activities in [...] Visit [facility] [address] [place] [address] Chris King MD [address] [facility] [address] [place] [address] Health Maintenance Due Date Last [...] 07/04/2024, 03/15/2024, Additional history exists Influenza Vaccine (#1) 2025 11/03/2024, 2012 Hepatitis B Vaccine Aged Out No longe r eligible based on patient's age to complete this topic Insurance , [address] [place] [address] [place] Care Teams Enrollment Consultant Relationship Specialty Start Date End Date Ellie Shanks PCP - General Internal Medicine 07/03/21
== END 2025-06-26 16:11 | disposition home or self-care (01) ==
LOC: HO.HOS 15:24
PROVIDERS: PCP Registered Nurse
DX: M65.332 Trigger finger, left middle finger (principal)
CPT/HCPCS: 99214

== ENCOUNTER → 2025-06-26 15:23 | Outpatient (BNVA) | payer MEDICAID, SELFPAY | PROVIDERS: PCP Registered Nurse | DX: Z01.818 Encounter for other preprocedural examination (principal); M65.332 Trigger finger, left middle finger | CPT/HCPCS: 99212 ==

== ENCOUNTER 2025-07-17 06:04 | Emergency (ER) | payer OTHER, SELFPAY ==
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
[2025-07-17 06:13] VITALS: BP 122/70; PULSE 70; O2SAT 98
[2025-07-17 06:17] VITALS: BP 140/75; PULSE 65; RESP 16; TEMP 36.9; O2SAT 99; BMI 20.4
[2025-07-17 06:30] VITALS: BP 140/75; PULSE 65; RESP 16; TEMP 36.9; O2SAT 99
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
[2025-07-17 10:58] VITALS: BP 116/68; PULSE 70; RESP 16; TEMP -17.7; TEMP 0; O2SAT 97
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
== END 2025-07-17 11:21 | disposition home or self-care (01) ==
PROVIDERS: Emergency Provider Emergency Medicine
DX: S13.4XXA Sprain of ligaments of cervical spine, initial encounter (principal); R07.89 Other chest pain; R51.9 Headache, unspecified; M54.2 Cervicalgia; V43.52XA Car driver injured in collision with other type car in traffic accident, initial encounter; Y93.9 Activity, unspecified; Y92.410 Unspecified street and highway as the place of occurrence of the external cause; Y99.8 Other external cause status
CPT/HCPCS: 70450; 71046; 72125; 99284

== ENCOUNTER → 2025-07-17 08:19 | Outpatient (BNV) | payer MEDICAID, SELFPAY | PROVIDERS: Emergency Provider Emergency Medicine; Visit Provider Radiology Diagnostic Radiology | DX: M47.812 Spondylosis without myelopathy or radiculopathy, cervical region (principal); G44.309 Post-traumatic headache, unspecified, not intractable; R07.89 Other chest pain | CPT/HCPCS: 70450; 71046; 72125 ==

== ENCOUNTER 2025-08-19 08:20 | Day surgery (SDC) | payer MEDICAID, SELFPAY ==
--- OUTSIDE RECORDS SUMMARY | 2025-08-08 18:23 | XMS_ITS | Clinical Summary ---
Author Organization [facility] Address [address] [address] Phone Care Team Providers Care Senior Estimator Name Role Phone Dimitris, Celegene Primary Care [...] his children. PLAN: 1. Follow up with [facility]: Not recommended for follow-up 2. Patient goal is to find motivation again. 3. Behavioral Recommendations a. Referral for OP individual therapy b. Incorporate grounding techniques into daily routine c. [place] his brother's life by doing activities in [...] Care Team (Late st Contact Info) Description 08/30/2025 Orders Only [facility] [address] [place] [address] Chris King MD [address] [facility] [address] [place] [address] Stage 3a chronic kidney disease (HCC); Renal osteodystrophy; Type 2 diabetes mellitus with diabetic chronic kidney disease (HCC) 10/07/2025 1:45 PM EST Office Visit [facility] [address] [place] [address] Chris King MD [address] [address] Health Maintenance Due Date Last Done Comments Colorectal Cancer Screening: Annual FOBT 2014 Colorectal Cancer Screening: Colonoscopy 2014 Colorectal Cancer Screening: Sigmoidoscopy 2014 Diabetes: Ophthalmology Exam 12/28/2020 Diabetes: Pedal Pulse Checked 12/28/2020 Diabetes: Sensory Foot Exam 12/28/2020 Diabetes: Visual Foot Exam 12/28/2020 Influenza Vaccine (#1) 2025 11/03/2024, 2012 Diabetes: Hemoglobin A1C 10/12/2025 025, 11/30/2024, 07/04/2024, Additional history exists Pneumococcal Vaccine: 50+ Years Completed 07/12/2025 Pneumococcal Vaccine: Peds (0 to 5 Years) and At-Risk Patients (6 to 49 Years) Discontinued 07/12/2025 Hepatitis B Vaccine Aged Out No longe r eligible based on patient's age to complete this topic [place] , [place] [address] [place] Care Teams Senior Estimator Relationship Specialty Start Date End Date Ellie Shanks PCP - General Internal Medicine 07/03/21
--- OUTSIDE RECORDS SUMMARY | 2025-08-08 18:23 | XMS_ITS | Clinical Summary ---
Author Organization [facility] Address [address] [place] [address] Care Team Providers Care Pack Puller Name Role Phone [facility] Primary Care Provider [phone] Allergies Active Allergy Reactions Criticality Noted Date [...] propionate (FLONASE) 50 mcg/actuation nasal spray SMARTSI [place](s) Both Nares Twice Daily Active INSULIN ASPART [...] 2015 Zoster Vaccines (1 of 2) 2015 Alcohol/Substance Use Screening 11/28/2024 Depression Screening and Follow-Up 11/28/2024 Social Drivers of Health Annual Screening 11/28/2024 COVID-19 Vaccine (4 - 2024-2 6 season) 2025 12/24/2021, 04/15/2021, 03/11/2021 Influenza Vaccine (#1) 2025 09/04/2013 DTaP,Tdap,and Td Vaccines (3 - Td or Tdap) 04/09/2032 04/09/2022, 08/15/2012 RSV Vaccine (60+ years old a nd patients) (1 - 1-dose 75+ series) 02/22/2040 HIV Screening Completed 03/15/2024, 03/15/2024 Hepatitis B Vaccines Aged Out No long er eligible based on patient's age to complete this topic Insurance [employer] Care Teams Pack Puller Relationship Specialty Start Date End Date [facility] [address] [place] [id number] PCP - General 06/29/24
[2025-08-19 09:16] VITALS: BP 138/112; PULSE 65; RESP 14; TEMP 36.6; O2SAT 99
--- NOTE | 2025-08-19 09:24 | MHC.SHP ---
Pre-Procedural Eval Section A - 24 Hr Update-Section A only Date of Service: 08/19/25 The patient is an INPATIENT: No Changes since office visit: No Cold of Flu in the past 2 weeks, No New Medical Problems, No Changes in Medication and No Patient answered all questions The patient has been examined within 24 hours of the surgical procedure. The History & Physical has been completed within 30 days and I have reviewed it.: Yes Section B - Complete if H&P > 30 days Chief Complaint: Trigger finger, left middle finger Allergies: Allergies Allergy/AdvReac Type Severity Reaction Status Date / Time codeine (CODEINE) Allergy Intermediate HIVES Verified 08/19/25 09:16 Exam Exam Comment: Left middle finger appears to be locked in flexion. Patient states it has been this way for at least 2 months. Gives a history of locking and catching prior to being locked in this position. Plan Diagnosis/Plan: Unchanged I have reviewed the history and physical and performed a pertinent physical examination on my patient. No changes have occurred unless specified. Time Spent With Patient Time: Total time managing care of this patient today ____ minutes.
--- NOTE | 2025-08-19 09:25 | W.PM.OPN ---
Operative Note Operative Note Date of Service: 08/19/25 Narrative: Operative Note Preop diagnosis: 1. Left middle finger Trigger finger, locked in flexion Postop diagnosis: 1. Left middle finger trigger finger, locked in flexion 2. Left middle finger PIP joint stiffness Same Procedure: 1. Left middle finger A1 madiha release 2. Left middle finger flexor digitorum superficialis tenotomy of the ulnar slip 3. Left middle finger PIP joint closed manipulation under anesthesia Surgeon: Fior Rubalcava MD Electric Motor Winder: None Anesthesia: local block using 1% lidocaine with epinephrine Findings: No locking or catching after A1 madiha release, after A1 madiha release I was able to improve extension to MCP joint to 0 degrees and PIP joint to about 45 or 50 degrees. I made the decision then to proceed with an ulnar slip tenotomy of the FDS tendon. After the tenotomy was performed he still has some tightness in the volar plate of the PIP joint, but I was able to stretch the PIP joint to almost 0 degrees. EBL: Less than 5 mL Tourniquet time: None Specimens: None Complications: None Disposition: Brought to recovery room in stable condition Plan: Follow-up for 10-14 days for wound check and suture removal, and to begin early active range of motion and stretching exercises. I am placing an OT hand therapy referral, which she will hopefully see on the same day he gets his stitches removed. Indications: The patient is 60 years old, with a left middle finger trigger finger that is locked in flexion, that has been unresponsive to nonoperative management. The risks and benefits of operative treatment including but not limited to risk of damage to blood vessels, nerves, tendons, infection, persistent pain, persistent symptoms, recurrence or possible need for additional surgery were discussed with the patient and the patient wishes to proceed with surgery. Procedure: Once consent was obtained a local block was performed in the preop area using a combination of 1% lidocaine with epinephrine. The patient was then brought back to the operating suite and placed on the operative table in supine position. The left upper extremity was prepped and draped in a standard surgical fashion. The patient's finger was locked in a flexed position and was held in about 40 degrees of MCP flexion and about 90 degrees of PIP flexion. Once assured that we had a good block, a 1.5 cm oblique incision was made centered over the A1 madiha of the left middle finger . The incision was made through the skin to the subcutaneous tissues using a #15 blade. Careful dissection was made down to the level of the A1 madiha using tenotomy scissors, with care being taken to protect the nearby neurovascular structures. A longitudinal incision was made in the A1 madiha 1st using a #15 blade, then using tenotomy scissors under direct visualization. The A1 madiha was noted to be significantly thickened. Following our A1 madiha release, we no longer saw any locking or catching of the digit with flexion and extension, but I can only extend him to about 0 degrees of MCP extension and 45 degrees of PIP extension. I then decided it would be best to proceed with a tenotomy of the ulnar slip of the FDS tendon to try to improve his range of motion, as well as a closed manipulation of the PIP joint. I made a chevron/partial Ana Paula incision over the volar aspect of the PIP joint. This was done with a 15. Blade through the skin to the subcutaneous tissues. I then dissected down to the level of the flexor tendon sheath. I then opened the flexor tendon sheath through the A3 madiha. I retracted the FDP tendon radially exposing the ulnar slip of the FDS tendon. I then cut the ulnar slip of the FDS tendon using a 15. Blade. I did use some iris scissors to release the connection between the ulnar slip and radial slip of the FDS tendon at the chiasm. This then allowed me to pull the ulnar slip of the FDS tendon free through the incision at the A1 madiha. I then finished the tenotomy cutting the ulnar slip of the FDS tendon from the main part of the FDS tendon, bevelling it using a 15. Blade. I then performed a closed manipulation of the middle finger PIP joint stretching the volar structures of the PIP joint. This then allowed me to bring the MCP into 0 degrees of flexion and the PIP joint into about 0-5 degrees of extension. He does definitely have some tightness of the PIP joint itself, but passively I am able to bring it into extension. I believe he can do well with some OT hand therapy to stretch these structures. He can make a fist and extend his digits with no locking and catching.. Once satisfied with our A1 madiha release, ulnar slip of FDS tenotomy, and closed manipulation of the PIP joint the wounds were copiously irrigated with normal saline and hemostasis was obtained with a brief period of local pressure. The skin edges were reapproximated with some 5.0 nylon suture material and a sterile dressing and finger splint extending to the mid palm were applied . The patient appears to have tolerated the procedure well and with no complications. All digits were well vascularized at the conclusion of the case.
[2025-08-19 12:33] VITALS: BP 115/67; PULSE 83; RESP 16; O2SAT 99
== END 2025-08-19 12:34 | disposition home or self-care (01) ==
PROVIDERS: Visit Provider Orthopaedic Surgery
PROC: (CPT 26055; principal; 2025-08-19 09:50)
DX: M65.332 Trigger finger, left middle finger (principal); R20.2 Paresthesia of skin; M25.642 Stiffness of left hand, not elsewhere classified; E11.22 Type 2 diabetes mellitus with diabetic chronic kidney disease; I12.9 Hypertensive chronic kidney disease with stage 1 through stage 4 chronic kidney disease, or unspecified chronic kidney disease; N18.31 Chronic kidney disease, stage 3a; G40.909 Epilepsy, unspecified, not intractable, without status epilepticus; E78.5 Hyperlipidemia, unspecified; F10.21 Alcohol dependence, in remission; Z88.5 Allergy status to narcotic agent; Z79.01 Long term (current) use of anticoagulants; Z79.84 Long term (current) use of oral hypoglycemic drugs; Z79.51 Long term (current) use of inhaled steroids; Z79.899 Other long term (current) drug therapy
CPT/HCPCS: 26455; 26055; 26340; J0165; J2003

== ENCOUNTER → 2025-08-19 08:20 | Outpatient (BNV) | payer MEDICAID, SELFPAY | PROVIDERS: Visit Provider Orthopaedic Surgery | DX: M65.332 Trigger finger, left middle finger (principal); M25.642 Stiffness of left hand, not elsewhere classified; S66.123A Laceration of flexor muscle, fascia and tendon of left middle finger at wrist and hand level, initial encounter | CPT/HCPCS: 26055; 26340; 26455 ==

== ENCOUNTER 2025-09-03 12:45 | Outpatient (AMB) | payer MEDICAID, SELFPAY ==
--- NOTE | 2025-09-03 12:49 | MHC.OFFVIS ---
Intake Visit Reasons: PO LT MF trigger 08/19/25 AR Intake Note: Dany 60 yr old right hand dominant male presents today for his P/O visit for his S/P left middle finger trigger release, FDP tenotomy, & PIP joint closed manipulation, DOS: 08/19/25.. Patient came in with the same dressing from the O.R, states he was not aware to remove it on his own. Allergies codeine (CODEINE) Allergy (Intermediate, Verified 09/03/25 12:58) HIVES HPI HPI PO LT MF trigger 08/19/25 AR: Details: Dany is a 60 year old right hand dominant Diabetic man who presents S/P left middle finger trigger release, FDP tenotomy, & PIP joint closed manipulation, DOS: 08/19/25. He says he is doing well overall but he is having difficulty with the ROM and cannot fully extend his middle finger. He has an appointment with OT hand therapy scheduled for tomorrow. He complains of painful clicking in his knees with ambulation and is hoping to speak with someone about this. He walks with an assistive device. He has a Hx of a CVA. 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 Renal osteodystrophy Proteinuria Cerebral infarction Palpitations Hypertensive disorder Hyperlipidemia History of alcoholism Stroke Diabetes CKD (chronic kidney disease) Surgical History History of implantation of penile prosthesis Previous back surgery (~1993) Social History Household Members: None Housing: Apartment Are you a primary resident care associate to a significant other at home: No Do you presently have visiting nurse or other home services: No Comment: pt refusing the alarm for safety Patient Tobacco Use Status: Never used Tobacco e-Cigarette/Vaping Use: Never Used Second Hand Smoke Exposure: No Substance Use Type: Marijuana service: No Review of Systems Const All systems reviewed & are unremarkable except as noted in HPI and below Physical Exam Const General: no acute distress and alert Orientation/consciousness: patient oriented x3 Neuro General: patient oriented x3 Extrem Other: The patient was alert oriented and in no acute distress The incision is healing well with no erythema drainage or evidence of infection. Sutures removed and Steri-Strips applied He can bring all his fingers closed to a fist, and fully extend all digits except the middle finger. The middle finger he tended to only flex down to about 70 degrees at the MCP joint and about 45 degrees at the PIP joint. No locking or catching We worked on ROM exercises today in clinic Before leaving clinic he could bring his middle fingertip to almost touch his palm with flexion of about 90 degrees of the MCP and about 90 degrees at the PIP joint.. He does have an ~20 degree flexion contracture at the PIP joint when we tried to bring the finger into full extension. Sensation is intact Cap refill is brisk Psych Appearance: grossly normal Affect: normal affect Attitude: cooperative Assessment & Plan Assessment & Plan (1) Trigger finger, left middle finger: Code(s): M65.332 - Trigger finger, left middle finger Category: Medical (2) Stiffness of finger joint of left hand: Code(s): M25.642 - Stiffness of left hand, not elsewhere classified Category: Medical Plan Assessment & Plan: 1. Left middle finger trigger finger, 2. Left middle finger stiffness, S/P trigger release, FDS tenotomy, & PIP joint closed manipulation DOS: 08/19/25 The patient appears to be doing well post-operatively I educated him about the post-operative course I explained the signs and symptoms of infection, if the patient develops any new or worsening erythema, drainage, pain, or warmth they should contact the clinic or attend the ED. I discussed activity modifications, he is to lift nothing heavier than a cellphone for the next 2 weeks. They should also avoid any heavy impact activities, falls, or sports activities for the next 4 weeks We worked on ROM exercises today in clinic He will perform gentle ROM exercises at home, 20X daily for 15-20 seconds at a time. He expressed understanding. He has an OT appointment scheduled for tomorrow, 09/04/25 He should avoid any underwater activities for the next 5 days He should gently massage about the incision site to reduce the risk of hypersensitivity He will follow up in 5-6 weeks for a ROM check 2. Bilateral knee pain & clicking Ambulates with assistive device I recommend he make an appointment with a PA for this 3. He does have intrinsic wasting in both hands. Scribed for Fior Rubalcava MD by Adama Coffman, chief medical director, on 09/03/25 at 1:25 PM, EST. Coding Level of Care Code Global (31560) Diagnoses Trigger finger, left middle finger M65.332 Stiffness of finger joint of left hand M25.642
--- OUTSIDE RECORDS SUMMARY | 2025-09-03 15:34 | XMS_ITS | Encounter Summary ---
Author Organization [employer] Address [address] [facility] 7t [place] [address] Care Team Providers Care Chief Revenue Officer Name Role Phone Nguyen Hurst SEO SPECIALIST Primary Care Provider [phone] Lavelle Davenportee PharmD Unavailable [phone] Reason for Referral * Consultation (Routine) - Canceled Specialty Diagnoses / Procedures Referred By Contac t Referred To Contact Pharmacy Diagnoses Type 2 diabetes mellitus with stage 3 chronic kidney disease, with long-term current use of insulin, unspecified whether stage 3a or 3b CKD (HCC) Elba Jackson MD [address] [place] [address] Phone: tel: fax: Referral ID Status Reason Start Date Expiration Date V isits Requested Visits Authorized [id number] Canceled Consult and Treat 02/26/2025 02/26/2026 6 6 Encounter Details Date Type Department Care Team (Late st Contact Info) Description 02/26/2025 Orders Only [facility] MEDICINE [address] [place], [place] [phone] Elba Jackson MD [address] [place], [place] [phone] Type 2 diabetes mellitus with stage 3 [...] Team (Late st Contact Info) Description 10/07/2025 1:00 PM EST Medication Management [facility]INE [address] [place] [phone] Kim Davenport, PharmD [address] [place] [address] 10/15/2025 10:15 AM EST Office Visit [facility] [address] [place] [phone] Name, MD Leno [address] [place] [address] Scheduled Referrals Name Type Priority Associated Diagnoses [...] unspecified whether stage 3a or 3b CKD (HCC)- Primary documented in this encounter Additional Health Concerns Assessment Noted Time PHQ-9 Depression Total Score: 0 11/30/19 1:53 PM EST documented as of this encounter Care Teams Chief Revenue Officer Relationship Specialty Start Date End Date Nguyen Hurst FNP [address] [place] [address] PCP - General Family Medicine 07/01/22 Kim Davenport PharmD [address] [place] [address] Pharmacist Internal Medicine 12/10/24 Hortensia GOODE 11/08/24 Britney Benitez Accounting ConsultantApplied Researcher 05/29/25 documented as of this encounter
--- OUTSIDE RECORDS SUMMARY | 2025-09-03 15:34 | XMS_ITS | Encounter Summary ---
Author Organization [employer] Address [address] [facility] [address] [place] [address] Care Team Providers Care Medical Information Officer Name Role Phone Nguyen Hurst [facility] Primary Care Provider [phone] Kim Davenport PharmD Unavailable [phone] Reason for Visit * Reason Onset Date Comments VNA services 01/09/2025 Encounter Details Date Type Department Care Team (Late st Contact Info) Description 01/09/2025 Telephone [facility] MEDICINE [address] [place], [place] [phone] Nguyen Hurst [facility] [address] [place], [place] [phone] VNA services Social History Tobacco Use Types [...] 01/09/2025 12:17 PM EST TC placed to [facility] [phone] in regards to below message. RN was informed patient was discharged from [facility] in regards to PT and OT on 01/01/25 PT and senior care on 01/03/25 d/t meeting all goals and being independent. [facility] confirms the patient cannot become re-established at this time d/t recent discharge d/t goals being met. TC placed to patient [phone] to inform of above message. Patient is upset, states he wants services back. Patient reports he does not feel anything has improved. RN advised patient per [facility] patient has met goals however patient does not feel that is accurate. Sending to PCP as FYI and recommendations on POC. * Telephone Encounter - Melissa Banks - 01/09/2025 11:57 AM EST Tc from pt requesting orders for nurse visiting and physical therapy. Any questions contact pt [phone] (dutch) documented in this encounter Plan of Treatment Upcoming Encounters Date Type Department Care Team (Late st Contact Info) Description 10/07/2025 1:00 PM EST Medication Management [facility] [place] [address] Kim Davenport PharmD [facility] [place] [address] 10/15/2025 10:15 AM EST Office Visit [address] [place] [address] Name, MD Leno [facility] [place] [address] documented as of this encounter Visit Diagnoses Not on filedocumented in this encounter Additional Health Concerns Assessment Noted Time PHQ-9 Depression Total Score: 0 11/30/19 1:53 PM EST documented as of this encounter Care Teams Medical Information Officer Relationship Specialty Start Date End Date ArisN[place] [address] PCP - General Family Medicine 07/01/22 Kim Davenport, Bridgett [address] [place] [phone] Pharmacist Internal Medicine 12/10/24 Hortensia GOODE 11/08/24 Britney Benitez Electronics Engineering ProfessorCtc Operator 05/29/25 documented as of this encounter
--- OUTSIDE RECORDS SUMMARY | 2025-09-03 15:34 | XMS_ITS | Clinical Summary ---
Author Organization [facility] Address [address] [place] [address] Care Team Providers Care Art Installer Name Role Phone [facility] Primary Care Provider [phone] Allergies Active Allergy Reactions Criticality Noted Date [...] propionate (FLONASE) 50 mcg/actuation nasal spray SMARTSI [place](s) Both Nares Twice Daily Active INSULIN ASPART [...] patient's age to complete this topic Insurance [employer] Care Teams Art Installer Relationship Specialty Start Date End Date [facility] [address] [place] [phone] PCP - General 06/29/24
--- OUTSIDE RECORDS SUMMARY | 2025-09-03 15:34 | XMS_ITS | Encounter Summary ---
Author Organization [facility] Address [address] [address] Phone Care Team Providers Care Market Development Analyst Name Role Phone Ellie Shanks Primary Care Provider Unavaila ble Encounter Details Date Type Department Care Team ([facility] Contact Info) Description 08/30/2025 Orders Only [facility] [address] [place] [address] Chris King MD [address] [address] Stage 3a chronic kidney disease (HCC); Renal osteodystrophy; Type 2 diabetes mellitus with diabetic chronic kidney disease (HCC) Social History Tobacco Use Types Packs/Day Years Used Date Smoking Tobacco: Every Day Cigarettes Alcohol Use Standard Drinks/Week Comments Not Currently 0 (1 standard drink = 0.6 oz pur e alcohol) Sex and Gender Information Value Date Recorded Sex Assigned at Not on file Legal Sex Male 4:42 PM EST Gender Identity Not on file Sexual Orientation Not on file documented as of this encounter Plan of Treatment Upcoming Encounters Date Type Department Care Team (Late Contact Info) Description 10/07/2025 1:45 PM EST Office Visit [facility] [address] [place] [address] Chris King MD [address] [address] documented as of this encounter Visit Diagnoses Diagnosis Stage 3a chronic kidney disease (HCC) Renal osteodystrophy Type 2 diabetes mellitus with diabetic chronic kidney disease (HCC) documented in this encounter Care Teams Market Development Analyst Relationship Specialty Start Date End Date Ellie Shanks PCP - General Internal Medicine 07/03/21 documented as of this encounter
--- OUTSIDE RECORDS SUMMARY | 2025-09-03 15:34 | XMS_ITS | Encounter Summary ---
Author Organization [employer] Address [address] [facility] [address] [place] [address] Care Team Providers Care Employment Instructional Associate Name Role Phone Nguyen Hurst [facility] Primary Care Provider [phone] IssacKim PharmD Unavailable [phone] Reason for Visit * Reason Comments Med Refill Encounter Details Date Type Department Care Team ([facility] st Contact Info) Description 06/04/2025 Refill [facility] MEDICINE [address] [place], [place] [phone] Nguyen Hurst [facility] [address] [place] [address] Social History Tobacco Use Types Packs/Day Years [...] Description 10/07/2025 1:00 PM EST Medication Management [facility] MEDICINE [address] [place] [phone] Kim Davenport PharmD [address] [place] [phone] 10/15/2025 10:15 AM EST Office Visit [facility] MEDICINE [address] [place] [phone] Name, MD Leno [address] [place] [address] documented as of this encounter Visit Diagnoses Not on filedocumented in this encounter Additional Health Concerns Assessment Noted Time PHQ-9 Depression Total Score: 0 11/30/19 25 1:53 PM EST documented as of this encounter Care Teams Employment Instructional Associate Relationship Specialty Start Date End Date Massena Nguyen [facility] [address] [place] [address] PCP - General Family Medicine 07/01/22 Kim Davenport PharmD [address] [place] [address] Pharmacist Internal Medicine 12/10/24 Hortensia GOODE 11/08/24 Britney Benitez System Developer Associate ManagerWashhouse Worker 05/29/25 documented as of this encounter
--- OUTSIDE RECORDS SUMMARY | 2025-09-03 15:34 | XMS_ITS | Clinical Summary ---
Author Organization [facility] Address [address] [address] Phone Care Team Providers Care Building Dismantler Name Role Phone Dimitris, Celegene Primary Care [...] Incorporate grounding techniques into daily routine c. Ballard his brother's life by doing activities in [...] Encounters Date Type Department Care Team Description 08/30/2025 Orders Only [facility] [address] [place] [address] Chris King MD Stage 3a chronic kidney disease (HCC); Renal [...] Visit [facility] [address] [place] [address] Chris King MD [address] [facility] [address] [place] [address] Health Maintenance Due Date Last Done [...] age to complete this topic Insurance Medicaid [place] , [place] [address] Care Teams Building Dismantler Relationship Specialty Start Date End Date Ellie Shanks PCP - General Internal Medicine 07/03/21
--- OUTSIDE RECORDS SUMMARY | 2025-09-03 15:34 | XMS_ITS | Encounter Summary ---
Author Organization [employer] Address 75 [facility] 7t [place] [address] Care Team Providers Care Claims Investigator Name Role Phone Nguyen Hurst BUSINESS SYSTEMS ADMINISTRATOR Primary Care Provider [phone] Kim Davenport PharmD Unavailable [phone] Reason for Visit * Reason Onset Date Comments Call Back Request 07/11/2024 Encounter Details Date Type Department Care Team ([facility] st Contact Info) Description 07/11/2024 Telephone [facility] MED[facility]INE 230 [place], [place] [phone] Nguyen Hurst [facility] 230 [place], [place] [phone] Call Back Request Social History Tobacco Use [...] get themedical records faxed to Urology in [place] fha underwriter did attempt to transfer however patient stated was just talking with them was told to speak with provider documented in this encounter Plan of Treatment Upcoming Encounters Date Type Department Care Team (Late st Contact Info) Description 10/07/2025 1:00 PM EST Medication Management [facility] MED[facility]INE [address] [place] [address] Kim Davenport, EmelynD [address] [place] [address] 10/15/2025 10:15 AM EST Office Visit [facility] [address] [place] [address] Name, MD Leno [address] [place] [address] documented as of this encounter Visit Diagnoses Not on filedocumented in this encounter Additional Health Concerns Assessment Noted Time PHQ-9 Depression Total Score: 0 07/04/20 24 3:20 PM EDT documented as of this encounter Care Teams Claims Investigator Relationship Specialty Start Date End Date Nguyen Hurst FNP [address] [place] [address] PCP - General Family Medicine 07/01/22 Kim Davenport, Bridgett [address] [place] [address] Pharmacist Internal Medicine 12/10/24 Hortensia GOODE 11/08/24 Britney Benitez Wealth Management ConsultantGeneral Lot Attendant 05/29/25 documented as of this encounter
--- OUTSIDE RECORDS SUMMARY | 2025-09-03 15:35 | XMS_ITS | Encounter Summary ---
Author Organization [employer] Address 75 [facility] 7t [place] [address] Care Team Providers Care Financial Services Technician Name Role Phone Aris Nguyen COUNSELOR MARRIAGE AND FAMILY Primary Care Provider [phone] Kim Davenport PharmD Unavailable [phone] Reason for Visit * Reason Onset Date Comments Change PCP 08/26/2025 Encounter Details Date Type Department Care Team ([facility] st Contact Info) Description 08/26/2025 Telephone [facility] MED[facility]INE 230 [place], [place] [phone] Nguyen [address]st [facility] 230 [place], [place] [phone] Change PCP Social History Tobacco Use Types Packs/Day Years [...] encounter Miscellaneous Notes * Telephone Encounter - Sharon Li - 08/26/2025 1:31 PM EDT Tc from pt requesting a call back to discuss pcp transfer . Contact pt at [phone] documented in this encounter Plan of Treatment Upcoming Encounters Date Type Department Care Team (Late st Contact Info) Description 10/07/2025 1:00 PM EST Medication Management [facility] MED[facility]INE [address] [place] [address] Kim Davenport, EmelynD [address] [place] [address] 10/15/2025 10:15 AM EST Office Visit [facility] MED[facility] [address] [place] [address] Name, MD Leno [address] [place] [address] documented as of this encounter Visit Diagnoses Not on filedocumented in this encounter Additional Health Concerns Assessment Noted Time PHQ-9 Depression Total Score: 0 11/30/19 25 1:53 PM EST documented as of this encounter Care Teams Financial Services Technician Relationship Specialty Start Date End Date Nguyen Hurst FNP [address] [place] [address] PCP - General Family Medicine 07/01/22 Kim Davenport PharmD [address] [place] [address] Pharmacist Internal Medicine 12/10/24 Hortensia GOODE 11/08/24 Britney Benitez Retail Custodial AssociateBullet Casting Operator 05/29/25 documented as of this encounter
--- OUTSIDE RECORDS SUMMARY | 2025-09-03 15:35 | XMS_ITS | Encounter Summary ---
Author Organization [employer] Address 75 [facility] 7t [place] [address] Care Team Providers Care Clinical Neuropsychologist Name Role Phone Nguyen Hurst AUCTIONEER TOBACCO Primary Care Provider [phone] Kim Davenport PharmD Unavailable [phone] Reason for Visit * Reason Onset Date Comments FYI 11/13/2024 Encounter Details Date Type Department Care Team ([facility] st Contact Info) Description 11/13/2024 Telephone [facility]INE 230 [place], [place] [phone] Nguyen Hurst [facility] 230 [place], [place] [phone] FYI Social History Tobacco Use Types Packs/Day [...] 1:39 PM EST Tc from [place] with [facility] stating Pt has not had a Bowl movement since the 11/07. Pt has not had not had any discomfort, Positive Bowl Sounds , Abdomen is Soft, Passing Gas and hasn't taken any meds for it. If any questions you can Contact Roberth at [phone] documented in this encounter Plan of Treatment Upcoming Encounters Date Type Department Care Team (Late st Contact Info) Description 10/07/2025 1:00 PM EST Medication Management [facility] MED[facility]INE [address] [place] [address] Kim Davenport, PharmD 230 [place] [address] 10/15/2025 10:15 AM EST Office Visit [facility] MED[facility]INE [address] [place] [address] Name, MD Leno 230 [place] [address] documented as of this encounter Visit Diagnoses Not on filedocumented in this encounter Additional Health Concerns Assessment Noted Time PHQ-9 Depression Total Score: 0 07/04/20 24 3:20 PM EDT documented as of this encounter Care Teams Clinical Neuropsychologist Relationship Specialty Start Date End Date Nguyen Hurst, AUCTIONEER TOBACCO 230 [place] [address] PCP - General Family Medicine 07/01/22 Kim Davenport PharmD 230 [place] [address] Pharmacist Internal Medicine 12/10/24 Hortensia GOODE 11/08/24 Britney Benitez CoilerBook Canvasser 05/29/25 documented as of this encounter
--- OUTSIDE RECORDS SUMMARY | 2025-09-03 15:35 | XMS_ITS | Encounter Summary ---
Author Organization [employer] Address 75 [facility] 7t [place] [address] Care Team Providers Care Acquisitions Analyst Name Role Phone Nguyen Hurst PLAYER SERVICES REPRESENTATIVE Primary Care Provider [phone] DavenportKim henao PharmD Unavailable [phone] Reason for Referral * Consultation (Routine) - Authorized Specialty Diagnoses / Procedures Referred By Pedro t Referred To Contact Pharmacy Diagnoses Type 2 diabetes mellitus with stage 3 chronic kidney disease, with long-term current use of insulin, unspecified whether stage 3a or 3b CKD (HCC) Elba Jackson MD 230 [place] [address] Phone: tel: fax: Referral ID Status Reason Start Date Expiration Date Visits Requested Visits Authorized [id number] Authorized Consult and Treat 12/04/2024 12/04/2025 6 6 Encounter Details Date Type Department Care Team (Late st Contact Info) Description 12/04/2024 Orders Only [facility] MEDICINE [address] [place] [address] [phone] Elba Jackson MD [address] [place] [address] [phone] Type 2 diabetes mellitus with stage 3 [...] Description 10/07/2025 1:00 PM EST Medication Management [facility] [address] [place] [address] Kim Davenport, PharmD [address] [place] [address] 10/15/2025 10:15 AM EST Office Visit [facility] [address] [place] [address] Name, MD Leno [address] [place] [address] Scheduled Referrals Name Type Priority Associated Diagnoses [...] documented as of this encounter Care Teams Acquisitions Analyst Relationship Specialty Start Date End Date Bowling GreenNguyen FNP 230 [place] [address] PCP - General Family Medicine 07/01/22 Kim Davenport PharmD 230 [place] [address] Pharmacist Internal Medicine 12/10/24 Hortensia GOODE 11/08/24 Britney Benitez Project BuyerSoftware Release Manager 05/29/25 documented as of this encounter
--- OUTSIDE RECORDS SUMMARY | 2025-09-03 15:35 | XMS_ITS | Encounter Summary ---
Author Organization [employer] [facility] Address 75 [facility] 7t [place] [address] Care Team Providers Care Head Of Data Name Role Phone Nguyen Hurst [facility] Primary Care Provider [phone] Kim Davenport PharmD Unavailable [phone] Encounter Details Date Type Department Care Team (Late st Contact Info) Description 06/24/[address] [address] Nguyen Hurst [facility] 230 [place] [address] Social History Tobacco Use Types Packs/Day Years [...] Description 10/07/2025 1:00 PM EST Medication Management [address] [address] Kim Davenport, PharmD 230 [place] [address] 10/15/2025 10:15 AM EST Office Visit [address] [address] Name, MD Leno [address] [place] [address] documented as of this encounter Visit Diagnoses Not on filedocumented in this encounter Care Teams Head Of Data Relationship Specialty Start Date End Date Nguyen Hurst FNP 230 [place] [address] PCP - General Family Medicine 07/01/22 Kim Davenport PharmD 230 [place] [address] Pharmacist Internal Medicine 12/10/24 Hortensia GOODE 11/08/24 Britney Benitez Hydraulic Lift DriverCycle Liaison 05/29/25 documented as of this encounter
--- OUTSIDE RECORDS SUMMARY | 2025-09-03 15:35 | XMS_ITS | Encounter Summary ---
Author Organization [employer] [facility] Address 75 [facility] 7t [place] [address] Care Team Providers Care Fire Hose Curer Name Role Phone Aris Nguyen TRANSACTION PROCESSOR Primary Care Provider [phone] Kim Davenport PharmD Unavailable [phone] Encounter Details Date Type Department Care Team (Late st Contact Info) Description 03/18/2023 Orders Only [facility] MEDICINE [address] [place] [address] Tracee Cabrera LPN Social History Tobacco Use [...] Description 10/07/2025 1:00 PM EST Medication Management [address] [address] Kim Davenport, PharmD 230 [place] [address] 10/15/2025 10:15 AM EST Office Visit [facility] MED[facility]INE [address] [place] [address] Name, MD Leno [address] [place] [address] documented as of this encounter Visit Diagnoses Not on filedocumented in this encounter Care Teams Fire Hose Curer Relationship Specialty Start Date End Date Nguyen Hurst FNP [address] [place] [address] [place] [address] PCP - General Family Medicine 07/01/22 Kim Davenport PharmD 230 [place] [address] Pharmacist Internal Medicine 12/10/24 Hortensia GOODE 11/08/24 Britney Benitez Log Raft WorkerComposite Engineer 05/29/25 documented as of this encounter
--- OUTSIDE RECORDS SUMMARY | 2025-09-03 15:35 | XMS_ITS | Encounter Summary ---
Author Organization [employer] Address 75 [facility] 7t [place] [address] Care Team Providers Care Managing Consultant Clinical Professor Name Role Phone Nguyen Hurst [facility] Primary Care Provider [phone] Issac Kim PharmD Unavailable [phone] Reason for Visit * Reason Onset Date Comments Nurse Triage 11/02/2024 Encounter Details Date Type Department Care Team ([facility] st Contact Info) Description 11/02/2024 Telephone [facility] MEDICINE 230 [place], [place] [phone] Nguyen Hurst [facility] 230 [place], [place] [phone] Nurse Triage Social History Tobacco Use Types [...] 12:14 PM EST TC placed to patient [phone] to inform patient, sensors will be ready at the pharmacy for p/u in approx 1 hour. RN also inquired on patients plan to come to [facility] or ED for his dizziness however patient became very upset. Patient reports he is not coming to the walk in [place] because it is not safe for him [...] dizziness. Patient reports that he spoke to [place] yesterday and is seeking medication for dizziness to be ableto get to appt. Dizziness is worse in the morning. No loss of vision no ear pain or fainting. Patient able to make all needs known. Wants medication for dizziness. Prescribing over the phone discussed and reinforced patient needs to be seen in [facility] or in ED for this concern. Patient [...] Description 10/07/2025 1:00 PM EST Medication Management [facility] MEDICINE 230 [place], [place] [phone] Kim Davenport, PharmD 230 [place], [place] [phone] 10/15/2025 10:15 AM EST Office Visit [facility] MEDICINE 230 [facility] [address] Name, MD Leno [address] [facility] [place] [address] documented as of this encounter Visit Diagnoses Not on filedocumented in this encounter Additional Health Concerns Assessment Noted Time PHQ-9 Depression Total Score: 0 07/04/20 3:20 PM EDT documented as of this encounter Care Teams Managing Consultant Clinical Professor Relationship Specialty Start Date End Date gNuyen Hurst FNP [address] [facility] [place] [address] PCP - General Family Medicine 07/01/22 Kim Davenport PharmD 230 [place] [address] Pharmacist Internal Medicine 12/10/24 Hortensia GOODE 11/08/24 Britney Benitez Tester Vibrator EquipmentTruck Rental Manager 05/29/25 documented as of this encounter
--- OUTSIDE RECORDS SUMMARY | 2025-09-03 15:35 | XMS_ITS | Encounter Summary ---
Author Organization [employer] Address 75 [facility] 7t [place] [address] Care Team Providers Care Business Process Coordinator Name Role Phone Nguyen Hurst PATIENT SAFETY MANAGER Primary Care Provider Issac Kim PharmD Unavailable [phone] Reason for Visit * Reason Onset Date Comments snap on denture referral 06/21/2024 appt 06/21/2024 Encounter Details Date Type Department Care Team ([facility] st Contact Info) Description 06/21/2024 Telephone [facility] D[facility]AL 230 [place], [place] [phone] Brian Cosby DDS 230 [place], [place] [phone] snap on denture referral; appt Social History [...] Description 10/07/2025 1:00 PM EST Medication Management [facility] MEDICINE [address] [place] [address] Kim Davenport, PharmD [address] [place] [address] 10/15/2025 10:15 AM EST Office Visit [facility] MEDICINE [address] [place] [address] Name, MD Leno [address] [place] [address] documented as of this encounter Visit Diagnoses Not on filedocumented in this encounter Additional Health Concerns Assessment Noted Time PHQ-9 Depression Total Score: 5 08/02/20 23 10:05 AM EDT documented as of this encounter Care Teams Business Process Coordinator Relationship Specialty Start Date End Date Aris YENIFER Cedillo 230 [place] [address] PCP - General Family Medicine 07/01/22 Kim Davenport PharmD 230 [place] [address] Pharmacist Internal Medicine 12/10/24 Hortensia GOODE 11/08/24 Britney Benitez Carpet LayerTheatre Manager 05/29/25 documented as of this encounter
--- OUTSIDE RECORDS SUMMARY | 2025-09-03 15:35 | XMS_ITS | Encounter Summary ---
Author Organization [employer] Address 75 [facility] 7t [place] [address] Care Team Providers Care Head Well Puller Name Role Phone Nguyen Hurst [facility] Primary Care Provider [phone] DavenportKim henao PharmD Unavailable [phone] Reason for Visit * Reason Comments Med Refill Encounter Details Date Type Department Care Team ([facility] st Contact Info) Description 06/19/2024 Refill [facility] MEDICINE 230 [place], [place] [phone] Nguyen Hurst [facility] 230 [place], [place] [phone] Social History Tobacco Use Types Packs/Day Years [...] Description 10/07/2025 1:00 PM EST Medication Management [address] [address] Kim Davenport PharmD [address] [place] [address] 10/15/2025 10:15 AM EST Office Visit [address] [address] Name, MD Leno [address] [place] [address] documented as of this encounter Visit Diagnoses Not on filedocumented in this encounter Additional Health Concerns Assessment Noted Time PHQ-9 Depression Total Score: 5 08/02/20 23 10:05 AM EDT documented as of this encounter Care Teams Head Well Puller Relationship Specialty Start Date End Date [place] HarborNguyen FNP [address] [place] [address] PCP - General Family Medicine 07/01/22 Kim Davenport PharmD [address] [place] [address] Pharmacist Internal Medicine 12/10/24 Hortensia GOODE 11/08/24 Britney Benitez Building Services SupervisorPlastic Roller 05/29/25 documented as of this encounter
--- OUTSIDE RECORDS SUMMARY | 2025-09-03 15:35 | XMS_ITS | Encounter Summary ---
Author Organization [employer] Address 75 [facility] 7t [place] [address] Care Team Providers Care Coal Or Ore Controller Name Role Phone Nguyen Hurst CONCRETE STONE FINISHER Primary Care Provider [phone] Kim Davenport PharmD Unavailable [phone] Reason for Referral * Consultation (Routine) - Authorized Specialty Diagnoses / Procedures Referred By Pedro pugh Referred To Contact Pharmacy Diagnoses Hypertension Olga Brown MD 230 [place] [address] Phone: tel: fax: Referral ID Status Reason Start Date Expiration Date Visits Requested Visits Authorized [id number] Authorized Continuity of Care 04/08/2025 04/08/2026 6 6 Encounter Details Date Type Department Care Team (Late st Contact Info) Description 04/05/2025 Orders Only [facility] MEDICINE 230 [place], [place] [phone] Olga Brown MD 230 [place], [place] [phone] Hypertension (Primary Dx) Social History Tobacco Use [...] Description 10/07/2025 1:00 PM EST Medication Management [address] [address] Kim Davenport, PharmD [address] [place] [address] 10/15/2025 10:15 AM EST Office Visit [facility] MEDICINE [address] [place] [address] Name, MD Leno [address] [place] [address] Scheduled Referrals Name Type Priority Associated Diagnoses Orde r Schedule Referral to Pharmacy MTM Outpatient Referral Routine Hypertension Ordered: 04/08/2025 documented as of this encounter Visit Diagnoses Diagnosis Hypertension- Primary Unspecified essential hypertension documented in this encounter Additional Health Concerns Assessment Noted Time PHQ-9 Depression Total Score: 0 11/30/19 1:53 PM EST documented as of this encounter Care Teams Coal Or Ore Controller Relationship Specialty Start Date End Date Nguyen HurstYENIFER 230 [place] [address] PCP - General Family Medicine 07/01/22 Kim Davenport PharmD 230 [place] [address] Pharmacist Internal Medicine 12/10/24 Hortensia GOODE 11/08/24 Britney Benitez BalerVeterinary Medical Officer 05/29/25 documented as of this encounter
--- OUTSIDE RECORDS SUMMARY | 2025-09-03 15:35 | XMS_ITS | Encounter Summary ---
Author Organization [employer] Address 75 [facility] 7t [place] [address] Care Team Providers Care Generator Mechanic Name Role Phone Nguyen Hurst PROGRAM ARRANGER Primary Care Provider [phone] Kim Davenport PharmD Unavailable [phone] Reason for Visit * Reason Onset Date Comments Nurse Triage 02/27/2025 Encounter Details Date Type Department Care Team ([facility] st Contact Info) Description 02/27/2025 Telephone [facility] MEDICINE 230 [place], [place] [phone] Nguyen Hurst [facility] 230 [place], [place] [phone] Nurse Triage Social History Tobacco Use Types [...] due to work. ASK apt 03/06/25 with [employer] IN[employer]. Pt agrees with disposition and insurance [...] for Pain * Telephone Encounter - Melissa Vasquezjesus Darren - 02/27/2025 3:57 PM EDT Symptom: Middle finger won't straighten - Not From Injury Outcome: Schedule an urgent appointment (within 1 hour) or talk to a nurse or provider soon Reason: Can't use the finger normally The caller accepted this outcome. [phone] documented in this encounter Plan of Treatment Upcoming Encounters Date Type Department Care Team (Late st Contact Info) Description 10/07/2025 1:00 PM EST Medication Management [facility] [place] [address] Kim Davenport PharmD [facility] [place] [address] 10/15/2025 10:15 AM EST Office Visit [facility] [place] [address] Name, MD Leno [address] [facility] [place] [address] documented as of this encounter Visit Diagnoses Not on filedocumented in this encounter Additional Health Concerns Assessment Noted Time PHQ-9 Depression Total Score: 0 11/30/19 25 1:53 PM EST documented as of this encounter Care Teams Generator Mechanic Relationship Specialty Start Date End Date [facility], [facility] [place] [address] PCP - General Family Medicine 07/01/22 Kim Davenport PharmD [facility] [place] [phone] Pharmacist Internal Medicine 12/10/24 Hortensia GOODE 11/08/24 Britney Benitez Hemmer AutomaticElectrical Power Station Technician 05/29/25 documented as of this encounter
--- OUTSIDE RECORDS SUMMARY | 2025-09-03 15:35 | XMS_ITS | Clinical Summary ---
Author Organization [address] [facility] Address [address] [place] [address] Phone Care Team Providers Care Long Distance Operator Name Role Phone Ellie Shanks MD [...] Problem Noted Date Diagnosed Date Diabetes mellitus ([facility] V24, [facility] V28) Alcoholism ([facility] V24, [facility] V28) 02/18/2022 Back ache 02/18/2022 CVA (cerebral vascular accident) ([facility] V24, C ID/[facility] V28) 02/18/2022 Epilepsy ([facility] [place], [facility] V28) 02/18/2022 Erectile dysfunction 02/18/2022 Hyperlipidemia 02/18/2022 Hypertension 02/18/2022 Tinea pedis 02/18/2022 Redundant prepuce 02/18/2022 Osteomyelitis of foot ([facility] [place], [facility] 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/2011 Surgical History Surgery Date Site/Laterality Comments FOOT SURGERY 2009 PROCEDURE: HISTORICAL FOOT SURGERY; COMMENT: Right foot infection BACK SURGERY 1984 PROCEDURE: HISTORICAL BACK SURGERY; COMMENT: low back Medical History Medical History Date Comments CVA (cerebral vascular accid ent) ([facility] [place], [facility] V28) 02/18/2022 DX:CVA (cerebral vascular a ccident) ([facility]) Hypertension 02/18/2022 DX:Hypertension Erectile dysfunction 02/18/2022 DX:Erectile dysfunction Redundant prepuce 02/18/2022 DX:Redundant p repuce Hyperlipidemia 02/18/2022 DX:Hyperlipidemi a Epilepsy ([facility] [place], [facility] V28) 02/18/2022 DX:Epilepsy ([facility]) Social History Tobacco Use Types [...] Date Last Done Comments Colorectal Cancer Screening: Colonoscopy 1965 Diabetes: Annual Foot Exam 1975 Diabetes: Annual Retina Eye Exam 1975 Hepatitis A Vaccines (1 of 2 - Risk 2-dose series) 02/22/1984 Hepatitis C Screening 10/31/2022 Social Influencers of Health Screening 10/31/2022 Diabetes: Annual Urine Albumin-Creatinine Ratio (uACR) 11/11/2022 Depression Screening 11/28/2024 RSV Immunization Adult Patients (1 - Risk 60-74 years 1-dose series) 2025 Influenza Vaccine (#1) 2025 11/03/2024, 2012 Zoster Vaccines (2 of 2) 09/11/2025 07/17/2025 Diabetes: Blood Sugar Control Test (HGBA1C) 01/12/2026 07/12/2025, 04/01/2025, 07/04/2024, Additional history exists Diabetes: Annual GFR (Glomerular Filtration Rate) 04/11/2026 04/11/2025, 03/15/2024 Hypertension/CHF/CAD Annual BMP Blood Test 04/11/2026 04/11/2025, 03/15/2024 Cholesterol Screening (Lipid Panel) 07/07/2028 07/07/2023, 07/07/2023 DTaP,Tdap,and Td Vaccines (3 - Td or Tdap) 04/09/2032 04/09/2022, 08/15/2012 HIV Screening Completed 03/15/2024, 03/15/2024 COVID-19 Vaccine Completed 12/10/2024, , 04/15/2021, Additional history exists Pneumococcal Vaccine: 50+ Years Completed 07/12/2025 HIB Vaccines Aged Out No longer eligi [...] Results * Annual BMP Blood Test (03/15/2024) Annual BMP Blood Test Abstracted [facility] Provider MD HEALTH MAINTENANCE Final Result * HIV Screening (03/15/2024) Pathologist [facility] HIV Screening Abstracted [facility] Provider MD HEALTH MAINTENANCE Final Result * Hemoglobin A1c (03/15/2024) Pathologist [facility] Hemoglobin A1C 0.0 % Comment:No interpretation, A bstracted Blood Venous blood specimen / Unknown [facility] Provider MD LAB BLOOD ORDERABLES Rima l Result * Lipid panel (07/07/2023) LDL/HDL Ratio 0 Comment:Abstracted Triglycerides 0 mg/dL Comment:Abstracted Cholesterol 0 mg/dL Comment:Abstracted HDL 0 mg/dL Comment:Abstracted LDL Cholesterol 0 mg/dL Comment:Abstracted Blood Venous blood specimen / Unknown [facility] Provider LAB BLOOD ORDERABLES Rima l Result from Last 3 Months or Most Recently Relevant to Health Maintenance Insurance [place] Care Teams Long Distance Operator Relationship Specialty Start Date End Date Ellie Shanks MD [address] [place] [phone] PCP - General Internal Medicine 02/04/22
--- OUTSIDE RECORDS SUMMARY | 2025-09-03 15:35 | XMS_ITS | Encounter Summary ---
Author Organization [employer] Address [address] [facility] [address] [place] [address] Care Team Providers Care Banking Services Clerk Name Role Phone Nguyen Hurst [facility] Primary Care Provider [phone] IssacKim PharmD Unavailable [phone] Encounter Details Date Type Department Care Team (Late st Contact Info) Description 08/27/2025 Telephone [facility] [address], [place] [phone] Nguyen Hurst [facility] [address] [place], [place] [phone] Social History Tobacco Use Types Packs/Day Years [...] encounter Miscellaneous Notes * Telephone Encounter - Tiffanie Abraham - 08/27/2025 10:10 AM EDT Tc from pt stating that he need a new doctor. Pt stated e does not want to speak with Nurys; he wants to speak with ???whoever is the senior control systems engineer?? because, according to the patient, Nurys never called him, and he wants a doctor ???for today.?? documented in this encounter Plan of Treatment Upcoming Encounters Date Type Department Care Team (Late st Contact Info) Description 10/07/2025 1:00 PM EST Medication Management [facility] [address] [place] [phone] Kim Davenport, PharmD [address] [place] [phone] 10/15/2025 10:15 AM EST Office Visit [facility] [address] [place] [phone] Name, MD Leno [address] [place] [phone] documented as of this encounter Visit Diagnoses Not on filedocumented in this encounter Additional Health Concerns Assessment Noted Time PHQ-9 Depression Total Score: 0 11/30/19 25 1:53 PM EST documented as of this encounter Care Teams Banking Services Clerk Relationship Specialty Start Date End Date Nguyen Hurst [facility] [address] [place] [address] PCP - General Family Medicine 07/01/22 Kim Davenport PharmD [address] [place] [address] Pharmacist Internal Medicine 12/10/24 Hortensia GOODE 11/08/24 Britney Benitez Asphalt Paving SuperintendentEmail Production Consultant 05/29/25 documented as of this encounter
--- OUTSIDE RECORDS SUMMARY | 2025-09-03 15:35 | XMS_ITS | Encounter Summary ---
Author Organization [employer] Address [address] [facility] [address] [place] [address] Care Team Providers Care Vegetable Tier Name Role Phone Nguyen Hurst [employer] Primary Care Provider [phone] Kim Davenport PharmD Unavailable [phone] Reason for Visit * Reason Comments Med Refill Encounter Details Date Type Department Care Team (Late st Contact Info) Description 06/15/2023 Refill [facility] [address] [place] [phone] Ruthy Martinez FNP [address] [place], [place] [phone] Social History Tobacco Use Types Packs/Day Years [...] Description 10/07/2025 1:00 PM EST Medication Management [facility] [address] [place] [phone] Kim Davenport, PharmD [address] [place] [address] 10/15/2025 10:15 AM EST Office Visit [facility] [address] [place] [phone] Name, MD Leno [address] [place] [phone] documented as of this encounter Visit Diagnoses Not on filedocumented in this encounter Care Teams Vegetable Tier Relationship Specialty Start Date End Date Aris Nguyen, YENIFER [address] [place] [address] PCP - General Family Medicine 07/01/22 Kim Davenport PharmD [address] [place] [address] Pharmacist Internal Medicine 12/10/24 Hortensia GOODE 11/08/24 Britney Benitez Trains Dispatcher SupervisorFloor Mechanic 05/29/25 documented as of this encounter
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
--- OUTSIDE RECORDS SUMMARY | 2025-09-03 15:35 | XMS_ITS | Encounter Summary ---
Author Organization [employer] Address [address] [facility] 7t [place] [address] Care Team Providers Care Media Production Manager Name Role Phone Nguyen Hurst [facility] Primary Care Provider [phone] Kim Davenport PharmD Unavailable [phone] Reason for Visit * Reason Onset Date Comments Referral 06/04/2024 Encounter Details Date Type Department Care Team ([facility] st Contact Info) Description 06/04/2024 Telephone [facility] MEDICINE [address] [place], [place] [phone] Nguyen Hurst [facility] [address] [place], [place] [phone] Referral Social History Tobacco Use Types Packs/Day [...] / denial letter via mail. PT-1 Request [id number] Pending [facility] [address] [place] [phone] * Telephone Encounter - Eliud Oden - 06/12/2024 9:01 AM EDT Tc from patient calling in regards to the message below states [facility] has not received referral statesit could be that [facility] has the patient as Dany Tan * Telephone Encounter - Amarjit Negron - 06/04/2024 9:40 AM EDT Tc from pt requesting status on referral for Urology made on 04/25/24, pt would like referral to [facility] to [facility]. Pt provided documented in this encounter Plan of Treatment Upcoming Encounters Date Type Department Care Team (Late st Contact Info) Description 10/07/2025 1:00 PM EST Medication Management [facility] MEDICINE [address] [place] [phone] Kim Davenport, PharmD [address] [place] [address] 10/15/2025 10:15 AM EST Office Visit [address] [address] Name, MD Leno [address] [place] [address] documented as of this encounter Visit Diagnoses Not on filedocumented in this encounter Additional Health Concerns Assessment Noted Time PHQ-9 Depression Total Score: 5 08/02/20 23 10:05 AM EDT documented as of this encounter Care Teams Media Production Manager Relationship Specialty Start Date End Date [facility] [address] [place] [address] PCP - General Family Medicine 07/01/22 Kim Davenport PharmD [address] [place] [address] Pharmacist Internal Medicine 12/10/24 Hortensia GOODE 11/08/24 Britney Benitez Customer Counter RepresentativePatient Account Analyst 05/29/25 documented as of this encounter
--- OUTSIDE RECORDS SUMMARY | 2025-09-03 15:35 | XMS_ITS | Encounter Summary ---
Author Organization [employer] Address [address] [facility] 7t [place] [address] Care Team Providers Care Rfid Manager Name Role Phone Nguyen Hurst [facility] Primary Care Provider [phone] Kim Davenport PharmD Unavailable [phone] Reason for Visit * Reason Comments Med Refill Encounter Details Date Type Department Care Team ([facility] st Contact Info) Description 05/06/2025 Refill [facility] MEDICINE [address] [place], [place] [phone] Kim Davenport, PharmD [address] [place], [place] [phone] Social History Tobacco Use Types Packs/Day Years [...] Medication Management [facility] MEDICINE [address] [place] [address] Kim Davenport PharmD [address] [place] [phone] 10/15/2025 10:15 AM EST Office Visit [facility]INE [address] [place] [address] Name, MD Leno [address] [place] [address] documented as of this encounter Visit Diagnoses Not on filedocumented in this encounter Additional Health Concerns Assessment Noted Time PHQ-9 Depression Total Score: 0 11/30/19 25 1:53 PM EST documented as of this encounter Care Teams Rfid Manager Relationship Specialty Start Date End Date [place] Nguyen [facility] [address] [place] [address] PCP - General Family Medicine 07/01/22 Kim Davenport PharmD [address] [place] [phone] Pharmacist Internal Medicine 12/10/24 Hortensia GOODE 11/08/24 Britney Benitez Reclamation Furnace OperatorTravel Accommodations Rater 05/29/25 documented as of this encounter
--- OUTSIDE RECORDS SUMMARY | 2025-09-03 15:35 | XMS_ITS | Encounter Summary ---
Author Organization [employer] Address [address] [facility] 7t [place] [address] Care Team Providers Care System Support Technician Name Role Phone Nguyen Hurst [facility] Primary Care Provider [phone] Kim Davenport PharmD Unavailable [phone] Reason for Visit * Reason Onset Date Comments Referral 03/19/2024 Encounter Details Date Type Department Care Team ([facility] st Contact Info) Description 03/19/2024 Telephone [facility] MEDICINE 230 [place], [place] [phone] Nguyen Hurst [facility] [address] [place], [place] [phone] Referral Social History Tobacco Use Types Packs/Day [...] by psychiatrist to seek second opinion at [facility] Urology, as it is causing himpsychological [...] and would like to be seen at [facility] the fax number is [phone] documented in this encounter Plan of Treatment Upcoming Encounters Date Type Department Care Team (Late st Contact Info) Description 10/07/2025 1:00 PM EST Medication Management [facility] MEDICINE [address] [place] [phone] Kim Davenport, EmelynD [address] [place] [address] 10/15/2025 10:15 AM EST Office Visit [address] [address] Name, MD Leno [address] [place] [address] documented as of this encounter Visit Diagnoses Not on filedocumented in this encounter Additional Health Concerns Assessment Noted Time PHQ-9 Depression Total Score: 5 08/02/20 23 10:05 AM EDT documented as of this encounter Care Teams System Support Technician Relationship Specialty Start Date End Date [facility] [address] [place] [phone] PCP - General Family Medicine 07/01/22 Kim Davenport, Bridgett [address] [place] [address] Pharmacist Internal Medicine 12/10/24 Hortensia GOODE 11/08/24 Britney Benitez Bologna MakerArmoured Car Escort 05/29/25 documented as of this encounter
--- OUTSIDE RECORDS SUMMARY | 2025-09-03 15:35 | XMS_ITS | Encounter Summary ---
Author Organization [employer] Address [address] [facility] 7t [place] [address] Care Team Providers Care Roll Filler Name Role Phone Nguyen Hurst [facility] Primary Care Provider [phone] Kim Davenport PharmD Unavailable [phone] Reason for Visit * Reason Onset Date Comments Referral 05/23/2023 Encounter Details Date Type Department Care Team ([facility] Contact Info) Description 05/23/2023 Telephone [facility] MEDICINE [address] [place] [phone] Nguyen Hurst [facility] [address] [place] [address] Referral Social History Tobacco Use Types Packs/Day [...] toe nails. Referrals Date-N/A Time- N/A [place]- [place] [address] Specialty- Podiatry Fax: documented in this encounter Plan of Treatment Upcoming Encounters Date Type Department Care Team ([facility] Contact Info) Description 10/07/2025 1:00 PM EST Medication Management [facility] MEDICINE [address] [place] [address] [place] [address] Kim Davenport PharmD [place] [phone] 10/15/2025 10:15 AM EST Office Visit [facility] [place] [phone] Name, MD Leno [facility] [place], [place] [phone] documented as of this encounter Visit Diagnoses Not on filedocumented in this encounter Care Teams Roll Filler Relationship Specialty Start Date End Date Nguyen Hurst FNP [place] [place], [place] [phone] PCP - General Family Medicine 07/01/22 Kim Davenport PharmD [facility] [place], [place] [phone] Pharmacist Internal Medicine 12/10/24 Hortensia GOODE 11/08/24 Britney Benitez Floor AssociatePlay Writer 05/29/25 documented as of this encounter
--- OUTSIDE RECORDS SUMMARY | 2025-09-03 15:35 | XMS_ITS | Encounter Summary ---
Author Organization [employer] Address [address] [facility] 7t [place] [address] Care Team Providers Care Senior Data Mining Analyst Name Role Phone Nguyen Hurst [facility] Primary Care Provider [phone] IssacKim PharmD Unavailable [phone] Reason for Visit * Reason Comments Med Refill Encounter Details Date Type Department Care Team ([facility] st Contact Info) Description 08/30/2025 Refill [facility] MEDICINE [address] [place], [place] [phone] Nguyen Hurst [facility] [address] [place] [address] Social History Tobacco Use Types Packs/Day Years [...] Description 10/07/2025 1:00 PM EST Medication Management [facility] MEDICINE [address] [place] [address] Kim Davenport PharmD [address] [place] [address] 10/15/2025 10:15 AM EST Office Visit [facility] MEDICINE [address] [place] [address] Name, MD Leno [address] [place] [address] documented as of this encounter Visit Diagnoses Not on filedocumented in this encounter Additional Health Concerns Assessment Noted Time PHQ-9 Depression Total Score: 0 11/30/19 25 1:53 PM EST documented as of this encounter Care Teams Senior Data Mining Analyst Relationship Specialty Start Date End Date [place] Nguyen [facility] [address] [place] [address] PCP - General Family Medicine 07/01/22 Kim Davenport PharmD [address] [place] [address] Pharmacist Internal Medicine 12/10/24 Hortensia GOODE 11/08/24 Britney Benitez Railroad Car InspectorGame Engineer 05/29/25 documented as of this encounter
--- OUTSIDE RECORDS SUMMARY | 2025-09-03 15:35 | XMS_ITS | Encounter Summary ---
Author Organization [employer] Address 75 [facility] 7t [place] [address] Care Team Providers Care Sharepoint Net Developer Name Role Phone Nguyen Hurst RESPIRATORY THERAPY TECHNICIAN Primary Care Provider [phone] Kim Davenport PharmD Unavailable [phone] Reason for Visit * Reason Onset Date Comments Hospital Follow-up 08/20/2025 Encounter Details Date Type Department Care Team (Late st Contact Info) Description 08/20/[address] [facility] MEDICINE [address] [place], [place] [phone] Nguyen Hurst [facility] [address] [place], [place] [phone] Hospital Follow-up Social History Tobacco Use Types Packs/Day Years [...] * Telephone Encounter - Sharon Li - 08/20/2025 8:58 AM EDT Tc from pt requesting a HDF appt. Hospital: [facility] Date of admission: 08/19 Discharge date: 08/19 Diagnosed: same day surgery for trigger finger *Send message to [place] Clinical Care Coordinators Contact pt at [phone] Pt states would like follow up with anyone but [place] documented in this encounter Plan of Treatment Upcoming Encounters Date Type Department Care Team (Late st Contact Info) Description 10/07/2025 1:00 PM EST Medication Management [facility] MEDICINE [address] [place] [address] Kim Davenport, PharmD [address] [place] [address] 10/15/2025 10:15 AM EST Office Visit [facility] MEDICINE [address] [place] [address] Name, MD Leno [address] [place] [address] documented as of this encounter Visit Diagnoses Not on filedocumented in this encounter Additional Health Concerns Assessment Noted Time PHQ-9 Depression Total Score: 0 11/30/19 1:53 PM EST documented as of this encounter Care Teams Sharepoint Net Developer Relationship Specialty Start Date End Date [place], Nguyen, RESPIRATORY THERAPY TECHNICIAN [address] [place] [address] PCP - General Family Medicine 07/01/22 Kim Davenport PharmD [address] [place] [address] Pharmacist Internal Medicine 12/10/24 Hortensia GOODE 11/08/24 Britney Benitez Binder SelectorSolid Waste Technician 05/29/25 documented as of this encounter
== END 2025-09-03 13:34 | disposition home or self-care (01) ==
LOC: HO.HOS 12:45
PROVIDERS: PCP Nurse Practitioner Family; Visit Provider Orthopaedic Surgery
DX: M65.332 Trigger finger, left middle finger (principal); M25.642 Stiffness of left hand, not elsewhere classified
CPT/HCPCS: 99024

== ENCOUNTER → 2025-09-03 12:45 | Outpatient (BNVA) | payer MEDICAID, SELFPAY | PROVIDERS: PCP Nurse Practitioner Family; Visit Provider Orthopaedic Surgery | DX: Z48.02 Encounter for removal of sutures (principal); M65.332 Trigger finger, left middle finger; M25.642 Stiffness of left hand, not elsewhere classified; Z98.890 Other specified postprocedural states | CPT/HCPCS: 99212 ==

== ENCOUNTER 2025-10-07 14:23 | Outpatient (AMB) | payer MEDICAID, SELFPAY ==
--- NOTE | 2025-10-07 14:28 | A.OFFVIS_ITS ---
Vital Signs 10/07/25 14:29 Height 5 ft 9 in Weight 139 lb 12.369 oz BMI 20.6 BP 138/68 Blood Pressure Location Lt brachial Position Sitting Pulse 80 Pulse Source Pulse Oximeter Intake Visit Reasons: 4 mth f/up r/s 09-11-25 Intake Note: 4 Month follow r/s 09-11-25 Accounting Teacher Required: Yes Accounting Teacher Services: Accounting Teacher Present Accounting Teacher Name: Harjit Baum [id number] Accompanied by: Self / Same As Patient Allergies codeine (CODEINE) Allergy (Intermediate, Verified 10/07/25 14:36) HIVES Medication List - Last Reconciled 10/07/25 by Georgi Bernard MD acetaminophen 1,000 mg PO Q4-6H PRN apixaban (Eliquis) 5 mg PO ONCE atorvastatin 40 mg PO BEDTIME cyclobenzaprine 5 mg PO TID PRN dapagliflozin propanediol (Farxiga) 10 mg PO DAILY fludrocortisone 0.1 mg PO DAILY fluticasone propionate 50 mcg/actuation 1 spray intranasal BID hydralazine 10 mg See Protocol PO BEDTIME isosorbide dinitrate 5 mg See Protocol PO BEDTIME meclizine 12.5 mg PO TID PRN sennosides (senna) 8.6 mg PO BEDTIME HPI Comments Details: Dany comes for follow-up. He comes for follow-up after office visit and initiation medications. He was seen by surgery in April in his had no follow-up calls. History was obtained with help of drivematic machine operator. We discussed about the findings of cardiac catheterization and need for further evaluation for revascularization. He said he is aware of it but has not heard back. He continues to have no symptoms. Denies any exertional chest pain. Denies any shortness of breath, orthopnea, PND. No prolonged palpitation, lightheadedness, syncope. He has had difficulty in pursuing more aggressive neurohormonal modulation with his ischemic cardiomyopathy with due to his orthostatic hypotension. He has not had any new neurologic on oral anticoagulation therapy. [facility] Medical History (Updated 10/08/25 @ 17:03 by Georgi Bernard MD) CAD (coronary artery disease) Paresthesia of lower extremity Unstable knee Tinea pedis Stage 3a chronic kidney disease Osteomyelitis, ankle and foot Erectile dysfunction Epilepsy Chronic neck pain Chronic low back pain Body dysmorphic disorder Diabetic foot Complicated grieving Renal osteodystrophy Proteinuria Cerebral infarction Palpitations Hypertensive disorder Hyperlipidemia History of alcoholism Stroke Diabetes CKD (chronic kidney disease) Surgical History Hx of cardiac cath History of implantation of penile prosthesis Previous back surgery (~1993) Social History Household Members: None Housing: Apartment Are you a primary residential caregiver to a significant other at home: No Do you presently have visiting nurse or other home services: No Comment: pt refusing the alarm for safety Patient Tobacco Use Status: Never used Tobacco e-Cigarette/Vaping Use: Never Used Second Hand Smoke Exposure: No Substance Use Type: Marijuana service: No Review of Systems Const Denies daytime sleepiness, Denies difficulty sleeping, Denies snoring, Denies stops breathing during sleep and Denies weakness Card Denies chest pain, Denies rapid heart rate, Denies irregular heart rhythm, Denies claudication, Denies leg edema, Denies lightheadedness, Denies palpitations, Denies dyspnea, Denies dyspnea on exertion, Denies orthopnea, Denies paroxysmal nocturnal dyspnea and Denies slow heart rate Resp Denies cough, Denies dyspnea, Denies dyspnea on exertion and Denies snoring GI Reports no additional complaints, Denies hematochezia, Denies change in stool character and Denies dyspepsia Musc Denies abnormal gait, Denies muscle weakness and Denies numbness Neuro Denies abnormal gait, Denies numbness and Denies weakness Endo Denies palpitations Physical Exam Vital Signs: Last Vital Signs Pulse 80 10/07/25 14:29 BP 138/68 10/07/25 14:29 BMI result Body Mass Index 20.6 Const General: cooperative, comfortable and no acute distress Orientation/consciousness: patient oriented x3 Limitations: ambulation with walker HEENT Head: Yes normal to inspection Neck Neck: Yes normal visual inspection, Yes trachea midline and Yes supple Chest Chest palpation & inspection: normal inspection of the chest Resp Effort & Inspection: normal respiratory effort Auscultation: clear to auscultation bilaterally, no crackles, no rales, no rhonchi and no wheezes Cardio Jugular venous distension: no JVD Palpation: normal PMI Rate: regular rate Rhythm: regular rhythm Heart sounds: S1 normal heart sound present, S2 normal heart sound present, no click, no gallops, no murmurs and no rubs Peripheral pulses: Peripheral pulses 2+ throughout GI Inspection: Yes normal to inspection Palpation (GI): Soft to palpation Auscultation: normal bowel sounds Skin General skin exam: no rashes or lesions noted Neuro General: patient oriented x3 Extrem General: Yes normal to inspection, No no pedal edema and No calf tenderness Psych Appearance: grossly normal Mental Status: mental status grossly normal Assessment & Plan Assessment & Plan (1) Ischemic cardiomyopathy: Code(s): I25.5 - Ischemic cardiomyopathy Category: Medical Plan: Patient with moderately severe LV systolic dysfunction related to ischemic cardiomyopathy related to underlying significant coronary artery disease. Very limited medical therapy at this point time given his orthostatic hypotension. Currently on Farxiga therapy which she is tolerating well. He has no symptoms or signs of congestive heart failure at this point time. Advised to watch for these symptoms. I think he would benefit from revascularization therapy to improve his LV function as well as improve intermediate prognosis. (2) CAD (coronary artery disease): Comment: Severe three-vessel coronary artery disease by cardiac catheterization Code(s): I25.10 - Atherosclerotic heart disease of [place] coronary artery without angina pectoris Category: Medical Plan: CAD with diffuse and significant three-vessel coronary artery disease. He has not heard back from surgical office. Did discuss the case with Dr. Riggs and he is awaiting further testing from neurologic perspective. Given his prior multiple strokes which is suspected to be embolic in nature most likely related to PFO although atherosclerotic disease can not be ruled out. He has not had any recurrent event on current anticoagulation therapy with Eliquis and will continue the same. We discussed about potential and given his risk factors including diffuse atherosclerotic disease to benefit from surgical revascularization given diffuse nature of his three-vessel coronary artery disease. He is going to be re-evaluated by surgical team in the near future. Discussed the risks associated with his multiple prior stroke. If he undergo surgical revascularization would benefit from PFO closure as well. This was discussed with Dr. Riggs any agrees. Will follow with him in 3 months time, sooner PRN. Greater than 40 minutes was spent in managing in his care and coordinating his care Coding Level of Care Code Est Pt Level 5 (98691) Complex EM visit Add On G2211 Diagnoses Ischemic cardiomyopathy I25.5 CAD (coronary artery disease) I25.10
[2025-10-07 14:29] VITALS: BP 138/68; PULSE 80; BMI 20.6
--- OUTSIDE RECORDS SUMMARY | 2025-10-07 16:45 | XMS_ITS | Encounter Summary ---
Author Organization [employer] Address [address] [facility] 7t [place] [address] Care Team Providers Care Materials Planning Analyst Name Role Phone Nguyen Hurst [facility] Primary Care Provider [phone] IssacKim PharmD Unavailable [phone] Reason for Visit * Reason Comments Med Refill Encounter Details Date Type Department Care Team ([facility] st Contact Info) Description 06/04/2025 Refill [facility] MEDICINE [address] [place], [place] [phone] Nguyen Hurst [facility] [address] [place] [address] Social History Tobacco Use Types Packs/Day Years [...] Care Team (Late st Contact Info) Description 10/15/2025 10:15 AM EST Office Visit [facility] [address] [place] [phone] Name, MD Leno [address] [place] [address] 11/15/2025 11:00 AM EST Medication Management [facility] [address] [place] [address] Snehal Santa PharmD [address] [place] [address] documented as of this encounter Visit Diagnoses Not on filedocumented in this encounter Additional Health Concerns Assessment Noted Time PHQ-9 Depression Total Score: 0 11/30/19 25 1:53 PM EST documented as of this encounter Care Teams Materials Planning Analyst Relationship Specialty Start Date End Date Nguyen Hurst FNP [address] [place] [address]31 PCP - General Family Medicine 07/01/22 Kim Davenport, Bridgett [address] [place] [address] 13586 Pharmacist Internal Medicine 12/10/24 Hortensia GOODE 11/08/24 Britney Benitez Quality HeadRoad Builder 05/29/25 documented as of this encounter
--- OUTSIDE RECORDS SUMMARY | 2025-10-07 16:45 | XMS_ITS | Encounter Summary ---
Author Organization [employer] Address [address] [facility] 7t [place] [address] Care Team Providers Care Vertica Architect Name Role Phone Nguyen Hurst UTILITY TECHNICIAN Primary Care Provider [phone] Kim Davenport PharmD Unavailable [phone] Reason for Visit * Reason Onset Date Comments Call Back Request 07/11/2024 Encounter Details Date Type Department Care Team ([facility] st Contact Info) Description 07/11/2024 Telephone [facility] MEDICINE 230 [place], [place] [phone] Nguyen Hurst [facility] 230 [place], [place] [phone] Call Back Request Social History Tobacco Use [...] get themedical records faxed to Urology in [place] justowriter operator did attempt to transfer however patient stated was just talking with them was told to speak with provider documented in this encounter Plan of Treatment Upcoming Encounters Date Type Department Care Team (Late st Contact Info) Description 10/15/2025 10:15 AM EST Office Visit [facility] MEDICINE [address] [place] [address] Name, MD Leno [address] [place] [address] 11/15/2025 11:00 AM EST Medication Management [facility]INE [address] [place] [address] Snehal Santa, PharmD [address] [place] [address] documented as of this encounter Visit Diagnoses Not on filedocumented in this encounter Additional Health Concerns Assessment Noted Time PHQ-9 Depression Total Score: 0 07/04/20 24 3:20 PM EDT documented as of this encounter Care Teams Vertica Architect Relationship Specialty Start Date End Date Nguyen Hurst FNP [address] [place] [address] PCP - General Family Medicine 07/01/22 Kim Davenport, Bridgett [address] [place] [address]49 Pharmacist Internal Medicine 12/10/24 Hortensia GOODE 11/08/24 Britney Benitez Staff Mechanical EngineerLapel Padder Blindstitch 05/29/25 documented as of this encounter
--- OUTSIDE RECORDS SUMMARY | 2025-10-07 16:45 | XMS_ITS | Encounter Summary ---
Author Organization [employer] Address [address] [facility] 7t [place] [address] Care Team Providers Care Hvac Estimator Name Role Phone Nguyen Hurst [facility] Primary Care Provider [phone] DavenportKim henao PharmD Unavailable [phone] Reason for Visit * Reason Comments Med Refill Encounter Details Date Type Department Care Team ([facility] st Contact Info) Description 06/19/2024 Refill [facility] MED[facility]INE 230 [place], [place] [phone] Nguyen Hurst [facility] 230 [place], [place] [phone] Social History Tobacco Use Types Packs/Day Years [...] Description 10/15/2025 10:15 AM EST Office Visit [address] [address] Name, MD Leno [address] [place] [address] 11/15/2025 11:00 AM EST Medication Management [address] [address] Snehal Santa PharmD [address] [place] [address] documented as of this encounter Visit Diagnoses Not on filedocumented in this encounter Additional Health Concerns Assessment Noted Time PHQ-9 Depression Total Score: 5 08/02/20 23 10:05 AM EDT documented as of this encounter Care Teams Hvac Estimator Relationship Specialty Start Date End Date DowningtownNguyen conde FNP [address] [place] [address] PCP - General Family Medicine 07/01/22 Kim Davenport PharmD [address] [place] [address] 19161 Pharmacist Internal Medicine 12/10/24 Hortensia GOODE 11/08/24 Britney Benitez Powerhouse ElectricianPcts 05/29/25 documented as of this encounter
--- OUTSIDE RECORDS SUMMARY | 2025-10-07 16:45 | XMS_ITS | Encounter Summary ---
Author Organization [employer] Address [address] [facility] 7t [place] [address] Care Team Providers Care Welding Inspector Name Role Phone Nguyen Hurst [facility] Primary Care Provider [phone] Kim Davenport PharmD Unavailable [phone] Reason for Visit * Reason Onset Date Comments Nurse Triage 11/02/2024 Encounter Details Date Type Department Care Team ([facility] st Contact Info) Description 11/02/2024 Telephone [facility] 230 [place], [place] [phone] Nguyen Hurst [facility] 230 [place], [place] [phone] Nurse Triage Social History Tobacco Use Types [...] 12:14 PM EST TC placed to patient [phone] to inform patient, sensors will be ready at the pharmacy for p/u in approx 1 hour. RN also inquired on patients plan to come to [facility] or ED for his dizziness however patient became very upset. Patient reports he is not coming to the walk in [place] because it is not safe for him [...] dizziness. Patient reports that he spoke to [place] yesterday and is seeking medication for dizziness to be ableto get to appt. Dizziness is worse in the morning. No loss of vision no ear pain or fainting. Patient able to make all needs known. Wants medication for dizziness. Prescribing over the phone discussed and reinforced patient needs to be seen in [facility] or in ED for this concern. Patient agrees to call 911 as needed. Patient has Lifestyle BG monitor and needs new sensors. Does not have reading at this time. Reports BP 144/72. [facility] [address] Contacted and sensor refills available. [...] Upcoming Encounters Date Type Department Care Team ([facility] st Contact Info) Description 10/15/2025 10:15 AM EST Office Visit [facility] [address] [place] [address] [phone] Name, MD Leno [address] [place] [address] 11/15/2025 11:00 AM EST Medication Management [facility] [address] [place] [address] Snehal Santa PharmD [address] [place] [address] documented as of this encounter Visit Diagnoses Not on filedocumented in this encounter Additional Health Concerns Assessment Noted Time PHQ-9 Depression Total Score: 0 07/04/20 24 3:20 PM EDT documented as of this encounter Care Teams Welding Inspector Relationship Specialty Start Date End Date TacnaNguyen conde FNP [address] [place] [address] PCP - General Family Medicine 07/01/22 Kim Davenport, Bridgett [address] [place] [address] Pharmacist Internal Medicine 12/10/24 Hortensia GOODE 11/08/24 Britney Benitez Search AnalystPrepress Operator 05/29/25 documented as of this encounter
--- OUTSIDE RECORDS SUMMARY | 2025-10-07 16:45 | XMS_ITS | Encounter Summary ---
Author Organization [employer] Address [address] [facility] 7t [place] [address] Care Team Providers Care Finisher Tailor Apprentice Name Role Phone Nguyen Hurst DIVORCE ATTORNEY Primary Care Provider [phone] Lavelle Davenportee PharmD Unavailable [phone] Reason for Referral * Consultation (Routine) - Canceled Specialty Diagnoses / Procedures Referred By Contac t Referred To Contact Pharmacy Diagnoses Type 2 diabetes mellitus with stage 3 chronic kidney disease, with long-term current use of insulin, unspecified whether stage 3a or 3b CKD (HCC) Elba Jackson MD [address] [place] [address] Phone: tel: fax: Referral ID Status Reason Start Date Expiration Date V isits Requested Visits Authorized [id number] Canceled Consult and Treat 02/26/2025 02/26/2026 6 6 Encounter Details Date Type Department Care Team (Late st Contact Info) Description 02/26/2025 Orders Only [facility] MED[facility] [address] [place], [place] [phone] Elba Jackson MD [address] [place], [place] [phone] Type 2 diabetes mellitus with stage 3 [...] Description 10/15/2025 10:15 AM EST Office Visit [facility] [address] [place] [address] Name, MD Leno [address] [place] [address] 11/15/2025 11:00 AM EST Medication Management [facility] [address] [place] [address] Snehal Santa, PharmD [address] [place] [address] Scheduled Referrals Name Type Priority Associated Diagnoses [...] documented as of this encounter Care Teams Finisher Tailor Apprentice Relationship Specialty Start Date End Date Nguyen Hurst FNP [address] [place] [address] PCP - General Family Medicine 07/01/22 Kim Davenport PharmD [address] [place] [address] Pharmacist Internal Medicine 12/10/24 Hortensia GOODE 11/08/24 Britney Benitez Farm Equipment OperatorWater Pollution Control Inspector 05/29/25 documented as of this encounter
--- OUTSIDE RECORDS SUMMARY | 2025-10-07 16:45 | XMS_ITS | Encounter Summary ---
Author Organization [employer] Address [address] [facility] 7t [place] [address] Care Team Providers Care Area Plant Manager Name Role Phone Nguyen Hurst BODY WELDER Primary Care Provider [phone] Kim Davenport PharmD Unavailable [phone] Reason for Visit * Reason Onset Date Comments Nurse Triage 02/27/2025 Encounter Details Date Type Department Care Team ([facility] st Contact Info) Description 02/27/2025 Telephone [facility] MEDICINE 230 [place], [place] [phone] Nguyen Hurst [facility] 230 [place], [place] [phone] Nurse Triage Social History Tobacco Use Types [...] due to work. ASK apt 03/06/25 with DIRECTOR ENTER[employer] Appram. Pt agrees with disposition and insurance [...] finger normally The caller accepted this outcome. [phone] documented in this encounter Plan of Treatment Upcoming Encounters Date Type Department Care Team (Late st Contact Info) Description 10/15/2025 10:15 AM EST Office Visit [facility] [place] [address] Name, MD Leno [facility] [place] [address] 11/15/2025 11:00 AM EST Medication Management [address] [place] [address] Snehal Santa PharmD [facility] [place] [address] documented as of this encounter Visit Diagnoses Not on filedocumented in this encounter Additional Health Concerns Assessment Noted Time PHQ-9 Depression Total Score: 0 11/30/19 25 1:53 PM EST documented as of this encounter Care Teams Area Plant Manager Relationship Specialty Start Date End Date GeraldineNguyen FNP [facility] [place] [address] PCP - General Family Medicine 07/01/22 Kim Davenport PharmD [facility] [place], [place] [phone] Pharmacist Internal Medicine 12/10/24 Hortensia GOODE 11/08/24 Britney Benitez Supervisor Modern LanguagesSenior Front End Web Developer 05/29/25 documented as of this encounter
--- OUTSIDE RECORDS SUMMARY | 2025-10-07 16:45 | XMS_ITS | Encounter Summary ---
Author Organization [employer] Address [address] [facility] [address] 7t [place] [address] Care Team Providers Care Temporary Office Assistant Name Role Phone Nguyen Hurst TURNAROUND ENGINEER Primary Care Provider [phone] Kim Davenport PharmD Unavailable [phone] Encounter Details Date Type Department Care Team (Latest Contact Info) Description 10/07/2025 Travel Social History Tobacco Use Types Packs/Day Years [...] Description 10/15/2025 10:15 AM EST Office Visit [facility] MEDICINE [address] [place] [address] Name, MD Leno [address] [place] [address] 11/15/2025 11:00 AM EST Medication Management [facility] MEDICINE [address] [place] [address] Snehal Santa PharmD [address] [place] [address] documented as of this encounter Visit Diagnoses Not on filedocumented in this encounter Additional Health Concerns Assessment Noted Time PHQ-9 Depression Total Score: 0 11/30/19 25 1:53 PM EST documented as of this encounter Care Teams Temporary Office Assistant Relationship Specialty Start Date End Date ArisNguyen [facility] [address] [place] [address] PCP - General Family Medicine 07/01/22 Kim Davenport, EmelynD [address] [place] [address] Pharmacist Internal Medicine 12/10/24 Hortensia GOODE 11/08/24 Britney Benitez Dope And Fabric WorkerSpecial Inspector 05/29/25 documented as of this encounter
--- OUTSIDE RECORDS SUMMARY | 2025-10-07 16:45 | XMS_ITS | Encounter Summary ---
Author Organization [employer] Address 75 [facility] 7t [place] [address] Care Team Providers Care Staffing Consultant Name Role Phone Nguyen Hurst [facility] Primary Care Provider [phone] Kim Davenport PharmD Unavailable [phone] Reason for Visit * Reason Onset Date Comments VNA services 01/09/2025 Encounter Details Date Type Department Care Team (Late st Contact Info) Description 01/09/2025 Telephone [facility] [address] [place], [place] [phone] Nguyen Hurst [facility] 230 [place] [address] VNA services Social History Tobacco Use Types [...] 01/09/2025 12:17 PM EST TC placed to [facility] [phone] in regards to below message. RN was informed patient was discharged from [facility] in regards to PT and OT on 01/01/25 PT and fpc on 01/03/25 d/t meeting all goals and being independent. [facility] confirms the patient cannot become re-established at this time d/t recent discharge d/t goals being met. TC placed to patient [phone] to inform of above message. Patient is upset, states he wants services back. Patient reports he does not feel anything has improved. RN advised patient per [facility] patient has met goals however patient does not feel that is accurate. Sending to PCP as FYI and recommendations on POC. * Telephone Encounter - Melissa Banks - 01/09/2025 11:57 AM EST Tc from pt requesting orders for nurse visiting and physical therapy. Any questions contact pt [phone] (divehi) documented in this encounter Plan of Treatment Upcoming Encounters Date Type Department Care Team (Late st Contact Info) Description 10/15/2025 10:15 AM EST Office Visit [facility] [place] [address] Name, [place] [address] 11/15/2025 11:00 AM EST Medication Management [facility] [place] [address] Snehal Santa, EmelynD [facility] [place] [address] documented as of this encounter Visit Diagnoses Not on filedocumented in this encounter Additional Health Concerns Assessment Noted Time PHQ-9 Depression Total Score: 0 11/30/19 1:53 PM EST documented as of this encounter Care Teams Staffing Consultant Relationship Specialty Start Date End Date Friars PointNguyen FNP [facility] [address] PCP - General Family Medicine 07/01/22 Kim Davenport, EmelynD [facility] [place] [address] Pharmacist Internal Medicine 12/10/24 Hortensia GOODE 11/08/24 Britney Benitez Marine Engineering TeacherDepartment Of Sociology Chair 05/29/25 documented as of this encounter
--- OUTSIDE RECORDS SUMMARY | 2025-10-07 16:45 | XMS_ITS | Encounter Summary ---
Author Organization [employer] Address 75 [facility] 7t [place] [address] Care Team Providers Care Slip Maker Name Role Phone Aris Nguyen HEALTH PLAN SPECIALIST Primary Care Provider [phone] Kim Davenport PharmD Unavailable [phone] Reason for Visit * Reason Onset Date Comments Change PCP 08/26/2025 Encounter Details Date Type Department Care Team ([facility] st Contact Info) Description 08/26/2025 Telephone [facility] [address] [place], [place] [phone] Nguyen Hurst [facility] 230 [place], [place] [phone] Change PCP Social History Tobacco Use Types [...] discuss pcp transfer . Contact pt at [phone] documented in this encounter Plan of Treatment Upcoming Encounters Date Type Department Care Team (Late st Contact Info) Description 10/15/2025 10:15 AM EST Office Visit [facility] [address] [place] [address] Name, MD Leno [address] [place] [address] 11/15/2025 11:00 AM EST Medication Management [facility] [address] [place] [address] Snehal Santa, PharmD [address] [place] [address] documented as of this encounter Visit Diagnoses Not on filedocumented in this encounter Additional Health Concerns Assessment Noted Time PHQ-9 Depression Total Score: 0 11/30/19 25 1:53 PM EST documented as of this encounter Care Teams Slip Maker Relationship Specialty Start Date End Date Nguyen Hurst FNP [address] [place] [address] PCP - General Family Medicine 07/01/22 Kim Davenport PharmD [address] [facility] [place] [address] Pharmacist Internal Medicine 12/10/24 Hortensia GOODE 11/08/24 Britney Benitez Vault AttendantMarine Operations Coordinator 05/29/25 documented as of this encounter
--- OUTSIDE RECORDS SUMMARY | 2025-10-07 16:45 | XMS_ITS | Encounter Summary ---
Author Organization [employer] Address [address] [facility] 7t [place] [address] Care Team Providers Care Welder First Class Name Role Phone Nguyen Hurst [facility] Primary Care Provider [phone] DavenportKim henao PharmD Unavailable Reason for Visit * Reason Onset Date Comments Referral 05/23/2023 Encounter Details Date Type Department Care Team (Late Contact Info) Description 05/23/2023 Telephone [facility] [address] [place], [place] [phone] [facility] 230 [place] [address] Referral Social History Tobacco Use Types Packs/Day [...] toe nails. Referrals Date-N/A Time- N/A [place]- [place] [address] Specialty- Podiatry Fax: documented in this encounter Plan of Treatment Upcoming Encounters Date Type Department Care Team (Late Contact Info) Description 10/15/2025 10:15 AM EST Office Visit [facility] [address] [place], [place] [phone] Name, MD Leno [address] [place], [place] [phone] 11/15/2025 11:00 AM EST Medication Management [facility] [address] [place], [place] [phone] Snehal Santa, EmelynD 230 [place] [address] documented as of this encounter Visit Diagnoses Not on filedocumented in this encounter Care Teams Welder First Class Relationship Specialty Start Date End Date Nguyen Hurst FNP [address] [place] [address] [phone] PCP - General Family Medicine 07/01/22 Kim Davenport PharmD [address] [place] [address] [phone] Pharmacist Internal Medicine 12/10/24 Hortensia GOODE 11/08/24 Britney Benitez Electric Mule OperatorPublic Relations Officer 05/29/25 documented as of this encounter
--- OUTSIDE RECORDS SUMMARY | 2025-10-07 16:45 | XMS_ITS | Encounter Summary ---
Author Organization [employer] Address 75 [facility] 7t [place] [address] Care Team Providers Care Cosmetologist Name Role Phone Nguyen Hurst [facility] Primary Care Provider [phone] Kim Davenport PharmD Unavailable [phone] Reason for Visit * Reason Onset Date Comments Referral 06/04/2024 Encounter Details Date Type Department Care Team ([facility] st Contact Info) Description 06/04/2024 Telephone [facility] 230 [place], [place] [phone] Nguyen Hurst [facility] 230 [place], [place] [phone] Referral Social History Tobacco Use Types Packs/Day [...] / denial letter via mail. PT-1 Request [id number] Pending [facility] [address] [place] [phone] * Telephone Encounter - Eliud Oden - 06/12/2024 9:01 AM EDT Tc from patient calling in regards to the message below states [facility] has not received referral statesit could be that [facility] has the patient as Dany Tan * Telephone Encounter - Amarjit Negron - 06/04/2024 9:40 AM EDT Tc from pt requesting status on referral for Urology made on 04/25/24, pt would like referral to to [facility]. Pt provided documented in this encounter Plan of Treatment Upcoming Encounters Date Type Department Care Team (Late st Contact Info) Description 10/15/2025 10:15 AM EST Office Visit [address] [address] Name, MD Leno [address] [place] [address] 11/15/2025 11:00 AM EST Medication Management [address] [address] Snehal Santa, EmelynD 230 [place] [address] documented as of this encounter Visit Diagnoses Not on filedocumented in this encounter Additional Health Concerns Assessment Noted Time PHQ-9 Depression Total Score: 5 08/02/20 23 10:05 AM EDT documented as of this encounter Care Teams Cosmetologist Relationship Specialty Start Date End Date [facility] 230 [place] [address] PCP - General Family Medicine 07/01/22 Kim Davenport, Bridgett [address] [place] [address] Pharmacist Internal Medicine 12/10/24 Hortensia GOODE 11/08/24 Britney Benitez Email AdministratorMaintenance Parts Technician 05/29/25 documented as of this encounter
--- OUTSIDE RECORDS SUMMARY | 2025-10-07 16:45 | XMS_ITS | Encounter Summary ---
Author Organization [employer] Address 75 [facility] 7t [place] [address] Care Team Providers Care Water Aerobics Instructor Name Role Phone Nguyen Hurst LIQUOR DEPARTMENT MANAGER Primary Care Provider Kim Davenport PharmD Unavailable [phone] Reason for Visit * Reason Comments Med Refill Encounter Details Date Type Department Care Team (Late st Contact Info) Description 06/15/2023 Refill [facility] MED[facility] [address] [place] [address] Ruthy Martinez FNP [address] [place], [place] [phone] Social History Tobacco Use Types Packs/Day Years [...] Description 10/15/2025 10:15 AM EST Office Visit [facility] [address] [place] [address] Name, MD Leno [address] [place] [address] 11/15/2025 11:00 AM EST Medication Management [facility] [address] [place] [address] Snehal Santa, PharmD 230 [place] [address] documented as of this encounter Visit Diagnoses Not on filedocumented in this encounter Care Teams Water Aerobics Instructor Relationship Specialty Start Date End Date Aris Nguyen, LIQUOR DEPARTMENT MANAGER 230 [place] [address] PCP - General Family Medicine 07/01/22 Kim Davenport PharmD 230 [place] [address] Pharmacist Internal Medicine 12/10/24 Hortensia GOODE 11/08/24 Britney Benitez Cotton Bag ClipperRelationship Management Lead 05/29/25 documented as of this encounter
--- OUTSIDE RECORDS SUMMARY | 2025-10-07 16:45 | XMS_ITS | Clinical Summary ---
Author Organization [facility] Address [address] [place] [address] Phone Care Team Providers Care Card Runner Name Role Phone Ellie Shanks MD Primary [...] Problem Noted Date Diagnosed Date Diabetes mellitus ([facility] V24, [facility] V28) Alcoholism ([facility] V24, [facility] V28) 02/18/2022 Back ache 02/18/2022 CVA (cerebral vascular accident) ([facility] V24, C MI/[facility] V28) 02/18/2022 Epilepsy ([facility] V24, [facility] V28) 02/18/2022 Erectile dysfunction 02/18/2022 Hyperlipidemia 02/18/2022 Hypertension 02/18/2022 Tinea pedis 02/18/2022 Redundant prepuce 02/18/2022 Osteomyelitis of foot ([facility] V24, [facility] V28) 03/25/2011 Surgical History Surgery Date Site/Laterality Comments FOOT SURGERY 2009 PROCEDURE: HISTORICAL FOOT SURGERY; COMMENT: Right foot infection BACK SURGERY 1984 PROCEDURE: HISTORICAL BACK SURGERY; COMMENT: low back Medical History Medical History Date Comments CVA (cerebral vascular accid ent) ([facility] V24, [facility] V28) 02/18/2022 DX:CVA (cerebral vascular a ccident) ([facility]) Hypertension 02/18/2022 DX:Hypertension Erectile dysfunction 02/18/2022 DX:Erectile dysfunction Redundant prepuce 02/18/2022 DX:Redundant p repuce Hyperlipidemia 02/18/2022 DX:Hyperlipidemi a Epilepsy ([facility] V24, [facility] V28) 02/18/2022 DX:Epilepsy ([facility]) Social History Tobacco Use Types Packs/Day Years Used Date Smoking Tobacco: Former Cigarettes 0.5 Q uit: 11/01/2017 Smokeless Tobacco: Never Tobacco [...] of 2 - Risk 2-dose series) 02/22/1984 RSV Immunization Adult Patients (1 - Risk 50-74 years 1-dose series) 2015 Hepatitis C Screening 10/31/2022 Social Influencers of Health Screening 10/31/2022 Diabetes: Annual Urine Albumin-Creatinine Ratio (uACR) 11/11/2022 Depression Screening 11/28/2024 COVID-19 Vaccine ( season) 2025 12/10/2024, 12/24/2021, 04/15/2021, Additional history exists Influenza Vaccine (#1) 2025 11/03/2024, 2012 Zoster [...] 04/09/2022, 08/15/2012 HIV Screening Completed 03/15/2024, 03/15/2024 Pneumococcal Vaccine: 50+ Years Completed 07/12/2025 HIB [...] Test (03/15/2024) Annual BMP Blood Test Abstracted [facility] Provider MD HEALTH MAINTENANCE Final Result * HIV Screening (03/15/2024) HIV Screening Abstracted [facility] Provider MD HEALTH MAINTENANCE Final Result * Hemoglobin A1c (03/15/2024) Hemoglobin A1C 0.0 % Comment:No interpretation, A bstracted Blood Venous blood specimen / Unknown Result [facility] Provider MD LAB BLOOD ORDERABLES Rima l Result * Lipid panel (07/07/2023) LDL/HDL Ratio 0 Comment:Abstracted Triglycerides 0 mg/dL Comment:Abstracted Cholesterol 0 mg/dL Comment:Abstracted HDL 0 mg/dL Comment:Abstracted LDL Cholesterol 0 mg/dL Comment:Abstracted Blood Venous blood specimen / Unknown Result [facility] Provider MD LAB BLOOD ORDERABLES Rima l Result from Last 3 Months or Most Recently Relevant to Health Maintenance Insurance [place]ICA[place] Care Teams Card Runner Relationship Specialty Start Date End Date Ellie Shanks MD [address] [place] [phone] PCP - General Internal Medicine 02/04/22
--- OUTSIDE RECORDS SUMMARY | 2025-10-07 16:45 | XMS_ITS | Clinical Summary ---
Author Organization [facility] Address [address] [facility] [address] [place] [address] Phone Care Team Providers Care Fisher Gill Net Name Role Phone Ellie Shanks Primary Care Provider Unavaila ble Allergies Active [...] children. PLAN: 1. Follow up with [facility]: Not recommended for follow-up 2. Patient goal is to find motivation again. 3. Behavioral Recommendations a. Referral for OP individual therapy b. Incorporate grounding techniques into daily routine c. [place] his brother's life by doing activities in his memory Tinea pedis 02/18/2022 08/05/2023 Erectile dysfunction 02/18/2022 08/05/2023 Redundant prepuce 02/18/2022 08/05/2023 Hyperlipidemia 02/18/2022 08/05/2023 Cerebrovascular accident 02/18/2022 023 Epilepsy 02/18/2022 08/05/2023 Backache 02/18/2022 08/05/2023 Alcoholism 02/18/2022 08/05/2023 Stage 3a chronic kidney disease 10/20/2021 Renal osteodystrophy 10/20/2021 Diabetes mellitus 09/14/2021 Hypertensive disorder 09/14/2021 Proteinuria 09/14/2021 Chronic kidney disease, stage 2 (mild) 1 Type 2 diabetes mellitus wit h diabetic [...] Only [facility] [address] [place] [address] Chris King [...] Care Team (Late st Contact Info) Description 12/09/2025 3:15 PM EST Office Visit [facility] [address] [place] [address] Chris King MD [address] [facility] [address] [place] [address] Health Maintenance Due Date Last Done Comments [...] complete this topic Insurance Medicaid [place] , [place] [address] Medicaid [place] Care Teams Fisher Gill Net Relationship Specialty Start Date End Date Ellie Shanks [address] [place] [address] PCP - General Internal Medicine 07/03/21
--- OUTSIDE RECORDS SUMMARY | 2025-10-07 16:45 | XMS_ITS | Encounter Summary ---
Author Organization [employer] Address 75 [facility] 7t [place] [address] Care Team Providers Care Matting Press Tender Name Role Phone Nguyen Hurst AMMONIA TECHNICIAN Primary Care Provider [phone] Issac Kim PharmD Unavailable [phone] Reason for Visit * Reason Onset Date Comments snap on denture referral 06/21/2024 appt 06/21/2024 Encounter Details Date Type Department Care Team ([facility] st Contact Info) Description 06/21/2024 Telephone [facility] [address] [place], [place] [phone] Brian Cosby DDS [address] [place], [place] [phone] snap on denture referral; appt Social History [...] Description 10/15/2025 10:15 AM EST Office Visit [facility] [address] [place] [address] Name, MD Leno [address] [place] [address] 11/15/2025 11:00 AM EST Medication Management [facility] [address] [place] [address] Snehal Santa, PharmD [address] [place] [address] documented as of this encounter Visit Diagnoses Not on filedocumented in this encounter Additional Health Concerns Assessment Noted Time PHQ-9 Depression Total Score: 5 08/02/20 23 10:05 AM EDT documented as of this encounter Care Teams Matting Press Tender Relationship Specialty Start Date End Date Aris YENIFER Cedillo [address] [place] [address] PCP - General Family Medicine 07/01/22 Kim Davenport PharmD [address] [place] [address] Pharmacist Internal Medicine 12/10/24 Hortensai GOODE 11/08/24 Britney Benitez Director WomenPayroll Master 05/29/25 documented as of this encounter
--- OUTSIDE RECORDS SUMMARY | 2025-10-07 16:45 | XMS_ITS | Encounter Summary ---
Author Organization [employer] Address [address] [facility] 7t [place] [address] Care Team Providers Care Carving Machine Operator Name Role Phone Nguyen Hurst [facility] Primary Care Provider [phone] Kim Davenport PharmD Unavailable [phone] Reason for Visit * Reason Onset Date Comments Referral 03/19/2024 Encounter Details Date Type Department Care Team ([facility] st Contact Info) Description 03/19/2024 Telephone [facility] MEDICINE 230 [place], [place] [phone] Nguyen Hurst [facility] 230 [place], [place] [phone] Referral Social History Tobacco Use Types Packs/Day [...] by psychiatrist to seek second opinion at [facility], as it is causing himpsychological distress. [...] and would like to be seen at [facility] the fax number is [phone] documented in this encounter Plan of Treatment Upcoming Encounters Date Type Department Care Team (Late st Contact Info) Description 10/15/2025 10:15 AM EST Office Visit [address] [address] Name, MD Leno [address] [place] [address] 11/15/2025 11:00 AM EST Medication Management [address] [address] Snehal Santa, Bridgett [address] [place] [address] documented as of this encounter Visit Diagnoses Not on filedocumented in this encounter Additional Health Concerns Assessment Noted Time PHQ-9 Depression Total Score: 5 08/02/20 23 10:05 AM EDT documented as of this encounter Care Teams Carving Machine Operator Relationship Specialty Start Date End Date WarnerNguyen [facility] [address] [place] [address] PCP - General Family Medicine 07/01/22 Kim Davenport, EmelynD [address] [place] [address] Pharmacist Internal Medicine 12/10/24 Hortensia GOODE 11/08/24 Britney Benitez Pipe Fitter MaintenanceNutrition Partner 05/29/25 documented as of this encounter
--- OUTSIDE RECORDS SUMMARY | 2025-10-07 16:45 | XMS_ITS | Clinical Summary ---
Author Organization [facility] Address [address] [place] [address] Care Team Providers Care Chute Worker Name Role Phone [facility] Primary Care Provider [phone] Allergies Active Allergy Reactions Criticality Noted Date [...] propionate (FLONASE) 50 mcg/actuation nasal spray SMARTSI [place](s) Both Nares Twice Daily Active INSULIN ASPART [...] patient's age to complete this topic Insurance I Do Now I Don't Care Teams Chute Worker Relationship Specialty Start Date End Date [facility] [address] [place] [address] PCP - General 06/29/24
--- OUTSIDE RECORDS SUMMARY | 2025-10-07 16:45 | XMS_ITS | Encounter Summary ---
Author Organization [employer] Address [address] [facility] 7t [place] [address] Care Team Providers Care Hogshead Stripper Name Role Phone Nguyen Hurst SERVICE ADMINISTRATOR Primary Care Provider [phone] Kim Davenport PharmD Unavailable [phone] Reason for Referral * Consultation (Routine) - Authorized Specialty Diagnoses / Procedures Referred By Pedro pugh Referred To Contact Pharmacy Diagnoses Hypertension Olga Brown MD [address] [place] [address] Phone: tel: fax: Referral ID Status Reason Start Date Expiration Date Visits Requested Visits Authorized [id number] Authorized Continuity of Care 04/08/2025 04/08/2026 6 6 Encounter Details Date Type Department Care Team (Late st Contact Info) Description 04/05/2025 Orders Only [facility] MEDICINE 230 [place], [place] [phone] Olga Brown MD [address] [place], [place] [phone] Hypertension (Primary Dx) Social History Tobacco Use [...] Description 10/15/2025 10:15 AM EST Office Visit [address] [address] Name, MD Leno [address] [place] [address] 11/15/2025 11:00 AM EST Medication Management [facility] [address] [place] [address] Snehal Santa, EmelynD [address] [place] [address] Scheduled Referrals Name Type Priority Associated Diagnoses Orde r Schedule Referral to Pharmacy MTM Outpatient Referral Routine Hypertension Ordered: 04/08/2025 documented as of this encounter Visit Diagnoses Diagnosis Hypertension- Primary Unspecified essential hypertension documented in this encounter Additional Health Concerns Assessment Noted Time PHQ-9 Depression Total Score: 0 11/30/19 1:53 PM EST documented as of this encounter Care Teams Hogshead Stripper Relationship Specialty Start Date End Date Nguyen Hurst YENIFER [address] [place] [address] PCP - General Family Medicine 07/01/22 Kim Davenport PharmD [address] [place] [address] Pharmacist Internal Medicine 12/10/24 Hortensia GOODE 11/08/24 Britney Benitez BlueprinterWater Jet Loom Fixer 05/29/25 documented as of this encounter
--- OUTSIDE RECORDS SUMMARY | 2025-10-07 16:45 | XMS_ITS | Clinical Summary ---
Author Organization [employer] Address [address] [facility] [address] [place] [address] Care Team Providers Care Steam Bone Press Tender Name Role Phone Nguyen Hurst Primary Care Provider [phone] DavenportKim henao PharmD Unavailable [phone] Allergies Active Allergy Reactions Criticality Noted Date Comments Codeine Rash,Hives Low 11/16/2010 Lisinopril Dizziness,Other 06/11/2021 Medications * This document contains information received from the source organization and may not represent a complete record from that organization. senna (Senokot) 8.6 MG tabletIndicatio ns:Chronic idiopathic constipation Take 1 tablet (8.6 mg) by mouth at bedtime. 90 tablet 3 024 2024 Active docusate sodium (Colace) 100 MG capsuleIndicati ons:Chronic idiopathic constipation Take 1 capsule (100 mg) by mouth 2 times daily. 60 capsule 11 Active polyethylene glycol, PEG, 3350 (Glycolax) 17 GM/SCOOP powderIndicatio ns:Chronic idiopathic constipation DISSOLVE 17 GRAMS IN 8 OZ OF FLUID LIQUID DRINK DAILY DIRECTED 238 g 3 024 Active glucose 4 g chewable tabletIndicatio ns:Type [...] DAILY. AT NIGHT WEAR SOCKS TO BED Active atorvastatin (Lipitor) 40 MG tablet Take 1 tablet (40 mg) by mouth in the morning. 90 tablet 3 025 Active Blood Glucose Monitoring Suppl (FreeStyle Lite) device Inject 1 each under the skin Use as directed. 1 each 025 Active FREESTYLE LITE test strip Use to check BS BID daily as directed 100 each 12 025 2025 Active Continuous Glucose Sensor (FreeStyle Diann 3 Plus Sensor) misc Apply 1 every 15 days as directed for CGM 2 each 025 Active glucose blood (FreeStyle Precision Omid Test) test strip Use to test blood sugar 3 times daily in case of CGM failure or extremes of BG 100 each 025 Active Multiple Vitamin (multivitamin) tabletIndicatio ns:Type 2 diabetes mellitus with stage 3 chronic kidney disease, without long-term current use of insulin, unspecified whether stage 3a or 3b CKD (HCC) Take 1 tablet by mouth Once per day. 30 tablet 11 025 Active isosorbide dinitrate (Isordil) 5 MG tablet TAKE 1 TABLET BY MOUTH AT BEDTIME 90 tablet 3 025 Active hydrALAZINE (Apresoline) 10 MG tablet TAKE 1 TABLET BY MOUTH AT BEDTIME 90 tablet 3 025 Active naproxen (Naprosyn) 500 MG tablet Take 1 tablet (500 mg) by mouth if needed in the morning and at bedtime for mild pain. 10 tablet 025 2025 Active Lancets 33G miscIndications :Type 2 diabetes mellitus with stage 3 chronic kidney disease, without long-term current use of insulin, unspecified whether stage 3a or 3b CKD (HCC) Use to check BS BID daily as directed 100 each 1 025 Active Farxiga 10 MGIndications:T ype 2 diabetes mellitus with stage 3 chronic kidney disease, without long-term current use of insulin, unspecified whether stage 3a or 3b CKD (HCC) TAKE 1 TABLET BY MOUTH EVERY MORNING 30 tablet 2 025 Active Acetaminophen Extra Strength 500 MG tabletIndicatio ns:Other chronic pain TAKE 2 TABLETS BY MOUTH EVERY 4 TO 6 HOURS NEEDED NO MORE THAN 8 TABLETS PER 24 HOURS 60 tablet 025 Active cyclobenzaprine (Flexeril) 5 MG tabletIndicatio ns:Cerebrovascu lar accident (CVA), unspecified mechanism (CMS/HCC) (HCC) TAKE 1 TABLET BY MOUTH THREE TIMES DAILY IN THE MORNING, AT NOON, AND AT BEDTIME NEEDED FOR MUSCLE SPASMS 30 tablet 2 025 Active Continuous Glucose Sensor (FreeStyle Diann 3 Sensor) miscIndications :Type 2 diabetes mellitus with stage 3 chronic kidney disease, with long-term current use of insulin, unspecified whether stage 3a or 3b CKD (HCC) 1 each every 14 (fourteen) days. APPLY 1 SENSOR TO SKIN DIRECTED 2 each 11 025 Active gabapentin (Neurontin) 100 MG capsule TAKE 1 CAPSULE BY MOUTH THREE TIMES DAILY 90 capsule 3 Active apixaban (Eliquis) 5 MG tablet TAKE 1 TABLET BY MOUTH TWICE DAILY IN THE MORNING AND IN THE EVENING 60 tablet Active fluticasone (Flonase) 50 MCG/ACT nasal spray INSTILL 1 SPRAY IN EACH NOSTRIL TWICE DAILY 48 g Active meclizine (Antivert) 12.5 MG tabletIndicatio ns:Dizziness TAKE 1 TABLET BY MOUTH THREE TIMES DAILY IN THE MORNING, AT NOON, AND AT BEDTIME NEEDED FOR DIZZINESS 90 tablet Active Continuous Blood Gluc Manufacturing Leader (FreeStyle Diann 2 [place]) deviceIndicatio ns:Type 2 diabetes mellitus with stage 3 chronic kidney disease, with long-term current use of insulin, unspecified whether stage 3a or 3b CKD ([facility]) Use as directed per instructions 1 each 023 2024 Discontinued(M ed list cleanup (will not trigger notification to Pharmacy)) Continuous Glucose Transmitter (Dexcom G6 transmitter) misc 1 each by Other route Use as directed. Replace every 3 months. 1 each 3 025 2024 Discontinued(M ed list cleanup (will not trigger notification to Pharmacy)) Continuous Glucose Sensor (FreeStyle Diann 2 Sensor) miscIndications :Type 2 diabetes mellitus with stage 3 chronic kidney disease, with long-term current use of insulin, unspecified whether stage 3a or 3b CKD (HCC) APPLY 1 SENSOR TO SKIN DIRECTED AND CHANGE EVERY 14 DAYS 2 each 5 025 2024 Discontinued Continuous Glucose Manufacturing Leader (FreeStyle Diann 3 [place]) device 1 each Once per day. Use as directed for CGM 1 each 2024 Discontinued(M ed list cleanup (will not trigger notification to Pharmacy)) fluticasone (Flonase) 50 MCG/ACT nasal spray INSTILL 1 SPRAY IN EACH NOSTRIL TWICE DAILY 48 g 2024 Discontinued(R eorder (will not trigger notification to Pharmacy)) gabapentin (Neurontin) 100 MG capsule Take 1 capsule (100 mg) by mouth 3 times daily. 90 capsule 3 2024 Discontinued meclizine (Antivert) 12.5 MG tabletIndicatio ns:Dizziness TAKE 1 TABLET BY MOUTH THREE TIMES DAILY IN THE MORNING, AT NOON, AND AT BEDTIME NEEDED FOR DIZZINESS 90 tablet 2024 Discontinued(R eorder (will not trigger notification to Pharmacy)) apixaban (Eliquis) 5 MG tablet TAKE 1 TABLET BY MOUTH TWICE DAILY IN THE MORNING AND IN THE EVENING 60 tablet 2024 Discontinued(R eorder (will not [...] children. PLAN: 1. Follow up with [facility]: Not recommended for follow-up 2. Patient goal is to find motivation again. 3. Behavioral Recommendations a. Referral for OP individual therapy b. Incorporate grounding techniques into daily routine c. Dulac his brother's life by doing activities in [...] children. PLAN: 1. Follow up with [facility]: Not recommended for follow-up 2. Patient goal is to find motivation again. 3. Behavioral Recommendations a. Referral for OP individual therapy b. Incorporate grounding techniques into daily routine c. Dulac his brother's life by doing activities in his memory Alcoholism ([facility]) 02/18/2022 Epilepsy ([facility]) 02/18/2022 Renal osteodystrophy 10/20/2021 Stage 3 chronic kidney disease ([facility]) 021 Proteinuria 09/14/2021 Chronic kidney disease, stage 2 (mild) 1 History of implantation of penile prosthesis Body [...] ganglia, kim, microvascular changes. History of alcoholism ([facility]) 08/15/2013 Hypertension 08/15/2013 Erectile dysfunction 08/15/2013 Hyperlipidemia 08/06/2013 Diabetes mellitus 08/06/2013 Overview (07/03/2024): Currently taking metformin 1000mg once daily, lantus, and humalog-unclear how many units patient is currently injecting. Pt states he is sick of injecting insulin and frequently forgets. Only checks BS 2-3x/month. Heavy proteinuria followed by nephrology for CKD. ([facility]. 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 Resolved Problems Problem Noted Date Diagnosed Date Resolved Date Redundant nuchal skin 08/18/20242024 Edentulous maxilla 07/31/2024 Redundant prepuce 02/18/2022 07/12/2025 Diabetic foot 10/02/2018 07/12/2025 Unstable knee 08/04/2018 07/12/2025 Tinea pedis 12/20/2013 07/12/2025 Redundant prepuce and phimosis 08/15/2013 07/12/2025 Back ache 08/06/2013 07/12/2025 Encounters Date Type Department Care Team Description 10/07/2025 Travel 09/27/2025 Refill [facility] [address] [place] [address] Elba Jackson MD 09/27/2025 Refill [facility] MEDIC[facility] [address] [place] [address] Myesha Jamil DO Dizziness 09/27/2025 Refill [facility] [address] [place] [address] Nguyen Hurst FNP Dizziness 09/22/2025 Refill [facility] [address] [place] [address] Myesha Jamil DO 09/12/2025 Telephone [facility] [address] [place] [address] Wendy Gresham RN CGM PA 09/10/2025 Refill [facility] [address] [place], [place] [address] Elba Jackson MD Type 2 diabetes mellitus with stage 3 chronic kidney disease, with long-term current use of insulin, unspecified whether stage 3a or 3b CKD ([facility]) 08/30/2025 Refill [facility] [address] [place], [place] [address] Nguyen Hurst SENIOR LICENSING MANAGER 08/27/2025 Telephone [facility] [address] [place], [place] [address] Cornelius Sheridan MD 08/27/2025 Telephone [facility] [address] [place], [place] [address] Cornelius Sheridan MD 08/27/2025 Telephone [facility] [address] [place], [place] [address] Nguyen Hurst FNP 08/26/2025 Telephone [facility] [address] [place], [place] [address] Nguyen Hurst [facility] Change PCP 08/23/2025 Telephone [facility] [address] [place], [place] [address] Nguyen Hurst FNP Change PCP 08/20/2025 Telephone [facility] [address], [place] [address] Nguyen Hurst FNP 08/20/2025 Telephone [facility] [address] [place], [place] [address] Nguyen Hurst FNP TRANSFER REQUEST 08/20/2025 Telephone [facility] [address] [place], [place] [address] Nguyen Hurst [facility] Follow-up 08/19/2025 Telephone [facility] [address] [place], [place] [address] Nguyen Hurst FNP RMV paperwork; Change PCP 08/16/2025 Telephone [facility] [address] [place], [place] [address] Nguyen Hurst FNP 08/16/2025 Telephone [facility] [address] [facility] [place] [place] [address] Nguyen Hurst FNP requesting a call back 08/09/2025 Telephone [facility] [address] [place] [address] Nguyen Hurst FNP Nov recall 08/09/2025 Refill [facility] [address] [place] [address] Nguyen Hurst FNP Cerebrovascular accident (CVA), unspecified mechanism (CMS/HCC) 08/06/2025 Refill [facility] [address] [place] [address] Nguyen Hurst FNP Dizziness; Other chronic pain 08/05/2025 Results Follow-Up [facility] [address] [place] [phone] Nguyen Hurst FNP POCT HGB A1C, POCT Glucose, Cologuard colon cancer screening 08/02/[address] [address] Nguyen Hurst FNP 07/25/[address] [address] Nguyen Hurst FNP Type 2 diabetes mellitus with stage 3 chronic kidney disease, without long-term current use of insulin, unspecified whether stage 3a or 3b CKD (CMS/HCC) 07/17/2025 Orders Only [facility] External Provider, [facility] 07/16/[address] [address] Nguyen Hurst FNP FOOD AND BEVERAGE DIRECTOR referral 07/12/2025 2:00 PM EDT Office Visit [address] [address] Nguyen Hurst FNP Type 2 diabetes mellitus with stage 3 chronic kidney disease, without long-term current use of insulin, unspecified whether stage 3a or 3b CKD (CMS/HCC) (Primary Dx); Screening for colon cancer; Encounter for immunization; Primary hypertension; Ischemic cardiomyopathy 07/12/2025 Travel 07/11/[address] [address] Nguyen Hurst FNP chart prep from Last 3 Months Immunizations Immunization Administration Dates Next Due Influenza, Split (incl. purified surface antigen ) 09/04/2013 Influenza, seasonal, injectable, preservative fr ee 11/03/2024 Pfizer Covid-19 Vaccine 12+ 12/10/2024 Pneumococcal Conjugate PCV 20 07/12/2025 Tdap 04/09/2022,08/15/2012 Zoster, Recombinant 07/17/2025 Social History Tobacco Use Types Packs/Day Years [...] the past 12 months, has t he [employer], gas, oil or water company threatened to [...] 10/15/2025 10:15 AM EST Office Visit [facility] [address] [place] [address] Name, MD Leno [address] [place] [address] 11/15/2025 11:00 AM EST Medication Management [address] [address] Snehal Santa, PharmD [address] [place] [address] Health Maintenance Due Date Last Done Comments CT Colonography 1965 Colonoscopy 1965 Colorectal Cancer Screening 1965 Dental Prophylaxis 1965 FIT DNA/Cologuard 1965 FIT 1965 FOBT 1965 Sigmoidoscopy 1965 Disability Screening 1965 Eye Exam 1975 Alcohol/Substance Use Screening 1977 Hepatitis C Screening 1983 Dental X-Ray: Bitewings 05/21/2016 05/20/2015 Lipid Panel 07/07/2024 07/07/2023, 0402/2022, 06/08/2021 RSV Patients and Patients Aged 60 years or older (1 - Risk 60-74 years 1-dose series) 2025 Dental Oral Exam 03/29/2025 09/28/2024, , 05/20/2015 Diabetes: Foot Exam 07/04/2025 07/04/2024, 07/04/2024, 07/04/2024 Influenza Vaccine (#1) 2025 11/03/2024, 2012 Zoster Vaccines (2 of 2) 09/11/2025 07/17/2025 Diabetes: Hemoglobin A1C 10/12/2025 025, 04/01/2025, 11/30/2024, Additional history exists SDOH Screening 11/09/2025 11/09/2024 Depression Screening 11/30/2025 11/30/2024, 11/30/19 25 Tobacco Screening 08/19/2026 08/19/2025 Dental X-Ray: Full [...] CKD (CMS/HCC) POCT GLYCATED HEMOGLOBIN, TOTAL Routine 07/12/2025 2:07 [...] Processed 9 N/A 08/04/2025 12:48 PM EDT [facility] (CLIA #:[id number]) Comment: The Cologuard (TM) test was assigned to this specimen. An empty collection kit was received in the laboratory. The patient will be contacted to initiate a new sample collection. Stool specimen (specimen) 08/02/2025 9:30 AM EDT [facility] MOLECULAR DIAGNOSTICS ORD ERABLES Final Result [facility] (CLIA #:[id number]) [address] [place] [address], * XR Chest 2 Views (07/17/2025 10:20 AM EDT) Anatomical Region Laterality Modality Chest Radiographic Lorenza ging 07/17/2025 10:2 0 AM EDT Narrative 07/17/2025 10:42 AM EDT [place] [address] XRay Report Signed Patient: Dany Ryan MR#: [id number] : 1965 Acct:[id number] Age/Sex: 60 / M ADM Date: 07/17/25 Loc: HO.ED Attending Dr: Ordering Physician: Anastasia Regalado Date of Service: 07/17/25 Procedure(s): XR chest 2V Accession Number(s): [id number] cc: Anastasia Regalado; [facility] EXAMINATION: XR CHEST CLINICAL INFORMATION: pain, injury; [...] 07/17/25 1039 DD/ 1020 TD/TT: 07/17/[address] Lab Technician: Procedure Note Donotuseinterpreter, Image - 07/17/[address] [address] XRay Report Signed Patient: Dany RyanMR#: [id number] : 1965Acct:[id number] Age/Sex: 60 / MADM Date: 07/17/25 Loc: HO.ED Attending Dr: Ordering Physician: Anastasia Regalado Date of Service: 07/17/25 Procedure(s): XR chest 2V Accession Number(s): [id number] cc: Anastasia Regalado; [facility] EXAMINATION: XR CHEST CLINICAL INFORMATION: pain, injury; [...] 07/17/25 1039 DD/ 1020 TD/TT: 07/17/[address] Lab Technician: us [facility] External Provider IMG XR PROCEDURES Final Result * CT Cervical Spine w/o Contrast (07/17/2025 9:52 AM EDT) Anatomical Region Laterality Modality Spine, C-spine Computed Tomogra phy 07/17/2025 9:52 AM EDT Narrative 07/17/2025 10:45 AM EDT [address] [address] [address] Scan Report Signed Patient: Dany Ryan MR#: [id number] : 1965 Acct:[id number] Age/Sex: 60 / M ADM Date: 07/17/25 Loc: HO.ED Attending Dr: Ordering Physician: Anastasia Regalado Date of Service: 07/17/25 Procedure(s): CT cervical spine wo IV con Accession Number(s): [id number] cc: Anastasia Regalado; [facility] Report Number: [id number]: Total DLP = 541.58 mGy-cm EXAMINATION: CT [...] 07/17/25 1042 DD/ 0952 TD/TT: 07/17/[address] Lab Technician: Procedure Note Donotuseinterpreter, Image - 07/17/[address] [place] [address] [address] Scan Report Signed Patient: Dany RyanMR#: [id number] : 1965Acct:[id number] Age/Sex: 60 / MADM Date: 07/17/25 Loc: .ED Attending Dr: Ordering Physician: Anastasia Regalado Date of Service: 07/17/25 Procedure(s): CT cervical spine wo IV con Accession Number(s): [id number] cc: Anastasia Regalado; [facility] Report Number: [id number]: Total DLP = 541.58 mGy-cm EXAMINATION: CT [...] 07/17/25 1042 DD/ 0952 TD/TT: 07/17/[address] Lab Technician: [facility] External Provider IMG CT PROCEDURES Final Result * CT Head w/o Contrast (07/17/2025 9:52 AM EDT) Anatomical Region Laterality Modality Head, Neck Computed Tomogra phy 07/17/2025 9:52 AM EDT Narrative 07/17/2025 10:38 AM EDT [address] [address] [address] Scan Report Signed Patient: Dany Ryan MR#: [id number] : 1965 Acct:[id number] Age/Sex: 60 / M ADM Date: 07/17/25 Loc: HO.ED Attending Dr: Ordering Physician: Anastasia Regalado Date of Service: 07/17/25 Procedure(s): CT head/brain wo IV con Accession Number(s): [id number] cc: Anastasia Regalado; [facility] Report Number: [id number]: Total DLP = 829.30 mGy-cm EXAMINATION: CT [...] 07/17/25 1035 DD/ 0952 TD/TT: 07/17/[address] Lab Technician: Procedure Note Donotuseinterpreter, Image - 07/17/[address] [place] [address] [address] Scan Report Signed Patient: Dany Ryan#: [id number] : 1965Acct:[id number] Age/Sex: 60 / MADM Date: 07/17/25 Loc: HO.ED Attending Dr: Ordering Physician: Anastasia Regalado Date of Service: 07/17/25 Procedure(s): CT head/brain wo IV con Accession Number(s): [id number] cc: Anastasia Regalado; [facility] Report Number: [id number]: Total DLP = 829.30 mGy-cm EXAMINATION: CT [...] Neftali Hobbs MD 07/17/2025 10:35 AM EDT RP Dictated By: Neftali Hobbs MD Signed By: <Electronically signed by Neftali Hobbs MD in OV> 07/17/25 1035 DD/ 0952 TD/TT: 07/17/[address] Lab Technician: [facility] External Provider IMG CT PROCEDURES Final Result * (ABNORMAL) POCT HGB A1C (07/12/2025 2:07 PM EDT) Hemoglobin A1C 8.0(A) 4.0 - 5.7 % QC Media Lot # [id number] Lot# Expiration Date Blood 07/12/2025 2:07 PM EDT [facility] SENIOR LICENSING MANAGER POINT OF CARE TEST ENTER/EDIT ORDERABLES Final Result * POCT Glucose (07/12/2025 2:07 PM EDT) Glucose Blood, POC 188 60 - 200 mg/dL QC Media Lot # [id number] Lot# Expiration Date , Blood Capillary blood specimen / Unknown 07/12/2025 2:07 PM EDT [facility] POINT OF CARE TEST ENTER/EDIT ORDERABLES Final Result * HIV-1/2 Antigen and Antibodies, Fourth Generation, with Reflexes (03/15/2024 12:42 PM EDT) HIV AB/AG Nonreactive Nonreactive [facility] Comment:HIV-1 p24 Ag and/or HIV-1/HIV-2 Ab not detected.A test result that is nonreactive does not exclude thepossibility of exposure to or infection with HIV-1 and/orHIV-2. Nonreactive results in this assay for individualswith prior exposure to HIV-1 and/or HIV-2 may be due toantigen and antibody levels that are below the limit ofdetection of this assay.The [employer] HIV Ag/Ab Combo assay result andsupplemental assay results should be interpreted inconjunction with the patient's clinical presentation,history and other laboratory results. If the results areinconsistent with clinical evidence, additional testing issuggested to confirm the result. Blood Venous blood specimen / Unknown 03/15/2024 12:42 PM EDT 03/15/2024 3:58 PM EDT [facility] LAB BLOOD ORDERABLES Final Re sult [facility] [address] [place] [address] [phone] * Lipid Panel, Standard (07/07/2023 9:53 AM EDT) Triglycerides 249 mg/dL [facility] Comment:Desirable Triglyceri de: less than 150 mg/dLBorderline High Triglyceride 150-199 mg/dLHigh Triglyceride: 200-499 mg/dLVery High Triglyceride: greater than or equal to 5OO mg/dL Cholesterol 200 mg/dL [facility] Comment:Desirable Cholestero l: less than 200 mg/dLBorderline High Cholesterol: 200-239 mg/dLHigh Cholesterol: greater than 239 mg/dL LDL Cholesterol Calculated 95 mg/dl [facility] Comment:Desirable LDL: less than 100 mg/dLNear Optimal/Above Optimal LDL: 110- 129 mg/dLBorderline High LDL: 130-159 mg/dLHigh LDL: 160-189 mg/dLVery High LDL: greater than or equal to 190 mg/dL HDL Cholesterol 56 mg/dL [facility] Comment:Desirable HDL: great er than 40 mg/dL Note: This HDL assay may give artificially low results in patients with liver disease. Blood Venous blood specimen / Unknown 07/07/2023 9:53 AM EDT 07/07/2023 11:18 AM EDT [facility] LAB BLOOD ORDERABLES Final Re sult [facility] [address] [place] [address] [phone] from Last 3 Months or Most Recently Relevant to Health Maintenance Insurance [address] [place] [phone] [facility] [address] [place] [id number] [facility] MEDICAID STAND ADULT Advance Directives Documents on File Type Date Recorded Patient It Audit Manager Expl anation Advance Directives and Living Will 12/11/2024 Health Care Proxy 12/10/24 Care Teams Steam Bone Press Tender Relationship Specialty Start Date End Date Nguyen Hurst FNP [address] [place] [address] PCP - General Family Medicine 07/01/22 Kim Davenport PharmD [address] [place] [address] Pharmacist Internal Medicine 12/10/24 Hortensia [facility] 11/08/24 Britney Benitez Electrical Control AssemblerCable Installer Repairer Helper 05/29/25
--- OUTSIDE RECORDS SUMMARY | 2025-10-07 16:45 | XMS_ITS | Encounter Summary ---
Author Organization [employer] Address [address] [facility] [address] [place] [address] Care Team Providers Care Water/Wastewater Project Manager Name Role Phone Nguyen Hurst SENIOR ADVISORY Primary Care Provider [phone] Kim Davenport PharmD Unavailable [phone] Reason for Visit * Reason Comments Med Refill Encounter Details Date Type Department Care Team ([facility] st Contact Info) Description 05/06/2025 Refill [facility] [address] [place], [place] [phone] Kim Davenport, PharmD [address] [place], [place] [phone] Social History Tobacco Use Types Packs/Day Years [...] Description 10/15/2025 10:15 AM EST Office Visit [facility] [address] [place] [address] Name, MD Leno [address] [place] [address] 11/15/2025 11:00 AM EST Medication Management [facility] [address] [place] [phone] Snehal Santa PharmD [address] [place] [phone] documented as of this encounter Visit Diagnoses Not on filedocumented in this encounter Additional Health Concerns Assessment Noted Time PHQ-9 Depression Total Score: 0 11/30/19 25 1:53 PM EST documented as of this encounter Care Teams Water/Wastewater Project Manager Relationship Specialty Start Date End Date Nguyen Hurst FNP [address] [place] [address] PCP - General Family Medicine 07/01/22 Kim Davenport, Bridgett [address] [place] [address] Pharmacist Internal Medicine 12/10/24 Hortensia GOODE 11/08/24 Britney Benitez Pilot Plant TechnicianEeg Technologist 05/29/25 documented as of this encounter
--- OUTSIDE RECORDS SUMMARY | 2025-10-07 16:45 | XMS_ITS | Encounter Summary ---
Author Organization [employer] Address 75 [facility] 7t [place] [address] Care Team Providers Care Community Resource Officer Name Role Phone Nguyen Hurst ANALYSIS TESTER Primary Care Provider [phone] Kim Davenport PharmD Unavailable [phone] Reason for Visit * Reason Onset Date Comments Hospital Follow-up 08/20/2025 Encounter Details Date Type Department Care Team (Late st Contact Info) Description 08/20/2025 Telephone [facility] MEDICINE [address] [place], [place] [phone] Nguyen Hurst [facility] [address] [place], [place] [phone] Hospital Follow-up Social History Tobacco Use Types [...] AM EDT Tc from pt requesting a Cibiem[facility] appt. Hospital: [facility] Date of admission: 08/19 Discharge date: 08/19 Diagnosed: same day surgery for trigger finger *Send message to [place] Clinical Care Coordinators Contact pt at [phone] Pt states would like follow up with anyone but [place] documented in this encounter Plan of Treatment Upcoming Encounters Date Type Department Care Team (Late st Contact Info) Description 10/15/2025 10:15 AM EST Office Visit [facility] MEDICINE [address] [place] [address] Name, MD Leno [address] [place] [phone] 11/15/2025 11:00 AM EST Medication Management [facility]INE [address] [place] [address] Snehal Santa, PharmD [address] [place] [address] documented as of this encounter Visit Diagnoses Not on filedocumented in this encounter Additional Health Concerns Assessment Noted Time PHQ-9 Depression Total Score: 0 11/30/19 1:53 PM EST documented as of this encounter Care Teams Community Resource Officer Relationship Specialty Start Date End Date [place], Nguyen, ANALYSIS TESTER [address] [place] [address] PCP - General Family Medicine 07/01/22 Kim Davenport PharmD [address] [place] [address] Pharmacist Internal Medicine 12/10/24 Hortensia GOODE 11/08/24 Britney Benitez Supervisor Post WaveThermoforming Operator 05/29/25 documented as of this encounter
--- OUTSIDE RECORDS SUMMARY | 2025-10-07 16:45 | XMS_ITS | Encounter Summary ---
Author Organization [employer] Address 75 [facility] 7t [place] [address] Care Team Providers Care Bulb Assembler Name Role Phone Nguyen Hurst [facility] Primary Care Provider [phone] IssacKim PharmD Unavailable [phone] Encounter Details Date Type Department Care Team (Late st Contact Info) Description 08/27/2025 Telephone [facility] MEDICINE 230 [place], [place] [phone] Nguyen Hurst [facility] 230 [place], [place] [phone] Social History Tobacco Use Types Packs/Day Years [...] to speak with ???whoever is the senior information security consultant?? because, according to the patient, [facility] never called him, and he wants a doctor ???for today.?? documented in this encounter Plan of Treatment Upcoming Encounters Date Type Department Care Team (Late st Contact Info) Description 10/15/2025 10:15 AM EST Office Visit [address] [address] Name, MD Leno [address] [place] [address] 11/15/2025 11:00 AM EST Medication Management [facility] [address] [place] [address] Snehal Santa, EmelynD [address] [place] [address] documented as of this encounter Visit Diagnoses Not on filedocumented in this encounter Additional Health Concerns Assessment Noted Time PHQ-9 Depression Total Score: 0 11/30/19 25 1:53 PM EST documented as of this encounter Care Teams Bulb Assembler Relationship Specialty Start Date End Date [facility], RN TELE [address] [place] [address] PCP - General Family Medicine 07/01/22 Kim Davenport PharmD [address] [place] [address] Pharmacist Internal Medicine 12/10/24 Hortensia GOODE 11/08/24 Britney Benitez Pest Controller AssistantAd Operations Specialist 05/29/25 documented as of this encounter
--- OUTSIDE RECORDS SUMMARY | 2025-10-07 16:45 | XMS_ITS | Encounter Summary ---
Author Organization [employer] [facility] Address 75 [facility] 7t [place] [address] Care Team Providers Care Quill Fixer Name Role Phone Aris Nguyen STREET Primary Care Provider [phone] Kim Davenport PharmD Unavailable [phone] Encounter Details Date Type Department Care Team (Late st Contact Info) Description 03/18/2023 Orders Only [facility] MEDICINE [address] [place] [address] Tracee Cabrera LPN Social History Tobacco Use [...] Description 10/15/2025 10:15 AM EST Office Visit [address] [address] Name, MD Leno [address] [place] [address] 11/15/2025 11:00 AM EST Medication Management [facility] [address] [place] [address] Snehal Santa PharmD [address] [place] [address] documented as of this encounter Visit Diagnoses Not on filedocumented in this encounter Care Teams Quill Fixer Relationship Specialty Start Date End Date Nguyen Hurst FNP [address] [place] [address] PCP - General Family Medicine 07/01/22 Kim Davenport PharmD [address] [place] [address] Pharmacist Internal Medicine 12/10/24 Hortensia GOODE 11/08/24 Britney Benitez Ironer MachineBody Make Up Artist 05/29/25 documented as of this encounter
--- OUTSIDE RECORDS SUMMARY | 2025-10-07 16:45 | XMS_ITS | Encounter Summary ---
Author Organization [employer] [facility] Address 75 [facility] 7t [place] [address] Care Team Providers Care Woods Manager Name Role Phone Nguyen Hurst [facility] Primary Care Provider [phone] Kim Davenport PharmD Unavailable [phone] Encounter Details Date Type Department Care Team (Late st Contact Info) Description 06/24/[address] [address] Nguyen Hurst [facility] [address] [place] [address] Social History Tobacco Use Types Packs/Day Years [...] 10/15/2025 10:15 AM EST Office Visit [address] [address] Name, MD Leno [address] [place] [address] 11/15/2025 11:00 AM EST Medication Management [facility] MEDICINE [address] [place] [address] [phone] Snehal Santa PharmD [address] [place] [address] documented as of this encounter Visit Diagnoses Not on filedocumented in this encounter Care Teams Woods Manager Relationship Specialty Start Date End Date Nguyen Hurst, MANAGER AUDIO [address] [place] [address] PCP - General Family Medicine 07/01/22 Kim Davenport PharmD [address] [place] [address] Pharmacist Internal Medicine 12/10/24 Hortensia GOODE 11/08/24 Britney Benitez Activity Therapy SpecialistTrench Pipe Layer 05/29/25 documented as of this encounter
--- OUTSIDE RECORDS SUMMARY | 2025-10-07 16:45 | XMS_ITS | Encounter Summary ---
Author Organization [employer] Address 75 [facility] 7t [place] [address] Care Team Providers Care Reinforcing Iron And Rebar Workers Name Role Phone Nguyen Hurst VP TREASURER Primary Care Provider [phone] Kim Davenport PharmD Unavailable [phone] Reason for Visit * Reason Onset Date Comments FYI 11/13/2024 Encounter Details Date Type Department Care Team ([facility] st Contact Info) Description 11/13/2024 Telephone [facility] MEDICINE 230 [place], [place] [phone] Nguyen Hurst [facility] 230 [place], [place] [phone] FYI Social History Tobacco Use Types Packs/Day [...] PM EST Tc from Rober[facility] with [facility] stating Pt has not had a Bowl movement since the 11/07. Pt has not had not had any discomfort, Positive Bowl Sounds , Abdomen is Soft, Passing Gas and hasn't taken any meds for it. If any questions you can Contact Roberth at [phone] documented in this encounter Plan of Treatment Upcoming Encounters Date Type Department Care Team (Late st Contact Info) Description 10/15/2025 10:15 AM EST Office Visit [facility] MED[facility]INE [address] [place] [address] Name, MD Leno [address] [place] [address] 11/15/2025 11:00 AM EST Medication Management [facility] [address] [place] [address] Snehal Santa, EmelynD [address] [place] [address] documented as of this encounter Visit Diagnoses Not on filedocumented in this encounter Additional Health Concerns Assessment Noted Time PHQ-9 Depression Total Score: 0 07/04/20 24 3:20 PM EDT documented as of this encounter Care Teams Reinforcing Iron And Rebar Workers Relationship Specialty Start Date End Date Nguyen Hurst, VP TREASURER [address] [place] [address] PCP - General Family Medicine 07/01/22 Kim Davenport PharmD [address] [place] [address] Pharmacist Internal Medicine 12/10/24 Hortensia GOODE 11/08/24 Britney Benitez Child Support Case OfficerDetasseling Crew Supervisor 05/29/25 documented as of this encounter
--- OUTSIDE RECORDS SUMMARY | 2025-10-07 16:45 | XMS_ITS | Encounter Summary ---
Author Organization [employer] Address 75 [facility] 7t [place] [address] Care Team Providers Care Schedule Maker Name Role Phone Nguyen Hurst MODEL ARTISTS' Primary Care Provider [phone] DavenportKim henao PharmD Unavailable [phone] Reason for Referral * Consultation (Routine) - Authorized Specialty Diagnoses / Procedures Referred By Pedro t Referred To Contact Pharmacy Diagnoses Type 2 diabetes mellitus with stage 3 chronic kidney disease, with long-term current use of insulin, unspecified whether stage 3a or 3b CKD (HCC) Elba Jackson MD [address] [place] [address] Phone: tel: fax: Referral ID Status Reason Start Date Expiration Date Visits Requested Visits Authorized [id number] Authorized Consult and Treat 12/04/2024 12/04/2025 6 6 Encounter Details Date Type Department Care Team (Late st Contact Info) Description 12/04/2024 Orders Only [facility]INE [address] [place] [address] [phone] Elba Jackson MD [address] [place] [address] [phone] Type 2 diabetes mellitus with stage 3 [...] Description 10/15/2025 10:15 AM EST Office Visit [facility] [address] [place] [address] Name, MD Leno [address] [place] [address] 11/15/2025 11:00 AM EST Medication Management [facility] [address] [place] [address] Snehal Santa, PharmD [address] [place] [address] Scheduled Referrals Name Type Priority Associated Diagnoses [...] documented as of this encounter Care Teams Schedule Maker Relationship Specialty Start Date End Date Little AmericaNguyen FNP [address] [place] [address] PCP - General Family Medicine 07/01/22 Kim Davenport PharmD [address] [place] [address] Pharmacist Internal Medicine 12/10/24 Hortensia GOODE 11/08/24 Britney Benitez Risk Assessment ConsultantBiomedical Engineer 05/29/25 documented as of this encounter
== END 2025-10-07 14:57 | disposition home or self-care (01) ==
PROVIDERS: PCP Registered Nurse; Visit Provider Internal Medicine Cardiovascular Disease
DX: I25.5 Ischemic cardiomyopathy (principal); I25.10 Atherosclerotic heart disease of native coronary artery without angina pectoris
CPT/HCPCS: 99215

== ENCOUNTER → 2025-10-07 14:23 | Outpatient (BNVA) | payer MEDICAID, SELFPAY | PROVIDERS: PCP Registered Nurse; Visit Provider Internal Medicine Cardiovascular Disease | DX: I25.5 Ischemic cardiomyopathy (principal); I25.10 Atherosclerotic heart disease of native coronary artery without angina pectoris | CPT/HCPCS: 99212 ==

== ENCOUNTER 2025-10-17 09:07 | Outpatient (REF) | payer MEDICAID, SELFPAY ==
--- OUTSIDE RECORDS SUMMARY | 2025-10-15 10:15 | XMS_ITS | Encounter Summary ---
Author Organization [employer] Address 75 [facility] 7t [place] [address] Care Team Providers Care Clinical Nurse Leader Name Role Phone Kim Davenport PharmD Unavailable [phone] Name, Leno GUDINO Primary Care Provider [phone] Reason for Visit * Reason Comments transfer patient Encounter Details Date Type Department Care Team ([facility] st Contact Info) Description 10/15/2025 10:15 AM EST Office Visit [facility] MEDICINE 230 [place], [place] [phone] Name, MD Leno [address] [place] [address] Type 2 diabetes mellitus with stage 3 chronic kidney disease, without long-term current use of insulin, unspecified whether stage 3a or 3b CKD (HCC) (Primary Dx); Ischemic cardiomyopathy; Cerebrovascular accident (CVA), unspecified mechanism (CMS/HCC) (HCC); PFO (patent foramen ovale) Social History Tobacco Use Types Packs/Day Years Used Date Smoking Tobacco: Former Cigarettes Smokeless Tobacco: Never Alcohol Use Standard Drinks/Week Comments Never 0 (1 standard drink = 0.6 oz pur e alcohol) Depression Answer Date Recorded Patient Health Questionnaire-9 Score 12 10/15/2025 Patient Health Questionnaire-9 Score 12 10/15/2025 Last PHQ-9: Questionnaire Data Not on file 1 12/15/2024 Housing Stability Answer Date Recorded What is [...] Answer Date Recorded Patient Health Questionnaire-2 Score 5 10/15/2025 Internet Access Answer Date Recorded Internet Access Q1 Yes 11/09/2024 Internet Access Q2 Not on file 11/09/2024 Sex and Gender Information Value Date Recorded Sex Assigned at Male 09/27/2022 10:14 AM EDT Legal Sex Male 10:14 AM EDT Gender Identity Male 09/27/2022 10:14 AM EDT Sexual Orientation Straight 09/27/2022 10 :14 AM EDT documented as of this encounter Last Filed Vital Signs Vital Sign Reading Time Taken Comments Blood Pressure 132/84 10/15/2025 10:31 AM EST Pulse 71 10/15/2025 10:31 AM EST Temperature 36.6 C (97.8 F) 10/15/2025 10:31 AM EST Respiratory Rate 17 10/15/2025 10:31 AM EST Oxygen Saturation 99% 10/15/2025 10:31 AM EST Inhaled Oxygen Concentration - - Weight 63.6 kg (140 lb 3.2 oz) 10/15/2025 10:31 AM EST Height 170.2 cm (5' 7 ) 10/15/2025 10:31 AM EST Body Mass Index 21.96 10/15/2025 10:31 AM EST documented in this encounter Functional Status * Over the past 2 weeks, how often have you been bothered by any of the following problems? Question Answer Date of Assessment Author Patient Health Questionnaire -2 Score 5 10/15/2025 10:36 AM EST Eliseo Ann MA * Little interest or pleasure in doing things Answer Date of Assessment Author Nearly every day 10/15/2025 10:36 AM EST Eliseo Ann MA * Feeling down, depressed, or hopeless Answer Date of Assessment Author More than half the days 10/15/2025 10:36 AM Eliseo Springer MA * Trouble falling or staying asleep, or sleeping too much Answer Date of Assessment Author More than half the days 10/15/2025 10:36 AM Eliseo Springer MA * Feeling tired or having little energy Answer Date of Assessment Author Not at all 10/15/2025 10:36 AM Eliseo Springer MA * Poor appetite or overeating Answer Date of Assessment Author Not at all 10/15/2025 10:36 AM Eliseo Springer MA * Feeling bad about yourself - or that you are a failure or have let yourself or your family down Answer Date of Assessment Author Not at all 10/15/2025 10:36 AM Eliseo Springer MA * Trouble concentrating on things, such as reading the newspaper or watching television Answer Date of Assessment Author Not at all 10/15/2025 10:36 AM Eliseo Springer MA * Moving or speaking so slowly that other people could have noticed? Or the opposite - being so fidgety or restless that you have been moving around a lot more than usual. Answer Date of Assessment Author Nearly every day 10/15/2025 10:36 AM Eliseo Springer MA * Thoughts that you would be better off or hurting yourself in some way Answer Date of Assessment Author More than half the days 10/15/2025 10:36 AM Eliseo Springer MA * Patient Health Questionnaire-9 Score Answer Date of Assessment Author 12 10/15/2025 10:36 AM Eliseo Springer MA * How difficult have these problems made it for you to do your work, take care of things at home, or get along with other people? Answer Date of Assessment Author Very difficult 10/15/2025 10:36 AM Eliseo Springer MA documented as of this encounter Progress Notes * Leno Garrett MD - 10/15/2025 10:15 AM EST Subjective Patient ID: Dany Henry is a 60 y.o. male who presents for transfer patient. Patient comes for the first time to see me. He is transferring his care from another provider within this practice. He has longstanding uncontrolled diabetes with complications including coronary artery disease, CKD. The patient follows at [facility] cardiology. He has severe CAD, low ejection fraction, PFO, he is currently undergoing workup for possible CABG surgery. He has history of multiple strokes with residual deficits including left leg weakness and mild tremors. Patient main concern today is that he would like me to fill out a medical form saying that it is okay for him to drive his car. Review of Systems Constitutional: Negative for chills, fatigue and fever. HENT: Negative for sore throat. Respiratory: Negative for cough, chest tightness and shortness of breath. Cardiovascular: Negative for chest pain, palpitations and leg swelling. Gastrointestinal: Negative for abdominal pain and blood in stool. Neurological: Positive for tremors and weakness. Objective Vitals: 10/15/25 1031 BP: 132/84 BP Location: Left arm Patient Position: Sitting BP Cuff Size: Adult Pulse: 71 Resp: 17 Temp: 97.8 ??F (36.6 ??C) TempSrc: Oral SpO2: 99% Weight: 140 lb 3.2 oz (63.6 kg) Height: 5' 7 (1.702 m) Physical Exam Constitutional: General: He is not in acute distress. Cardiovascular: Rate and Rhythm: Normal rate and regular rhythm. Pulmonary: Effort: Pulmonary effort is normal. No respiratory distress. Neurological: Mental Status: He is oriented to person, place, and time. Mental status is at baseline. Motor: Weakness present. Comments: Patient uses a cane to ambulate, he described mild left-sided leg weakness He has mild tremors on exam Lab Results Component Value Date HGBA1C 9.1 (A) 10/15/2025 HGBA1C 8.0 (A) 07/12/2025 HGBA1C 8.2 (A) 04/01/2025 HGBA1C 7.6 (A) 11/30/2024 HGBA1C 7.8 (A) 07/04/2024 HGBA1C 8.0 (H) 03/15/2024 HGBA1C 8.9 (A) 07/07/2023 HGBA1C 9.3 (H) 06/08/2021 CREATININE 1.62 (H) 04/11/2025 CREATININE 1.21 11/02/2024 CREATININE 1.23 03/15/2024 CREATININE 1.38 07/07/2023 Lab Results Component Value Date GLUCOSE 149 (H) 04/11/2025 NA 138 04/11/2025 K 4.4 04/11/2025 CO2 26 04/11/2025 CL 104 04/11/2025 BUN 34 (H) 04/11/2025 CREATININE 1.62 (H) 04/11/2025 Assessment/Plan Diagnoses and all orders for this visit: Type 2 diabetes mellitus with stage 3 chronic kidney disease, without long-term current use of insulin, unspecified whether stage 3a or 3b CKD (HCC) Comments: I explained to the patient that I cannot say that he can drive safely. The best thing that I can say is that I do not know and that he should get a driving evaluation to make sure he can drive safely. I did not recommend any medication changes. He is reminded to go for the fasting blood work ordered at his previous visit He is encouraged to continue following with [facility] cardiology and follow their recommendations. He has upcoming appointment with [facility] for diabetes management Orders: - POCT Hgb A1c - POCT Glucose Ischemic cardiomyopathy Cerebrovascular accident (CVA), unspecified mechanism (CMS/HCC) (HCC) PFO (patent foramen ovale) Future Appointments Date Time Provider Department Center 11/15/2025 11:00 AM Snehal Santa PharmD MEDICINE [facility] documented in this encounter Plan of Treatment Upcoming Encounters Date Type Department Care Team (Late st Contact Info) Description 11/15/2025 11:00 AM EST Medication Management [facility] MEDICINE [address] [place] [address] Snehal Santa PharmD [address] [place] [address] 01/16/2026 10:30 AM EST Office Visit [facility] MEDICINE [address] [place] [address] Gerry, MD Leno [address] [place] [address] documented as of this encounter Goals Goal Patient Goal Type Associated Problems Recent Progress Patient-Stated? Author Help patients manage their type 2 diabetes Care Plan Help patients manage their type 2 diabetes No Kim Davenport PharmD Weekly blood pressure task Care Plan Weekly blood pressure task No Kim Davenport PharmD Help patients manage their type 2 diabetes Care Plan Help patients manage their type 2 diabetes No Kim Davenport PharmD Patient has chronic kidney disease Care Plan Patient has chronic kidney disease No Kim Davenport PharmD Weekly blood pressure task Care Plan Weekly blood pressure task No Kim Davenport PharmD Patient has chronic kidney disease Care Plan Patient has chronic kidney disease No Kim Davenport PharmD Weekly blood pressure task Care Plan Weekly blood pressure task No Eliseo Ann MA Weekly blood pressure task Care Plan Weekly blood pressure task No Eliseo Ann MA Patient has chronic kidney disease Care Plan Patient has chronic kidney disease No Eliseo Ann MA Patient has chronic kidney disease Care Plan Patient has chronic kidney disease No Eliseo Ann MA documented as of this encounter Procedures Procedure Name Priority Date/Time Associated Diagnosis Comments POCT GLYCATED HEMOGLOBIN, TOTAL Routine 10/15/2025 10:35 AM EST Type 2 diabetes mellitus with stage 3 chronic kidney disease, without long-term current use of insulin, unspecified whether stage 3a or 3b CKD (HCC) POCT GLUCOSE Routine 10/15/2025 10:34 AM EST Type 2 diabetes mellitus with stage 3 chronic kidney disease, without long-term current use of insulin, unspecified whether stage 3a or 3b CKD (HCC) documented in this encounter Results * (ABNORMAL) POCT Hgb A1c (10/15/2025 10:35 AM EST) Hemoglobin A1C 9.1(A) 4.0 - 5.7 % QC Media Lot # [id number] Lot# Expiration Date 52,327 Blood 10/15/2025 10:3 5 AM EST Lenorex Garrett MD POINT OF CARE TEST ENTER/EDIT OR DERABLES Final Result * (ABNORMAL) POCT Glucose (10/15/2025 10:34 AM EST) Pathologist [facility] Glucose Blood, POC 304(A) 60 - 200 mg/dL QC Media Lot # [id number] Lot# Expiration Date Blood Capillary blood specimen / Unknown 10/15/2025 10:34 AM EST Leno Garrett MD POINT OF CARE TEST ENTER/EDIT OR DERABLES Final Result documented in this encounter Visit Diagnoses Diagnosis Type 2 diabetes mellitus with stage 3 chronic kidney disease, without long-term current use of insulin, unspecified whether stage 3a or 3b CKD (HCC)- Primary Ischemic cardiomyopathy Other specified forms of chronic ischemic heart disease Cerebrovascular accident (CVA), unspecified mechanism (CMS/HCC) (HCC) PFO (patent foramen ovale) Ostium secundum type atrial septal defect documented in this encounter Additional Health Concerns Active Problems Noted Date Diagnosed Date Help patients manage their type 2 diabetes 10/10 Weekly blood pressure task 10/10/2025 Help patients manage their type 2 diabetes 10/10 Patient has chronic kidney disease 10/10/2025 Weekly blood pressure task 10/10/2025 Patient has chronic kidney disease 10/10/2025 Weekly blood pressure task 10/15/2025 Weekly blood pressure task 10/15/2025 Patient has chronic kidney disease 10/15/2025 Patient has chronic kidney disease 10/15/2025 Assessment Noted Time PHQ-9 Depression Total Score: 12 025 10:36 AM EST documented as of this encounter Care Teams Clinical Nurse Leader Relationship Specialty Start Date End Date Name, MD Leno [address] [place] [address] PCP - General Internal Medicine 10/11/25 Kim Davenport PharmD [address] [place] [address] Pharmacist Internal Medicine 12/10/24 Hortensia [facility] 11/08/24 Britney Benitez Robotic WelderReceiver Stocker 05/29/25 documented as of this encounter
--- OUTSIDE RECORDS SUMMARY | 2025-10-18 09:33 | XMS_ITS | Encounter Summary ---
Author Organization [employer] Address [address] [facility] 7t [place] [address] Care Team Providers Care Diesel Engine Inspector Name Role Phone Nguyen Hurst YENIFER Primary Care Provider [phone] Kim Davenport PharmD Unavailable Name, Leno GUDINO Primary Care Provider [phone] Reason for Referral * Consultation (Routine) - Canceled Specialty Diagnoses / Procedures Referred By Contac t Referred To Contact Pharmacy Diagnoses Type 2 diabetes mellitus with stage 3 chronic kidney disease, with long-term current use of insulin, unspecified whether stage 3a or 3b CKD (HCC) Elba Jackson MD [address] [place] [address] Phone: tel: fax: Referral ID Status Reason Start Date Expiration Date V isits Requested Visits Authorized [id number] Canceled Consult and Treat 02/26/2025 02/26/2026 6 6 Encounter Details Date Type Department Care Team (Late st Contact Info) Description 02/26/2025 Orders Only [facility] MEDICINE [address] [place], [place] [phone] Elba Jackson MD [address] [place], [place] [phone] Type 2 diabetes mellitus with stage 3 [...] Description 11/15/2025 11:00 AM EST Medication Management [facility] MEDICINE [address] [place] [address] Snehal Santa, EmelynD [address] [place] [address] 01/16/2026 10:30 AM EST Office Visit [facility] MEDICINE [address] [place] [address] Name, MD Leno [address] [place] [address] Scheduled Referrals Name Type Priority Associated Diagnoses [...] documented as of this encounter Care Teams Diesel Engine Inspector Relationship Specialty Start Date End Date ArcataNguyen FUNDRAISING DIRECTOR [address] [place] [address] PCP - General Family Medicine 07/01/22 10/10/25 Leno Garrett MD [address] [place] [address] PCP - General Internal Medicine 10/11/25 Kim Davenport PharmD [address] [place] [address] Pharmacist Internal Medicine 12/10/24 Hortensia GOODE 11/08/24 Britney Benitez Gill TenderDevelopment Chemist 05/29/25 documented as of this encounter
--- OUTSIDE RECORDS SUMMARY | 2025-10-18 09:33 | XMS_ITS | Encounter Summary ---
Author Organization [employer] Address [address] [facility] [address] 7t [place] [address] Care Team Providers Care Tire Recapping Machine Operator Name Role Phone Davenport, Kim PharmD Unavailable [phone] Name, Leno GUDINO Primary Care Provider [phone] Encounter Details Date Type Department Care Team (Latest Contact Info) Description 10/15/2025 Travel Social History Tobacco Use Types Packs/Day [...] AM EDT documented as of this encounter Functional Status * Over the past 2 weeks, how often have you been bothered by any of the following problems? Question Answer Date of Assessment Author Patient Health Questionnaire -2 Score 5 10/15/2025 10:36 AM Eliseo Springer [place] * Little interest or pleasure in doing things Answer Date of Assessment Author Nearly every day 10/15/2025 10:36 AM Eliseo Springer [place] * Feeling down, depressed, or hopeless [...] Assessment Author Very difficult 10/15/2025 10:36 AM EST Eliseo Ann [place] documented as of this encounter Plan of Treatment Upcoming Encounters Date Type Department Care Team (Late st Contact Info) Description 11/15/2025 11:00 AM EST Medication Management [address] [address] Snehal Santa PharmD [address] [place] [address] 01/16/2026 10:30 AM EST Office Visit [address] [address] Name, MD Leno [address] [place] [address] documented as of this encounter Goals Goal [...] manage their type 2 diabetes No Kim Davenport, PharmD Patient has chronic kidney disease Care Plan Patient has chronic kidney disease No Kim Davenport PharmD Weekly blood pressure task Care Plan Weekly blood pressure task No Kim Davenport PharmD Patient has chronic kidney disease Care Plan Patient has chronic kidney disease No Kim Davenport PharmDevi Weekly blood pressure task Care Plan Weekly blood pressure task No Eliseo Ann MA Weekly blood pressure task Care Plan Weekly blood pressure task No Eliseo Ann [place] Patient has chronic kidney disease Care Plan Patient has chronic kidney disease Eliseo Woods [place] Patient has chronic kidney disease Care Plan Patient has chronic kidney disease No Eliseo Ann MA documented as of this encounter Visit Diagnoses Not on filedocumented in this encounter Additional Health Concerns Active [...] documented as of this encounter Care Teams Tire Recapping Machine Operator Relationship Specialty Start Date End Date Name, MD Leno [address] [place] [address] PCP - General Internal Medicine 10/11/25 Kim Davenport PharmD [address] [place] [address] Pharmacist Internal Medicine 12/10/24 Hortensia GOODE 11/08/24 Britney Benitez Check And Transfer BeaderSports Equipment Repairer 05/29/25 documented as of this encounter
--- OUTSIDE RECORDS SUMMARY | 2025-10-18 09:33 | XMS_ITS | Encounter Summary ---
Author Organization [employer] Address [address] [facility] 7t [place] [address] Care Team Providers Care Bread Room Hand Name Role Phone DavenportKim PharmD Unavailable [phone] Name, Leno GUDINO Primary Care Provider [phone] Reason for Visit * Reason Onset Date Comments Record Request 10/17/2025 Encounter Details Date Type Department Care Team ([facility] st Contact Info) Description 10/17/2025 Telephone [facility] MEDICINE [address] [place], [place] [phone] Name, MD Leno [address] [place] [address] Record Request Social History Tobacco Use Types Packs/Day [...] encounter Miscellaneous Notes * Telephone Encounter - Keren Arauz [place] - 10/17/2025 11:58 AM EST A request through fax was sent to [facility] to obtain pt's eye exam per PCP, they replied asking for more information about patient. Patient's information was faxed over and confirmation was received. This was scanned into chart. documented in this encounter Plan of Treatment Upcoming Encounters Date Type Department Care Team (Late st Contact Info) Description 11/15/2025 11:00 AM EST Medication Management [address] [address] Snehal Santa PharmD [address] [place] [address] 01/16/2026 10:30 AM EST Office Visit [address] [address] Name, MD Leno [address] [place] [address] documented as of this encounter Goals Goal Patient Goal Type Associated Problems Recent Progress Patient-Stated? Author Help patients manage their type 2 diabetes Care Plan Help patients manage their type 2 diabetes No Kim Davenport, Bridgett Weekly blood pressure task Care Plan Weekly [...] documented as of this encounter Care Teams Bread Room Hand Relationship Specialty Start Date End Date Name, MD Leno [address] [place] [address] PCP - General Internal Medicine 10/11/25 Kim Davenport PharmD [address] [place] [address] Pharmacist Internal Medicine 12/10/24 [place] VNHelga 11/08/24 Britney Benitez Director Of Corporate SponsorshipsHousekeeper Child Care 7/2/25 documented as of this encounter
--- OUTSIDE RECORDS SUMMARY | 2025-10-18 09:33 | XMS_ITS | Encounter Summary ---
Author Organization [employer] Address [address] [facility] 7t [place] [address] Care Team Providers Care Dishtank Operator Name Role Phone Nguyen Hurst [facility] Primary Care Provider [phone] Kim Davenport PharmD Unavailable [phone] Name, Leno GUDINO Primary Care Provider [phone] Reason for Visit * Reason Onset Date Comments Call Back Request 07/11/2024 Encounter Details Date Type Department Care Team ([facility] st Contact Info) Description 07/11/[address] [facility] MEDICINE [address] [place], [place] [phone] Nguyen Hurst [facility] [address] [place], [place] [phone] Call Back Request Social History Tobacco Use [...] get themedical records faxed to Urology in [place] senior grant writer did attempt to transfer however patient stated was just talking with them was told to speak with provider documented in this encounter Plan of Treatment Upcoming Encounters Date Type Department Care Team (Late st Contact Info) Description 11/15/2025 11:00 AM EST Medication Management [facility] MEDICINE [address] [place] [address] Snehal Santa, PharmD [address] [place] [address] 01/16/2026 10:30 AM EST Office Visit [facility] MEDICINE [address] [place] [address] Name, MD Leno [address] [place] [address] documented as of this encounter Visit Diagnoses Not on filedocumented in this encounter Additional Health Concerns Assessment Noted Time PHQ-9 Depression Total Score: 0 07/04/20 24 3:20 PM EDT documented as of this encounter Care Teams Dishtank Operator Relationship Specialty Start Date End Date Nguyen Hurst FNP [address] [place] [address] PCP - General Family Medicine 07/01/22 10/10/25 Leno Garrett MD [address] [place] [address] PCP - General Internal Medicine 10/11/25 Kim Davenport PharmD [address] [place] [address] Pharmacist Internal Medicine 12/10/24 Hortensia GOODE 11/08/24 Britney Benitez Carnallite Plant OperatorPlumbing Inspector 05/29/25 documented as of this encounter
--- OUTSIDE RECORDS SUMMARY | 2025-10-18 09:33 | XMS_ITS | Encounter Summary ---
Author Organization [employer] Address [address] [facility] 7t [place] [address] Care Team Providers Care Consultant Nurse Name Role Phone Nguyen Hurst [facility] Primary Care Provider [phone] Kim Davenport PharmD Unavailable [phone] Name, Leno GUDINO Primary Care Provider [phone] Reason for Visit * Reason Onset Date Comments Hospital Follow-up 08/20/2025 Encounter Details Date Type Department Care Team ([facility] st Contact Info) Description 08/20/2025 Telephone [facility] MEDICINE [address] [place], [place] [phone] Nguyen Hurst [facility] 230 [place], [place] [phone] Hospital Follow-up Social History Tobacco Use Types [...] from pt requesting a HDF appt. Hospital: [facility] Date of admission: 08/19 Discharge date: 08/19 Diagnosed: same day surgery for trigger finger *Send message to [place] Clinical Care Coordinators Contact pt at [phone] Pt states would like follow up with anyone but [place] documented in this encounter Plan of Treatment Upcoming Encounters Date Type Department Care Team (Late st Contact Info) Description 11/15/2025 11:00 AM EST Medication Management [address] [address] Snehal Santa, PharmD [address] [place] [address] 01/16/2026 10:30 AM EST Office Visit [address] [address] Name, MD Leno [address] [place] [address] documented as of this encounter Visit Diagnoses Not on filedocumented in this encounter Additional Health Concerns Assessment Noted Time PHQ-9 Depression Total Score: 0 11/30/19 1:53 PM EST documented as of this encounter Care Teams Consultant Nurse Relationship Specialty Start Date End Date ArisNguyen conde SURGERY CONSULTANT [address] [place] [address] PCP - General Family Medicine 07/01/22 10/10/25 Gerry, MD Leno [address] [place] [address] PCP - General Internal Medicine 10/11/25 Kim Davenport PharmD [address] [place] [address] Pharmacist Internal Medicine 12/10/24 Hortensia GOODE 11/08/24 Britney Benitez Tapping Machine OperatorQuartz Miner Blasting 05/29/25 documented as of this encounter
--- OUTSIDE RECORDS SUMMARY | 2025-10-18 09:33 | XMS_ITS | Clinical Summary ---
Author Organization [facility] Address [address] [facility] [address] [place] [address] Phone Care Team Providers Care Cream Dipper Name Role Phone Ellie Shanks Primary Care [...] his children. PLAN: 1. Follow up with [facility]: Not recommended for follow-up 2. Patient goal is to find motivation again. 3. Behavioral Recommendations a. Referral for OP individual therapy b. Incorporate grounding techniques into daily routine c. [place] his brother's life by doing activities in [...] Only [facility] [address] [place] [address] Chris King [...] Visit [facility] [address] [place] [address] Chris King MD [address] [facility] [address] [place] [address] Health Maintenance Due Date Last Done Comments [...] complete this topic Insurance Medicaid [place] , [place] [address] [place] Care Teams Cream Dipper Relationship Specialty Start Date End Date Ellie Shanks [address] [place] [address] PCP - General Internal Medicine 07/03/21
--- OUTSIDE RECORDS SUMMARY | 2025-10-18 09:33 | XMS_ITS | Encounter Summary ---
Author Organization [employer] Address [address] [facility] 7t [place] [address] Care Team Providers Care Hospitalist Nocturnist Physician Name Role Phone Nguyen Hurst [facility] Primary Care Provider Kim Davenport PharmD Unavailable [phone] Name, Leno GUDINO Primary Care Provider [phone] Reason for Visit * Reason Comments Med Refill Encounter Details Date Type Department Care Team ([facility] st Contact Info) Description 06/04/2025 Refill [facility] MEDICINE 230 [place], [place] [phone] Nguyen Hurst [facility] 230 [place], [place] [phone] Social History Tobacco Use Types Packs/Day Years [...] Description 11/15/2025 11:00 AM EST Medication Management [facility] MEDICINE [address] [place] [address] Snehal Santa PharmD [address] [place] [address] 01/16/2026 10:30 AM EST Office Visit [facility] MEDICINE [address] [place] [address] Leno Garrett MD [address] [place] [address] documented as of this encounter Visit Diagnoses Not on filedocumented in this encounter Additional Health Concerns Assessment Noted Time PHQ-9 Depression Total Score: 0 11/30/19 1:53 PM EST documented as of this encounter Care Teams Hospitalist Nocturnist Physician Relationship Specialty Start Date End Date [place] CityNguyen MANAGER PRODUCT [address] [place] [address] PCP - General Family Medicine 07/01/22 10/10/25 Leno Garrett MD [address] [place] [address] PCP - General Internal Medicine 10/11/25 Kim Davenport, Bridgett [address] [place] [address] Pharmacist Internal Medicine 12/10/24 Hortensia GOODE 11/08/24 Britney Benitez Rehabilitation Program ManagerAdvanced Seal Delivery System 05/29/25 documented as of this encounter
--- OUTSIDE RECORDS SUMMARY | 2025-10-18 09:33 | XMS_ITS | Encounter Summary ---
Author Organization [employer] Address [address] [facility] 7t [place] [address] Care Team Providers Care Supervisor Buffing And Pasting Name Role Phone Nguyen Hurst [facility] Primary Care Provider [phone] Kim Davenport PharmD Unavailable [phone] Name, Leno GUDINO Primary Care Provider [phone] Reason for Visit * Reason Onset Date Comments VNA services 01/09/2025 Encounter Details Date Type Department Care Team ([facility] st Contact Info) Description 01/09/2025 Telephone [facility] MEDICINE 230 [place], [place] [phone] Nguyen Hurst [facility] 230 [place], [place] [phone] VNA services Social History Tobacco Use Types [...] 01/09/2025 12:17 PM EST TC placed to [facility] [phone] in regards to below message. RN was informed patient was discharged from [facility] in regards to PT and OT on 01/01/25 PT and alf on 01/03/25 d/t meeting all goals and being independent. [facility] confirms the patient cannot become re-established at this time d/t recent discharge d/t goals being met. TC placed to patient [phone] to inform of above message. Patient is upset, states he wants services back. Patient reports he does not feel anything has improved. RN advised patient per [facility] patient has met goals however patient does not feel that is accurate. Sending to PCP as FYI and recommendations on POC. * Telephone Encounter - Melissa Banks - 01/09/2025 11:57 AM EST Tc from pt requesting orders for nurse visiting and physical therapy. Any questions contact pt [phone] (pakistani) documented in this encounter Plan of Treatment Upcoming Encounters Date Type Department Care Team (Late st Contact Info) Description 11/15/2025 11:00 AM EST Medication Management [facility] [place] [place] [address] [place] [address] 01/16/2026 10:30 AM EST Office Visit [facility] [place] [address] [place] [address] documented as of this encounter Visit Diagnoses Not on filedocumented in this encounter Additional Health Concerns Assessment Noted Time PHQ-9 Depression Total Score: 0 11/30/19 1:53 PM EST documented as of this encounter Care Teams Supervisor Buffing And Pasting Relationship Specialty Start Date End Date [facility], [facility] [address] PCP - General Family Medicine 07/01/22 10/10/25 [place] [address] PCP - General Internal Medicine 10/11/25 [place] [address] Pharmacist Internal Medicine 12/10/24 Hortensia GOODE 11/08/24 Britney Benitez General Assignment ReporterBid Analyst 05/29/25 documented as of this encounter
--- OUTSIDE RECORDS SUMMARY | 2025-10-18 09:33 | XMS_ITS | Encounter Summary ---
Author Organization [employer] Address [address] [facility] [address] 7t [place] [address] Care Team Providers Care Electronics Design Engineer Name Role Phone Aris Nguyen IMPREGNATOR Primary Care Provider [phone] Kim Davenport PharmD Unavailable [phone] Name, Leno GUDINO Primary Care Provider [phone] Encounter Details Date Type Department Care Team (Late st Contact Info) Description 08/27/2025 Telephone [facility] MEDICINE 230 [place], [place] [phone] Nguyen Hurst [facility] 230 [place], [place] [phone] Social History Tobacco Use Types Packs/Day Years [...] to speak with ???whoever is the senior tax manager?? because, according to the patient, [facility] never called him, and he wants a doctor ???for today.?? documented in this encounter Plan of Treatment Upcoming Encounters Date Type Department Care Team (Late st Contact Info) Description 11/15/2025 11:00 AM EST Medication Management [facility] MEDICINE [address] [place] [address] Snehal Santa, PharmD [address] [place] [address] 01/16/2026 10:30 AM EST Office Visit [facility] MEDICINE [address] [place] [address] Name, MD Leno [address] [place] [address] documented as of this encounter Visit Diagnoses Not on filedocumented in this encounter Additional Health Concerns Assessment Noted Time PHQ-9 Depression Total Score: 0 11/30/19 25 1:53 PM EST documented as of this encounter Care Teams Electronics Design Engineer Relationship Specialty Start Date End Date Nguyen Hurst, IMPREGNATOR [address] [place] [address] PCP - General Family Medicine 07/01/22 10/10/25 Name, MD Leno 230 [place] [address] PCP - General Internal Medicine 10/11/25 Kim Davenport PharmD [address] [place] [address] Pharmacist Internal Medicine 12/10/24 Hortensia GOODE 11/08/24 Britney Benitez Investigation ClerkBanquet Pilot 05/29/25 documented as of this encounter
--- OUTSIDE RECORDS SUMMARY | 2025-10-18 09:34 | XMS_ITS | Encounter Summary ---
Author Organization [employer] Address [address] [facility] 7t [place] [address] Care Team Providers Care Director Title Name Role Phone Nguyen Hurst [facility] Primary Care Provider [phone] Kim Davenport PharmD Unavailable [phone] Name, Leno GUDINO Primary Care Provider [phone] Reason for Visit * Reason Onset Date Comments FYI 11/13/2024 Encounter Details Date Type Department Care Team ([facility] st Contact Info) Description 11/13/2024 Telephone [facility] MEDICINE 230 [place], [place] [phone] Nguyen Hurst [facility] 230 [place], [place] [phone] FYI Social History Tobacco Use Types Packs/Day [...] any questions you can Contact Roberth at [phone] documented in this encounter Plan of Treatment Upcoming Encounters Date Type Department Care Team (Late st Contact Info) Description 11/15/2025 11:00 AM EST Medication Management [facility] MEDICINE [address] [place] [address] Snehal Santa, PharmD [address] [place] [address] 01/16/2026 10:30 AM EST Office Visit [facility] MEDICINE [address] [place] [address] [phone] Name, MD Leno [address] [place] [address] documented as of this encounter Visit Diagnoses Not on filedocumented in this encounter Additional Health Concerns Assessment Noted Time PHQ-9 Depression Total Score: 0 07/04/20 3:20 PM EDT documented as of this encounter Care Teams Director Title Relationship Specialty Start Date End Date ArisNguyen conde FNP [address] [place] [address] PCP - General Family Medicine 07/01/22 10/10/25 Gerry, MD Leno [address] [place] [address] PCP - General Internal Medicine 10/11/25 Kim Davenport PharmD [address] [place] [address] Pharmacist Internal Medicine 12/10/24 Hortensia GOODE 11/08/24 Britney Benitez Debone SupervisorProspect Manager 05/29/25 documented as of this encounter
--- OUTSIDE RECORDS SUMMARY | 2025-10-18 09:34 | XMS_ITS | Clinical Summary ---
Author Organization [address] [facility] Address [address] [place] [address] Phone Care Team Providers Care Psych Sales Specialist Name Role Phone Ellie Shanks MD Primary [...] Problem Noted Date Diagnosed Date Diabetes mellitus ([facility] V24, [facility] V28) Alcoholism ([facility] V24, [facility] V28) 02/18/2022 Back ache 02/18/2022 CVA (cerebral vascular accident) ([facility] V24, [facility] V28) 02/18/2022 Epilepsy ([facility] V24, [facility] V28) 02/18/2022 Erectile dysfunction 02/18/2022 Hyperlipidemia 02/18/2022 Hypertension 02/18/2022 Tinea pedis 02/18/2022 Redundant prepuce 02/18/2022 Osteomyelitis of foot ([facility] V24, [facility] V28) 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/2011 Surgical History Surgery Date Site/Laterality Comments FOOT SURGERY 2009 PROCEDURE: HISTORICAL FOOT SURGERY; COMMENT: Right foot infection BACK SURGERY 1984 PROCEDURE: HISTORICAL BACK SURGERY; COMMENT: low back Medical History Medical History Date Comments CVA (cerebral vascular accid ent) ([facility] V24, [facility] V28) 02/18/2022 DX:CVA (cerebral vascular a ccident) ([facility]) Hypertension 02/18/2022 DX:Hypertension Erectile dysfunction 02/18/2022 DX:Erectile dysfunction Redundant prepuce 02/18/2022 DX:Redundant p repuce Hyperlipidemia 02/18/2022 DX:Hyperlipidemi a Epilepsy ([facility] V24, [facility] V28) 02/18/2022 DX:Epilepsy ([facility]) Social History Tobacco Use Types [...] Test (03/15/2024) Annual BMP Blood Test Abstracted [facility] Provider MD HEALTH MAINTENANCE Final Result * HIV Screening (03/15/2024) HIV Screening Abstracted [facility] Provider MD HEALTH MAINTENANCE Final Result * Hemoglobin A1c (03/15/2024) Hemoglobin A1C 0.0 % Comment:No interpretation, A bstracted Blood Venous blood specimen / Unknown Result [facility] Provider MD LAB BLOOD ORDERABLES Rima l Result * Lipid panel (07/07/2023) LDL/HDL Ratio 0 Comment:Abstracted Triglycerides 0 mg/dL Comment:Abstracted Cholesterol 0 mg/dL Comment:Abstracted HDL 0 mg/dL Comment:Abstracted LDL Cholesterol 0 mg/dL Comment:Abstracted Blood Venous blood specimen / Unknown Result [facility] Provider MD LAB BLOOD ORDERABLES Rima l Result from Last 3 Months or Most Recently Relevant to Health Maintenance [place] Care Teams Psych Sales Specialist Relationship Specialty Start Date End Date Ellie Shanks MD [address] [place] [phone] PCP - General Internal Medicine 02/04/22
--- OUTSIDE RECORDS SUMMARY | 2025-10-18 09:34 | XMS_ITS | Encounter Summary ---
Author Organization [employer] Address 75 [facility] 7t [place] [address] Care Team Providers Care National Guard Member Name Role Phone Nguyen Hurst [facility] Primary Care Provider [phone] Kim Davenport PharmD Unavailable [phone] Name, Leno GUDINO Primary Care Provider [phone] Reason for Visit * Reason Onset Date Comments Nurse Triage 02/27/2025 Encounter Details Date Type Department Care Team ([facility] st Contact Info) Description 02/27/2025 Telephone [facility] [address] [place], [place] [phone] Nguyen Hurst [facility] 230 [place], [place] [phone] Nurse Triage Social History Tobacco Use Types [...] due to work. 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 Pt agrees with disposition and insurance [...] finger normally The caller accepted this outcome. [phone] documented in this encounter Plan of Treatment Upcoming Encounters Date Type Department Care Team (Late st Contact Info) Description 11/15/2025 11:00 AM EST Medication Management [address] [address] Snehal Santa PharmD [address] [place] [address] 01/16/2026 10:30 AM EST Office Visit [facility] [address] [place] [address] NameLeno MD [address] [place] [address] [phone] documented as of this encounter Visit Diagnoses Not on filedocumented in this encounter Additional Health Concerns Assessment Noted Time PHQ-9 Depression Total Score: 0 11/30/19 25 1:53 PM EST documented as of this encounter Care Teams National Guard Member Relationship Specialty Start Date End Date KensingtonNguyen FNP [address] [place] [address] PCP - General Family Medicine 07/01/22 10/10/25 Leno Garrett MD [address] [place] [address] PCP - General Internal Medicine 10/11/25 Kim Davenport PharmD [address] [place] [address] Pharmacist Internal Medicine 12/10/24 Hortensia GOODE 11/08/24 Britney Benitez Remote Sensing TechnicianBusiness Operations Consultant 05/29/25 documented as of this encounter
--- OUTSIDE RECORDS SUMMARY | 2025-10-18 09:34 | XMS_ITS | Encounter Summary ---
Author Organization [employer] Address 75 [facility] 7t [place] [address] Care Team Providers Care Dive Superintendent Name Role Phone Nguyen Hurst SAW SHARPENER Primary Care Provider [phone] Kim Davenport PharmD Unavailable [phone] Name, Leno GUDINO Primary Care Provider [phone] Reason for Visit * Reason Comments Med Refill Encounter Details Date Type Department Care Team (Late st Contact Info) Description 06/15/2023 Refill [facility] [address] [place] [address] Ruthy Martinez FNP [address] [place], [place] [phone] Social History Tobacco Use Types Packs/Day Years [...] Description 11/15/2025 11:00 AM EST Medication Management [facility] [address] [place] [address] Snehal Santa, PharmD [address] [place] [address] 01/16/2026 10:30 AM EST Office Visit [facility] [address] [place] [address] Name, MD Leno [address] [place] [address] documented as of this encounter Visit Diagnoses Not on filedocumented in this encounter Care Teams Dive Superintendent Relationship Specialty Start Date End Date Nguyen Hurst FNP [address] [place] [address] PCP - General Family Medicine 07/01/22 10/10/25 Gerry, MD Leno [address] [place] [address] PCP - General Internal Medicine 10/11/25 Kim Davenport PharmD [address] [place] [address] Pharmacist Internal Medicine 12/10/24 Hortensia GOODE 11/08/24 Britney Benitez Armored Car GuardBoring Machine Operator Production 05/29/25 documented as of this encounter
--- OUTSIDE RECORDS SUMMARY | 2025-10-18 09:34 | XMS_ITS | Encounter Summary ---
Author Organization [employer] Address 75 [facility] 7t [place] [address] Care Team Providers Care Technical Support Technician Name Role Phone Nguyen Hurst YENIFER Primary Care Provider Kim Davenport PharmD Unavailable [phone] Name, Leno GUDINO Primary Care Provider [phone] Reason for Referral * Consultation (Routine) - Authorized Specialty Diagnoses / Procedures Referred By Contac t Referred To Contact Pharmacy Diagnoses Type 2 diabetes mellitus with stage 3 chronic kidney disease, with long-term current use of insulin, unspecified whether stage 3a or 3b CKD (HCC) Elba [place] MD [address] [place] [address] Phone: tel: fax: Referral ID Status Reason Start Date Expiration Date Visits Requested Visits Authorized [id number] Authorized Consult and Treat 12/04/2024 12/04/2025 6 6 Encounter Details Date Type Department Care Team (Late st Contact Info) Description 12/04/2024 Orders Only [facility] MED[facility]INE [address] [place] [address] [phone] Elba [place] MD [address] [place], [place] [phone] Type 2 diabetes mellitus with stage 3 [...] [facility] [address] [place] [address] Snehal Santa, PharmD [address] [place] [address] 01/16/2026 10:30 AM EST Office Visit [facility] [address] [place] [address] Name, MD Leno [address] [place] [address] Scheduled Referrals Name Type Priority Associated Diagnoses [...] documented as of this encounter Care Teams Technical Support Technician Relationship Specialty Start Date End Date BunchNguyen conde FNP [address] [place] [address] PCP - General Family Medicine 07/01/22 10/10/25 Leno Garrett MD [address] [place] [address] PCP - General Internal Medicine 10/11/25 Kim Davenport PharmD [address] [place] [address] Pharmacist Internal Medicine 12/10/24 Hortensia GOODE 11/08/24 Britney Benitez Change Control ManagerTransportation Maintenance Worker 05/29/25 documented as of this encounter
--- OUTSIDE RECORDS SUMMARY | 2025-10-18 09:34 | XMS_ITS | Encounter Summary ---
Author Organization [employer] Address 75 [facility] 7t [place] [address] Care Team Providers Care Overhead Crane Technician Name Role Phone Nguyen Hurst YENIFER Primary Care Provider [phone] Kim Davenport PharmD Unavailable [phone] Name, Leno GUDINO Primary Care Provider [phone] Reason for Visit * Reason Comments Med Refill Encounter Details Date Type Department Care Team (Late st Contact Info) Description 05/06/2025 Refill [facility] 230 [place], [place] [phone] Kim Davenport, PharmD [address] [place], [place] [phone] Social History Tobacco Use Types Packs/Day Years [...] Description 11/15/2025 11:00 AM EST Medication Management [facility] [address] [place] [address] Snehal Santa PharmD [address] [place] [address] 01/16/2026 10:30 AM EST Office Visit [facility] [address] [place] [address] Leno Garrett MD [address] [place] [address] documented as of this encounter Visit Diagnoses Not on filedocumented in this encounter Additional Health Concerns Assessment Noted Time PHQ-9 Depression Total Score: 0 11/30/19 1:53 PM EST documented as of this encounter Care Teams Overhead Crane Technician Relationship Specialty Start Date End Date ScotlandNguyen DIRECTOR TRIAL [address] [place] [address] PCP - General Family Medicine 07/01/22 10/10/25 Leno Garrett MD [address] [place] [address] PCP - General Internal Medicine 10/11/25 Kim Davenport, Bridgett [address] [place] [address] Pharmacist Internal Medicine 12/10/24 Hortensia GOODE 11/08/24 Britney Benitez Athletic DirectorMortgage Banker 05/29/25 documented as of this encounter
--- OUTSIDE RECORDS SUMMARY | 2025-10-18 09:34 | XMS_ITS | Encounter Summary ---
Author Organization [employer] Address 75 [facility] 7t [place] [address] Care Team Providers Care White Metal Corrosion Proofer Name Role Phone Nguyen Hurst TORCH OPERATOR Primary Care Provider [phone] Kim Davenport PharmD Unavailable [phone] Name, Leno GUDINO Primary Care Provider [phone] Reason for Visit * Reason Comments Med Refill Encounter Details Date Type Department Care Team ([facility] st Contact Info) Description 06/19/2024 Refill [facility] 230 [place], [place] [phone] Nguyen Hurst [facility] 230 [place], [place] [phone] Social History Tobacco Use Types Packs/Day Years [...] Description 11/15/2025 11:00 AM EST Medication Management [address] [address] Snehal Santa PharmD [address] [place] [address] 01/16/2026 10:30 AM EST Office Visit [address] [address] Leno Garrett MD [address] [place] [address] documented as of this encounter Visit Diagnoses Not on filedocumented in this encounter Additional Health Concerns Assessment Noted Time PHQ-9 Depression Total Score: 5 08/02/20 23 10:05 AM EDT documented as of this encounter Care Teams White Metal Corrosion Proofer Relationship Specialty Start Date End Date [facility] [address] [place] [address] PCP - General Family Medicine 07/01/22 10/10/25 Leno Garrett MD [address] [place] [address] PCP - General Internal Medicine 10/11/25 Kim Davenport PharmD [address] [place] [address] Pharmacist Internal Medicine 12/10/24 [facility] 11/08/24 Britney Beintez [place] Fishing Boat CrewmanGround Wirer 05/29/25 documented as of this encounter
--- OUTSIDE RECORDS SUMMARY | 2025-10-18 09:34 | XMS_ITS | Encounter Summary ---
Author Organization [employer] Address 75 [facility] 7t [place] [address] Care Team Providers Care Wood Fence Installer Name Role Phone Nguyen Hurst [facility] Primary Care Provider [phone] Kim Davenport PharmD Unavailable [phone] Name, Leno GUDINO Primary Care Provider [phone] Encounter Details Date Type Department Care Team (Late st Contact Info) Description 06/24/[address] [address] [facility] [address] [place] [address] Social History Tobacco Use Types Packs/Day Years [...] Description 11/15/2025 11:00 AM EST Medication Management [facility] [address] [place] [address] Snehal Santa, PharmD [address] [place] [address] 01/16/2026 10:30 AM EST Office Visit [address] [address] Gerry, MD Leno [address] [place] [address] documented as of this encounter Visit Diagnoses Not on filedocumented in this encounter Care Teams Wood Fence Installer Relationship Specialty Start Date End Date [place] ChesterNguyen conde FNP [address] [place] [address] PCP - General Family Medicine 07/01/22 10/10/25 Leno Garrett MD [address] [place] [address] PCP - General Internal Medicine 10/11/25 Kim Davenport PharmD [address] [place] [address] Pharmacist Internal Medicine 12/10/24 Hortensia GOODE 11/08/24 Britney Benitez Front Office DirectorMarket Analysis Director 05/29/25 documented as of this encounter
--- OUTSIDE RECORDS SUMMARY | 2025-10-18 09:34 | XMS_ITS | Encounter Summary ---
Author Organization [employer] Address 75 [facility] 7t [place] [address] Care Team Providers Care Independent Living Instructor Name Role Phone Nguyen Hurst [facility] Primary Care Provider [phone] Kim Davenport PharmD Unavailable [phone] Name, Leno GUDINO Primary Care Provider [phone] Reason for Visit * Reason Onset Date Comments Change PCP 08/26/2025 Encounter Details Date Type Department Care Team ([facility] st Contact Info) Description 08/26/2025 Telephone [facility] [address] [place], [place] [phone] Nguyen Hurst [facility] [address] [place], [place] [phone] Change PCP Social History Tobacco Use Types [...] discuss pcp transfer . Contact pt at [phone] documented in this encounter Plan of Treatment Upcoming Encounters Date Type Department Care Team (Late st Contact Info) Description 11/15/2025 11:00 AM EST Medication Management [facility] MEDICINE [address] [place] [address] Snehal Santa, PharmD [address] [place] [address] 01/16/2026 10:30 AM EST Office Visit [facility]INE [address] [place] [address] Name, MD Leno [address] [place] [address] documented as of this encounter Visit Diagnoses Not on filedocumented in this encounter Additional Health Concerns Assessment Noted Time PHQ-9 Depression Total Score: 0 11/30/19 25 1:53 PM EST documented as of this encounter Care Teams Independent Living Instructor Relationship Specialty Start Date End Date Nguyen Hurst FNP [address] [place] [address] PCP - General Family Medicine 07/01/22 10/10/25 Leno Garrett MD [address] [place] [address] PCP - General Internal Medicine 10/11/25 Kim Davenport PharmD [address] [place] [address] Pharmacist Internal Medicine 12/10/24 Hortensia GOODE 11/08/24 Britney Benitez Event PlannerGolf Caddie 05/29/25 documented as of this encounter
--- OUTSIDE RECORDS SUMMARY | 2025-10-18 09:34 | XMS_ITS | Encounter Summary ---
Author Organization [employer] Address 75 [facility] 7t [place] [address] Care Team Providers Care Chief Mechanical Officer Name Role Phone Aris Nguyen RUBBER TUBING BACKER Primary Care Provider [phone] Kim Davenport PharmD Unavailable [phone] Name, Leno GUDINO Primary Care Provider [phone] Reason for Visit * Reason Onset Date Comments Referral 03/19/2024 Encounter Details Date Type Department Care Team ([facility] st Contact Info) Description 03/19/2024 Telephone [facility] [address] [place], [place] [phone] Nguyen HurstYENIFER [address] [place], [place] [phone] Referral Social History Tobacco Use Types Packs/Day [...] by psychiatrist to seek second opinion at [facility]rology, as it is causing himpsychological [...] and would like to be seen at [facility] the fax number is [phone] documented in this encounter Plan of Treatment Upcoming Encounters Date Type Department Care Team (Late st Contact Info) Description 11/15/2025 11:00 AM EST Medication Management [facility] [address] [place] [address] Snehal Santa, PharmD [address] [place] [address] 01/16/2026 10:30 AM EST Office Visit [facility] [address] [place] [address] Name, MD Leno [address] [place] [address] documented as of this encounter Visit Diagnoses Not on filedocumented in this encounter Additional Health Concerns Assessment Noted Time PHQ-9 Depression Total Score: 5 08/02/20 23 10:05 AM EDT documented as of this encounter Care Teams Chief Mechanical Officer Relationship Specialty Start Date End Date Etna Nguyen [facility] [address] [place] [address] PCP - General Family Medicine 07/01/22 10/10/25 Name, MD Leno [address] [place] [address] PCP - General Internal Medicine 10/11/25 Kim Davenport PharmD [address] [place] [address] Pharmacist Internal Medicine 12/10/24 Hortensia GOODE 11/08/24 Britney Benitez In School Suspension AideCoil Cleaner 05/29/25 documented as of this encounter
--- OUTSIDE RECORDS SUMMARY | 2025-10-18 09:34 | XMS_ITS | Encounter Summary ---
Author Organization [employer] Address 75 [facility] 7t [place] [address] Care Team Providers Care Kitchen Food Assembler Name Role Phone Aris Nguyen MANUFACTURING SALES REPRESENTATIVE Primary Care Provider [phone] Kim Davenport PharmD Unavailable [phone] Name, Leno GUDINO Primary Care Provider [phone] Reason for Visit * Reason Onset Date Comments Referral 06/04/2024 Encounter Details Date Type Department Care Team ([facility] st Contact Info) Description 06/04/2024 Telephone [facility] [address] [place], [place] [phone] Nguyen HurstYENIFER [address] [place], [place] [phone] Referral Social History Tobacco Use Types Packs/Day [...] / denial letter via mail. PT-1 Request [id number] Pending [facility] [address] [place] [address] * Telephone Encounter - Eliud Oden - 06/12/2024 9:01 AM EDT Tc from patient calling in regards to the message below states [facility] has not received referral statesit could be that [facility] has the patient as Dany Tan * Telephone Encounter - Amarjit Negron - 06/04/2024 9:40 AM EDT Tc from pt requesting status on referral for Urology made on 04/25/24, pt would like referral to [facility] to [facility]. Pt provided documented in this encounter Plan of Treatment Upcoming Encounters Date Type Department Care Team (Late st Contact Info) Description 11/15/2025 11:00 AM EST Medication Management [facility] [address] [place] [address] Snehal Santa, PharmD [address] [place] [address] 01/16/2026 10:30 AM EST Office Visit [facility] [address] [place] [address] Name, MD Leno [address] [place] [address] documented as of this encounter Visit Diagnoses Not on filedocumented in this encounter Additional Health Concerns Assessment Noted Time PHQ-9 Depression Total Score: 5 08/02/20 23 10:05 AM EDT documented as of this encounter Care Teams Kitchen Food Assembler Relationship Specialty Start Date End Date [place] [facility] [address] [place] [address] PCP - General Family Medicine 07/01/22 10/10/25 Name, MD Leno [address] [place] [address] PCP - General Internal Medicine 10/11/25 Kim Davenport PharmD [address] [place] [address] Pharmacist Internal Medicine 12/10/24 Hortensia GOODE 11/08/24 Britney Benitez Biztalk AdministratorFish Hatchery Worker 05/29/25 documented as of this encounter
--- OUTSIDE RECORDS SUMMARY | 2025-10-18 09:34 | XMS_ITS | Encounter Summary ---
Author Organization [employer] Address [address] [facility] [address] [place] [address] Care Team Providers Care Server Support Technician Name Role Phone Nguyen Hurst [facility] Primary Care Provider Kim Davenport PharmD Unavailable [phone] Name, Leno GUDINO Primary Care Provider [phone] Reason for Visit * Reason Onset Date Comments Nurse Triage 11/02/2024 Encounter Details Date Type Department Care Team ([facility] st Contact Info) Description 11/02/2024 Telephone [facility] [address] [place], [place] [phone] Nguyen Hurst [facility] [address] [place], [place] [phone] Nurse Triage Social History Tobacco Use Types [...] 12:14 PM EST TC placed to patient [phone] to inform patient, sensors will be ready at the pharmacy for p/u in approx 1 hour. RN also inquired on patients plan to come to [facility] or ED for his dizziness however [...] reinforced patient needs to be seen in [facility] or in ED for this concern. Patient agrees to call 911 as needed. Patient has Lifestyle BG monitor and needs new sensors. Does not have reading at this time. Reports BP 144/72. [facility] Contacted and sensor refills available. [...] Upcoming Encounters Date Type Department Care Team ([facility] st Contact Info) Description 11/15/2025 11:00 AM EST Medication Management [facility] [address] [place], [place] [phone] Snehal Santa, PharmD [address] [place], [place] [phone] 01/16/2026 10:30 AM EST Office Visit [facility] [address] [facility] [place] [id number] NameLeno MD [address] [place] [id number] documented as of this encounter Visit Diagnoses Not on filedocumented in this encounter Additional Health Concerns Assessment Noted Time PHQ-9 Depression Total Score: 0 07/04/20 24 3:20 PM EDT documented as of this encounter Care Teams Server Support Technician Relationship Specialty Start Date End Date [facility], [facility] [address] [facility] [place] [address] PCP - General Family Medicine 07/01/22 10/10/25 NameLeno MD [address] [facility] [place] [address] PCP - General Internal Medicine 10/11/25 Kim Davenport PharmD [address] [facility] [place] [address] Pharmacist Internal Medicine 12/10/24 Hortensia GOODE 11/08/24 Britney Benitez Floor LayerAudience Development Manager 05/29/25 documented as of this encounter
--- OUTSIDE RECORDS SUMMARY | 2025-10-18 09:34 | XMS_ITS | Encounter Summary ---
Author Organization [email or web address] Address [address] [facility] 7t [place] [address] Care Team Providers Care Flexographic Press Operator Name Role Phone Nguyen Hurst [employer] Primary Care Provider Kim Davenport PharmD Unavailable Name, Leno GUDINO Primary Care Provider [phone] Reason for Referral * Consultation (Routine) - Authorized Specialty Diagnoses / Procedures Referred By Contac t Referred To Contact Pharmacy Diagnoses Hypertension Olga Brown MD [address] [place] [address] Phone: tel: fax: Referral ID Status Reason Start Date Expiration Date Visits Requested Visits Authorized [id number] Authorized Continuity of Care 04/08/2025 04/08/2026 6 6 Encounter Details Date Type Department Care Team (Late st Contact Info) Description 04/05/2025 Orders Only [facility] [address] [place], [place] [phone] Olga Brown MD [address] [place], [place] [phone] Hypertension (Primary Dx) Social History Tobacco Use [...] Description 11/15/2025 11:00 AM EST Medication Management [facility] [address] [place] [phone] Snehal Santa, PharmD [address] [place] [address] 01/16/2026 10:30 AM EST Office Visit [facility] [address] [place] [phone] Name, MD Leno [address] [place] [phone] Scheduled Referrals Name Type Priority Associated Diagnoses Orde r Schedule Referral to Pharmacy [place] Outpatient Referral Routine Hypertension Ordered: 04/08/2025 documented as of this encounter Visit Diagnoses Diagnosis Hypertension- Primary Unspecified essential hypertension documented in this encounter Additional Health Concerns Assessment Noted Time PHQ-9 Depression Total Score: 0 11/30/19 1:53 PM EST documented as of this encounter Care Teams Flexographic Press Operator Relationship Specialty Start Date End Date Nguyen Hurst FNP [address] [place] [phone] PCP - General Family Medicine 07/01/22 10/10/25 Leno Garrett MD [address] [place] [address] PCP - General Internal Medicine 10/11/25 Kim Davenport PharmD [address] [place] [phone] Pharmacist Internal Medicine 12/10/24 Hortensia GOODE 11/08/24 Britney Benitez Counter Top AssemblerLifestyle Coordinator 05/29/25 documented as of this encounter
--- OUTSIDE RECORDS SUMMARY | 2025-10-18 09:34 | XMS_ITS | Encounter Summary ---
Author Organization [employer] Address [address] [facility] 7[address] [place] [address] Care Team Providers Care Home Paraprofessional Name Role Phone Nguyen Hurst [facility] Primary Care Provider [phone] Kim Davenport PharmD Unavailable [phone] Name, Leno GUDINO Primary Care Provider [phone] Reason for Visit * Reason Onset Date Comments Referral 05/23/2023 Encounter Details Date Type Department Care Team ([facility] Contact Info) Description 05/23/2023 Telephone [facility] MEDICINE [address] [place], [place] [phone] Nguyen Hurst [facility] [address] [place] [address] Referral Social History Tobacco Use Types Packs/Day [...] toe nails. Referrals Date-N/A Time- N/A Address- [place] [address] Specialty- Podiatry Fax: documented in this encounter Plan of Treatment Upcoming Encounters Date Type Department Care Team ([facility] Contact Info) Description 11/15/2025 11:00 AM EST Medication Management [facility] [place] [address] Snehal Santa PharmD [facility] [place] [address] 01/16/2026 10:30 AM EST Office Visit [facility] [place] [address] Name, MD Leno [facility] [place] [address] documented as of this encounter Visit Diagnoses Not on filedocumented in this encounter Care Teams Home Paraprofessional Relationship Specialty Start Date End Date [place] [facility] [place] [address] PCP - General Family Medicine 07/01/22 10/10/25 Leno Garrett MD [facility] [place] [address] PCP - General Internal Medicine 10/11/25 Kim Davenport PharmD [facility] [place] [address] Pharmacist Internal Medicine 12/10/24 Hortensia GOODE 11/08/24 Britney Benitez Electrical Technician InstructorMini Lab Operator 05/29/25 documented as of this encounter
--- OUTSIDE RECORDS SUMMARY | 2025-10-18 09:34 | XMS_ITS | Clinical Summary ---
Author Organization [employer] Address [address] [facility] 7[address] [place] [address] Care Team Providers Care Abnormal Psychology Teacher Name Role Phone Kim [place] PharmD Unavailable [phone] Name, Leno GUDINO Primary Care Provider [phone] Allergies Active Allergy Reactions Criticality Noted Date [...] directed 100 each 12 025 2025 Active glucose blood (FreeStyle Precision Omid Test) test strip Use to test blood sugar 3 times daily in case of CGM failure or extremes of BG 100 each 11 5 12:45 PM EST 025 Active Multiple Vitamin (multivitamin) tabletIndicatio ns:Type [...] BID daily as directed 100 each 1 5 12:45 PM EST 025 Active Acetaminophen Extra Strength 500 MG [...] MUSCLE SPASMS 30 tablet 2 025 Active gabapentin (Neurontin) 100 MG capsule TAKE 1 CAPSULE BY MOUTH THREE TIMES DAILY 90 capsule 3 5 12:45 PM EST Active apixaban (Eliquis) 5 MG tablet TAKE 1 TABLET BY MOUTH TWICE DAILY IN THE MORNING AND IN THE EVENING 60 tablet 5 12:45 PM EST Active fluticasone (Flonase) 50 MCG/ACT nasal spray INSTILL 1 SPRAY IN EACH NOSTRIL TWICE DAILY 48 g 5 12:46 PM EST Active meclizine (Antivert) 12.5 MG tabletIndicatio ns:Dizziness TAKE 1 TABLET BY MOUTH THREE TIMES DAILY IN THE MORNING, AT NOON, AND AT BEDTIME NEEDED FOR DIZZINESS 90 tablet 5 12:45 PM EST Active dapagliflozin (Farxiga) 10 MGIndications:T ype 2 diabetes mellitus with stage 3 chronic kidney disease, without long-term current use of insulin, unspecified whether stage 3a or 3b CKD (HCC) Take 1 tablet (10 mg) by mouth in the morning. 30 tablet 2 Active Continuous Glucose Manager Msw (FreeStyle Diann 3 [place]) device 1 each Once per day. Use as directed for CGM 1 each Active Continuous Glucose Sensor (FreeStyle Diann 3 Plus Sensor) misc Apply 1 every 15 days as directed for CGM 2 each Active Alcohol Swabs 70 % pads 1 each Once daily as needed (for blood glucose monitoring). 100 each 2 Active Continuous Blood Gluc Manager Msw (FreeStyle Diann 2 [place]) deviceIndicatio ns:Type 2 diabetes mellitus with stage [...] not trigger notification to Pharmacy)) Continuous Glucose Manager Msw (FreeStyle Diann 3 [place]) device 1 each Once per day. Use as directed for CGM 1 each 2024 Discontinued(M ed list cleanup (will not trigger notification to Pharmacy)) Continuous Glucose Sensor (FreeStyle Diann 3 Plus Sensor) misc Apply 1 every 15 days as directed for CGM 2 each 2024 Discontinued(R eorder (will not trigger notification to Pharmacy)) fluticasone (Flonase) 50 MCG/ACT nasal spray INSTILL 1 SPRAY IN EACH NOSTRIL TWICE DAILY 48 g 2024 Discontinued(R eorder (will not trigger notification to Pharmacy)) gabapentin (Neurontin) 100 MG capsule Take 1 capsule (100 mg) by mouth 3 times daily. 90 capsule 3 2024 Discontinued Farxiga 10 MGIndications:T ype 2 diabetes mellitus with stage 3 chronic kidney disease, without long-term current use of insulin, unspecified whether stage 3a or 3b CKD (HCC) TAKE 1 TABLET BY MOUTH EVERY MORNING 30 tablet 2 2024 Discontinued(R eorder (will not trigger notification to Pharmacy)) meclizine (Antivert) 12.5 MG tabletIndicatio ns:Dizziness TAKE [...] eorder (will not trigger notification to Pharmacy)) Continuous Glucose Sensor (FreeStyle Diann 3 Sensor) miscIndications :Type 2 diabetes mellitus with stage 3 chronic kidney disease, with long-term current use of insulin, unspecified whether stage 3a or 3b CKD (HCC) 1 each every 14 (fourteen) days. APPLY 1 SENSOR TO SKIN DIRECTED 2 each 025 2024 Discontinued(M ed list cleanup (will not trigger notification to Pharmacy)) Active Problems Problem Noted Date Diagnosed Date PFO (patent foramen ovale) 10/15/2025 Ischemic cardiomyopathy 07/12/2025 Periodontal disease 09/28/2024 Severe [...] his children. PLAN: 1. Follow up with [facility]: Not recommended for follow-up 2. Patient goal is to find motivation again. 3. Behavioral Recommendations a. Referral for OP individual therapy b. Incorporate grounding techniques into daily routine c. [place] his brother's life by doing activities in [...] his children. PLAN: 1. Follow up with [facility]: Not recommended for follow-up 2. Patient goal is to find motivation again. 3. Behavioral Recommendations a. Referral for OP individual therapy b. Incorporate grounding techniques into daily routine c. [place] his brother's life by doing activities in his memory Alcoholism ([facility]) 02/18/2022 Epilepsy ([facility]) 02/18/2022 Renal osteodystrophy 10/20/2021 Stage 3 chronic kidney disease ([facility] 021 Proteinuria 09/14/2021 Chronic kidney disease, stage [...] ganglia, kim, microvascular changes. History of alcoholism ([facility]) 08/15/2013 Hypertension 08/15/2013 Erectile dysfunction 08/15/2013 Hyperlipidemia 08/06/2013 Diabetes mellitus 08/06/2013 Overview (07/03/2024): Currently taking metformin 1000mg once daily, lantus, and humalog-unclear how many units patient is currently injecting. Pt states he is sick of injecting insulin and frequently forgets. Only checks BS 2-3x/month. Heavy proteinuria followed by nephrology for CKD. ([facility]. [facility]) last seen 10/2022 CVA (cerebral vascular accident) (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 Resolved Problems Problem Noted Date Diagnosed Date Resolved Date Redundant nuchal skin 08/18/20242024 Edentulous maxilla 07/31/2024 Redundant prepuce 02/18/2022 07/12/2025 Diabetic foot 10/02/2018 07/12/2025 Unstable knee 08/04/2018 07/12/2025 Tinea pedis 12/20/2013 07/12/2025 Redundant prepuce and phimosis 08/15/2013 07/12/2025 Back ache 08/06/2013 07/12/2025 Encounters Date Type Department Care Team Description 10/17/2025 Telephone [facility] [address] [place] [address] Leno Garrett MD Record Request 10/15/2025 10:15 AM EST Office Visit [facility] [address] [place] [address] Leno Garrett MD Type 2 diabetes mellitus with stage 3 chronic kidney disease, without long-term current use of insulin, unspecified whether stage 3a or 3b CKD (HCC) (Primary Dx); Ischemic cardiomyopathy; Cerebrovascular accident (CVA), unspecified mechanism (CMS/HCC) (HCC); PFO (patent foramen ovale) 10/15/2025 Travel 10/08/2025 Patient Outreach [facility] [address] [place] [address] Nguyen Hurst FNP Pre-visit Planning (SDOH completed. ) 10/07/2025 Travel 09/27/2025 Refill [facility] [address] [place] [address] Elba Jackson MD 09/27/2025 Refill [facility] [address] [place] [address] Myesha Jamil DO Dizziness 09/27/2025 Refill [facility] [address] [place] [address] Nguyen Hurst FNP Dizziness 09/22/2025 Refill [facility] [address] [place] [address] Myesha Jamil DO 09/12/2025 Telephone [facility] [address] [place] [address] Wendy Gresham RN CGM PA 09/10/2025 Refill [facility] [address] [place] [address] Elba Jackson MD Type 2 diabetes mellitus with stage 3 chronic kidney disease, with long-term current use of insulin, unspecified whether stage 3a or 3b CKD (HCC) 08/30/2025 Refill [facility] [address], [place] [address] Nguyen Hurst, MERCHANDISE FLOW TEAM MEMBER 08/27/2025 Telephone [facility] [address], [place] [address] Cornelius Sheridan MD 08/27/2025 Telephone [facility] [address], [place] [address] Cornelius Sheridan MD 08/27/2025 Telephone [facility] [address], [place] [address] Nguyen Hurst MERCHANDISE FLOW TEAM MEMBER 08/26/2025 Telephone [facility] [address], [place] [address] Nguyen Hurst FNP Change PCP 08/23/2025 Telephone [facility] [address], [place] [address] Nguyen Hurst FNP Change PCP 08/20/2025 Telephone [facility] [address], [place] [address] Nguyen Hurst FNP 08/20/2025 Telephone [facility] [address], [place] [address] Nguyen Hurst FNP TRANSFER REQUEST 08/20/2025 Telephone [facility] [address], [place] [address] Nguyen Hurst [facility] Hospital Follow-up 08/19/2025 Telephone [facility] [address], [place] [address] Nguyen Hurst FNP RMV paperwork; Change PCP 08/16/2025 Telephone [facility] [address], [place] [address] Nguyen Hurst FNP 08/16/2025 Telephone [facility] [address], [place] [address] Nguyen Hurst FNP requesting a call back 08/09/2025 Telephone [facility] [address], [place] [address] Nguyen Hurst FNP Nov recall 08/09/2025 Refill [facility] [address], [place] [address] Nguyen Hurst MERCHANDISE FLOW TEAM MEMBER Cerebrovascular accident (CVA), unspecified mechanism ([facility]) 08/06/2025 Refill [facility] [address] [place] [address] Nguyen Hurst [facility] Dizziness; Other chronic pain 08/05/2025 Results Follow-Up [facility] [address] [place] [address] Nguyen Hurst [facility] POCT HGB A1C, POCT Glucose, Cologuard colon cancer screening 08/02/2025 Telephone [facility] [address] [place] [address] Nguyen Hurst [facility] 07/25/2025 Refill [facility] [address] [place] [address] [facility] Type 2 diabetes mellitus with stage 3 chronic kidney disease, without long-term current use of insulin, unspecified whether stage 3a or 3b CKD ([facility]) from Last 3 Months Immunizations Immunization Administration Dates Next Due Influenza, Split (incl. purified surface antigen ) 09/04/2013 Influenza, seasonal, injectable, preservative fr ee 10/08/2025,11/03/2024 Pfizer Covid-19 Vaccine 12+ 10/08/2025, Pneumococcal Conjugate PCV 20 07/12/2025 Tdap 04/09/2022,08/15/2012 [...] Mass Index 21.96 10/15/2025 10:31 AM EST Plan of Treatment Upcoming Encounters Date Type Department Care Team (Late st Contact Info) Description 11/15/2025 11:00 AM EST Medication Management [facility] [address] [place] [address] Snehal Santa, PharmD [address] [place] [address] 01/16/2026 10:30 AM EST Office Visit [facility] [address] [facility] [facility] [place] [address] Name, [place] [address] Health Maintenance Due Date Last Done Comments CT Colonography 1965 Colonoscopy 1965 Colorectal Cancer Screening 1965 Dental Prophylaxis 1965 FIT DNA/Cologuard 1965 FIT 1965 FOBT 1965 Sigmoidoscopy 1965 Eye Exam 1975 Hepatitis C Screening 1983 RSV Patients and Patients Aged 60 years or older (1 - Risk 50-74 years 1-dose series) 2015 Dental X-Ray: Bitewings 05/21/2016 05/20/2015 Lipid Panel 07/07/2024 07/07/2023, 02/26, 06/08/2021 Dental Oral Exam 03/29/2025 09/28/2024, , 05/20/2015 Diabetes: Foot Exam 07/04/2025 07/04/2024, 07/04/2024, 07/04/2024 Zoster Vaccines (2 of 2) 09/11/2025 07/17/2025 SDOH Screening 11/09/2025 11/09/2024 Diabetes: Hemoglobin A1C 01/15/2026 025, 07/12/2025, 04/01/2025, Additional history exists Depression Monitoring 04/14/2026 10/15/2025, 025 Alcohol/Substance Use Screening 10/15/2026 10/15/2025 Disability Screening 10/15/2026 10/15/2025 Tobacco Screening 10/15/2026 10/15/2025 Dental X-Ray: Full Mouth 07/04/2027 024, 09/07/2023, 03/24/2017, Additional history exists DTaP/Tdap/Td Vaccines (3 - Td or Tdap) 04/09/2032 04/09/2022, 08/15/2012 HIV Screening Completed 03/15/2024 Pneumococcal Vaccine: 50+ Years Completed 07/12/2025 COVID-19 Vaccine Completed 10/08/2025, , 12/24/2021, Additional history exists Influenza Vaccine Completed 10/08/2025, , 09/04/2013 HIB Vaccines Aged Out No longer eligi [...] on patient's age to complete this topic Goals Goal Patient Goal Type Associated Problems [...] chronic kidney disease No Eliseo Ann [place] Procedures Procedure Name Priority Date/Time Associated Diagnosis [...] whether stage 3a or 3b CKD (HCC) LAB COLOGUARD COLON CANCER SCREEN- Unsuccessful Attempt Routine 08/04/2025 12:48 PM EDT Screening for colon cancer PERIODIC ORAL EVALUATION - ESTABLISHED PATIENT Routine [...] to Health Maintenance Results * (ABNORMAL) POCT Hgb A1c (10/15/2025 10:35 AM EST) Hemoglobin A1C 9.1(A) 4.0 - 5.7 % QC Media Lot # [id number] Lot# Expiration Date 52,327 Blood 10/15/2025 10:3 5 AM EST us Lenorex Garrett MD POINT OF CARE TEST ENTER/EDIT OR DERABLES Final Result * (ABNORMAL) POCT Glucose (10/15/2025 10:34 AM EST) Glucose Blood, POC 304(A) 60 - 200 mg/dL QC Media Lot # [id number] Lot# Expiration Date 31,126 Blood Capillary blood specimen / Unknown 10/15/2025 10:34 AM EST Leno Garrett MD POINT OF CARE TEST ENTER/EDIT OR DERABLES Final Result * Cologuard?? colon cancer screening (08/04/2025 12:48 PM EDT) - Unsuccessful Attempt Pathologist [facility] Cologuard Result Sample Could Not Be Processed 9 N/A 08/04/2025 12:48 PM EDT [employer] (CLIA #:[id number]) Comment: The Cologuard (TM) test was assigned to this specimen. An empty collection kit was received in the laboratory. The patient will be contacted to initiate a new sample collection. Stool specimen (specimen) 08/02/2025 9:30 AM EDT [facility] LAB MOLECULAR DIAGNOSTICS ORD ERABLES Final Result [employer] (CLIA #:[id number]) [address] [place] [address], * HIV-1/2 Antigen and Antibodies, Fourth Generation, with Reflexes (03/15/2024 12:42 PM EDT) Pathologist [facility] HIV AB/AG Nonreactive Nonreactive [facility] Comment:HIV-1 p24 Ag and/or HIV-1/HIV-2 Ab not detected.A test result that is nonreactive does not exclude thepossibility of exposure to or infection with HIV-1 and/orHIV-2. Nonreactive results in this assay for individualswith prior exposure to HIV-1 and/or HIV-2 may be due toantigen and antibody levels that are below the limit ofdetection of this assay.The [employer] HIV Ag/Ab Combo assay result andsupplemental assay results should be interpreted inconjunction with the patient's clinical presentation,history and other laboratory results. If the results areinconsistent with clinical evidence, additional testing issuggested to confirm the result. Blood Venous blood specimen / Unknown 03/15/2024 12:42 PM EDT 03/15/2024 3:58 PM EDT [facility] LAB BLOOD ORDERABLES Final Re sult Performing Organization Address [facility] Co de Phone Number [facility] [address] [place] [address] [phone] * Lipid Panel, Standard (07/07/2023 9:53 AM EDT) Triglycerides 249 mg/dL [facility] Comment:Desirable Triglyceri de: less than 150 mg/dLBorderline High Triglyceride 150-199 mg/dLHigh Triglyceride: 200-499 mg/dLVery High Triglyceride: greater than or equal to 5OO mg/dL Cholesterol 200 mg/dL [facility] Comment:Desirable Cholestero l: less than 200 mg/dLBorderline High Cholesterol: 200-239 mg/dLHigh Cholesterol: greater than 239 mg/dL LDL Cholesterol Calculated 95 mg/dl [facility] Comment:Desirable LDL: less than 100 mg/dLNear Optimal/Above Optimal LDL: 110- 129 mg/dLBorderline High LDL: 130-159 mg/dLHigh LDL: 160-189 mg/dLVery High LDL: greater than or equal to 190 mg/dL HDL Cholesterol 56 mg/dL [facility] Comment:Desirable HDL: great er than 40 mg/dL Note: This HDL assay may give artificially low results in patients with liver disease. Blood Venous blood specimen / Unknown 07/07/2023 9:53 AM EDT 07/07/2023 11:18 AM EDT [facility] LAB BLOOD ORDERABLES Final Re sult Performing Organization Address City/[facility]/ZIP Co de Phone Number [facility] [address] [place] [address] [phone] from Last 3 Months or Most Recently Relevant to Health Maintenance Additional Health Concerns Active Problems Noted Date [...] 10/15/2025 Patient has chronic kidney disease 10/15/2025 Insurance [facility] C3 DENTAL-[facility] MEDICAID STAND ADULT Advance Directives Documents on File Type Date Recorded Patient Winding Department Supervisor Expl anation Advance Directives and Living Will 12/11/2024 Health Care Proxy 12/10/24 Care Teams Abnormal Psychology Teacher Relationship Specialty Start Date End Date Name, MD Leno [address] [place] [address] PCP - General Internal Medicine 10/11/25 Kim [place] PharmD [address] [place] [address] Pharmacist Internal Medicine 12/10/24 Hortensia GOODE 11/08/24 Britney Benitez Tax Examining TechnicianInorganic Chemist 05/29/25
--- OUTSIDE RECORDS SUMMARY | 2025-10-18 09:34 | XMS_ITS | Encounter Summary ---
Author Organization [employer] [facility] Address [address] [facility] 7t [place] [address] Care Team Providers Care Investment Banking Manager Name Role Phone Nguyen Hurst Primary Care Provider [phone] Kim [place] PharmD Unavailable [phone] NameLeno MD Primary Care Provider [phone] Encounter Details Date Type Department Care Team (Late st Contact Info) Description 03/18/2023 Orders Only [facility] [address] [place] [address] Tracee Cabrera LPN Social History Tobacco Use [...] Description 11/15/2025 11:00 AM EST Medication Management [address] [address] Snehal Santa, PharmD [address] [place] [address] 01/16/2026 10:30 AM EST Office Visit [facility] [address] [place] [address] Leno Garrett MD [address] [place] [address] documented as of this encounter Visit Diagnoses Not on filedocumented in this encounter Care Teams Investment Banking Manager Relationship Specialty Start Date End Date Nguyen Hurst FNP [address] [place] [address] PCP - General Family Medicine 07/01/22 10/10/25 Leno Garrett MD [address] [place] [address] PCP - General Internal Medicine 10/11/25 Kim [place] PharmD [address] [place] [address] Pharmacist Internal Medicine 12/10/24 Hortensia GOODE 11/08/24 Britney Benitez Content ProducerFisher [place] 05/29/25 documented as of this encounter
--- OUTSIDE RECORDS SUMMARY | 2025-10-18 09:34 | XMS_ITS | Encounter Summary ---
Author Organization [employer] Address [address] [facility] 7t [place] [address] Care Team Providers Care Preparatory Technician Name Role Phone Nguyen Hurst YENIFER Primary Care Provider [phone] Kim [place] PharmD Unavailable [phone] Name, Leno GUDINO Primary Care Provider [phone] Reason for Visit * Reason Onset Date Comments snap on denture referral 06/21/2024 appt 06/21/2024 Encounter Details Date Type Department Care Team (Late st Contact Info) Description 06/21/2024 Telephone [facility] [address] [place], [place] [phone] Brian Cosby DDS [address] [place], [place] [phone] snap on denture referral; appt Social History [...] Description 11/15/2025 11:00 AM EST Medication Management [facility] [address] [place] [address] Snehal Santa, PharmD [address] [place] [address] 01/16/2026 10:30 AM EST Office Visit [facility] [address] [place] [phone] Name, MD Leno [address] [place] [phone] documented as of this encounter Visit Diagnoses Not on filedocumented in this encounter Additional Health Concerns Assessment Noted Time PHQ-9 Depression Total Score: 5 08/02/20 23 10:05 AM EDT documented as of this encounter Care Teams Preparatory Technician Relationship Specialty Start Date End Date Nguyen Hurst FNP [address] [place] [address] PCP - General Family Medicine 07/01/22 10/10/25 Leno Garrett MD [address] [place] [address] PCP - General Internal Medicine 10/11/25 Kim [place] PharmD [address] [place] [phone] Pharmacist Internal Medicine 12/10/24 Hortensia GOODE 11/08/24 Britney Benitez Psychiatry ResidentGrocery Cashier 05/29/25 documented as of this encounter
== END 2025-10-17 09:08 | disposition home or self-care (01) ==
LOC: HO.HOSX 09:07
PROVIDERS: Visit Provider Physician Assistant
DX: Z13.89 Encounter for screening for other disorder (principal)

== ENCOUNTER 2025-10-23 08:51 | Outpatient (REF) | payer MEDICAID, SELFPAY ==
--- OUTSIDE RECORDS SUMMARY | 2025-10-23 09:27 | XMS_ITS | Clinical Summary ---
Author Organization [address] [facility] Address [address] [place] [address] Phone Care Team Providers Care Warehouse Packer Name Role Phone Ellie Shanks MD Primary [...] Problem Noted Date Diagnosed Date Diabetes mellitus ([facility] V24, [facility] V28) Alcoholism ([facility] V24, [facility] V28) 02/18/2022 Back ache 02/18/2022 CVA (cerebral vascular accident) ([facility] V24, [facility] V28) 02/18/2022 Epilepsy [place] [place], [facility] [place] 02/18/2022 Erectile dysfunction 02/18/2022 Hyperlipidemia 02/18/2022 Hypertension 02/18/2022 Tinea pedis 02/18/2022 Redundant prepuce 02/18/2022 Osteomyelitis of foot ([facility] [place], [facility] [place] 03/25/2011 Surgical History Surgery Date Site/Laterality Comments FOOT SURGERY 2009 PROCEDURE: HISTORICAL FOOT SURGERY; COMMENT: Right foot infection BACK SURGERY 1984 PROCEDURE: HISTORICAL BACK SURGERY; COMMENT: low back Medical History Medical History Date Comments CVA (cerebral vascular accid ent) [place] [place], [facility] [place] 02/18/2022 DX:CVA (cerebral vascular a ccident) ([facility]) Hypertension 02/18/2022 DX:Hypertension Erectile dysfunction 02/18/2022 DX:Erectile dysfunction Redundant prepuce 02/18/2022 DX:Redundant p repuce Hyperlipidemia 02/18/2022 DX:Hyperlipidemi a Epilepsy ([facility] [place], [facility] [place] 02/18/2022 DX:Epilepsy ([facility]) Social History Tobacco Use Types [...] Test (03/15/2024) Annual BMP Blood Test Abstracted [facility] Provider MD HEALTH MAINTENANCE Final Result * HIV Screening (03/15/2024) HIV Screening Abstracted [facility] Provider MD HEALTH MAINTENANCE Final Result * Hemoglobin A1c (03/15/2024) Hemoglobin A1C 0.0 % Comment:No interpretation, A bstracted Blood Venous blood specimen / Unknown Result [facility] Provider MD LAB BLOOD ORDERABLES Rima l Result * Lipid panel (07/07/2023) LDL/HDL Ratio 0 Comment:Abstracted Triglycerides 0 mg/dL Comment:Abstracted Cholesterol 0 mg/dL Comment:Abstracted HDL 0 mg/dL Comment:Abstracted LDL Cholesterol 0 mg/dL Comment:Abstracted Blood Venous blood specimen / Unknown Result [facility] Provider MD LAB BLOOD ORDERABLES Rima l Result from Last 3 Months or Most Recently Relevant to Health Maintenance Insurance [place] Care Teams Warehouse Packer Relationship Specialty Start Date End Date Ellie Shanks MD [address] [place] [phone] PCP - General Internal Medicine 02/04/22
--- OUTSIDE RECORDS SUMMARY | 2025-10-23 09:27 | XMS_ITS | Clinical Summary ---
Author Organization [facility]. Address [address] [place] [address] Phone Care Team Providers Care Small Piece Cutter Name Role Phone Ellie Shanks Primary Care [...] his children. PLAN: 1. Follow up with [facility]: Not recommended for follow-up 2. Patient goal is to find motivation again. 3. Behavioral Recommendations a. Referral for OP individual therapy b. Incorporate grounding techniques into daily routine c. [place] his brother's life by doing activities in [...] [facility] [address] [place] [address] Chris King [...] [facility] [address] [place] [address] Chris King MD [address] [facility] [address] [place] [address] Health Maintenance Due Date Last Done Comments [...] complete this topic Insurance [place] , [place] [id number] [address] [place] Care Teams Small Piece Cutter Relationship Specialty Start Date End Date Ellie Shanks [address] [address] PCP - General Internal Medicine 07/03/21
--- OUTSIDE RECORDS SUMMARY | 2025-10-23 09:27 | XMS_ITS | Clinical Summary ---
Author Organization [facility] Address [address] [place] [address] Care Team Providers Care Title Vehicle Service Attendant Name Role Phone [facility] Primary Care Provider [phone] Allergies Active Allergy Reactions Criticality Noted Date [...] propionate (FLONASE) 50 mcg/actuation nasal spray SMARTSI [place](s) Both Nares Twice Daily Active INSULIN ASPART [...] of Health Annual Screening 11/28/2024 Influenza Vaccine (#1) 2025 09/04/2013 COVID-19 Vaccine (4 - 2024-2 6 season) 2025 12/24/2021, 04/15/2021, 03/11/2021 DTaP,Tdap,and Td Vaccines (3 - Td or Tdap) 04/09/2032 04/09/2022, 08/15/2012 RSV Vaccine (60+ years old a nd patients) (1 - 1-dose 75+ series) 02/22/2040 HIV Screening Completed 03/15/2024, 03/15/2024 Hepatitis B Vaccines Aged Out No long er eligible based on patient's age to complete this topic Insurance [place] Care Teams Title Vehicle Service Attendant Relationship Specialty Start Date End Date [facility] [address] [place] [id number] PCP - General 06/29/24
[2025-10-23 12:25] LABS: Cholesterol 153 mg/dL (<200); HDL Cholesterol 72 mg/dL (>40); Triglycerides 92 mg/dL (<150)
== END 2025-10-23 08:52 | disposition home or self-care (01) ==
LOC: HO.HHCL 08:51
PROVIDERS: PCP Registered Nurse; Visit Provider Registered Nurse
DX: E11.22 Type 2 diabetes mellitus with diabetic chronic kidney disease (principal); N18.30 Chronic kidney disease, stage 3 unspecified; E78.5 Hyperlipidemia, unspecified
CPT/HCPCS: 36415; 80061